=== PATIENT | female | born 1940 | race Caucasian/White ===

== ENCOUNTER 2016-03-20 20:29 | Emergency (ER) | payer MEDICARE, OTHER ==
[~2016-03-20] VITALS: Ht 160 cm; Wt 95.3 kg
[~2016-03-20 20:29] MED LIST: ACET-1574 PO; ALBU2.5V5 NEB; ALPR0.254 PO; AMIO200T2 PO; ASCO500T2 PO; ASPI-482 PO; ATOR40TA PO; ATOR40TA59 PO; BISA5TAB4 PO; DIGO0.12 PO; DIGO125T PO; DIPH25CA3 PO; DOCU100C5 PO; FURO40TA4 PO; GUAI-112 PO; INSU300I SQ; IPRA4AER IH; LEVO75TA PO; LINA5TAB PO; LORA1TAB PO; LOSA25TA PO; MAGN400O4 PO; METF500T25 PO; METF500T4 PO; METO25TA4 PO; MULT-114 PO; OXYC20OR PO; OXYC20TA PO; OXYC30TA PO; OXYC5TAB PO; OXYC80TA16 PO; PANT40TA5 PO; POLY119P4 PO; POTA20TA12 PO; POTA25TA4 PO; SITA100T PO; SITA50TA PO; SPIR25TA PO; WARF1TAB7 PO; WARF2TAB PO
[2016-03-20] MEDS ORDERED: ONDANSETRON PF 4 MG/2 ML VIAL. IV ONE (21:15)
[2016-03-20 21:20] LABS: BASO # 0.1 x10^3/uL (0.0-0.2); BASO % 1 % (0-3); EOS % 9 % (0-3); HEMATOCRIT 37.4 % (36.0-47.0); HEMOGLOBIN 12.5 g/dL (12.0-15.5); LYMPH # 1.1 x10^3/uL (1.0-4.8); LYMPH % 18 % (24-48); MEAN CORPUSCULAR HEMOGLOBIN 34 pg (25-35); MEAN CORPUSCULAR HGB CONC 33 g/dL (31-37); MEAN CORPUSCULAR VOLUME 102 fL (79-100); MONO % 14 % (0-9); NEUT % 59 % (31-73); PLATELET COUNT 93 x10^3/uL (140-400); RED BLOOD COUNT 3.69 x10^6/uL (3.50-5.40); RED CELL DISTRIBUTION WIDTH 15.9 % (11.5-14.5); WHITE BLOOD COUNT 6.1 x10^3/uL (4.0-11.0)
[2016-03-20 21:28] LABS: INR 1.4 (0.8-1.1); PROTHROMBIN TIME PATIENT 16.2 SEC (11.7-14.0)
[2016-03-20 21:34] LABS: CALCIUM 8.6 mg/dL (8.5-10.1); CREATININE 1.9 mg/dL (0.6-1.0); GFR 25.7; POTASSIUM 4.4 mmol/L (3.5-5.1)
[2016-03-20 21:35] LABS: MAGNESIUM 2.3 mg/dL (1.8-2.4)
[2016-03-20 21:48] LABS: BILIRUBIN,URINE NEGATIVE (NEG); GLUCOSE,URINE NEGATIVE (NEG); NITRITE,URINE NEGATIVE (NEG); PH,URINE 5.5; PROTEIN,URINE NEGATIVE (NEG-TRACE); UROBILINOGEN,URINE 0.2 mg/dL (0.2 mg/dL)
[2016-03-20 21:57] LABS: BACTERIA,URINE FEW /HPF (0-FEW); RBC,URINE 0 /HPF (0-2); SQUAMOUS EPITHELIAL CELL,UR MOD /LPF; WBC,URINE OCC /HPF (0-4)
[2016-03-20 22:30] VITALS: BP 120/67
--- NOTE | 2016-03-20 22:34 | PHYS DOC ---
Past Medical History Past Medical History: A-Fib, CAD, CHF, Constipation, Diabetes-Type II, Hypertension Past Surgical History: Cholecystectomy, Coronary Bypass Surgery, , Other Additional Past Surgical Histo: L KIDNEY REMOVED,ORIF L HIP Alcohol Use: None Drug Use: None Adult General Chief Complaint Chief Complaint: WEAKNESS/GENERALIZED HPI HPI Patient is a 75 year old female who presents with dry cough for the past 23 days. She took Tussionex tonight and then went to bed. She woke shortly thereafter words feeling short of breath, lightheaded, and had nausea. She called EMS and her symptoms have resolved by this time. She is currently feeling at her baseline other than minimal cough. She notes minimal increase chronic lower extremity edema recently. She does not weigh herself at home so she is not sure weight gain. She denies new or worsening orthopnea, exertional dyspnea, fever or chills, chest pain, diaphoresis, dizziness, hemoptysis, leg pain. She denies nasal congestion, rhinorrhea, sore throat. She denies sick contacts. She states she is compliant with her medications including Lasix. Review of Systems Review of Systems Constitutional: Denies fever or chills [] Eyes: Denies change in visual acuity, redness, or eye pain [] HENT: Denies nasal congestion or sore throat [] Respiratory: Denies shortness of breath [] Cardiovascular: No additional information not addressed in HPI [] GI: Denies abdominal pain, nausea, vomiting, bloody stools or diarrhea [] : Denies dysuria or hematuria [] Musculoskeletal: Denies back pain or joint pain [] Integument: Denies rash or skin lesions [] Neurologic: Denies headache, focal weakness or sensory changes [] Endocrine: Denies polyuria or polydipsia [] Current Medications Current Medications Current Medications Medications (Trade) Dose Ordered Sig/Ermias Start Time Stop Time Status Last Admin Dose Admin Furosemide (Lasix) 40 mg STK-MED ONCE 03/20/16 22:37 03/20/16 22:38 DC Ondansetron HCl (Zofran) 4 mg 1X ONCE 03/20/16 21:15 03/20/16 21:16 DC 03/20/16 21:45 4 MG Allergies Allergies Allergies Coded Allergies Type Severity Reaction Last Updated Verified No Known Drug Allergies 07/27/13 No Physical Exam Physical Exam Constitutional: Well developed, well nourished, no acute distress, non-toxic appearance. [] HENT: Normocephalic, atraumatic, bilateral external ears normal, oropharynx moist, no oral exudates, nose normal. [] Eyes: PERRLA, EOMI. [] Neck: Normal range of motion, supple. [] Cardiovascular: Irregular rhythm [] Lungs & Thorax: Bilateral breath sounds clear to auscultation [] Abdomen: Bowel sounds normal, soft, no tenderness. [] Skin: Warm, dry, no erythema, no rash. [] Back: No tenderness, no CVA tenderness. [] Extremities: No tenderness, ROM intact, bilateral 1-2+ lower extremity edema. [ ] Neurologic: Alert and oriented X 3, normal motor function, normal sensory function, no focal deficits noted. [] Psychologic: Affect normal, judgement normal, mood normal. [] Current Patient Data Vital Signs Vital Signs Date Time Temp Pulse Resp B/P Pulse Ox O2 Delivery O2 Flow Rate FiO2 03/20/16 22:30 82 12 120/67 95 Nasal Cannula 2.5 03/20/16 20:35 97.7 97.7 Lab Values Laboratory Tests Test 03/20/16 20:40 03/20/16 21:40 White Blood Count 6.1x10^3/uL (4.0-11.0) Red Blood Count 3.69x10^6/uL (3.50-5.40) Hemoglobin 12.5g/dL (12.0-15.5) Hematocrit 37.4% (36.0-47.0) Mean Corpuscular Volume 102fL (79-100) H Mean Corpuscular Hemoglobin 34pg (25-35) Mean Corpuscular Hemoglobin Concent 33g/dL (31-37) Red Cell Distribution Width 15.9% (11.5-14.5) H Platelet Count 93x10^3/uL (140-400) L Neutrophils (%) (Auto) 59% (31-73) Lymphocytes (%) (Auto) 18% (24-48) L Monocytes (%) (Auto) 14% (0-9) H Eosinophils (%) (Auto) 9% (0-3) H Basophils (%) (Auto) 1% (0-3) Neutrophils # (Auto) 3.6x10^3uL (1.8-7.7) Lymphocytes # (Auto) 1.1x10^3/uL (1.0-4.8) Monocytes # (Auto) 0.8x10^3/uL (0.0-1.1) Eosinophils # (Auto) 0.5x10^3/uL (0.0-0.7) Basophils # (Auto) 0.1x10^3/uL (0.0-0.2) Prothrombin Time 16.2SEC (11.7-14.0) H Prothrombin Time INR 1.4 (0.8-1.1) H Sodium Level 140mmol/L (136-145) Potassium Level 4.4mmol/L (3.5-5.1) Chloride Level 103mmol/L (98-107) Carbon Dioxide Level 30mmol/L (21-32) Anion Gap 7 (6-14) Blood Urea Nitrogen 39mg/dL (7-20) H Creatinine 1.9mg/dL (0.6-1.0) H Estimated GFR (Cockcroft-Gault) 25.7 Glucose Level 118mg/dL (70-99) H Calcium Level 8.6mg/dL (8.5-10.1) Magnesium Level 2.3mg/dL (1.8-2.4) Troponin I Quantitative < 0.017ng/mL (0.000-0.055) DF-Flx-F-Type Natriuretic Peptide 2078pg/mL (0-449) H Urine Collection Type Unknown Urine Color Yellow Urine Clarity Clear Urine pH 5.5 Urine Specific [place] 1.010 Urine Protein Negativemg/dL (NEG-TRACE) Urine Glucose (UA) Negativemg/dL (NEG) Urine Ketones (Stick) Negativemg/dL (NEG) Urine Blood Negative (NEG) Urine Nitrite Negative (NEG) Urine Bilirubin Negative (NEG) Urine Urobilinogen Dipstick 0.2mg/dL (0.2 mg/dL) Urine Leukocyte Esterase Negative (NEG) Urine RBC 0/HPF (0-2) Urine WBC Occ/HPF (0-4) Urine Squamous Epithelial Cells Mod/LPF Urine Bacteria Few/HPF (0-FEW) Urine Hyaline Casts Few/HPF Urine Mucus Slight/LPF Laboratory Tests 03/20/16 20:40 Laboratory Tests 03/20/16 20:40 EKG EKG EKG as interpreted by me as atrial fibrillation, rate 79, no ST-T changes Radiology/Procedures Radiology/Procedures Chest x-ray as interpreted by me as stable cardiomegaly, no acute cardiopulmonary disease process Course & Med Decision Making Course & Med Decision Making Pertinent Labs and Imaging studies reviewed. (See chart for details) She has symptoms of mild CHF exacerbation versus acute viral illness. Will give extra dose of Lasix IV. She would like to go home at this time and continue outpatient therapy. She will follow-up with her primary care doctor closely. Return precautions given. She understands and agrees with plan. Dragon Disclaimer Dragon Disclaimer This electronic medical record was generated, in whole or in part, using a voice recognition dictation system. Departure Departure Impression: Primary Impression: Cough Disposition: 01 HOME, SELF-CARE Condition: STABLE Referrals: CRISTY ARANGO MD (PCP) Patient Instructions: Cough, Adult, [place] Additional Instructions: Continue your home medications. Follow-up with your primary care doctor within one week. Return for any concerns. Hardik HU MD Mar 20, 2016 22:34
[2016-03-20] MEDS ORDERED: FUROSEMIDE 40 MG/4 ML VIAL ONE (22:37)
[2016-03-20] MEDS ORDERED: FUROSEMIDE 40 MG/4 ML VIAL IVP ONE (22:45)
--- NOTE | 2016-03-21 06:16 | EKG ---
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
--- NOTE | 2016-03-21 07:05 | RAD ---
Indication: Dyspnea. Time of exam 2128 hours. Comparison is made with prior chest from 01/03/2016. The heart is enlarged but stable. There are changes of median sternotomy. No infiltrate or failure is detected. There is mild central congestion. No effusion or pneumothorax is seen. Impression: Cardiomegaly and mild central congestion.
== END 2016-03-20 22:40 | disposition home or self-care (01) ==
LOC: ER 20:29
DX: R05 Cough (principal); R06.02 Shortness of breath; I48.91 Unspecified atrial fibrillation; E11.9 Type 2 diabetes mellitus without complications; I25.10 Atherosclerotic heart disease of native coronary artery without angina pectoris; I11.0 Hypertensive heart disease with heart failure; I50.9 Heart failure, unspecified; Z90.49 Acquired absence of other specified parts of digestive tract; Z95.1 Presence of aortocoronary bypass graft
CPT/HCPCS: 36415; 71010; 80048; 81001; 83735; 83880; 84484; 85027; 85610; 93005; 96374; 96375; 99285; J1940; J2405; 99284-25

== ENCOUNTER 2016-04-27 02:38 | Emergency (ER) | payer MEDICARE, OTHER ==
[~2016-04-27] VITALS: Ht 160 cm; Wt 90.7 kg
[2016-04-27 03:13] LABS: BASO % 1 % (0-3); EOS % 8 % (0-3); HEMATOCRIT 37.8 % (36.0-47.0); HEMOGLOBIN 12.6 g/dL (12.0-15.5); LYMPH # 1.4 x10^3/uL (1.0-4.8); LYMPH % 27 % (24-48); MEAN CORPUSCULAR HEMOGLOBIN 34 pg (25-35); MEAN CORPUSCULAR HGB CONC 33 g/dL (31-37); MEAN CORPUSCULAR VOLUME 103 fL (79-100); MONO % 10 % (0-9); NEUT % 55 % (31-73); PLATELET COUNT 83 x10^3/uL (140-400); RED BLOOD COUNT 3.66 x10^6/uL (3.50-5.40); RED CELL DISTRIBUTION WIDTH 13.4 % (11.5-14.5); WHITE BLOOD COUNT 5.2 x10^3/uL (4.0-11.0)
[2016-04-27 03:25] LABS: CALCIUM 8.5 mg/dL (8.5-10.1); CREATININE 2.2 mg/dL (0.6-1.0); GFR 21.7; POTASSIUM 4.2 mmol/L (3.5-5.1)
[2016-04-27 03:28] LABS: INR 1.4 (0.8-1.1); PROTHROMBIN TIME PATIENT 15.9 SEC (11.7-14.0)
[2016-04-27 03:30] LABS: ALBUMIN 2.7 g/dL (3.4-5.0); ALBUMIN/GLOBULIN RATIO 0.5 (1.0-1.7); TOTAL BILIRUBIN 0.6 mg/dL (0.2-1.0); TOTAL PROTEIN 7.8 g/dL (6.4-8.2)
[2016-04-27] MEDS ORDERED: LIDOCAINE 2% VISCOUS 15 ML SOLUTION. SWSW ONE (03:30)
[2016-04-27] MEDS ORDERED: LIDOCAINE 2%/EPI 1:100,000 20 ML VIAL. IJ ONE (03:30)
[2016-04-27] MEDS ORDERED: CEPH-264 PO (03:39)
--- NOTE | 2016-04-27 03:40 | PHYS DOC ---
Past Medical History Past Medical History: A-Fib, CAD, CHF, Constipation, COPD, Diabetes-Type II, Hypertension Past Surgical History: Coronary Bypass Surgery, , Other Additional Past Surgical Histo: L KIDNEY REMOVED,ORIF L HIP Additional Information: PPD Alcohol Use: None Drug Use: None Adult General Chief Complaint Chief Complaint: NOSEBLEED HPI HPI Patient is a 75 year old female with a history significant for hypertension, diabetes, CHF, atrial fibrillation, bypass surgery who is currently on aspirin and denies being on Plavix or Coumadin presents here today secondary to epistaxis this evening. Patient reports that she does have a history of COPD and she uses 2-1/2 L of O2 when necessary. Patient smokes. Patient does not need to use CPAP at night. Patient reports when she woke this morning she blew her nose real hard and the bleeding started. She reports a continued for about 15-20 minutes at home and then decided to come to the ER. Patient denies any fevers shakes chills nausea vomiting diarrhea. Patient reports she had a similar symptom in the past which she's had to have nasal packing. Patient denies any easy leading or bruising recently. Patient's physical exam is significant for active bleeding from her right naris. Pressure was applied for 15-20 minutes with resolution of the active bleeding. Her right naris was inspected and there was evidence of a bleeding blood vessel in her medial septal wall. Patient had labs on the ED which were all unremarkable. Patient's hemoglobin was stable. Patient's INR was slightly elevated. Patient had a Rhino Rocket inserted into her right naris without any complication. Rhino Rocket was inflated with approximately 3 mL of air. Patient was observed in the ED with no further episodes of epistaxis. Patient will be discharged home with instructions to follow-up with her doctor in 2-3 days for removal of the nasal packing. She'll be placed on Keflex during that time. Review of Systems Review of Systems Constitutional: Denies fever or chills [] Eyes: Denies change in visual acuity, redness, or eye pain [] All other review systems are negative except as documented in history of present illness portion. Current Medications Current Medications Current Medications Medications (Trade) Dose Ordered Sig/Ermias Start Time Stop Time Status Last Admin Dose Admin Lidocaine HCl (Viscous Lidocaine) 15 ml 1X ONCE 04/27/16 03:30 04/27/16 03:31 DC Lidocaine/ Epinephrine (Xylocaine 2%-Epi 1:100,000) 20 ml 1X ONCE 04/27/16 03:30 04/27/16 03:31 DC Allergies Allergies Allergies Coded Allergies Type Severity Reaction Last Updated Verified No Known Drug Allergies 07/27/13 No Physical Exam Physical Exam Constitutional: Well developed, well nourished, no acute distress, non-toxic appearance. [] HENT: Normocephalic, atraumatic, bilateral external ears normal, oropharynx moist, no oral exudates Eyes: PERRLA, Neck: Normal range of motion, Cardiovascular regular rate Lungs & Thorax: Bilateral breath sounds clear to auscultation [] Abdomen: Bowel sounds normal, soft, no tenderness, no masses, no pulsatile masses. [] Skin: Warm, dry, no erythema, no rash. [] Back: No tenderness, no CVA tenderness. [] Extremities: No tenderness, no cyanosis, no clubbing, ROM intact, no edema. [] Neurologic: Alert and oriented X 3, normal motor function, normal sensory function, no focal deficits noted. [] Psychologic: Affect normal, judgement normal, mood normal. [] Current Patient Data Vital Signs Vital Signs Date Time Temp Pulse Resp B/P Pulse Ox O2 Delivery O2 Flow Rate FiO2 04/27/16 02:38 97.6 68 20 136/114 96 Room Air 97.6 Lab Values Laboratory Tests Test 04/27/16 03:05 White Blood Count 5.2x10^3/uL (4.0-11.0) Red Blood Count 3.66x10^6/uL (3.50-5.40) Hemoglobin 12.6g/dL (12.0-15.5) Hematocrit 37.8% (36.0-47.0) Mean Corpuscular Volume 103fL (79-100) H Mean Corpuscular Hemoglobin 34pg (25-35) Mean Corpuscular Hemoglobin Concent 33g/dL (31-37) Red Cell Distribution Width 13.4% (11.5-14.5) Platelet Count 83x10^3/uL (140-400) L Neutrophils (%) (Auto) 55% (31-73) Lymphocytes (%) (Auto) 27% (24-48) Monocytes (%) (Auto) 10% (0-9) H Eosinophils (%) (Auto) 8% (0-3) H Basophils (%) (Auto) 1% (0-3) Neutrophils # (Auto) 2.9x10^3uL (1.8-7.7) Lymphocytes # (Auto) 1.4x10^3/uL (1.0-4.8) Monocytes # (Auto) 0.5x10^3/uL (0.0-1.1) Eosinophils # (Auto) 0.4x10^3/uL (0.0-0.7) Basophils # (Auto) 0.0x10^3/uL (0.0-0.2) Prothrombin Time 15.9SEC (11.7-14.0) H Prothrombin Time INR 1.4 (0.8-1.1) H Sodium Level 143mmol/L (136-145) Potassium Level 4.2mmol/L (3.5-5.1) Chloride Level 106mmol/L (98-107) Carbon Dioxide Level 30mmol/L (21-32) Anion Gap 7 (6-14) Blood Urea Nitrogen 42mg/dL (7-20) H Creatinine 2.2mg/dL (0.6-1.0) H Estimated GFR (Cockcroft-Gault) 21.7 BUN/Creatinine Ratio 19 (6-20) Glucose Level 178mg/dL (70-99) H Calcium Level 8.5mg/dL (8.5-10.1) Total Bilirubin 0.6mg/dL (0.2-1.0) Aspartate Amino Transferase (AST) 37U/L (15-37) Alanine Aminotransferase (ALT) 33U/L (14-59) Alkaline Phosphatase 231U/L (46-116) H Total Protein 7.8g/dL (6.4-8.2) Albumin 2.7g/dL (3.4-5.0) L Albumin/Globulin Ratio 0.5 (1.0-1.7) L Laboratory Tests 04/27/16 03:05 Laboratory Tests 04/27/16 03:05 EKG EKG [] Radiology/Procedures Radiology/Procedures [] Course & Med Decision Making Course & Med Decision Making Pertinent Labs and Imaging studies reviewed. (See chart for details) [] Dragon Disclaimer Dragon Disclaimer This electronic medical record was generated, in whole or in part, using a voice recognition dictation system. Departure Departure Impression: Primary Impression: Anterior epistaxis Disposition: HOME, SELF-CARE Condition: IMPROVED Referrals: CRISTY ARANGO MD (PCP) Patient Instructions: Nosebleed Additional Instructions: Follow-up with your doctor in 2-3 days for packing removal. Get your prescription filled for the Keflex to prevent infection/sinusitis while the packing is in place. Scripts Cephalexin (Keflex)500 Mg [id number] Mg PO QID 5 Days Prov:ELINA HERNANDEZ MD 04/27/16 ELINA HERNANDEZ MD Apr 27, 2016 03:39
[2016-04-27 04:00] VITALS: BP 158/73
[2016-04-27] MEDS ORDERED: CEPHALEXIN 250 MG CAPSULE PO ONE (04:00)
[2016-04-27] MEDS ORDERED: HYDROCODONE/APAP 5/325MG TABLET. PO ONE (04:00)
== END 2016-04-27 04:05 | disposition home or self-care (01) ==
LOC: ER 02:38
DX: R04.0 Epistaxis (principal); E11.9 Type 2 diabetes mellitus without complications; I48.91 Unspecified atrial fibrillation; I11.0 Hypertensive heart disease with heart failure; I50.9 Heart failure, unspecified; J44.9 Chronic obstructive pulmonary disease, unspecified; I25.10 Atherosclerotic heart disease of native coronary artery without angina pectoris; Z79.82 Long term (current) use of aspirin; Z95.1 Presence of aortocoronary bypass graft
CPT/HCPCS: 30901; 36415; 80053; 85027; 85610; 99284

== ENCOUNTER 2016-06-27 09:14 | Inpatient (IN) | payer MEDICARE, OTHER ==
[~2016-06-27] VITALS: Ht 157.5 cm; Wt 93.0 kg
[~2016-06-27 09:14] MED LIST changes: +CEPH-264 PO; -LINA5TAB PO; +LINA5TAB4 PO
--- NOTE | 2016-06-27 09:43 | PHYS DOC ---
Past Medical History Past Medical History: A-Fib, CAD, CHF, Constipation, COPD, Diabetes-Type II, Hypertension Past Surgical History: Coronary Bypass Surgery, , Other Additional Past Surgical Histo: L KIDNEY REMOVED,ORIF L HIP Alcohol Use: None Drug Use: None Adult General HPI HPI 75 year old female with history of coronary artery disease as well as end-stage renal disease and CHF who presents with diffuse abdominal pain that is worsened throughout the morning. She denies any associated symptoms such as nausea, vomiting, diarrhea. She states her last bowel movement was yesterday and it was normal. She denies any blood in her stool. Localizes her pain somewhat to the left upper quadrant but is diffusely tender. She states she is normally taking 4 -6 oxycodone daily for pain. She states her last dose was last evening. She is fully alert and oriented at this time and mild distress. Patient has history of A. fib as well and is on aspirin therapy only as she is noncompliant with Coumadin. She denies any chest pain or shortness breath at this time. She has history of left-sided nephrectomy. Review of Systems Review of Systems Constitutional: Denies fever or chills [] Eyes: Denies change in visual acuity, redness, or eye pain [] HENT: Denies nasal congestion or sore throat [] Respiratory: Denies cough or shortness of breath [] Cardiovascular: No additional information not addressed in HPI [] GI: Has abdominal pain, denies nausea, denies vomiting, denies bloody stools or diarrhea [] : Denies dysuria or hematuria [] Musculoskeletal: Denies back pain or joint pain [] Integument: Denies rash or skin lesions [] Neurologic: Denies headache, focal weakness or sensory changes [] Endocrine: Denies polyuria or polydipsia [] Current Medications Current Medications Current Medications Medications (Trade) Dose Ordered Sig/Ermias Start Time Stop Time Status Last Admin Dose Admin Ceftriaxone Sodium 50 ml @ 100 mls/hr 1X ONCE 06/27/16 11:00 06/27/16 11:29 DC Hydromorphone HCl (Dilaudid) 1 mg 1X ONCE 06/27/16 11:30 06/27/16 11:31 DC Sodium Chloride 500 ml @ 500 mls/hr 1X ONCE 06/27/16 09:45 06/27/16 10:44 DC 06/27/16 09:56 500 MLS/HR Allergies Allergies Allergies Coded Allergies Type Severity Reaction Last Updated Verified No Known Drug Allergies 07/27/13 No Physical Exam Physical Exam Constitutional: Well developed, well nourished, no acute distress, non-toxic appearance. [] HENT: Normocephalic, atraumatic, bilateral external ears normal, oropharynx moist, no oral exudates, nose normal. [] Eyes: PERRLA, EOMI, conjunctiva normal, no discharge. [] Neck: Normal range of motion, no tenderness, supple, no stridor. [] Cardiovascular:Heart rate regular rhythm, no murmur [] Lungs & Thorax: Bilateral breath sounds clear to auscultation [] Abdomen: Bowel sounds normal, soft, diffuse abdominal wall tenderness, no masses , no pulsatile masses. [] Skin: Warm, dry, no erythema, no rash. [] Back: No tenderness, no CVA tenderness. [] Extremities: No tenderness, no cyanosis, no clubbing, ROM intact, no edema. [] Neurologic: Alert and oriented X 3, normal motor function, normal sensory function, no focal deficits noted. [] Psychologic: Affect normal, judgement normal, mood normal. [] Current Patient Data Vital Signs Vital Signs Date Time Temp Pulse Resp B/P (MAP) Pulse Ox O2 Delivery O2 Flow Rate FiO2 06/27/16 10:01 16 96 Room Air 06/27/16 09:30 99.4 109 112/59 (76) 99.4 Lab Values Laboratory Tests Test 06/27/16 09:42 06/27/16 10:55 White Blood Count 13.6 x10^3/uL (4.0-11.0) H Red Blood Count 4.27 x10^6/uL (3.50-5.40) Hemoglobin 14.9 g/dL (12.0-15.5) Hematocrit 43.4 % (36.0-47.0) Mean Corpuscular Volume 102 fL (79-100) H Mean Corpuscular Hemoglobin 35 pg (25-35) Mean Corpuscular Hemoglobin Concent 34 g/dL (31-37) Red Cell Distribution Width 12.9 % (11.5-14.5) Platelet Count 96 x10^3/uL (140-400) L Neutrophils (%) (Auto) 78 % (31-73) H Lymphocytes (%) (Auto) 11 % (24-48) L Monocytes (%) (Auto) 10 % (0-9) H Eosinophils (%) (Auto) 1 % (0-3) Basophils (%) (Auto) 1 % (0-3) Neutrophils # (Auto) 10.6 x10^3uL (1.8-7.7) H Lymphocytes # (Auto) 1.5 x10^3/uL (1.0-4.8) Monocytes # (Auto) 1.3 x10^3/uL (0.0-1.1) H Eosinophils # (Auto) 0.1 x10^3/uL (0.0-0.7) Basophils # (Auto) 0.1 x10^3/uL (0.0-0.2) Sodium Level 135 mmol/L (136-145) L Potassium Level 4.0 mmol/L (3.5-5.1) Chloride Level 101 mmol/L (98-107) Carbon Dioxide Level 31 mmol/L (21-32) Anion Gap 3 (6-14) L Blood Urea Nitrogen 56 mg/dL (7-20) H Creatinine 2.1 mg/dL (0.6-1.0) H Estimated GFR (Cockcroft-Gault) 22.9 BUN/Creatinine Ratio 27 (6-20) H Glucose Level 171 mg/dL (70-99) H Lactic Acid Level 1.2 mmol/L (0.4-2.0) Calcium Level 8.1 mg/dL (8.5-10.1) L Total Bilirubin 1.1 mg/dL (0.2-1.0) H Aspartate Amino Transferase (AST) 28 U/L (15-37) Alanine Aminotransferase (ALT) 27 U/L (14-59) Alkaline Phosphatase 194 U/L (46-116) H Troponin I Quantitative 0.017 ng/mL (0.000-0.055) Total Protein 7.6 g/dL (6.4-8.2) Albumin 2.6 g/dL (3.4-5.0) L Albumin/Globulin Ratio 0.5 (1.0-1.7) L Lipase 101 U/L (73-393) Urine Collection Type U cath Urine Color Yellow Urine Clarity Clear Urine pH 7.0 Urine Specific [place] 1.015 Urine Protein Negative mg/dL (NEG-TRACE) Urine Glucose (UA) Negative mg/dL (NEG) Urine Ketones (Stick) Negative mg/dL (NEG) Urine Blood Small (NEG) Urine Nitrite Negative (NEG) Urine Bilirubin Negative (NEG) Urine Urobilinogen Dipstick 1.0 mg/dL (0.2 mg/dL) Urine Leukocyte Esterase Small (NEG) Urine RBC 6-10 /HPF (0-2) Urine WBC 5-10 /HPF (0-4) Urine Transitional Epithelial Cells Mod /LPF Urine Bacteria Many /HPF (0-FEW) Laboratory Tests 06/27/16 09:42 Laboratory Tests 06/27/16 09:42 EKG EKG EKG as interpreted by me shows an irregular rhythm with an approximate rate of 126 bpm. Interpretation of this EKG is limited secondary to patient movement and artifact. There are no obvious ischemic findings however. Radiology/Procedures Radiology/Procedures CT of the abdomen and pelvis without contrast, 06/27/2016: History: Abdominal pain Noncontrast scans were obtained as requested. The hepatic margins are irregular compatible with cirrhosis. The gallbladder is surgically absent. There is dilatation of the central intrahepatic ducts and common bile duct. The common hepatic duct measures 2.5 cm. Similar findings were present on CT chest images from 03/27/2016. The liver is otherwise unremarkable. The dilated common duct extends into the head of the pancreas. No pancreatic mass is identified. The spleen is of normal size. The unopacified right kidney shows no abnormality. The left kidney is surgically absent. There are abnormal streaky opacities in the left renal bed extending inferiorly along the anterior aspect of the left iliopsoas muscle. There are bubbles of gas within this process. No discrete well-defined abscess is seen. The left ureteral stump at the upper pelvic level contains a bubble of gas. Inferiorly this inflammatory process lies adjacent to the proximal sigmoid colon, however, there is no evidence of underlying diverticulosis or colonic mural thickening to suggest a colonic origin for this inflammatory process. There is moderate aortoiliac calcific plaquing without evidence of aneurysm. No abdominal or pelvic adenopathy is seen. The uterus is surgically absent. The urinary bladder shows no intrinsic abnormality. The bowel loops are not dilated. No free intraperitoneal fluid or gas is identified. There are moderate multilevel degenerative changes in the spine. There are vertebral compression deformities at L2 and L3 of indeterminate ages. There is sclerotic change within the L3 vertebral body. An internal fixation device is present at the left hip. IMPRESSION: 1. Status post left nephrectomy. 2. Streaky inflammatory process in the left renal bed extending inferiorly along the anterior aspect of the left iliopsoas musculature with associated air bubbles. Infection is likely. The presence of a small amount of gas within the left ureteral stump raises the possibility of ureteral stump dehiscence being the source of this retroperitoneal inflammatory process. 3. Hepatic cirrhosis. 4. Unchanged biliary ductal dilatation is likely secondary to the postcholecystectomy state. A distal common duct stricture or occult mass cannot be entirely excluded. Course & Med Decision Making Course & Med Decision Making Pertinent Labs and Imaging studies reviewed. (See chart for details) 75 year old female who's having diffuse abdominal wall tenderness will have full laboratory workup. Her EKG shows an irregular rhythm that she is known to have before. Blood cultures and lactate will also be obtained. A CT without contrast will be obtained as the patient has history of end-stage renal disease. A small fluid bolus will be given as well. Laboratory workup reveals a slight leukocytosis as well as an elevated BUN/ creatinine. Her creatinine seems at baseline compared to previous lab results and her CT of the pelvis and abdomen without contrast has concerning findings for ureteral stump infection on the left side where she's had her previous nephrectomy. There is also a possibility of ureteral stump dehiscence. I discussed these findings with the hospitalist, Dr. Arango, who agreed to accept the patient for further evaluation and treatment with infectious disease consult as well. Urology is currently not operational risk analyst and I could not obtain any input from them. The patient may ultimately require urology consult and I discussed this as well with Dr. Arango who agreed to accept for the next 24 hours with the possibility of transferring at the patient does not improve. She'll continue to receive pain control as needed. I discussed the initial antibiotic choice with the infectious disease doctor, Dr. Barbosa, who agreed with empiric treatment with IV Rocephin. Dragon Disclaimer Dragon Disclaimer This electronic medical record was generated, in whole or in part, using a voice recognition dictation system. Departure Departure Impression: Primary Impression: Inflammation of ureter Additional Impressions: Atrial fibrillation Abdominal pain Disposition: ADMITTED INPATIENT Admitting Physician: Cristy Arango Condition: STABLE Referrals: CRISTY ARANGO MD (PCP) Problem Qualifiers ISABELLA HUFF DO June 27, 2016 09:42
[2016-06-27] MEDS ORDERED: IV NORMAL SALINE 500ML BAG 500 ML IV ONE (09:45)
[2016-06-27] MEDS ORDERED: IV NORMAL SALINE 1000ML BAG 1,000 ML IV ONE (09:45)
[2016-06-27] MEDS ORDERED: HYDROmorphone 2 MG/ML VIAL IV ONE ×2 (09:45→11:30)
[2016-06-27 09:53] LABS: BASO # 0.1 x10^3/uL (0.0-0.2); BASO % 1 % (0-3); EOS % 1 % (0-3); HEMATOCRIT 43.4 % (36.0-47.0); HEMOGLOBIN 14.9 g/dL (12.0-15.5); LYMPH # 1.5 x10^3/uL (1.0-4.8); LYMPH % 11 % (24-48); MEAN CORPUSCULAR HEMOGLOBIN 35 pg (25-35); MEAN CORPUSCULAR HGB CONC 34 g/dL (31-37); MEAN CORPUSCULAR VOLUME 102 fL (79-100); MONO % 10 % (0-9); NEUT % 78 % (31-73); PLATELET COUNT 96 x10^3/uL (140-400); RED BLOOD COUNT 4.27 x10^6/uL (3.50-5.40); RED CELL DISTRIBUTION WIDTH 12.9 % (11.5-14.5); WHITE BLOOD COUNT 13.6 x10^3/uL (4.0-11.0)
[2016-06-27 10:05] LABS: CALCIUM 8.1 mg/dL (8.5-10.1); CREATININE 2.1 mg/dL (0.6-1.0); GFR 22.9
[2016-06-27 10:11] LABS: ALBUMIN 2.6 g/dL (3.4-5.0); ALBUMIN/GLOBULIN RATIO 0.5 (1.0-1.7); TOTAL BILIRUBIN 1.1 mg/dL (0.2-1.0); TOTAL PROTEIN 7.6 g/dL (6.4-8.2)
--- NOTE | 2016-06-27 10:43 | EKG ---
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
--- NOTE | 2016-06-27 10:44 | RAD ---
CT of the abdomen and pelvis without contrast, 06/27/2016: History: Abdominal pain Noncontrast scans were obtained as requested. The hepatic margins are irregular compatible with cirrhosis. The gallbladder is surgically absent. There is dilatation of the central intrahepatic ducts and common bile duct. The common hepatic duct measures 2.5 cm. Similar findings were present on CT chest images from 03/27/2016. The liver is otherwise unremarkable. The dilated common duct extends into the head of the pancreas. No pancreatic mass is identified. The spleen is of normal size. The unopacified right kidney shows no abnormality. The left kidney is surgically absent. There are abnormal streaky opacities in the left renal bed extending inferiorly along the anterior aspect of the left iliopsoas muscle. There are bubbles of gas within this process. No discrete well-defined abscess is seen. The left ureteral stump at the upper pelvic level contains a bubble of gas. Inferiorly this inflammatory process lies adjacent to the proximal sigmoid colon, however, there is no evidence of underlying diverticulosis or colonic mural thickening to suggest a colonic origin for this inflammatory process. There is moderate aortoiliac calcific plaquing without evidence of aneurysm. No abdominal or pelvic adenopathy is seen. The uterus is surgically absent. The urinary bladder shows no intrinsic abnormality. The bowel loops are not dilated. No free intraperitoneal fluid or gas is identified. There are moderate multilevel degenerative changes in the spine. There are vertebral compression deformities at L2 and L3 of indeterminate ages. There is sclerotic change within the L3 vertebral body. An internal fixation device is present at the left hip. IMPRESSION: 1. Status post left nephrectomy. 2. Streaky inflammatory process in the left renal bed extending inferiorly along the anterior aspect of the left iliopsoas musculature with associated air bubbles. Infection is likely. The presence of a small amount of gas within the left ureteral stump raises the possibility of ureteral stump dehiscence being the source of this retroperitoneal inflammatory process. 3. Hepatic cirrhosis. 4. Unchanged biliary ductal dilatation is likely secondary to the postcholecystectomy state. A distal common duct stricture or occult mass cannot be entirely excluded. PQRS Compliance Statement: One or more of the following individualized dose reduction techniques were utilized for this examination: 1. Automated exposure control 2. Adjustment of the mA and/or kV according to patient size 3. Use of iterative reconstruction technique
[2016-06-27 11:08] LABS: BILIRUBIN,URINE NEGATIVE (NEG); GLUCOSE,URINE NEGATIVE (NEG); NITRITE,URINE NEGATIVE (NEG); PROTEIN,URINE NEGATIVE (NEG-TRACE)
[2016-06-27 11:20] LABS: BACTERIA,URINE MANY /HPF (0-FEW)
--- NOTE | 2016-06-27 11:41 | EKG ---
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
[2016-06-27] MEDS ORDERED: ONDANSETRON PF 4 MG/2 ML VIAL. IV PRN (12:15)
[2016-06-27 12:54] VITALS: BP 101/59
--- NOTE | 2016-06-27 12:57 | PDOC ---
Infectious Disease Note Vital Sign Vital Signs Vital Signs Date Time Temp Pulse Resp B/P (MAP) Pulse Ox O2 Delivery O2 Flow Rate FiO2 06/27/16 12:24 16 96 Nasal Cannula 3.0 06/27/16 09:30 99.4 109 112/59 (76) 99.4 Labs Lab Laboratory Tests Test 06/27/16 09:42 06/27/16 10:55 White Blood Count 13.6 x10^3/uL (4.0-11.0) Red Blood Count 4.27 x10^6/uL (3.50-5.40) Hemoglobin 14.9 g/dL (12.0-15.5) Hematocrit 43.4 % (36.0-47.0) Mean Corpuscular Volume 102 fL (79-100) Mean Corpuscular Hemoglobin 35 pg (25-35) Mean Corpuscular Hemoglobin Concent 34 g/dL (31-37) Red Cell Distribution Width 12.9 % (11.5-14.5) Platelet Count 96 x10^3/uL (140-400) Neutrophils (%) (Auto) 78 % (31-73) Lymphocytes (%) (Auto) 11 % (24-48) Monocytes (%) (Auto) 10 % (0-9) Eosinophils (%) (Auto) 1 % (0-3) Basophils (%) (Auto) 1 % (0-3) Neutrophils # (Auto) 10.6 x10^3uL (1.8-7.7) Lymphocytes # (Auto) 1.5 x10^3/uL (1.0-4.8) Monocytes # (Auto) 1.3 x10^3/uL (0.0-1.1) Eosinophils # (Auto) 0.1 x10^3/uL (0.0-0.7) Basophils # (Auto) 0.1 x10^3/uL (0.0-0.2) Sodium Level 135 mmol/L (136-145) Potassium Level 4.0 mmol/L (3.5-5.1) Chloride Level 101 mmol/L (98-107) Carbon Dioxide Level 31 mmol/L (21-32) Anion Gap 3 (6-14) Blood Urea Nitrogen 56 mg/dL (7-20) Creatinine 2.1 mg/dL (0.6-1.0) Estimated GFR (Cockcroft-Gault) 22.9 BUN/Creatinine Ratio 27 (6-20) Glucose Level 171 mg/dL (70-99) Lactic Acid Level 1.2 mmol/L (0.4-2.0) Calcium Level 8.1 mg/dL (8.5-10.1) Total Bilirubin 1.1 mg/dL (0.2-1.0) Aspartate Amino Transf (AST/SGOT) 28 U/L (15-37) Alanine Aminotransferase (ALT/SGPT) 27 U/L (14-59) Alkaline Phosphatase 194 U/L (46-116) Troponin I Quantitative 0.017 ng/mL (0.000-0.055) Total Protein 7.6 g/dL (6.4-8.2) Albumin 2.6 g/dL (3.4-5.0) Albumin/Globulin Ratio 0.5 (1.0-1.7) Lipase 101 U/L (73-393) Urine Collection Type U cath Urine Color Yellow Urine Clarity Clear Urine pH 7.0 Urine Specific Arnold 1.015 Urine Protein Negative mg/dL (NEG-TRACE) Urine Glucose (UA) Negative mg/dL (NEG) Urine Ketones (Stick) Negative mg/dL (NEG) Urine Blood Small (NEG) Urine Nitrite Negative (NEG) Urine Bilirubin Negative (NEG) Urine Urobilinogen Dipstick 1.0 mg/dL (0.2 mg/dL) Urine Leukocyte Esterase Small (NEG) Urine RBC 6-10 /HPF (0-2) Urine WBC 5-10 /HPF (0-4) Urine Transitional Epithelial Cells Mod /LPF Urine Bacteria Many /HPF (0-FEW) Objective Assessment Psoas abscess likely ? Ureteral stump dehiscence Leukocytosis Fever Tachy S/p Nephrectomy Plan Plan of Care zosyn IR to obtain specimen ? will d/w Dr Gato slaughter d/w ER physician d/w sister BOBBY KENNEDY MD June 27, 2016 12:57
[2016-06-27] MEDS: PIPERACILLIN/TAZOBACTAM 3.375 GM in IV NORMAL SALINE 50ML 50 ML IV SCH ×2 (14:41→21:39)
[2016-06-27] MEDS: IV NORMAL SALINE 1000ML BAG 1,000 ML IV SCH ×2 (14:41→22:34)
[2016-06-27 15:00] VITALS: BP 107/42
[2016-06-27 19:20] VITALS: BP 105/50
[2016-06-27] MEDS ORDERED: POLY17PO29 PO (19:27)
[2016-06-27] MEDS ORDERED: POTASSIUM CHLO10 MEQ PO (19:27)
[2016-06-27] MEDS ORDERED: AMIO200T2 PO (19:27)
[2016-06-27] MEDS: oxyCODONE ER 40 MG TAB.ER.12H PO SCH (20:35)
[2016-06-27] MEDS ORDERED: INSULIN DETEMIR 300 UNITS/3 ML INSULN.PEN. SQ SCH (21:00)
[2016-06-27] MEDS ORDERED: INSULIN ASPART 300 UNITS/3 ML INSULN.PEN SQ ONE (22:15)
[2016-06-27 23:55] VITALS: BP 100/50
[2016-06-28] VITALS (9 sets, daily range): BP systolic 70–109; BP diastolic 28–86
--- NOTE | 2016-06-28 04:15 | CONS ---
DATE OF CONSULTATION: 06/27/2016 REQUESTING PHYSICIAN: Dr. Christiano Bautista. REASON FOR CONSULTATION: Infection in the abdomen. HISTORY OF PRESENT ILLNESS: This is a 75-year-old female who came in with 2-day history of left-sided abdominal pain. The patient has had fever at home. she has had low-grade. The patient denied any nausea, vomiting, diarrhea. Denied any chest pain. She does have a chronic back problem, which is nothing new. The patient came in the ER. The patient was noted to have low-grade fever, leukocytosis, slight tachycardia and CT scan of the abdomen and pelvis showed there is iliopsoas inflammatory process along with air bubbles. Also the urethral stump may have dehiscence. The patient has been admitted ____ ER physician, Dr. Bautista, and then called me and I talked to the ER physician. PAST MEDICAL HISTORY: Positive for patient had left nephrectomy done almost 18 years ago, also has hypertension, coronary artery disease, coronary artery bypass grafting done, COPD, gastroesophageal reflux disease, renal insufficiency, and thumb amputation. SOCIAL HISTORY: Positive for smoking, no alcohol use or drug use. ALLERGIES: No known drug allergies. CURRENT MEDICATIONS: Reviewed. REVIEW OF SYSTEMS: As per HPI, all other systems reviewed are negative. PHYSICAL EXAMINATION: GENERAL: Alert, oriented female, not in distress. VITAL SIGNS: Stable. T-max is 99.4. HEENT: NAD. NECK: Supple, no JVP, no lymphadenopathy. LUNGS: Clear. HEART: S1, S2 regular. ABDOMEN: Benign. Mild diffuse tenderness present. No rebound or guarding. EXTREMITIES: No edema, cyanosis. SKIN: Unremarkable. NEUROLOGIC: The patient is neurologically intact. LABORATORY DATA: White count is 13.6. BUN is 56, creatinine 2.1. Cultures are pending. CT, as I mentioned in HPI. IMPRESSION: 1. Iliopsoas infection with air bubbles. 2. Also has ureteral dehiscence. 3. Fever. 4. Leukocytosis. 5. Coronary artery disease. 6. Renal insufficiency. RECOMMENDATION: Would use Zosyn, supportive care. I am going to talk to Radiology to put a needle and blood culture and iliopsoas culture and a urologic consult. Thank you very much, Dr. Bautista, for giving me the opportunity to participate in this patient's care. BOBBY KENNEDY MD DR: ORQUIDEA/rob JOB#: [id number] / [id number]
[2016-06-28 05:22] LABS: BASO % 0 % (0-3); EOS % 0 % (0-3); HEMATOCRIT 43.7 % (36.0-47.0); HEMOGLOBIN 14.6 g/dL (12.0-15.5); LYMPH # 0.7 x10^3/uL (1.0-4.8); LYMPH % 4 % (24-48); MEAN CORPUSCULAR HEMOGLOBIN 35 pg (25-35); MEAN CORPUSCULAR HGB CONC 34 g/dL (31-37); MEAN CORPUSCULAR VOLUME 104 fL (79-100); MONO % 3 % (0-9); NEUT % 92 % (31-73); PLATELET COUNT 77 x10^3/uL (140-400); RED BLOOD COUNT 4.19 x10^6/uL (3.50-5.40); WHITE BLOOD COUNT 17.8 x10^3/uL (4.0-11.0)
[2016-06-28 05:42] LABS: CALCIUM 7.4 mg/dL (8.5-10.1); CREATININE 2.3 mg/dL (0.6-1.0); GFR 20.6; POTASSIUM 4.3 mmol/L (3.5-5.1)
[2016-06-28] MEDS: LEVOTHYROXINE 75 MCG TABLET PO SCH (06:01)
[2016-06-28] MEDS: PIPERACILLIN/TAZOBACTAM 3.375 GM in IV NORMAL SALINE 50ML 50 ML IV SCH ×3 (06:02→21:04)
[2016-06-28] MEDS: oxyCODONE ER 40 MG TAB.ER.12H PO SCH ×3 (08:37→23:43)
[2016-06-28] MEDS: LINAGLIPTIN 5 MG TABLET PO SCH (08:37)
[2016-06-28] MEDS ORDERED: SPIRONOLACTONE 25 MG TABLET PO SCH (09:00)
[2016-06-28 09:36] LABS: % EOS 1 % (0-5)
[2016-06-28 09:37] LABS: PLT ESTIMATE DECREASED (ADEQUATE)
[2016-06-28] MEDS: IV NORMAL SALINE 1000ML BAG 1,000 ML IV SCH (10:09)
--- NOTE | 2016-06-28 10:27 | PDOC ---
Infectious Disease Note Subjective Subjective c/o left-sided back and abdominal pain Hungry, didn't get a chance to eat all her breakfast before tray removed. ROS ROS GEN: Denies fevers, chills, sweats HEENT: Denies sore throat CV: Denies chest pain RESP: Denies shortness of air, cough GI: Denies n/v/d NEURO: Denies confusion, dizziness MSK: Denies weakness, joint pain/swelling Vital Sign Vital Signs Vital Signs Date Time Temp Pulse Resp B/P (MAP) Pulse Ox O2 Delivery O2 Flow Rate FiO2 06/28/16 08:37 Nasal Cannula 06/28/16 07:55 97.8 118 18 81/37 (52) 96 97.8 06/28/16 07:54 3.0 Physical Exam PHYSICAL EXAM GENERAL: Up in the chair, NAD HEENT: PERRL, OC/OP pink, dentures NECK: Supple, no JVD, no LN LUNGS: Clear HEART: S1S2, no gallop, no murmur ABD: Obese, BS present, soft, NT EXT: No edema, no cyanosis 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, 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 x 3, no focal neurologic deficit SKIN: No rash IV: ok Labs Lab Laboratory Tests Test 06/27/16 10:55 06/27/16 17:59 06/27/16 21:38 06/28/16 05:01 Urine Collection Type U cath Urine Color Yellow Urine Clarity Clear Urine pH 7.0 Urine Specific [place] 1.015 Urine Protein Negative mg/dL (NEG-TRACE) Urine Glucose (UA) Negative mg/dL (NEG) Urine Ketones (Stick) Negative mg/dL (NEG) Urine Blood Small (NEG) Urine Nitrite Negative (NEG) Urine Bilirubin Negative (NEG) Urine Urobilinogen Dipstick 1.0 mg/dL (0.2 mg/dL) Urine Leukocyte Esterase Small (NEG) Urine RBC 6-10 /HPF (0-2) Urine WBC 5-10 /HPF (0-4) Urine Transitional Epithelial Cells Mod /LPF Urine Bacteria Many /HPF (0-FEW) Glucose (Fingerstick) 377 mg/dL (70-99) 451 mg/dL (70-99) White Blood Count 17.8 x10^3/uL (4.0-11.0) Red Blood Count 4.19 x10^6/uL (3.50-5.40) Hemoglobin 14.6 g/dL (12.0-15.5) Hematocrit 43.7 % (36.0-47.0) Mean Corpuscular Volume 104 fL (79-100) Mean Corpuscular Hemoglobin 35 pg (25-35) Mean Corpuscular Hemoglobin Concent 34 g/dL (31-37) Red Cell Distribution Width 13.0 % (11.5-14.5) Platelet Count 77 x10^3/uL (140-400) Neutrophils (%) (Auto) 92 % (31-73) Lymphocytes (%) (Auto) 4 % (24-48) Monocytes (%) (Auto) 3 % (0-9) Eosinophils (%) (Auto) 0 % (0-3) Basophils (%) (Auto) 0 % (0-3) Neutrophils # (Auto) 16.4 x10^3uL (1.8-7.7) Lymphocytes # (Auto) 0.7 x10^3/uL (1.0-4.8) Monocytes # (Auto) 0.6 x10^3/uL (0.0-1.1) Eosinophils # (Auto) 0.1 x10^3/uL (0.0-0.7) Basophils # (Auto) 0.0 x10^3/uL (0.0-0.2) Segmented Neutrophils % 62 % (35-66) Band Neutrophils % 33 % (0-9) Lymphocytes % 2 % (24-48) Monocytes % 2 % (0-10) Eosinophils % 1 % (0-5) Platelet Estimate Decreased (ADEQUATE) Macrocytosis Present Sodium Level 136 mmol/L (136-145) Potassium Level 4.3 mmol/L (3.5-5.1) Chloride Level 102 mmol/L (98-107) Carbon Dioxide Level 26 mmol/L (21-32) Anion Gap 8 (6-14) Blood Urea Nitrogen 55 mg/dL (7-20) Creatinine 2.3 mg/dL (0.6-1.0) Estimated GFR (Cockcroft-Gault) 20.6 Glucose Level 270 mg/dL (70-99) Calcium Level 7.4 mg/dL (8.5-10.1) Test 06/28/16 07:19 Glucose (Fingerstick) 225 mg/dL (70-99) CT abd/pelvis IMPRESSION: 1. Status post left nephrectomy. 2. Streaky inflammatory process in the left renal bed extending inferiorly along the anterior aspect of the left iliopsoas musculature with associated air bubbles. Infection is likely. The presence of a small amount of gas within the left ureteral stump raises the possibility of ureteral stump dehiscence being the source of this retroperitoneal inflammatory process. 3. Hepatic cirrhosis. 4. Unchanged biliary ductal dilatation is likely secondary to the postcholecystectomy state. A distal common duct stricture or occult mass cannot be entirely excluded. Micro BLOOD CULTURE Preliminary NO GROWTH AFTER 1 DAY Objective Assessment Iliopsoas infection with air bubbles. ureteral dehiscence. h/o remote left nephrectomy Fever, better Leukocytosis. Coronary artery disease. Renal insufficiency. Plan Plan of Care Zosyn Monitor WBC, temp and renal function in am f/u cultures Per Dr. Eric Barbosa, IR not able to obtain specimen due to lack of fluid present. Will monitor - may need repeat imaging if worsens Attending Co-Sign Attending Co-Sign The patient was seen and interviewed as well as examined at the bedside. The chart was reviewed. The case was discussed. Agree with the plan of care. BARB MONTGOMERY APRN June 28, 2016 10:27 HUNTER SELF MD June 28, 2016 13:50
--- NOTE | 2016-06-28 12:17 | PDOC ---
SUBJECTIVE Subjective c/o pain Left flank area, breathing is ok OBJECTIVE Vital Signs Vital Signs Date Time Temp Pulse Resp B/P (MAP) Pulse Ox O2 Delivery O2 Flow Rate FiO2 06/28/16 11:16 98.1 115 18 97/46 (63) 98 Room Air 98.1 06/28/16 08:37 Nasal Cannula 06/28/16 07:57 Nasal Cannula 3.0 06/28/16 07:55 97.8 118 18 81/37 (52) 96 Room Air 97.8 06/28/16 07:54 Nasal Cannula 3.0 06/28/16 07:00 97.8 118 18 70/28 (42) 96 Room Air 97.8 06/28/16 05:10 92 109/86 (94) 06/28/16 03:00 97.8 75 18 84/37 (53) 98 Room Air 97.8 06/27/16 23:55 98.3 115 20 100/50 (67) 98 Nasal Cannula 2.0 98.3 06/27/16 20:00 Nasal Cannula 3.0 06/27/16 19:20 99.1 105 20 105/50 (68) 100 Nasal Cannula 2.0 99.1 06/27/16 18:09 19 95 06/27/16 17:09 18 95 Nasal Cannula 2.0 06/27/16 15:00 97.2 107 20 107/42 (63) 95 97.2 06/27/16 14:17 Nasal Cannula 2.0 06/27/16 12:54 98.2 57 16 101/59 (73) 93 98.2 06/27/16 12:54 98.2 57 16 101/59 (73) 93 98.2 06/27/16 12:24 16 96 Nasal Cannula 3.0 I & O Intake and Output 06/28/16 07:00 Intake Total 1000 ml Balance 1000 ml Intake Oral 500 ml IV Total 500 ml # Voids 1 PHYSICAL EXAM Physical Exam lungs few scattered ronchi heart RRR abd soft tender in left side with flank pain ext no edema ASSESSMENT/PLAN Assessment/Plan 1. Iliopsoas infection with air bubbles., hx of nephrectomy 2. ureteral dehiscence. 3. Fever. 4. Leukocytosis. 5. Coronary artery disease. 6. Renal insufficiency. 7. COPD 8. DJD and chronic pain continue Abx, possible drain, await cultures , pain control, hold spironolactone due to hypotension, DVT prophylaxis Problems: COMMENT Lab Laboratory Tests Test 06/27/16 17:59 06/27/16 21:38 06/28/16 05:01 06/28/16 07:19 Glucose (Fingerstick) 377 mg/dL (70-99) 451 mg/dL (70-99) 225 mg/dL (70-99) White Blood Count 17.8 x10^3/uL (4.0-11.0) Red Blood Count 4.19 x10^6/uL (3.50-5.40) Hemoglobin 14.6 g/dL (12.0-15.5) Hematocrit 43.7 % (36.0-47.0) Mean Corpuscular Volume 104 fL (79-100) Mean Corpuscular Hemoglobin 35 pg (25-35) Mean Corpuscular Hemoglobin Concent 34 g/dL (31-37) Red Cell Distribution Width 13.0 % (11.5-14.5) Platelet Count 77 x10^3/uL (140-400) Neutrophils (%) (Auto) 92 % (31-73) Lymphocytes (%) (Auto) 4 % (24-48) Monocytes (%) (Auto) 3 % (0-9) Eosinophils (%) (Auto) 0 % (0-3) Basophils (%) (Auto) 0 % (0-3) Neutrophils # (Auto) 16.4 x10^3uL (1.8-7.7) Lymphocytes # (Auto) 0.7 x10^3/uL (1.0-4.8) Monocytes # (Auto) 0.6 x10^3/uL (0.0-1.1) Eosinophils # (Auto) 0.1 x10^3/uL (0.0-0.7) Basophils # (Auto) 0.0 x10^3/uL (0.0-0.2) Segmented Neutrophils % 62 % (35-66) Band Neutrophils % 33 % (0-9) Lymphocytes % 2 % (24-48) Monocytes % 2 % (0-10) Eosinophils % 1 % (0-5) Platelet Estimate Decreased (ADEQUATE) Macrocytosis Present Sodium Level 136 mmol/L (136-145) Potassium Level 4.3 mmol/L (3.5-5.1) Chloride Level 102 mmol/L (98-107) Carbon Dioxide Level 26 mmol/L (21-32) Anion Gap 8 (6-14) Blood Urea Nitrogen 55 mg/dL (7-20) Creatinine 2.3 mg/dL (0.6-1.0) Estimated GFR (Cockcroft-Gault) 20.6 Glucose Level 270 mg/dL (70-99) Calcium Level 7.4 mg/dL (8.5-10.1) Test 06/28/16 12:01 Glucose (Fingerstick) 340 mg/dL (70-99) NILES GARCES MD June 28, 2016 12:16
[2016-06-28] MEDS: ENOXAPARIN 30 MG/0.3 ML SYRINGE. SQ SCH (12:29)
[2016-06-28] MEDS: INSULIN ASPART 300 UNITS/3 ML INSULN.PEN SQ SCH (16:45)
[2016-06-28] MEDS: INSULIN DETEMIR 300 UNITS/3 ML INSULN.PEN. SQ SCH (20:42)
[2016-06-29 02:52] VITALS: BP 155/78
[2016-06-29] MEDS: PIPERACILLIN/TAZOBACTAM 3.375 GM in IV NORMAL SALINE 50ML 50 ML IV SCH (05:42)
[2016-06-29] MEDS: LEVOTHYROXINE 75 MCG TABLET PO SCH (05:42)
[2016-06-29 07:28] VITALS: BP 116/97
[2016-06-29] MEDS: LINAGLIPTIN 5 MG TABLET PO SCH (08:09)
[2016-06-29] MEDS: oxyCODONE ER 40 MG TAB.ER.12H PO SCH ×2 (08:09→20:12)
[2016-06-29] MEDS: INSULIN ASPART 300 UNITS/3 ML INSULN.PEN SQ SCH ×3 (08:14→17:27)
[2016-06-29 08:36] LABS: HEMOGLOBIN 13.5 g/dL (12.0-15.5); RED BLOOD COUNT 3.89 x10^6/uL (3.50-5.40); RED CELL DISTRIBUTION WIDTH 13.4 % (11.5-14.5); WHITE BLOOD COUNT 12.6 x10^3/uL (4.0-11.0)
[2016-06-29 09:06] LABS: ALBUMIN 1.9 g/dL (3.4-5.0); ALBUMIN/GLOBULIN RATIO 0.4 (1.0-1.7); CALCIUM 7.9 mg/dL (8.5-10.1); CREATININE 3.3 mg/dL (0.6-1.0); GFR 13.6; POTASSIUM 4.4 mmol/L (3.5-5.1); TOTAL BILIRUBIN 2.4 mg/dL (0.2-1.0); TOTAL PROTEIN 6.3 g/dL (6.4-8.2)
--- NOTE | 2016-06-29 09:37 | PDOC ---
Infectious Disease Note Subjective Subjective c/o bilat flank pain L>R ROS ROS GEN: Denies fevers, chills, sweats CV: Denies chest pain RESP: Denies shortness of air, cough GI: Denies n/v/d NEURO: Denies confusion, dizziness Vital Sign Vital Signs Vital Signs Date Time Temp Pulse Resp B/P (MAP) Pulse Ox O2 Delivery O2 Flow Rate FiO2 06/29/16 08:09 Nasal Cannula 3.0 06/29/16 07:28 97.6 80 18 116/97 (103) 96 97.6 Physical Exam PHYSICAL EXAM GENERAL: Up in the chair, moaning HEENT: OC/OP pink, dentures NECK: Supple, no JVD, no LN LUNGS: Clear HEART: S1S2, no gallop, no murmur ABD: Obese, BS present, soft, NT BACK + CVAT L>R EXT: No edema, no cyanosis 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, oriented x 3, no focal neurologic deficit SKIN: No rash IV: ok Labs Lab Laboratory Tests Test 06/28/16 12:01 06/28/16 15:35 06/28/16 20:31 06/29/16 07:40 Glucose (Fingerstick) 340 mg/dL (70-99) 317 mg/dL (70-99) 323 mg/dL (70-99) White Blood Count 12.6 x10^3/uL (4.0-11.0) Red Blood Count 3.89 x10^6/uL (3.50-5.40) Hemoglobin 13.5 g/dL (12.0-15.5) Hematocrit 40.0 % (36.0-47.0) Mean Corpuscular Volume 103 fL (79-100) Mean Corpuscular Hemoglobin 35 pg (25-35) Mean Corpuscular Hemoglobin Concent 34 g/dL (31-37) Red Cell Distribution Width 13.4 % (11.5-14.5) Platelet Count 86 x10^3/uL (140-400) Sodium Level 134 mmol/L (136-145) Potassium Level 4.4 mmol/L (3.5-5.1) Chloride Level 101 mmol/L (98-107) Carbon Dioxide Level 23 mmol/L (21-32) Anion Gap 10 (6-14) Blood Urea Nitrogen 66 mg/dL (7-20) Creatinine 3.3 mg/dL (0.6-1.0) Estimated GFR (Cockcroft-Gault) 13.6 BUN/Creatinine Ratio 20 (6-20) Glucose Level 162 mg/dL (70-99) Calcium Level 7.9 mg/dL (8.5-10.1) Total Bilirubin 2.4 mg/dL (0.2-1.0) Aspartate Amino Transf (AST/SGOT) 22 U/L (15-37) Alanine Aminotransferase (ALT/SGPT) 22 U/L (14-59) Alkaline Phosphatase 123 U/L (46-116) Total Protein 6.3 g/dL (6.4-8.2) Albumin 1.9 g/dL (3.4-5.0) Albumin/Globulin Ratio 0.4 (1.0-1.7) Test 06/29/16 07:41 Glucose (Fingerstick) 170 mg/dL (70-99) Micro BLOOD CULTURE Preliminary NO GROWTH AFTER 1 DAY URINE CULTURE RES 1 Preliminary Gram negative rods Greater than 100,000 colony forming units per mL Objective Assessment Iliopsoas infection with air bubbles. ureteral dehiscence. h/o remote left nephrectomy GNR UTI. POA 5 Fever, better Leukocytosis.- better Coronary artery disease. Renal insufficiency, ANDRE Plan Plan of Care Zosyn-adjusted for renal function Monitor WBC, temp and Cr. Labs in am Await GNR ID Per Dr. Eric Barbosa, IR not able to obtain specimen due to lack of fluid present. may need repeat imaging Consult nephrology Attending Co-Sign Attending Co-Sign The patient was seen and interviewed as well as examined at the bedside. The chart was reviewed. The case was discussed. Agree with the plan of care. BARB MONTGOMERY APRN June 29, 2016 09:37 HUNTER SELF MD June 29, 2016 14:26
[2016-06-29] MEDS: HYDROmorphone 2 MG/ML VIAL IV PRN (10:55)
[2016-06-29 11:33] VITALS: BP 85/44
--- NOTE | 2016-06-29 11:37 | PDOC ---
SUBJECTIVE Subjective c/o pain, no appetite OBJECTIVE Vital Signs Vital Signs Date Time Temp Pulse Resp B/P (MAP) Pulse Ox O2 Delivery O2 Flow Rate FiO2 06/29/16 10:55 Nasal Cannula 3.0 06/29/16 08:09 Nasal Cannula 3.0 06/29/16 08:09 Nasal Cannula 3.0 06/29/16 07:28 97.6 80 18 116/97 (103) 96 Room Air 97.6 06/29/16 02:52 98.2 116 18 155/78 (103) 95 Room Air 98.2 06/28/16 22:54 97.6 117 18 74/40 (51) 97 Room Air 97.6 06/28/16 21:02 115 85/36 (52) 06/28/16 20:00 Nasal Cannula 3.0 06/28/16 19:00 97.9 105 18 78/47 (57) 97 Room Air 97.9 06/28/16 15:40 98.6 132 18 98/76 (83) 96 Room Air 98.6 06/28/16 12:27 Nasal Cannula 3.0 06/28/16 12:27 Nasal Cannula 3.0 I & O Intake and Output 06/29/16 07:00 Intake Total 2100 ml Output Total 250 ml Balance 1850 ml Intake Oral 1000 ml IV Total 1100 ml Output Urine Total 250 ml # Voids 3 PHYSICAL EXAM Physical Exam not much change in exam ASSESSMENT/PLAN Assessment/Plan 1. Iliopsoas infection with air bubbles., hx of nephrectomy 2. ureteral dehiscence. 3. Fever./UTI continue ABx 4. Leukocytosis. 5. Coronary artery disease. 6. Renal insufficiency. 7. COPD 8. DJD and chronic pain 9. 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 Bautista will resume care in AM further imaging as per ID apparently not able to get specimen from area of infection with help of IR Problems: COMMENT Lab Laboratory Tests Test 06/28/16 12:01 06/28/16 15:35 06/28/16 20:31 06/29/16 07:40 Glucose (Fingerstick) 340 mg/dL (70-99) 317 mg/dL (70-99) 323 mg/dL (70-99) White Blood Count 12.6 x10^3/uL (4.0-11.0) Red Blood Count 3.89 x10^6/uL (3.50-5.40) Hemoglobin 13.5 g/dL (12.0-15.5) Hematocrit 40.0 % (36.0-47.0) Mean Corpuscular Volume 103 fL (79-100) Mean Corpuscular Hemoglobin 35 pg (25-35) Mean Corpuscular Hemoglobin Concent 34 g/dL (31-37) Red Cell Distribution Width 13.4 % (11.5-14.5) Platelet Count 86 x10^3/uL (140-400) Sodium Level 134 mmol/L (136-145) Potassium Level 4.4 mmol/L (3.5-5.1) Chloride Level 101 mmol/L (98-107) Carbon Dioxide Level 23 mmol/L (21-32) Anion Gap 10 (6-14) Blood Urea Nitrogen 66 mg/dL (7-20) Creatinine 3.3 mg/dL (0.6-1.0) Estimated GFR (Cockcroft-Gault) 13.6 BUN/Creatinine Ratio 20 (6-20) Glucose Level 162 mg/dL (70-99) Calcium Level 7.9 mg/dL (8.5-10.1) Total Bilirubin 2.4 mg/dL (0.2-1.0) Aspartate Amino Transf (AST/SGOT) 22 U/L (15-37) Alanine Aminotransferase (ALT/SGPT) 22 U/L (14-59) Alkaline Phosphatase 123 U/L (46-116) Total Protein 6.3 g/dL (6.4-8.2) Albumin 1.9 g/dL (3.4-5.0) Albumin/Globulin Ratio 0.4 (1.0-1.7) Test 06/29/16 07:41 Glucose (Fingerstick) 170 mg/dL (70-99) NILES GARCES MD June 29, 2016 11:37
[2016-06-29] MEDS: ENOXAPARIN 30 MG/0.3 ML SYRINGE. SQ SCH (12:26)
[2016-06-29] MEDS ORDERED: PIPERACILLIN/TAZOBACTAM 2.25 GM in IV NORMAL SALINE 50ML 50 ML IV SCH (14:00)
[2016-06-29 15:32] VITALS: BP 76/51
[2016-06-29] MEDS ORDERED: IV NORMAL SALINE 1000ML BAG 1,000 ML IV ONE (16:00)
--- NOTE | 2016-06-29 16:12 | PDOC2 ---
Consult: RENAL CONSULT / KENDRICK. REASON FOR CONSULTATION: ARF HISTORY OF PRESENT ILLNESS: This is a 75-year-old female who came in with 2-day history of left-sided abdominal pain. The patient has had fever at home. she has had low-grade. The patient denied any nausea, vomiting, diarrhea. Denied any chest pain. She does have a chronic back problem, which is nothing new. The patient came in the ER. The patient was noted to have low-grade fever, leukocytosis, slight tachycardia and CT scan of the abdomen and pelvis showed there is iliopsoas inflammatory process along with air bubbles. Also the urethral stump may have dehiscence. RemoteLeft nephrectomy. Otherwise no known CKD. Baseline Cr?? The patient has been admitted from the ER physician. Consult requested for rising Cr. Low BP Weak and frail. No distress. PAST MEDICAL& SURGICAL HISTORY: Positive for patient had left nephrectomy done almost 18 years ago, also has hypertension, coronary artery disease, coronary artery bypass grafting done, COPD, gastroesophageal reflux disease, ? renal insufficiency, and thumb amputation. SOCIAL HISTORY: Positive for smoking, no alcohol use or drug use. ALLERGIES: No known drug allergies. CURRENT MEDICATIONS: Reviewed. REVIEW OF SYSTEMS: As per HPI, otherwise negative on a 12 point scale. PHYSICAL EXAMINATION: GENERAL: Alert, oriented female, not in distress. VITAL SIGNS: Stable. T-max is 99.4. HEENT: NAD. NECK: Supple, no JVP, no lymphadenopathy. LUNGS: Clear. HEART: S1, S2 regular. ABDOMEN: Benign. Mild diffuse tenderness present. No rebound or guarding. EXTREMITIES: No edema, cyanosis. SKIN: Unremarkable. NEUROLOGIC: The patient is neurologically intact. LABORATORY DATA: White count is 13.6. BUN is 56, creatinine 3.3. Other labs reviewed. CT, as I mentioned in HPI. A/P : ARF : Likely ATN from sepsis and decreased renal perfusion. HYPOTENSION. HTN w ? CKD Colloidal support. Needs systolic BP around 125- 130 mm of Hg for adequate renal perfusion. Urine lytes and Zain stain. I/Os IVF Labs. Supportive care. Thank you very much, Dr. Bautista, for giving me the opportunity to participate in this patient's care. Reggie Marks M.D. REGGIE MARKS MD June 29, 2016 16:12
[2016-06-29] MEDS ORDERED: ALBUMIN HUMAN 25% 50 ML IV ONE (16:15)
[2016-06-29] MEDS: IV NORMAL SALINE 1000ML BAG 1,000 ML IV SCH (17:11)
[2016-06-29] MEDS: PIPERACILLIN/TAZOBACTAM 2.25 GM in IV NORMAL SALINE 50ML 50 ML IV SCH (19:23)
[2016-06-29 19:42] VITALS: BP 74/47
[2016-06-29] MEDS: INSULIN DETEMIR 300 UNITS/3 ML INSULN.PEN. SQ SCH (21:12)
[2016-06-29 23:00] VITALS: BP 81/64
[2016-06-30] MEDS: PIPERACILLIN/TAZOBACTAM 2.25 GM in IV NORMAL SALINE 50ML 50 ML IV SCH ×2 (00:02→06:02)
[2016-06-30 03:02] VITALS: BP_SYST 147; BP_SYST 83; BP_DIAS 108; BP_DIAS 42
[2016-06-30] MEDS: IV NORMAL SALINE 1000ML BAG 1,000 ML IV SCH ×2 (05:35→17:15)
[2016-06-30] MEDS: LEVOTHYROXINE 75 MCG TABLET PO SCH (06:02)
[2016-06-30 06:17] LABS: ALBUMIN/GLOBULIN RATIO 0.5 (1.0-1.7); GFR 10.9; PHOSPHORUS 5.6 mg/dL (2.6-4.7); POTASSIUM 4.5 mmol/L (3.5-5.1); TOTAL BILIRUBIN 2.9 mg/dL (0.2-1.0); TOTAL PROTEIN 6.1 g/dL (6.4-8.2)
[2016-06-30 06:45] LABS: HEMATOCRIT 37.2 % (36.0-47.0); HEMOGLOBIN 12.1 g/dL (12.0-15.5); RED BLOOD COUNT 3.49 x10^6/uL (3.50-5.40); RED CELL DISTRIBUTION WIDTH 13.7 % (11.5-14.5); WHITE BLOOD COUNT 8.2 x10^3/uL (4.0-11.0)
[2016-06-30 07:00] VITALS: BP 117/30
--- NOTE | 2016-06-30 08:28 | PDOC ---
Infectious Disease Note Subjective Subjective Still some pain but better overall Good urine output ROS ROS GEN: Denies fevers, chills, sweats HEENT: Denies blurred vision, sore throat CV: Denies chest pain RESP: Denies shortness of air, cough GI: Denies n/v/d NEURO: Denies confusion, dizziness MSK: Denies weakness, joint pain/swelling Vital Sign Vital Signs Vital Signs Date Time Temp Pulse Resp B/P (MAP) Pulse Ox O2 Delivery O2 Flow Rate FiO2 06/30/16 07:00 97.7 103 20 117/30 (59) 99 Nasal Cannula 2.0 97.7 Physical Exam PHYSICAL EXAM GENERAL: Up in the chair, Looks better, NAD, coop HEENT: OC/OP pink, dentures NECK: Supple, no JVD, no LN LUNGS: Clear HEART: S1S2, no gallop, no murmur ABD: Obese, BS present, soft, NT BACK + CVAT L>R EXT: No edema, no cyanosis POST OFFICE MANAGER: Alert, oriented x 3, no focal neurologic deficit SKIN: No rash IV: ok Labs Lab Laboratory Tests Test 06/29/16 11:34 06/29/16 17:03 06/29/16 20:55 06/29/16 21:30 Glucose (Fingerstick) 130 mg/dL (70-99) 192 mg/dL (70-99) 169 mg/dL (70-99) Urine Eosinophils Eos observed Test 06/30/16 04:55 06/30/16 08:00 White Blood Count 8.2 x10^3/uL (4.0-11.0) Red Blood Count 3.49 x10^6/uL (3.50-5.40) Hemoglobin 12.1 g/dL (12.0-15.5) Hematocrit 37.2 % (36.0-47.0) Mean Corpuscular Volume 107 fL (79-100) Mean Corpuscular Hemoglobin 35 pg (25-35) Mean Corpuscular Hemoglobin Concent 33 g/dL (31-37) Red Cell Distribution Width 13.7 % (11.5-14.5) Platelet Count 71 x10^3/uL (140-400) Sodium Level 135 mmol/L (136-145) Potassium Level 4.5 mmol/L (3.5-5.1) Chloride Level 101 mmol/L (98-107) Carbon Dioxide Level 22 mmol/L (21-32) Anion Gap 12 (6-14) Blood Urea Nitrogen 82 mg/dL (7-20) Creatinine 4.0 mg/dL (0.6-1.0) Estimated GFR (Cockcroft-Gault) 10.9 BUN/Creatinine Ratio 21 (6-20) Glucose Level 200 mg/dL (70-99) Calcium Level 8.0 mg/dL (8.5-10.1) Phosphorus Level 5.6 mg/dL (2.6-4.7) Total Bilirubin 2.9 mg/dL (0.2-1.0) Aspartate Amino Transf (AST/SGOT) 33 U/L (15-37) Alanine Aminotransferase (ALT/SGPT) 28 U/L (14-59) Alkaline Phosphatase 127 U/L (46-116) Total Protein 6.1 g/dL (6.4-8.2) Albumin 2.0 g/dL (3.4-5.0) Albumin/Globulin Ratio 0.5 (1.0-1.7) Glucose (Fingerstick) 182 mg/dL (70-99) Micro Klebsiella pneumoniae Greater than 100,000 colony forming units per mL ANTIMICROBIAL SUSCEPTIBILITY Final Comment S = Susceptible; I = Intermediate; R = Resistant P = Positive; N = Negative MICS are expressed in micrograms per mL Antibiotic RSLT#1 RSLT#2 RSLT#3 RSLT#4 Amoxicillin/Clavulanic Acid S Ampicillin R Cefepime S Ceftriaxone S Cefuroxime R Cephalothin R Ciprofloxacin R Ertapenem S Gentamicin S Imipenem S Levofloxacin R Nitrofurantoin I Piperacillin R Tetracycline R Tobramycin S Trimethoprim/Sulfa S Performed at: [facility] K Objective Assessment ANDRE - worse with + Urine Eosinophils Iliopsoas infection with air bubbles. ureteral dehiscence. h/o remote left nephrectomy Klebsiella UTI. POA 06/27 Fever, better Leukocytosis.- better Coronary artery disease. Plan Plan of Care Zosyn since 06/27. Shouldn't cause AIN at this point but given urine Eosinophils will change to Rocephin/Flagyl Monitor WBC, temp and Cr. Labs in am Per Dr. Eric Barbosa, IR not able to obtain specimen due to lack of fluid present. may need repeat imaging to r/o worsening infection despite improvement of WBC HUNTER SELF MD June 30, 2016 08:28
[2016-06-30] MEDS: oxyCODONE ER 40 MG TAB.ER.12H PO SCH ×2 (08:30→21:00)
[2016-06-30] MEDS: LINAGLIPTIN 5 MG TABLET PO SCH (08:30)
[2016-06-30] MEDS: INSULIN ASPART 300 UNITS/3 ML INSULN.PEN SQ SCH ×3 (08:36→16:30)
[2016-06-30] MEDS: metroNIDAZOLE 500 MG TABLET PO SCH ×3 (09:19→21:10)
--- NOTE | 2016-06-30 10:09 | PDOC ---
PROGRESS NOTES Subjective Subjective Pt. with abd and left flank pain Objective Objective Vital Signs Date Time Temp Pulse Resp B/P (MAP) Pulse Ox O2 Delivery O2 Flow Rate FiO2 06/30/16 08:30 99 Nasal Cannula 2.0 06/30/16 07:00 97.7 103 20 117/30 (59) 97.7 Intake and Output 06/30/16 07:00 Intake Total 1790 ml Output Total 150 ml Balance 1640 ml Intake Oral 690 ml IV Total 1100 ml Output Urine Total 150 ml # Voids 2 Physical Exam Physical Exam Klebsiella UTI and gas in left ileo-psoas area s/p left nephrectomy approx 10 yrs ago in [place] Renal failure gas bubbles in left ureteral stump also Plan Plan of Care Place fletcher to gravity Consult IR for possible drainage of left ileo-psoas infection Recommend transfer to [facility] for further evaluation and possible treatment if pt. needs further surgical therapy. Problems Medical Problems: (1) Abdominal pain Status: Acute (2) Atrial fibrillation Status: Acute (3) Inflammation of ureter Status: Acute Comment Review of Relevant I have reviewed the following items daniel (where applicable) has been applied. Labs Laboratory Tests Test 06/28/16 12:01 06/28/16 15:35 06/28/16 20:31 06/29/16 07:40 Glucose (Fingerstick) 340 mg/dL (70-99) 317 mg/dL (70-99) 323 mg/dL (70-99) White Blood Count 12.6 x10^3/uL (4.0-11.0) Red Blood Count 3.89 x10^6/uL (3.50-5.40) Hemoglobin 13.5 g/dL (12.0-15.5) Hematocrit 40.0 % (36.0-47.0) Mean Corpuscular Volume 103 fL (79-100) Mean Corpuscular Hemoglobin 35 pg (25-35) Mean Corpuscular Hemoglobin Concent 34 g/dL (31-37) Red Cell Distribution Width 13.4 % (11.5-14.5) Platelet Count 86 x10^3/uL (140-400) Sodium Level 134 mmol/L (136-145) Potassium Level 4.4 mmol/L (3.5-5.1) Chloride Level 101 mmol/L (98-107) Carbon Dioxide Level 23 mmol/L (21-32) Anion Gap 10 (6-14) Blood Urea Nitrogen 66 mg/dL (7-20) Creatinine 3.3 mg/dL (0.6-1.0) Estimated GFR (Cockcroft-Gault) 13.6 BUN/Creatinine Ratio 20 (6-20) Glucose Level 162 mg/dL (70-99) Calcium Level 7.9 mg/dL (8.5-10.1) Total Bilirubin 2.4 mg/dL (0.2-1.0) Aspartate Amino Transf (AST/SGOT) 22 U/L (15-37) Alanine Aminotransferase (ALT/SGPT) 22 U/L (14-59) Alkaline Phosphatase 123 U/L (46-116) Total Protein 6.3 g/dL (6.4-8.2) Albumin 1.9 g/dL (3.4-5.0) Albumin/Globulin Ratio 0.4 (1.0-1.7) Test 06/29/16 07:41 06/29/16 11:34 06/29/16 17:03 06/29/16 20:55 Glucose (Fingerstick) 170 mg/dL (70-99) 130 mg/dL (70-99) 192 mg/dL (70-99) 169 mg/dL (70-99) Test 06/29/16 21:30 06/30/16 04:55 06/30/16 08:00 Urine Eosinophils Eos observed White Blood Count 8.2 x10^3/uL (4.0-11.0) Red Blood Count 3.49 x10^6/uL (3.50-5.40) Hemoglobin 12.1 g/dL (12.0-15.5) Hematocrit 37.2 % (36.0-47.0) Mean Corpuscular Volume 107 fL (79-100) Mean Corpuscular Hemoglobin 35 pg (25-35) Mean Corpuscular Hemoglobin Concent 33 g/dL (31-37) Red Cell Distribution Width 13.7 % (11.5-14.5) Platelet Count 71 x10^3/uL (140-400) Sodium Level 135 mmol/L (136-145) Potassium Level 4.5 mmol/L (3.5-5.1) Chloride Level 101 mmol/L (98-107) Carbon Dioxide Level 22 mmol/L (21-32) Anion Gap 12 (6-14) Blood Urea Nitrogen 82 mg/dL (7-20) Creatinine 4.0 mg/dL (0.6-1.0) Estimated GFR (Cockcroft-Gault) 10.9 BUN/Creatinine Ratio 21 (6-20) Glucose Level 200 mg/dL (70-99) Calcium Level 8.0 mg/dL (8.5-10.1) Phosphorus Level 5.6 mg/dL (2.6-4.7) Total Bilirubin 2.9 mg/dL (0.2-1.0) Aspartate Amino Transf (AST/SGOT) 33 U/L (15-37) Alanine Aminotransferase (ALT/SGPT) 28 U/L (14-59) Alkaline Phosphatase 127 U/L (46-116) Total Protein 6.1 g/dL (6.4-8.2) Albumin 2.0 g/dL (3.4-5.0) Albumin/Globulin Ratio 0.5 (1.0-1.7) Glucose (Fingerstick) 182 mg/dL (70-99) Laboratory Tests Test 06/29/16 11:34 06/29/16 17:03 06/29/16 20:55 06/29/16 21:30 Glucose (Fingerstick) 130 mg/dL (70-99) 192 mg/dL (70-99) 169 mg/dL (70-99) Urine Eosinophils Eos observed Test 06/30/16 04:55 06/30/16 08:00 White Blood Count 8.2 x10^3/uL (4.0-11.0) Red Blood Count 3.49 x10^6/uL (3.50-5.40) Hemoglobin 12.1 g/dL (12.0-15.5) Hematocrit 37.2 % (36.0-47.0) Mean Corpuscular Volume 107 fL (79-100) Mean Corpuscular Hemoglobin 35 pg (25-35) Mean Corpuscular Hemoglobin Concent 33 g/dL (31-37) Red Cell Distribution Width 13.7 % (11.5-14.5) Platelet Count 71 x10^3/uL (140-400) Sodium Level 135 mmol/L (136-145) Potassium Level 4.5 mmol/L (3.5-5.1) Chloride Level 101 mmol/L (98-107) Carbon Dioxide Level 22 mmol/L (21-32) Anion Gap 12 (6-14) Blood Urea Nitrogen 82 mg/dL (7-20) Creatinine 4.0 mg/dL (0.6-1.0) Estimated GFR (Cockcroft-Gault) 10.9 BUN/Creatinine Ratio 21 (6-20) Glucose Level 200 mg/dL (70-99) Calcium Level 8.0 mg/dL (8.5-10.1) Phosphorus Level 5.6 mg/dL (2.6-4.7) Total Bilirubin 2.9 mg/dL (0.2-1.0) Aspartate Amino Transf (AST/SGOT) 33 U/L (15-37) Alanine Aminotransferase (ALT/SGPT) 28 U/L (14-59) Alkaline Phosphatase 127 U/L (46-116) Total Protein 6.1 g/dL (6.4-8.2) Albumin 2.0 g/dL (3.4-5.0) Albumin/Globulin Ratio 0.5 (1.0-1.7) Glucose (Fingerstick) 182 mg/dL (70-99) Microbiology 06/27/16 Blood Culture - Preliminary, Resulted NO GROWTH AFTER 2 DAYS 06/27/16 Urine Culture - Final, Complete 06/27/16 Urine Culture Result 1 (LY) - Final, Complete 06/27/16 Antimicrobic Susceptibility - Final, Complete Medications Current Medications Hydromorphone HCl (Dilaudid) 1 mg 1X ONCE IV Last administered on 06/27/16 10: 01; Start 06/27/16 at 09:45; Stop 06/27/16 at 09:46; Status DC Sodium Chloride 1,000 ml @ 1,000 mls/hr 1X ONCE IV ; Start 06/27/16 at 09:45; Stop 06/27/16 at 09:45; Status DC Sodium Chloride 500 ml @ 500 mls/hr 1X ONCE IV Last administered on 06/27/16 09:56; Start 06/27/16 at 09:45; Stop 06/27/16 at 10:44; Status DC Ceftriaxone Sodium 1 gm/ Sodium Chloride 50 ml @ 100 mls/hr Q24H IV Last administered on 06/27/16 12:23; Start 06/28/16 at 11:00; Stop 06/28/16 at 11:00; Status DC Ceftriaxone Sodium 50 ml @ 100 mls/hr 1X ONCE IV Last administered on 11:00; Start 06/27/16 at 11:00; Stop 06/27/16 at 11:29; Status DC Hydromorphone HCl (Dilaudid) 1 mg 1X ONCE IV Last administered on 06/27/16 12: 24; Start 06/27/16 at 11:30; Stop 06/27/16 at 11:31; Status DC Ondansetron HCl (Zofran) 4 mg PRN Q8HRS PRN IV NAUSEA/VOMITING; Start 06/27/16 at 12:15; Stop 06/28/16 at 12:14; Status DC Sodium Chloride 1,000 ml @ 100 mls/hr Q10H IV Last administered on 06/28/16 10 :09; Start 06/27/16 at 12:05; Stop 06/28/16 at 12:04; Status DC Hydromorphone HCl (Dilaudid) 1 mg PRN Q2HR PRN IV MODERATE TO SEVERE PAIN Last administered on 06/29/16 10:55; Start 06/27/16 at 12:30 Piperacillin Sod/ Tazobactam Sod 3.375 gm/Sodium Chloride 50 ml @ 100 mls/hr Q8HRS IV Last administered on 06/29/16 05:42; Start 06/27/16 at 13:00; Stop 06/29 at 09:33; Status DC Oxycodone HCl (Roxicodone) 30 mg QID PRN PO BREAKTHROUGH PAIN Last administered on 06/29/16 14:14; Start 06/27/16 at 14:30 Oxycodone HCl (Oxycontin) 80 mg Q12HR PO Last administered on 06/30/16 08:30; Start 06/27/16 at 21:00 Spironolactone (Aldactone) 25 mg DAILY PO Last administered on 06/28/16 08:36; Start 06/28/16 at 09:00; Stop 06/28/16 at 09:18; Status DC Insulin Detemir (Levemir) 24 units QHS SQ Last administered on 06/27/16 21:51; Start 06/27/16 at 21:00; Stop 06/28/16 at 14:09; Status DC Linagliptin (Tradjenta) 5 mg DAILY PO Last administered on 06/30/16 08:30; Start 06/28/16 at 09:00 Levothyroxine Sodium (Synthroid) 75 mcg DAILY07 PO Last administered on 06:02; Start 06/28/16 at 07:00 Insulin Aspart (Novolog) 7 units 1X ONCE SQ Last administered on 06/27/16 22: 37; Start 06/27/16 at 22:15; Stop 06/27/16 at 22:16; Status DC Enoxaparin Sodium (Lovenox 30mg Syringe) 30 mg Q24H SQ Last administered on 06/29 12:26; Start 06/28/16 at 13:00 Insulin Aspart (Novolog) 5 units TIDAC SQ Last administered on 06/30/16 08:36; Start 06/28/16 at 16:30 Insulin Detemir (Levemir) 19 units QHS SQ Last administered on 06/29/16 21:12; Start 06/28/16 at 21:00 Piperacillin Sod/ Tazobactam Sod 2.25 gm/Sodium Chloride 50 ml @ 100 mls/hr Q8HRS IV Last administered on 06/29/16 14:14; Start 06/29/16 at 14:00; Stop 06/29 at 14:25; Status DC Piperacillin Sod/ Tazobactam Sod 2.25 gm/Sodium Chloride 50 ml @ 100 mls/hr Q6HRS IV Last administered on 06/30/16 06:02; Start 06/29/16 at 18:00; Stop 06/30 at 08:23; Status DC Albumin Human 50 ml @ 50 mls/hr 1X ONCE IV Last administered on 06/29/16 17:10 ; Start 06/29/16 at 16:15; Stop 06/29/16 at 17:14; Status DC Sodium Chloride 1,000 ml @ 75 mls/hr [id number] IV Last administered on 06/30/16 05:35; Start 06/29/16 at 16:15 Sodium Chloride 1,000 ml @ 1,000 mls/hr 1X ONCE IV Last administered on 16:17; Start 06/29/16 at 16:00; Stop 06/29/16 at 16:59; Status DC Ceftriaxone Sodium 2 gm/ Sodium Chloride 100 ml @ 200 mls/hr Q24H IV Last administered on 06/30/16 09:20; Start 06/30/16 at 09:00 Metronidazole (Flagyl) 500 mg Q8HRS PO Last administered on 06/30/16 09:19; Start 06/30/16 at 09:00 Active Scripts Active Keflex (Cephalexin) 500 Mg Capsule 500 Mg PO QID 5 Days Aldactone (Spironolactone) 25 Mg Tablet 25 Mg PO DAILY 30 Days Cozaar (Losartan Potassium) 25 Mg Tablet 25 Mg PO DAILY 30 Days Synthroid (Levothyroxine Sodium) 75 Mcg Tablet 75 Mcg PO DAILY07 30 Days Reported Potassium Chloride 10 Meq Capsule.er 10 Meq PO TID Miralax (Polyethylene Glycol 3350) 17 Gm Powd.pack 1 Packet PO DAILY PRN Amiodarone Hcl 200 Mg Tablet 1 Tab PO DAILY Tosandra Solostar (Insulin Glargine,Hum.rec.anlog) 300 Unit/1 Ml Insuln.pen 24 Unit SQ HS next dose tonight 9:00 pm Oxycodone Hcl 30 Mg Tablet 1 Tab PO QID PRN Januvia (Sitagliptin Phosphate) 100 Mg Tablet 1 Tab PO DAILY next dose tomorrow morning, 12-15-15 9:00 AM Oxycontin (Oxycodone HCl) 80 Mg Tab.er.12h 80 Mg PO BID next dose tomorrow morning, 12-15-15 9:00 AM Metoprolol Tartrate 25 Mg Tablet 25 Mg PO BID next dose tonight 12-14-15 at 9:00 pm Furosemide 40 Mg Tablet 80 Mg PO BID next dose tomorrow morning, 12-15-15 9:00 AM Docusate Sodium 100 Mg Capsule 100 Mg PO BID next dose tomorrow morning, 12-15-15 9:00 AM Vitals/I & O Vital Sign - Last 24 Hours 06/29/16 06/29/16 06/29/16 06/29/16 10:55 11:33 12:25 12:25 Temp 97.1 97.1 Pulse 131 Resp 18 B/P (MAP) 85/44 (58) Pulse Ox 95 O2 Delivery Nasal Cannula Room Air Nasal Cannula Nasal Cannula O2 Flow Rate 3.0 3.0 3.0 06/29/16 06/29/16 06/29/16 06/29/16 14:14 15:31 15:32 19:42 Temp 97.8 98.1 97.8 98.1 Pulse 154 111 Resp 20 18 B/P (MAP) 76/51 (59) 74/47 (56) Pulse Ox 95 93 O2 Delivery Nasal Cannula Nasal Cannula Room Air Room Air O2 Flow Rate 3.0 3.0 06/29/16 06/29/16 06/30/16 06/30/16 20:00 23:00 03:02 07:00 Temp 97.9 96.8 97.7 97.9 96.8 97.7 Pulse 98 128 103 Resp 16 16 20 B/P (MAP) 81/64 (70) 83/42 (56) 117/30 (59) Pulse Ox 93 95 99 O2 Delivery Nasal Cannula Nasal Cannula Nasal Cannula Nasal Cannula O2 Flow Rate 3.0 2.0 2.0 2.0 06/30/16 08:30 Pulse Ox 99 O2 Delivery Nasal Cannula O2 Flow Rate 2.0 Intake and Output 06/29/16 06/29/16 06/30/16 15:00 23:00 07:00 Intake Total 450 ml 1340 ml Output Total 150 ml Balance 300 ml 1340 ml BALDO NEVAREZ MD June 30, 2016 10:09
[2016-06-30] MEDS: ENOXAPARIN 30 MG/0.3 ML SYRINGE. SQ SCH (10:23)
[2016-06-30 11:00] VITALS: BP 86/38
[2016-06-30] MEDS ORDERED: CONTRAST GIVEN MC PRN (11:15)
[2016-06-30] MEDS ORDERED: HEPARIN for IV BOLUS 10,000 UNIT/10 ML VIAL. ONE (11:29)
[2016-06-30] MEDS ORDERED: LIDOCAINE 1% / SOD BICARB 8.4% 20 ML VIAL. IJ ONE (11:30)
[2016-06-30] MEDS ORDERED: IOHEXOL 240 MG/ML 50ML VIAL. PO ONE (11:45)
--- NOTE | 2016-06-30 11:45 | PDOC ---
Provider Note Provider Note IR Note: Repeat CT abd/pelvis shows No RP drainable RP fluid collection---No CT drain indicated. ARF---on schedule for temp HDC insertion per Dr Parkinson. TARYN TEE MD June 30, 2016 11:45
--- NOTE | 2016-06-30 11:50 | RAD ---
Indication: Left retroperitoneal abscess. States performed for follow-up. Axial imaging through the abdomen and pelvis was performed without contrast. Comparison is made with recent CT from 06/27/2016. The patient has developed left basilar consolidation and air bronchograms as well as a small left pleural effusion when compared with the exam 3 days earlier. Nodular contour to the liver is again noted, suggestive of cirrhosis. No discrete mass is identified.Bile duct remains dilated to the level of the pancreatic head. The pancreas and spleen are stable. No adrenal mass is detected. The right kidney is unremarkable. Postsurgical changes of left nephrectomy are again noted. There continues to be some mild inflammatory changes at the nephrectomy bed just lateral to the surgical clips. Small gas bubbles at this location are noted which appear to be slightly reduced in volume when compared with prior. The previously noted gas bubbles within the left ureteral stump are no longer present. No gas within the urinary bladder is identified. No developing fluid collection is identified in the left retroperitoneum. The bowel loops are normal caliber. Postop changes left hip are noted. There is a small amount of gas within the uterus, indeterminate. Impression: Inflammatory changes in the left retroperitoneum near the left nephrectomy bed are similar to perhaps slightly improved when compared with exam 3 days earlier. There is no longer gas identified within the left ureteral stump. No developing fluid collection is identified. The patient has developed left lower lobe consolidation and small left effusion however since exam 3 days earlier. PQRS Compliance Statement: One or more of the following individualized dose reduction techniques were utilized for this examination: 1. Automated exposure control 2. Adjustment of the mA and/or kV according to patient size 3. Use of iterative reconstruction technique
--- NOTE | 2016-06-30 11:58 | PDOC ---
Exam Model Maker Fiberglass Model Maker Fiberglass Tee Therapy Site Coordinator Therapy Site Coordinator Geovanna Zelaya Pre-Procedure Diagnosis Pre-Procedure Diagnosis 75 YO female with sepsis, hypotension, and ARF Post-Procedure Diagnosis Post-Procedure Diagnosis Same Procedure Performed Procedure Performed Sono guided temp HDC insertion Type of Anesthesia Type of Anesthesia Local Estimated Blood Loss EBL: Minimal Drain/Tubes Drains/Tubes Rt IJ 14F 20cm Schon temp HDC Condition of Patient Condition of Patient No change. No apparent complication. Disposition Disposition STAT pCXR requested for HDC position. Full report to follow. TARYN TEE MD June 30, 2016 11:58
[2016-06-30] MEDS ORDERED: IV NORMAL SALINE 1000ML BAG 1,000 ML IV PRN (12:53)
[2016-06-30] MEDS ORDERED: ALBUMIN HUMAN 25% 200 ML IV PRN (13:00)
[2016-06-30] MEDS ORDERED: DIALYSIS PATIENT. MC PRN (13:00)
[2016-06-30] MEDS ORDERED: 0.9 % SODIUM CHLORIDE 10 ML DISP.SYRIN. IV PRN ×2 (13:00)
[2016-06-30] MEDS: HEPARIN PF for SUB-Q USE 5,000 UNIT/0.5 ML VIAL. SQ SCH ×2 (14:00→21:10)
--- NOTE | 2016-06-30 14:28 | RAD ---
Exam performed: One view chest. History: Post hemodialysis catheter placement. Date of service: 06/30/16. Comparison: Single view chest from -70. Single AP semiupright portable view chest findings: Placement of a right-sided temporary dialysis catheter with its tip in the right atrium. No pneumothorax seen. Left cardiac silhouette is obscured by parenchymal and linear streaky opacities in the left lower lung. There is also small right basilar atelectasis. Left pleural effusion. Prominent interstitial markings in both lungs with central vascular congestion with slight interstitial edema. Impression: Placement of a right-sided dialysis type catheter with its tip in the right atrium. No pneumothorax.
--- NOTE | 2016-06-30 16:49 | PDOC ---
Renal-Progress Notes Subjective Notes Notes NONE History of Present Illness Hx of present illness NO CHANGE Vitals Vitals Vital Signs Date Time Temp Pulse Resp B/P (MAP) Pulse Ox O2 Delivery O2 Flow Rate FiO2 06/30/16 11:00 97.9 126 22 86/38 (54) 100 Nasal Cannula 2.0 97.9 Weight Weight [ ] I.O. Intake and Output Intake and Output 06/30/16 07:00 Intake Total 1790 ml Output Total 150 ml Balance 1640 ml Intake Oral 690 ml IV Total 1100 ml Output Urine Total 150 ml # Voids 2 Labs Labs Laboratory Tests Test 06/29/16 17:03 06/29/16 20:55 06/29/16 21:30 06/30/16 04:55 Glucose (Fingerstick) 192 mg/dL (70-99) 169 mg/dL (70-99) Urine Eosinophils Eos observed White Blood Count 8.2 x10^3/uL (4.0-11.0) Red Blood Count 3.49 x10^6/uL (3.50-5.40) Hemoglobin 12.1 g/dL (12.0-15.5) Hematocrit 37.2 % (36.0-47.0) Mean Corpuscular Volume 107 fL (79-100) Mean Corpuscular Hemoglobin 35 pg (25-35) Mean Corpuscular Hemoglobin Concent 33 g/dL (31-37) Red Cell Distribution Width 13.7 % (11.5-14.5) Platelet Count 71 x10^3/uL (140-400) Sodium Level 135 mmol/L (136-145) Potassium Level 4.5 mmol/L (3.5-5.1) Chloride Level 101 mmol/L (98-107) Carbon Dioxide Level 22 mmol/L (21-32) Anion Gap 12 (6-14) Blood Urea Nitrogen 82 mg/dL (7-20) Creatinine 4.0 mg/dL (0.6-1.0) Estimated GFR (Cockcroft-Gault) 10.9 BUN/Creatinine Ratio 21 (6-20) Glucose Level 200 mg/dL (70-99) Calcium Level 8.0 mg/dL (8.5-10.1) Phosphorus Level 5.6 mg/dL (2.6-4.7) Total Bilirubin 2.9 mg/dL (0.2-1.0) Aspartate Amino Transf (AST/SGOT) 33 U/L (15-37) Alanine Aminotransferase (ALT/SGPT) 28 U/L (14-59) Alkaline Phosphatase 127 U/L (46-116) Total Protein 6.1 g/dL (6.4-8.2) Albumin 2.0 g/dL (3.4-5.0) Albumin/Globulin Ratio 0.5 (1.0-1.7) Test 06/30/16 08:00 Glucose (Fingerstick) 182 mg/dL (70-99) Micro Micro Microbiology 06/27/16 Blood Culture - Preliminary, Resulted NO GROWTH AFTER 3 DAYS 06/27/16 Urine Culture - Final, Complete 06/27/16 Urine Culture Result 1 (LY) - Final, Complete 06/27/16 Antimicrobic Susceptibility - Final, Complete Review of Systems Constitutional: yes: alert, oriented Ears/Nose/Throat: Yes: no symptom reported Eyes: Yes: no symptom reported Cardiovascular: Yes no symptom reported Gastrointestional: Yes: no symptom reported Musculoskeletal: Yes: muscle stiffness Skin: Yes no symptom reported Psychiatric/Neurological: Yes: no symptom reported Physical Exam General Appearance: no apparent distress Respiratory: bilateral CTA Heart: S1S2 Abdomen: soft, bowel sounds present Genitourinary: bladder flat Extremities: pulses present Neurology: alert Musculoskeletal: Osteoarthritis Assessment Assessment IMP PROB DEVELOPING SEPSIS MSOF ANDRE WITH ANURIA HX OF LEFT NEPHRECTOMY A DECADE AGO - APPARENTLY NOT A MALIGNANCY PLAN UROLOGY EVAL AND TX WILL NEED TO INITIATE HD DUE TO DECREASING CLEARANCE AND ANURIA WILL HAVE IR PLACE A TEMP HD CATHETER HD TODAY UF ABOUT 1 LITER WILL FOLLOW MASON ARNOLD MD June 30, 2016 16:49
[2016-06-30 17:55] VITALS: BP 91/52
[2016-06-30] MEDS: oxyCODONE IR 5 MG TABLET PO PRN (18:27)
[2016-06-30 19:18] VITALS: BP 94/53
[2016-06-30] MEDS: INSULIN DETEMIR 300 UNITS/3 ML INSULN.PEN. SQ SCH (21:09)
[2016-06-30 23:00] VITALS: BP 77/48
--- NOTE | 2016-07-01 01:19 | CONS ---
DATE OF CONSULTATION: 06/30/2016 PATIENT'S ROOM: 667. HISTORY OF PRESENT ILLNESS: The patient is a very pleasant 75-year-old white female who was admitted 3 days ago with left flank pain. The patient was evaluated and found to have UTI along with elevated serum white count and also had Klebsiella grow out on her urine culture, no growth on blood culture. The patient had a CT abdomen and pelvis. She has had prior left nephrectomy approximately 10 years ago in [place] according to the patient for non-neoplastic disease and then the patient's CT scan showed streaky inflammatory process in the left retroperitoneal area with inflammation and also gas in the left iliopsoas musculature. Also there was some small amount of gas in the remaining left ureteral stump. The patient was seen by Nephrology and ID. The patient has renal failure. ID placed her on IV antibiotics. Her white count has come down to now 8.2, creatinine is at 4.0. PAST MEDICAL HISTORY: Significant for COPD, hypertension, coronary artery disease, congestive heart failure. She has had previous coronary artery bypass grafting. She has GERD. She has had prior partial thumb amputation. ALLERGIES: She has no known drug allergies. She also has findings on CT consistent with cirrhosis. PHYSICAL EXAMINATION: The patient has tender abdomen throughout and some left-sided flank pain. PLAN: I talked with the patient concerning her findings. We will have nursing place a Hurtado catheter to gravity drainage and give her maximum urine drainage. The patient started being seen by Nephrology and ID. We will also consult Interventional Radiology for evaluation and possible percutaneous drainage of her left iliopsoas infection and due to her multiple comorbidities and her renal failure, would recommend transfer to for further evaluation and possible treatment. I certainly appreciate being allowed to participate in this patient's care. BALDO NEVAREZ MD DR: OTIS/rob JOB#: [id number] / [id number]
[2016-07-01 01:31] LABS: HEP B SURFACE ABDY Reactive (.)
[2016-07-01 03:00] VITALS: BP 76/43
[2016-07-01] MEDS: LEVOTHYROXINE 75 MCG TABLET PO SCH (05:42)
[2016-07-01] MEDS: metroNIDAZOLE 500 MG TABLET PO SCH ×3 (05:42→21:27)
[2016-07-01] MEDS: HEPARIN PF for SUB-Q USE 5,000 UNIT/0.5 ML VIAL. SQ SCH ×3 (05:46→21:42)
[2016-07-01] MEDS: oxyCODONE IR 5 MG TABLET PO PRN (05:50)
[2016-07-01] MEDS: IV NORMAL SALINE 1000ML BAG 1,000 ML IV SCH ×2 (05:58→21:42)
[2016-07-01 06:16] LABS: BASO % 0 % (0-3); EOS % 4 % (0-3); HEMATOCRIT 32.2 % (36.0-47.0); HEMOGLOBIN 10.9 g/dL (12.0-15.5); LYMPH # 0.8 x10^3/uL (1.0-4.8); LYMPH % 12 % (24-48); MEAN CORPUSCULAR HEMOGLOBIN 35 pg (25-35); MEAN CORPUSCULAR HGB CONC 34 g/dL (31-37); MEAN CORPUSCULAR VOLUME 104 fL (79-100); MONO % 9 % (0-9); NEUT % 75 % (31-73); PLATELET COUNT 70 x10^3/uL (140-400); RED BLOOD COUNT 3.09 x10^6/uL (3.50-5.40); RED CELL DISTRIBUTION WIDTH 13.3 % (11.5-14.5); WHITE BLOOD COUNT 6.7 x10^3/uL (4.0-11.0)
[2016-07-01 06:22] LABS: CALCIUM 7.5 mg/dL (8.5-10.1); CREATININE 2.8 mg/dL (0.6-1.0); GFR 16.4
--- NOTE | 2016-07-01 06:32 | RAD ---
Bedside ultrasound-guided right IJ temporary hemodialysis catheter insertion Indication: 75-year-old female with sepsis, hypotension, and acute renal failure. Temporary dialysis catheter insertion has been requested by Renal. Anesthesia: Local only Sterility: All elements of maximal sterile barrier technique, including the use of a cap, mask, sterile gown, sterile gloves, large sterile sheet, appropriate hand hygiene, and 2% chlorhexidine for cutaneous antisepsis (or acceptable alternative antiseptic per current guidelines) were utilized. Procedure: Informed consent was obtained from the patient. This procedure was performed in the angiography suite with the patient in her hospital bed. Preliminary ultrasound examination of right neck revealed wide patency of right internal jugular vein, which was documented with a single hard copy ultrasound image. Right neck was then prepped and draped in the usual sterile fashion, utilizing all elements of maximal sterile barrier technique, as described above. Using aseptic technique, local anesthesia, direct ultrasound guidance, and the micropuncture system, successful percutaneous entry was achieved into right internal jugular vein. The right IJ venostomy tract was then dilated and a 14 [place] 20 cm temporary hemodialysis catheter was easily advanced centrally over an angiographic guidewire. The catheter was documented to flush and aspirate normally, was packed, and was secured at the right neck exit site utilizing suture and sterile dressing. Patient tolerated the procedure well without apparent complication. A stat portable chest x-ray was requested for line position. Impression: Successful, uneventful ultrasound guided placement of right IJ 14 [place] 20 cm temporary hemodialysis catheter, bedside in the angiography suite, as described.
[2016-07-01 07:00] VITALS: BP 90/46
[2016-07-01] MEDS: INSULIN ASPART 300 UNITS/3 ML INSULN.PEN SQ SCH ×3 (07:30→16:30)
[2016-07-01] MEDS: oxyCODONE ER 40 MG TAB.ER.12H PO SCH ×2 (08:15→21:26)
[2016-07-01] MEDS: LINAGLIPTIN 5 MG TABLET PO SCH (08:15)
[2016-07-01] MEDS: HYDROmorphone 2 MG/ML VIAL IV PRN ×3 (08:20→14:15)
--- NOTE | 2016-07-01 08:34 | PDOC ---
Infectious Disease Note Subjective Subjective Still some pain but better overall ROS ROS GEN: Denies fevers, chills, sweats HEENT: Denies blurred vision, sore throat CV: Denies chest pain RESP: Denies shortness of air, cough GI: Denies n/v/d NEURO: Denies confusion, dizziness MSK: Denies weakness, joint pain/swelling Vital Sign Vital Signs Vital Signs Date Time Temp Pulse Resp B/P (MAP) Pulse Ox O2 Delivery O2 Flow Rate FiO2 07/01/16 08:20 99 Nasal Cannula 2.0 07/01/16 07:00 98.1 116 20 90/46 (61) 98.1 Physical Exam PHYSICAL EXAM GENERAL: In bed Looks comfortable, NAD, coop HEENT: OC/OP pink, dentures NECK: Supple, no JVD, no LN LUNGS: Clear HEART: S1S2, no gallop, no murmur ABD: Obese, BS present, soft, ND Hurtado BACK + CVAT L>R EXT: No edema, no cyanosis DESIGNATED BROKER: Alert, oriented x 3, no focal neurologic deficit SKIN: No rash IV: ok. RIJ HD Labs Lab Laboratory Tests Test 06/30/16 08:55 06/30/16 16:42 06/30/16 21:00 07/01/16 05:00 Hepatitis B Surface Antigen Negative (Negative) Hepatitis B Surface Antibody Reactive (.) Glucose (Fingerstick) 138 mg/dL (70-99) 134 mg/dL (70-99) White Blood Count 6.7 x10^3/uL (4.0-11.0) Red Blood Count 3.09 x10^6/uL (3.50-5.40) Hemoglobin 10.9 g/dL (12.0-15.5) Hematocrit 32.2 % (36.0-47.0) Mean Corpuscular Volume 104 fL (79-100) Mean Corpuscular Hemoglobin 35 pg (25-35) Mean Corpuscular Hemoglobin Concent 34 g/dL (31-37) Red Cell Distribution Width 13.3 % (11.5-14.5) Platelet Count 70 x10^3/uL (140-400) Neutrophils (%) (Auto) 75 % (31-73) Lymphocytes (%) (Auto) 12 % (24-48) Monocytes (%) (Auto) 9 % (0-9) Eosinophils (%) (Auto) 4 % (0-3) Basophils (%) (Auto) 0 % (0-3) Neutrophils # (Auto) 5.0 x10^3uL (1.8-7.7) Lymphocytes # (Auto) 0.8 x10^3/uL (1.0-4.8) Monocytes # (Auto) 0.6 x10^3/uL (0.0-1.1) Eosinophils # (Auto) 0.2 x10^3/uL (0.0-0.7) Basophils # (Auto) 0.0 x10^3/uL (0.0-0.2) Sodium Level 140 mmol/L (136-145) Potassium Level 4.0 mmol/L (3.5-5.1) Chloride Level 105 mmol/L (98-107) Carbon Dioxide Level 29 mmol/L (21-32) Anion Gap 6 (6-14) Blood Urea Nitrogen 56 mg/dL (7-20) Creatinine 2.8 mg/dL (0.6-1.0) Estimated GFR (Cockcroft-Gault) 16.4 Glucose Level 101 mg/dL (70-99) Calcium Level 7.5 mg/dL (8.5-10.1) Test 07/01/16 07:38 Glucose (Fingerstick) 85 mg/dL (70-99) Micro Klebsiella pneumoniae Greater than 100,000 colony forming units per mL ANTIMICROBIAL SUSCEPTIBILITY Final Comment S = Susceptible; I = Intermediate; R = Resistant P = Positive; N = Negative MICS are expressed in micrograms per mL Antibiotic RSLT#1 RSLT#2 RSLT#3 RSLT#4 Amoxicillin/Clavulanic Acid S Ampicillin R Cefepime S Ceftriaxone S Cefuroxime R Cephalothin R Ciprofloxacin R Ertapenem S Gentamicin S Imipenem S Levofloxacin R Nitrofurantoin I Piperacillin R Tetracycline R Tobramycin S Trimethoprim/Sulfa S Performed at: [facility] K Objective Assessment ANDRE - worse with + Urine Eosinophils. S/p HD Iliopsoas infection with air bubbles. repeat CT 06/30 - improved from 06/27 ureteral dehiscence. h/o remote left nephrectomy Klebsiella UTI. POA 06/27 Fever, better Leukocytosis.- better Coronary artery disease. Plan Plan of Care Cont Rocephin/Flagyl Monitor WBC, temp and Cr. Labs in am Per Dr. Eric Barbosa, IR not able to obtain specimen due to lack of fluid present 06/27. HUNTER SELF MD July 01, 2016 08:34
--- NOTE | 2016-07-01 09:10 | PDOC ---
PROGRESS NOTES Subjective Subjective Pt. with left abd pain Objective Objective Vital Signs Date Time Temp Pulse Resp B/P (MAP) Pulse Ox O2 Delivery O2 Flow Rate FiO2 07/01/16 09:04 99 Nasal Cannula 2.0 07/01/16 07:00 98.1 116 20 90/46 (61) 98.1 Intake and Output 07/01/16 07:00 Intake Total 1040 ml Output Total 550 ml Balance 490 ml Intake Oral 440 ml Other 600 ml Output Urine Total 550 ml Physical Exam Physical Exam fletcher in place Pt. dyalized yesterday No fluid in left renal fossa to drain Plan Plan of Care Keep fletcher in place to adequately drain collecting system. Transfer to for further evaluation and treatment. Problems Medical Problems: (1) Abdominal pain Status: Acute (2) Atrial fibrillation Status: Acute (3) Inflammation of ureter Status: Acute Comment Review of Relevant I have reviewed the following items daniel (where applicable) has been applied. Labs Laboratory Tests Test 06/29/16 11:34 06/29/16 17:03 06/29/16 20:55 06/29/16 21:30 Glucose (Fingerstick) 130 mg/dL (70-99) 192 mg/dL (70-99) 169 mg/dL (70-99) Urine Eosinophils Eos observed Urine Random Creatinine 96.9 mg/dL (Not Estab.) Urine Random Sodium 28 mmol/L (Not Estab.) Test 06/30/16 04:55 06/30/16 08:00 06/30/16 08:55 06/30/16 16:42 White Blood Count 8.2 x10^3/uL (4.0-11.0) Red Blood Count 3.49 x10^6/uL (3.50-5.40) Hemoglobin 12.1 g/dL (12.0-15.5) Hematocrit 37.2 % (36.0-47.0) Mean Corpuscular Volume 107 fL (79-100) Mean Corpuscular Hemoglobin 35 pg (25-35) Mean Corpuscular Hemoglobin Concent 33 g/dL (31-37) Red Cell Distribution Width 13.7 % (11.5-14.5) Platelet Count 71 x10^3/uL (140-400) Sodium Level 135 mmol/L (136-145) Potassium Level 4.5 mmol/L (3.5-5.1) Chloride Level 101 mmol/L (98-107) Carbon Dioxide Level 22 mmol/L (21-32) Anion Gap 12 (6-14) Blood Urea Nitrogen 82 mg/dL (7-20) Creatinine 4.0 mg/dL (0.6-1.0) Estimated GFR (Cockcroft-Gault) 10.9 BUN/Creatinine Ratio 21 (6-20) Glucose Level 200 mg/dL (70-99) Calcium Level 8.0 mg/dL (8.5-10.1) Phosphorus Level 5.6 mg/dL (2.6-4.7) Total Bilirubin 2.9 mg/dL (0.2-1.0) Aspartate Amino Transf (AST/SGOT) 33 U/L (15-37) Alanine Aminotransferase (ALT/SGPT) 28 U/L (14-59) Alkaline Phosphatase 127 U/L (46-116) Total Protein 6.1 g/dL (6.4-8.2) Albumin 2.0 g/dL (3.4-5.0) Albumin/Globulin Ratio 0.5 (1.0-1.7) Glucose (Fingerstick) 182 mg/dL (70-99) 138 mg/dL (70-99) Hepatitis B Surface Antigen Negative (Negative) Hepatitis B Surface Antibody Reactive (.) Test 06/30/16 21:00 07/01/16 05:00 07/01/16 07:38 Glucose (Fingerstick) 134 mg/dL (70-99) 85 mg/dL (70-99) White Blood Count 6.7 x10^3/uL (4.0-11.0) Red Blood Count 3.09 x10^6/uL (3.50-5.40) Hemoglobin 10.9 g/dL (12.0-15.5) Hematocrit 32.2 % (36.0-47.0) Mean Corpuscular Volume 104 fL (79-100) Mean Corpuscular Hemoglobin 35 pg (25-35) Mean Corpuscular Hemoglobin Concent 34 g/dL (31-37) Red Cell Distribution Width 13.3 % (11.5-14.5) Platelet Count 70 x10^3/uL (140-400) Neutrophils (%) (Auto) 75 % (31-73) Lymphocytes (%) (Auto) 12 % (24-48) Monocytes (%) (Auto) 9 % (0-9) Eosinophils (%) (Auto) 4 % (0-3) Basophils (%) (Auto) 0 % (0-3) Neutrophils # (Auto) 5.0 x10^3uL (1.8-7.7) Lymphocytes # (Auto) 0.8 x10^3/uL (1.0-4.8) Monocytes # (Auto) 0.6 x10^3/uL (0.0-1.1) Eosinophils # (Auto) 0.2 x10^3/uL (0.0-0.7) Basophils # (Auto) 0.0 x10^3/uL (0.0-0.2) Sodium Level 140 mmol/L (136-145) Potassium Level 4.0 mmol/L (3.5-5.1) Chloride Level 105 mmol/L (98-107) Carbon Dioxide Level 29 mmol/L (21-32) Anion Gap 6 (6-14) Blood Urea Nitrogen 56 mg/dL (7-20) Creatinine 2.8 mg/dL (0.6-1.0) Estimated GFR (Cockcroft-Gault) 16.4 Glucose Level 101 mg/dL (70-99) Calcium Level 7.5 mg/dL (8.5-10.1) Laboratory Tests Test 06/30/16 16:42 06/30/16 21:00 07/01/16 05:00 07/01/16 07:38 Glucose (Fingerstick) 138 mg/dL (70-99) 134 mg/dL (70-99) 85 mg/dL (70-99) White Blood Count 6.7 x10^3/uL (4.0-11.0) Red Blood Count 3.09 x10^6/uL (3.50-5.40) Hemoglobin 10.9 g/dL (12.0-15.5) Hematocrit 32.2 % (36.0-47.0) Mean Corpuscular Volume 104 fL (79-100) Mean Corpuscular Hemoglobin 35 pg (25-35) Mean Corpuscular Hemoglobin Concent 34 g/dL (31-37) Red Cell Distribution Width 13.3 % (11.5-14.5) Platelet Count 70 x10^3/uL (140-400) Neutrophils (%) (Auto) 75 % (31-73) Lymphocytes (%) (Auto) 12 % (24-48) Monocytes (%) (Auto) 9 % (0-9) Eosinophils (%) (Auto) 4 % (0-3) Basophils (%) (Auto) 0 % (0-3) Neutrophils # (Auto) 5.0 x10^3uL (1.8-7.7) Lymphocytes # (Auto) 0.8 x10^3/uL (1.0-4.8) Monocytes # (Auto) 0.6 x10^3/uL (0.0-1.1) Eosinophils # (Auto) 0.2 x10^3/uL (0.0-0.7) Basophils # (Auto) 0.0 x10^3/uL (0.0-0.2) Sodium Level 140 mmol/L (136-145) Potassium Level 4.0 mmol/L (3.5-5.1) Chloride Level 105 mmol/L (98-107) Carbon Dioxide Level 29 mmol/L (21-32) Anion Gap 6 (6-14) Blood Urea Nitrogen 56 mg/dL (7-20) Creatinine 2.8 mg/dL (0.6-1.0) Estimated GFR (Cockcroft-Gault) 16.4 Glucose Level 101 mg/dL (70-99) Calcium Level 7.5 mg/dL (8.5-10.1) Microbiology 06/27/16 Blood Culture - Preliminary, Resulted NO GROWTH AFTER 3 DAYS 06/27/16 Urine Culture - Final, Complete 06/27/16 Urine Culture Result 1 (LY) - Final, Complete 06/27/16 Antimicrobic Susceptibility - Final, Complete Medications Current Medications Hydromorphone HCl (Dilaudid) 1 mg 1X ONCE IV Last administered on 06/27/16 10: 01; Start 06/27/16 at 09:45; Stop 06/27/16 at 09:46; Status DC Sodium Chloride 1,000 ml @ 1,000 mls/hr 1X ONCE IV ; Start 06/27/16 at 09:45; Stop 06/27/16 at 09:45; Status DC Sodium Chloride 500 ml @ 500 mls/hr 1X ONCE IV Last administered on 06/27/16 09:56; Start 06/27/16 at 09:45; Stop 06/27/16 at 10:44; Status DC Ceftriaxone Sodium 1 gm/ Sodium Chloride 50 ml @ 100 mls/hr Q24H IV Last administered on 06/27/16 12:23; Start 06/28/16 at 11:00; Stop 06/28/16 at 11:00; Status DC Ceftriaxone Sodium 50 ml @ 100 mls/hr 1X ONCE IV Last administered on 11:00; Start 06/27/16 at 11:00; Stop 06/27/16 at 11:29; Status DC Hydromorphone HCl (Dilaudid) 1 mg 1X ONCE IV Last administered on 06/27/16 12: 24; Start 06/27/16 at 11:30; Stop 06/27/16 at 11:31; Status DC Ondansetron HCl (Zofran) 4 mg PRN Q8HRS PRN IV NAUSEA/VOMITING; Start 06/27/16 at 12:15; Stop 06/28/16 at 12:14; Status DC Sodium Chloride 1,000 ml @ 100 mls/hr Q10H IV Last administered on 06/28/16 10 :09; Start 06/27/16 at 12:05; Stop 06/28/16 at 12:04; Status DC Hydromorphone HCl (Dilaudid) 1 mg PRN Q2HR PRN IV MODERATE TO SEVERE PAIN Last administered on 07/01/16 08:20; Start 06/27/16 at 12:30 Piperacillin Sod/ Tazobactam Sod 3.375 gm/Sodium Chloride 50 ml @ 100 mls/hr Q8HRS IV Last administered on 06/29/16 05:42; Start 06/27/16 at 13:00; Stop 06/29 at 09:33; Status DC Oxycodone HCl (Roxicodone) 30 mg QID PRN PO BREAKTHROUGH PAIN Last administered on 07/01/16 09:04; Start 06/27/16 at 14:30 Oxycodone HCl (Oxycontin) 80 mg Q12HR PO Last administered on 07/01/16 08:15; Start 06/27/16 at 21:00 Spironolactone (Aldactone) 25 mg DAILY PO Last administered on 06/28/16 08:36; Start 06/28/16 at 09:00; Stop 06/28/16 at 09:18; Status DC Insulin Detemir (Levemir) 24 units QHS SQ Last administered on 06/27/16 21:51; Start 06/27/16 at 21:00; Stop 06/28/16 at 14:09; Status DC Linagliptin (Tradjenta) 5 mg DAILY PO Last administered on 07/01/16 08:15; Start 06/28/16 at 09:00 Levothyroxine Sodium (Synthroid) 75 mcg DAILY07 PO Last administered on 05:42; Start 06/28/16 at 07:00 Insulin Aspart (Novolog) 7 units 1X ONCE SQ Last administered on 06/27/16 22: 37; Start 06/27/16 at 22:15; Stop 06/27/16 at 22:16; Status DC Enoxaparin Sodium (Lovenox 30mg Syringe) 30 mg Q24H SQ Last administered on 06/29 12:26; Start 06/28/16 at 13:00; Stop 06/30/16 at 11:26; Status DC Insulin Aspart (Novolog) 5 units TIDAC SQ Last administered on 06/30/16 12:55; Start 06/28/16 at 16:30 Insulin Detemir (Levemir) 19 units QHS SQ Last administered on 06/30/16 21:09; Start 06/28/16 at 21:00 Piperacillin Sod/ Tazobactam Sod 2.25 gm/Sodium Chloride 50 ml @ 100 mls/hr Q8HRS IV Last administered on 06/29/16 14:14; Start 06/29/16 at 14:00; Stop 06/29 at 14:25; Status DC Piperacillin Sod/ Tazobactam Sod 2.25 gm/Sodium Chloride 50 ml @ 100 mls/hr Q6HRS IV Last administered on 06/30/16 06:02; Start 06/29/16 at 18:00; Stop 06/30 at 08:23; Status DC Albumin Human 50 ml @ 50 mls/hr 1X ONCE IV Last administered on 06/29/16 17:10 ; Start 06/29/16 at 16:15; Stop 06/29/16 at 17:14; Status DC Sodium Chloride 1,000 ml @ 75 mls/hr [id number] IV Last administered on 07/01/16 05:58; Start 06/29/16 at 16:15 Sodium Chloride 1,000 ml @ 1,000 mls/hr 1X ONCE IV Last administered on 16:17; Start 06/29/16 at 16:00; Stop 06/29/16 at 16:59; Status DC Ceftriaxone Sodium 2 gm/ Sodium Chloride 100 ml @ 200 mls/hr Q24H IV Last administered on 07/01/16 08:15; Start 06/30/16 at 09:00 Metronidazole (Flagyl) 500 mg Q8HRS PO Last administered on 07/01/16 05:42; Start 06/30/16 at 09:00 Iohexol (Omnipaque 240 Mg/ml) 50 ml 1X ONCE PO ; Start 06/30/16 at 11:45; Stop 06/30/16 at 11:46; Status DC Info (Do NOT chart on this entry -- for MONITORING) 1 each PRN DAILY PRN MC SEE COMMENTS; Start 06/30/16 at 11:15; Stop 07/02/16 at 11:14 Lidocaine/Sodium Bicarbonate (Buffered Lidocaine 1%) 3 ml 1X ONCE IJ Last administered on 06/30/16 11:58; Start 06/30/16 at 11:30; Stop 06/30/16 at 11:31; Status DC Heparin Sodium/ Sodium Chloride 60 unit 1X ONCE IV Last administered on 11:58; Start 06/30/16 at 11:30; Stop 06/30/16 at 11:31; Status DC Heparin Sodium (Porcine) (Heparin Sodium) 2,500 unit 1X ONCE INT CAT Last administered on 06/30/16 11:58; Start 06/30/16 at 11:30; Stop 06/30/16 at 11:31; Status DC Heparin Sodium (Porcine) 5,000 unit Q8HRS SQ Last administered on 07/01/16 05: 46; Start 06/30/16 at 14:00 Heparin Sodium (Porcine) (Heparin Sodium) 10,000 unit STK-MED ONCE .ROUTE ; Start 06/30/16 at 11:29; Stop 5/8/17 at 11:30; Status DC Sodium Chloride 1,000 ml @ 1,000 mls/hr Q1H PRN IV hypotension; Start 06/30/16 at 12:53; Stop 06/30/16 at 18:52; Status DC Albumin Human 200 ml @ 200 mls/hr 1X PRN PRN IV Hypotension Last administered on 06/30/16 14:14; Start 06/30/16 at 13:00; Stop 06/30/16 at 18:59; Status DC Sodium Chloride (Normal Saline Flush) 10 ml 1X PRN PRN IV AP catheter pack; Start 06/30/16 at 13:00; Stop 07/01/16 at 12:59 Sodium Chloride (Normal Saline Flush) 10 ml 1X PRN PRN IV ENDORSEMENT CLERK catheter pack; Start 06/30/16 at 13:00; Stop 07/01/16 at 12:59 Info (PHARMACY MONITORING -- do not chart) 1 each PRN DAILY PRN MC SEE COMMENTS ; Start 06/30/16 at 13:00 Oxycodone HCl (Roxicodone) 10 mg PRN Q6HRS PRN PO GIVE IF BP=LOW INSTEAD OF 30MG Last administered on 07/01/16 05:50; Start 06/30/16 at 18:15 Active Scripts Active Keflex (Cephalexin) 500 Mg Capsule 500 Mg PO QID 5 Days Aldactone (Spironolactone) 25 Mg Tablet 25 Mg PO DAILY 30 Days Cozaar (Losartan Potassium) 25 Mg Tablet 25 Mg PO DAILY 30 Days Synthroid (Levothyroxine Sodium) 75 Mcg Tablet 75 Mcg PO DAILY07 30 Days Reported Potassium Chloride 10 Meq Capsule.er 10 Meq PO TID Miralax (Polyethylene Glycol 3350) 17 Gm Powd.pack 1 Packet PO DAILY PRN Amiodarone Hcl 200 Mg Tablet 1 Tab PO DAILY Toujeo Solostar (Insulin Glargine,Hum.rec.anlog) 300 Unit/1 Ml Insuln.pen 24 Unit SQ HS next dose tonight 9:00 pm Oxycodone Hcl 30 Mg Tablet 1 Tab PO QID PRN Januvia (Sitagliptin Phosphate) 100 Mg Tablet 1 Tab PO DAILY next dose tomorrow morning, 12-15-15 9:00 AM Oxycontin (Oxycodone HCl) 80 Mg Tab.er.12h 80 Mg PO BID next dose tomorrow morning, 10-22-16 9:00 AM Metoprolol Tartrate 25 Mg Tablet 25 Mg PO BID next dose tonight 12-14-15 at 9:00 pm Furosemide 40 Mg Tablet 80 Mg PO BID next dose tomorrow morning, 12-15-15 9:00 AM Docusate Sodium 100 Mg Capsule 100 Mg PO BID next dose tomorrow morning, 12-15-15 9:00 AM Vitals/I & O Vital Sign - Last 24 Hours 06/30/16 06/30/16 06/30/16 06/30/16 11:00 17:11 17:55 18:27 Temp 97.9 97.9 Pulse 126 65 Resp 22 B/P (MAP) 86/38 (54) 91/52 (65) Pulse Ox 100 100 100 O2 Delivery Nasal Cannula Nasal Cannula Nasal Cannula O2 Flow Rate 2.0 2.0 2.0 06/30/16 06/30/16 06/30/16 06/30/16 19:18 20:00 21:01 22:01 Temp 98.7 98.7 Pulse 118 Resp 20 20 16 B/P (MAP) 94/53 (67) Pulse Ox 98 O2 Delivery Nasal Cannula Nasal Cannula Nasal Cannula O2 Flow Rate 2.0 3.0 3.0 06/30/16 07/01/16 07/01/16 07/01/16 23:00 03:00 05:50 06:54 Temp 98.2 98.5 98.2 98.5 Pulse 127 100 Resp 20 20 20 20 B/P (MAP) 77/48 (58) 76/43 (54) Pulse Ox 9 99 O2 Delivery Nasal Cannula Nasal Cannula Nasal Cannula O2 Flow Rate 2.0 2.0 3.0 07/01/16 07/01/16 07/01/16 07/01/16 07:00 08:00 08:15 08:20 Temp 98.1 98.1 Pulse 116 Resp 20 B/P (MAP) 90/46 (61) Pulse Ox 99 99 99 O2 Delivery Nasal Cannula Nasal Cannula Nasal Cannula Nasal Cannula O2 Flow Rate 2.0 3.0 2.0 2.0 07/01/16 07/01/16 09:02 09:04 Pulse Ox 99 99 O2 Delivery Nasal Cannula Nasal Cannula O2 Flow Rate 2.0 2.0 Intake and Output 06/30/16 06/30/1617 15:00 23:00 07:00 Intake Total 200 ml 840 ml Output Total 350 ml 200 ml Balance -150 ml 640 ml BALDO NEVAREZ MD July 01, 2016 09:10
[2016-07-01] MEDS ORDERED: POLYETHYLENE GLYCOL 3350 17 GM PACKET. PO PRN (10:45)
--- NOTE | 2016-07-01 10:51 | EKG ---
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
[2016-07-01 11:00] VITALS: BP 106/55
[2016-07-01] MEDS: FUROSEMIDE 80 MG TABLET. PO SCH ×2 (11:00→16:00)
[2016-07-01] MEDS: DOCUSATE SODIUM 100 MG CAPSULE. PO SCH ×2 (11:00→21:26)
[2016-07-01] MEDS: AMIODARONE HCL 200 MG TABLET. PO SCH (11:01)
[2016-07-01] MEDS: METOPROLOL TART IMMED RELEASE 25 MG TABLET. PO SCH ×2 (11:01→14:11)
--- NOTE | 2016-07-01 12:04 | RAD ---
Indication: Increasing left lower quadrant pain Axial imaging through the abdomen and pelvis was performed without contrast. Comparison is made with prior CT one day earlier. The left basilar consolidation and air bronchograms persist. Small left effusion persists. There appears to be trace pleural fluid with some mild infiltrate in the right lung base as well, new since yesterday. Liver again demonstrates a nodular contour. No mass is seen. There appears to be stones or sludge within the gallbladder. The pancreas and spleen are unremarkable. No adrenal mass is seen. The right kidney is unremarkable. The left kidney is surgically absent. There continues to be a decrease in the gas identified in the left retroperitoneum just lateral to the nephrectomy bed when compared with yesterday. However, there does appear to be some increasing ill-defined fluid at this location when compared with prior CTs. The fluid does not appear to be well formed at this time. No definite drainable collection is seen at this time. There is moderate edema identified in the subcutaneous tissues of the lower quadrants bilaterally, greatest on the left. No free fluid in the pelvis is seen. There is gas within the urinary bladder. There also appears to be some gas within the uterus. Postop changes left hip are noted. Impression: 1. Continued left pleural effusion and left basilar consolidation with developing trace right pleural fluid and right basilar infiltrate. 2. While the degree of soft tissue gas at the nephrectomy bed on the left has decreased there appears to be some increase in ill-defined fluid at this location versus phlegmonous change. No well-formed or drainable fluid collection is identified at this time. Continued close follow-up is recommended. PQRS Compliance Statement: One or more of the following individualized dose reduction techniques were utilized for this examination: 1. Automated exposure control 2. Adjustment of the mA and/or kV according to patient size 3. Use of iterative reconstruction technique
--- NOTE | 2016-07-01 12:12 | PDOC ---
Renal-Progress Notes Subjective Notes Notes NONE History of Present Illness Hx of present illness NO CHANGE Vitals Vitals Vital Signs Date Time Temp Pulse Resp B/P (MAP) Pulse Ox O2 Delivery O2 Flow Rate FiO2 07/01/16 11:37 99 Nasal Cannula 2.0 07/01/16 11:01 116 90/46 07/01/16 11:00 98.1 20 98.1 Weight Weight [ ] I.O. Intake and Output Intake and Output 07/01/16 06:59 Intake Total 1040 ml Output Total 550 ml Balance 490 ml Intake Oral 440 ml Other 600 ml Output Urine Total 550 ml Labs Labs Laboratory Tests Test 06/30/16 16:42 06/30/16 21:00 07/01/16 05:00 07/01/16 07:38 Glucose (Fingerstick) 138 mg/dL (70-99) 134 mg/dL (70-99) 85 mg/dL (70-99) White Blood Count 6.7 x10^3/uL (4.0-11.0) Red Blood Count 3.09 x10^6/uL (3.50-5.40) Hemoglobin 10.9 g/dL (12.0-15.5) Hematocrit 32.2 % (36.0-47.0) Mean Corpuscular Volume 104 fL (79-100) Mean Corpuscular Hemoglobin 35 pg (25-35) Mean Corpuscular Hemoglobin Concent 34 g/dL (31-37) Red Cell Distribution Width 13.3 % (11.5-14.5) Platelet Count 70 x10^3/uL (140-400) Neutrophils (%) (Auto) 75 % (31-73) Lymphocytes (%) (Auto) 12 % (24-48) Monocytes (%) (Auto) 9 % (0-9) Eosinophils (%) (Auto) 4 % (0-3) Basophils (%) (Auto) 0 % (0-3) Neutrophils # (Auto) 5.0 x10^3uL (1.8-7.7) Lymphocytes # (Auto) 0.8 x10^3/uL (1.0-4.8) Monocytes # (Auto) 0.6 x10^3/uL (0.0-1.1) Eosinophils # (Auto) 0.2 x10^3/uL (0.0-0.7) Basophils # (Auto) 0.0 x10^3/uL (0.0-0.2) Sodium Level 140 mmol/L (136-145) Potassium Level 4.0 mmol/L (3.5-5.1) Chloride Level 105 mmol/L (98-107) Carbon Dioxide Level 29 mmol/L (21-32) Anion Gap 6 (6-14) Blood Urea Nitrogen 56 mg/dL (7-20) Creatinine 2.8 mg/dL (0.6-1.0) Estimated GFR (Cockcroft-Gault) 16.4 Glucose Level 101 mg/dL (70-99) Calcium Level 7.5 mg/dL (8.5-10.1) Test 07/01/16 11:54 Glucose (Fingerstick) 95 mg/dL (70-99) Micro Micro Microbiology 06/27/16 Blood Culture - Preliminary, Resulted NO GROWTH AFTER 3 DAYS 06/27/16 Urine Culture - Final, Complete 06/27/16 Urine Culture Result 1 (LY) - Final, Complete 06/27/16 Antimicrobic Susceptibility - Final, Complete Review of Systems Constitutional: yes: alert, oriented Ears/Nose/Throat: Yes: no symptom reported Eyes: Yes: no symptom reported Cardiovascular: Yes no symptom reported Gastrointestional: Yes: no symptom reported Musculoskeletal: Yes: muscle stiffness Skin: Yes no symptom reported Psychiatric/Neurological: Yes: no symptom reported Physical Exam General Appearance: no apparent distress Respiratory: bilateral CTA Heart: S1S2 Abdomen: soft, bowel sounds present Genitourinary: bladder flat Extremities: pulses present Neurology: alert Musculoskeletal: Osteoarthritis Assessment Assessment IMP PROB DEVELOPING SEPSIS MSOF ANDRE WITH ANURIA HX OF LEFT NEPHRECTOMY A DECADE AGO - APPARENTLY NOT A MALIGNANCY PLAN UROLOGY EVAL AND TX HD TOMORROW UPDATED FAMILY WILL FOLLOW MASON ARNOLD MD July 01, 2016 12:12
--- NOTE | 2016-07-01 13:45 | PDOC ---
SURGICAL PROGRESS NOTE Subjective 75 yo F with retroperitoneal infection appears to be improving with abx pt poor surgical candidate d/w pt and pt's family Thanks for consult! [id number] Vital Signs Vital Signs Date Time Temp Pulse Resp B/P (MAP) Pulse Ox O2 Delivery O2 Flow Rate FiO2 07/01/16 12:28 99 Nasal Cannula 2.0 07/01/16 11:01 116 90/46 07/01/16 11:00 98.1 20 98.1 I&O Intake and Output 07/01/16 07:00 Intake Total 1040 ml Output Total 550 ml Balance 490 ml Intake Oral 440 ml Other 600 ml Output Urine Total 550 ml Labs Laboratory Tests Test 06/29/16 17:03 06/29/16 20:55 06/29/16 21:30 06/30/16 04:55 Glucose (Fingerstick) 192 mg/dL (70-99) 169 mg/dL (70-99) Urine Eosinophils Eos observed Urine Random Creatinine 96.9 mg/dL (Not Estab.) Urine Random Sodium 28 mmol/L (Not Estab.) White Blood Count 8.2 x10^3/uL (4.0-11.0) Red Blood Count 3.49 x10^6/uL (3.50-5.40) Hemoglobin 12.1 g/dL (12.0-15.5) Hematocrit 37.2 % (36.0-47.0) Mean Corpuscular Volume 107 fL (79-100) Mean Corpuscular Hemoglobin 35 pg (25-35) Mean Corpuscular Hemoglobin Concent 33 g/dL (31-37) Red Cell Distribution Width 13.7 % (11.5-14.5) Platelet Count 71 x10^3/uL (140-400) Sodium Level 135 mmol/L (136-145) Potassium Level 4.5 mmol/L (3.5-5.1) Chloride Level 101 mmol/L (98-107) Carbon Dioxide Level 22 mmol/L (21-32) Anion Gap 12 (6-14) Blood Urea Nitrogen 82 mg/dL (7-20) Creatinine 4.0 mg/dL (0.6-1.0) Estimated GFR (Cockcroft-Gault) 10.9 BUN/Creatinine Ratio 21 (6-20) Glucose Level 200 mg/dL (70-99) Calcium Level 8.0 mg/dL (8.5-10.1) Phosphorus Level 5.6 mg/dL (2.6-4.7) Total Bilirubin 2.9 mg/dL (0.2-1.0) Aspartate Amino Transf (AST/SGOT) 33 U/L (15-37) Alanine Aminotransferase (ALT/SGPT) 28 U/L (14-59) Alkaline Phosphatase 127 U/L (46-116) Total Protein 6.1 g/dL (6.4-8.2) Albumin 2.0 g/dL (3.4-5.0) Albumin/Globulin Ratio 0.5 (1.0-1.7) Test 06/30/16 08:00 06/30/16 08:55 06/30/16 16:42 06/30/16 21:00 Glucose (Fingerstick) 182 mg/dL (70-99) 138 mg/dL (70-99) 134 mg/dL (70-99) Hepatitis B Surface Antigen Negative (Negative) Hepatitis B Surface Antibody Reactive (.) Test 07/01/16 05:00 07/01/16 07:38 07/01/16 11:54 White Blood Count 6.7 x10^3/uL (4.0-11.0) Red Blood Count 3.09 x10^6/uL (3.50-5.40) Hemoglobin 10.9 g/dL (12.0-15.5) Hematocrit 32.2 % (36.0-47.0) Mean Corpuscular Volume 104 fL (79-100) Mean Corpuscular Hemoglobin 35 pg (25-35) Mean Corpuscular Hemoglobin Concent 34 g/dL (31-37) Red Cell Distribution Width 13.3 % (11.5-14.5) Platelet Count 70 x10^3/uL (140-400) Neutrophils (%) (Auto) 75 % (31-73) Lymphocytes (%) (Auto) 12 % (24-48) Monocytes (%) (Auto) 9 % (0-9) Eosinophils (%) (Auto) 4 % (0-3) Basophils (%) (Auto) 0 % (0-3) Neutrophils # (Auto) 5.0 x10^3uL (1.8-7.7) Lymphocytes # (Auto) 0.8 x10^3/uL (1.0-4.8) Monocytes # (Auto) 0.6 x10^3/uL (0.0-1.1) Eosinophils # (Auto) 0.2 x10^3/uL (0.0-0.7) Basophils # (Auto) 0.0 x10^3/uL (0.0-0.2) Sodium Level 140 mmol/L (136-145) Potassium Level 4.0 mmol/L (3.5-5.1) Chloride Level 105 mmol/L (98-107) Carbon Dioxide Level 29 mmol/L (21-32) Anion Gap 6 (6-14) Blood Urea Nitrogen 56 mg/dL (7-20) Creatinine 2.8 mg/dL (0.6-1.0) Estimated GFR (Cockcroft-Gault) 16.4 Glucose Level 101 mg/dL (70-99) Calcium Level 7.5 mg/dL (8.5-10.1) Glucose (Fingerstick) 85 mg/dL (70-99) 95 mg/dL (70-99) Laboratory Tests Test 06/30/16 16:42 06/30/16 21:00 07/01/16 05:00 07/01/16 07:38 Glucose (Fingerstick) 138 mg/dL (70-99) 134 mg/dL (70-99) 85 mg/dL (70-99) White Blood Count 6.7 x10^3/uL (4.0-11.0) Red Blood Count 3.09 x10^6/uL (3.50-5.40) Hemoglobin 10.9 g/dL (12.0-15.5) Hematocrit 32.2 % (36.0-47.0) Mean Corpuscular Volume 104 fL (79-100) Mean Corpuscular Hemoglobin 35 pg (25-35) Mean Corpuscular Hemoglobin Concent 34 g/dL (31-37) Red Cell Distribution Width 13.3 % (11.5-14.5) Platelet Count 70 x10^3/uL (140-400) Neutrophils (%) (Auto) 75 % (31-73) Lymphocytes (%) (Auto) 12 % (24-48) Monocytes (%) (Auto) 9 % (0-9) Eosinophils (%) (Auto) 4 % (0-3) Basophils (%) (Auto) 0 % (0-3) Neutrophils # (Auto) 5.0 x10^3uL (1.8-7.7) Lymphocytes # (Auto) 0.8 x10^3/uL (1.0-4.8) Monocytes # (Auto) 0.6 x10^3/uL (0.0-1.1) Eosinophils # (Auto) 0.2 x10^3/uL (0.0-0.7) Basophils # (Auto) 0.0 x10^3/uL (0.0-0.2) Sodium Level 140 mmol/L (136-145) Potassium Level 4.0 mmol/L (3.5-5.1) Chloride Level 105 mmol/L (98-107) Carbon Dioxide Level 29 mmol/L (21-32) Anion Gap 6 (6-14) Blood Urea Nitrogen 56 mg/dL (7-20) Creatinine 2.8 mg/dL (0.6-1.0) Estimated GFR (Cockcroft-Gault) 16.4 Glucose Level 101 mg/dL (70-99) Calcium Level 7.5 mg/dL (8.5-10.1) Test 07/01/16 11:54 Glucose (Fingerstick) 95 mg/dL (70-99) Problem List Problems Medical Problems: (1) Abdominal pain Status: Acute (2) Atrial fibrillation Status: Acute (3) Inflammation of ureter Status: Acute Problems: CRISTINA SERRANO MD July 01, 2016 13:45
[2016-07-01] MEDS: POTASSIUM CHLORIDE 10 MEQ TABLET.ER. PO SCH ×2 (14:10→21:27)
[2016-07-01 15:00] VITALS: BP 71/50
--- NOTE | 2016-07-01 16:53 | PDOC ---
Provider Note Provider Note late entry from yesterday. remains in pain and hypotensive. left ileopsoasis process ongoing with no fluid collection for IR to aspirate. ongoing worsening renal failure with temporarary hemodialysis catheter placed. explained limitations of pain medication in face of hypotension. ongoing antibitotics. asked case management to facilitate transfer to [facility] per urology recommendations. CRISTY ARANGO MD July 01, 2016 16:53
--- NOTE | 2016-07-01 16:55 | PDOC ---
Provider Note Provider Note afebrile. ongoing hypotension. complains of increasing pain. exam stable. surgery feels risk of mortality extremely high. had dialysis yesterday. still trying to transfer to [facility] but they are full per report. ongoing antibiotics. supportive care. CRISTY ARANGO MD July 01, 2016 16:55
[2016-07-01 19:32] VITALS: BP 86/44
[2016-07-01] MEDS: INSULIN DETEMIR 300 UNITS/3 ML INSULN.PEN. SQ SCH (21:39)
[2016-07-01 22:57] VITALS: BP 70/38
[2016-07-02 02:42] VITALS: BP 131/41
[2016-07-02] MEDS: LEVOTHYROXINE 75 MCG TABLET PO SCH (05:47)
[2016-07-02] MEDS: metroNIDAZOLE 500 MG TABLET PO SCH ×3 (05:47→21:28)
[2016-07-02] MEDS: HEPARIN PF for SUB-Q USE 5,000 UNIT/0.5 ML VIAL. SQ SCH ×3 (05:52→21:32)
[2016-07-02 07:00] VITALS: BP 81/46
[2016-07-02] MEDS ORDERED: IV NORMAL SALINE 1000ML BAG 1,000 ML IV PRN ×2 (07:07)
[2016-07-02] MEDS ORDERED: DIALYSIS PATIENT. MC PRN (07:15)
[2016-07-02] MEDS ORDERED: ALBUMIN HUMAN 25% 200 ML IV PRN (07:15)
[2016-07-02] MEDS ORDERED: 0.9 % SODIUM CHLORIDE 10 ML DISP.SYRIN. IV PRN ×2 (07:15)
[2016-07-02] MEDS: FUROSEMIDE 80 MG TABLET. PO SCH ×2 (07:50→15:42)
[2016-07-02] MEDS: LINAGLIPTIN 5 MG TABLET PO SCH (07:50)
[2016-07-02] MEDS: POTASSIUM CHLORIDE 10 MEQ TABLET.ER. PO SCH ×3 (07:50→21:28)
[2016-07-02] MEDS: DOCUSATE SODIUM 100 MG CAPSULE. PO SCH ×2 (07:51→21:26)
[2016-07-02] MEDS: METOPROLOL TART IMMED RELEASE 25 MG TABLET. PO SCH ×2 (07:52→21:27)
[2016-07-02] MEDS: AMIODARONE HCL 200 MG TABLET. PO SCH (07:52)
[2016-07-02] MEDS: oxyCODONE ER 40 MG TAB.ER.12H PO SCH ×2 (07:54→21:34)
[2016-07-02] MEDS: INSULIN ASPART 300 UNITS/3 ML INSULN.PEN SQ SCH ×3 (07:58→18:10)
--- NOTE | 2016-07-02 08:35 | CONS ---
DATE OF CONSULTATION: 07/01/2016 REFERRING PHYSICIANS: Dr. Kathi Barbosa, Dr. Demarco Barbosa, Dr. Baldo Burton, Dr. Cristy Bautista, Dr. Gagandeep Huff. Thank you for the consult. CHIEF COMPLAINT: Left lower quadrant abdominal pain. DIAGNOSIS: Left retroperitoneal infection, favor disruption of ureteral dehiscence. HISTORY OF PRESENT ILLNESS: This is a 75-year-old female who presented to the hospital with a few day history of left lower quadrant abdominal pain. She had some fevers, although otherwise she reports doing fairly well. She has chronic back problems. She was simply identified to have evidence of concern for sepsis. She has been admitted to the hospital and started on antibiotics. She continues to have significant abdominal pain, although her infection count and other parameters appear to be improved. She is seen in her hospital room accompanied by her supportive daughter. ALLERGIES: She has no known drug allergies. HOME MEDICATIONS: Include amlodipine, Keflex, docusate, Lasix, insulin, Synthroid, Cozaar, metoprolol, OxyContin, MiraLax, Januvia, Aldactone. PAST MEDICAL HISTORY: Hypertension, coronary artery disease, history of CABG, COPD, reflux, renal insufficiency, morbid obesity. PAST SURGICAL HISTORY: Includes multiple C-sections, left nephrectomy. SOCIAL HISTORY: Positive for tobacco. REVIEW OF SYSTEMS: All systems reviewed and negative except for HPI. PHYSICAL EXAMINATION: GENERAL: Well-developed, morbidly obese female, in no obvious distress, although she does report significant pain in the left lower quadrant. VITAL SIGNS: She is afebrile. She has been noted to be somewhat tachycardic with a pulse in the 140s, now 116. HEENT: Normocephalic, atraumatic. Pupils equal. Anicteric sclerae. Oropharynx clear. NECK: Supple. Trachea is midline. CHEST: Bilateral chest excursion. No chest wall tenderness to palpation. ABDOMEN: Soft, morbidly obese, well-healed surgical scar. There is a left costal margin incision consistent with left nephrectomy. She has significant tenderness to palpation in the left flank area, does appear to have some induration in this area. EXTREMITIES: No clubbing, cyanosis or edema. LABORATORY DATA: White blood cell count is down to 6.7 and had been as high as 17.8. Creatinine is 2.8. Glucose is controlled at this time. UA demonstrated a small amount of leukocyte esterase. Hepatitis B antibodies were reactive, but hepatitis B antigen is negative. Initial CT scan of her abdomen and pelvis demonstrated left nephrectomy with some inflammatory process in the left renal fossa concerning for dehiscence of ureteral stump, hepatic cirrhosis. Subsequent CTs have demonstrated some improvement, but she has developed a left pleural effusion. There is noted to be some ill-defined fluid at the area, but no drainable fluid. IMPRESSION AND RECOMMENDATIONS: This is a 75-year-old female with left retroperitoneal infection, favor secondary to dehisced ureteral stump. I agree with maximal drainage of this area with possible Hurtado catheter. NSQIP surgical risk calculator on her demonstrates a risk of in operative intervention as being as high as 50% and as such given her clinical improvement, would favor again surgical intervention and continued antibiotics and supportive care. She does appear to be improving. I will certainly follow along for possible intervention. I have discussed this case with the patient, the patient's daughter and with Dr. Bautista. Thank you for allowing participation in the care of this pleasant patient. CRISTINA SERRANO MD DR: PARDEEP/rob JOB#: [id number] / [id number] flavia BAUTISTA, CRISTY BARBOSA, KATHI BARBOSA, DEMARCO HUFF, BALDO FINNEGAN MD
--- NOTE | 2016-07-02 08:43 | PDOC ---
Infectious Disease Note Subjective Subjective Still some pain but better overall Eating well ROS ROS GEN: Denies fevers, chills, sweats HEENT: Denies blurred vision, sore throat CV: Denies chest pain RESP: Denies shortness of air, cough GI: Denies n/v/d NEURO: Denies confusion, dizziness MSK: Denies weakness, joint pain/swelling Vital Sign Vital Signs Vital Signs Date Time Temp Pulse Resp B/P (MAP) Pulse Ox O2 Delivery O2 Flow Rate FiO2 07/02/16 07:54 16 Nasal Cannula 3.0 07/02/16 07:52 93 81/46 07/02/16 07:00 97.3 93 97.3 Physical Exam PHYSICAL EXAM GENERAL: In bed Looks comfortable, NAD, coop. In HD HEENT: OC/OP pink, dentures NECK: Supple, no JVD, no LN LUNGS: Clear HEART: S1S2, no gallop, no murmur ABD: Obese, BS present, soft, ND. Mild LLQ pain Hurtado BACK + CVAT L>R EXT: No edema, no cyanosis DRUM ATTENDANT: Alert, oriented x 3, no focal neurologic deficit SKIN: No rash IV: ok. RIJ HD Labs Lab Laboratory Tests Test 07/01/16 11:54 07/01/16 16:34 07/01/16 21:26 Glucose (Fingerstick) 95 mg/dL (70-99) 148 mg/dL (70-99) 195 mg/dL (70-99) Micro Klebsiella pneumoniae Greater than 100,000 colony forming units per mL ANTIMICROBIAL SUSCEPTIBILITY Final Comment S = Susceptible; I = Intermediate; R = Resistant P = Positive; N = Negative MICS are expressed in micrograms per mL Antibiotic RSLT#1 RSLT#2 RSLT#3 RSLT#4 Amoxicillin/Clavulanic Acid S Ampicillin R Cefepime S Ceftriaxone S Cefuroxime R Cephalothin R Ciprofloxacin R Ertapenem S Gentamicin S Imipenem S Levofloxacin R Nitrofurantoin I Piperacillin R Tetracycline R Tobramycin S Trimethoprim/Sulfa S [facility]formed at: [facility] K Objective Assessment ANDRE -. S/p HD Iliopsoas infection with air bubbles. repeat CT 06/30 - improved from 06/27 ureteral dehiscence. h/o remote left nephrectomy Klebsiella UTI. POA 06/27 Fever, better Leukocytosis.- better Coronary artery disease. Plan Plan of Care Cont Rocephin/Flagyl Monitor WBC, temp and Cr. Labs in am Per Dr. Eric Barbosa, IR not able to obtain specimen due to lack of fluid present 06/27. HUNTER SELF MD July 02, 2016 08:43
--- NOTE | 2016-07-02 10:26 | PDOC ---
PROGRESS NOTES Subjective Subjective Pt.feeling better Objective Objective Vital Signs Date Time Temp Pulse Resp B/P (MAP) Pulse Ox O2 Delivery O2 Flow Rate FiO2 07/02/16 08:00 Nasal Cannula 3.0 07/02/16 07:54 16 07/02/16 07:52 93 81/46 07/02/16 07:00 97.3 93 97.3 Intake and Output 07/02/16 07:00 Intake Total 1980 ml Output Total 550 ml Balance 1430 ml Intake Oral 1980 ml Output Urine Total 550 ml # Bowel Movements 1 Physical Exam Physical Exam Less tender in left abdomen and flank fletcher in place-urine yellow Plan Plan of Care CT yesterday still with no obvious fluid to drain. Pt. dyalizing currently I discussed with pt. her findings. Pt. still receiving IV antibiotic per ID I agree with Dr. Bautista to transfer pt. to [facility] for further evaluation and treatment of left retroperitoneal infection. Pt. may require percutaneous drainage of the area in the future. Pt. may require excision of the left uretral stump in the future. Pt, and Dr. Bautista are aware that I will be out of town from now until 07/07/16 and that pt. needs to be transferred to today for further evaluation and treatment. Problems Medical Problems: (1) Abdominal pain Status: Acute (2) Atrial fibrillation Status: Acute (3) Inflammation of ureter Status: Acute Comment Review of Relevant I have reviewed the following items daniel (where applicable) has been applied. Labs Laboratory Tests Test 06/30/16 16:42 06/30/16 21:00 07/01/16 05:00 07/01/16 07:38 Glucose (Fingerstick) 138 mg/dL (70-99) 134 mg/dL (70-99) 85 mg/dL (70-99) White Blood Count 6.7 x10^3/uL (4.0-11.0) Red Blood Count 3.09 x10^6/uL (3.50-5.40) Hemoglobin 10.9 g/dL (12.0-15.5) Hematocrit 32.2 % (36.0-47.0) Mean Corpuscular Volume 104 fL (79-100) Mean Corpuscular Hemoglobin 35 pg (25-35) Mean Corpuscular Hemoglobin Concent 34 g/dL (31-37) Red Cell Distribution Width 13.3 % (11.5-14.5) Platelet Count 70 x10^3/uL (140-400) Neutrophils (%) (Auto) 75 % (31-73) Lymphocytes (%) (Auto) 12 % (24-48) Monocytes (%) (Auto) 9 % (0-9) Eosinophils (%) (Auto) 4 % (0-3) Basophils (%) (Auto) 0 % (0-3) Neutrophils # (Auto) 5.0 x10^3uL (1.8-7.7) Lymphocytes # (Auto) 0.8 x10^3/uL (1.0-4.8) Monocytes # (Auto) 0.6 x10^3/uL (0.0-1.1) Eosinophils # (Auto) 0.2 x10^3/uL (0.0-0.7) Basophils # (Auto) 0.0 x10^3/uL (0.0-0.2) Sodium Level 140 mmol/L (136-145) Potassium Level 4.0 mmol/L (3.5-5.1) Chloride Level 105 mmol/L (98-107) Carbon Dioxide Level 29 mmol/L (21-32) Anion Gap 6 (6-14) Blood Urea Nitrogen 56 mg/dL (7-20) Creatinine 2.8 mg/dL (0.6-1.0) Estimated GFR (Cockcroft-Gault) 16.4 Glucose Level 101 mg/dL (70-99) Calcium Level 7.5 mg/dL (8.5-10.1) Test 07/01/16 11:54 07/01/16 16:34 07/01/16 21:26 Glucose (Fingerstick) 95 mg/dL (70-99) 148 mg/dL (70-99) 195 mg/dL (70-99) Laboratory Tests Test 07/01/16 11:54 07/01/16 16:34 07/01/16 21:26 Glucose (Fingerstick) 95 mg/dL (70-99) 148 mg/dL (70-99) 195 mg/dL (70-99) Microbiology 06/27/16 Blood Culture - Preliminary, Resulted NO GROWTH AFTER 4 DAYS 06/27/16 Urine Culture - Final, Complete 06/27/16 Urine Culture Result 1 (LY) - Final, Complete 06/27/16 Antimicrobic Susceptibility - Final, Complete Medications Current Medications Hydromorphone HCl (Dilaudid) 1 mg 1X ONCE IV Last administered on 06/27/16 10: 01; Start 06/27/16 at 09:45; Stop 06/27/16 at 09:46; Status DC Sodium Chloride 1,000 ml @ 1,000 mls/hr 1X ONCE IV ; Start 06/27/16 at 09:45; Stop 06/27/16 at 09:45; Status DC Sodium Chloride 500 ml @ 500 mls/hr 1X ONCE IV Last administered on 06/27/16 09:56; Start 06/27/16 at 09:45; Stop 06/27/16 at 10:44; Status DC Ceftriaxone Sodium 1 gm/ Sodium Chloride 50 ml @ 100 mls/hr Q24H IV Last administered on 06/27/16 12:23; Start 06/28/16 at 11:00; Stop 06/28/16 at 11:00; Status DC Ceftriaxone Sodium 50 ml @ 100 mls/hr 1X ONCE IV Last administered on 11:00; Start 06/27/16 at 11:00; Stop 06/27/16 at 11:29; Status DC Hydromorphone HCl (Dilaudid) 1 mg 1X ONCE IV Last administered on 06/27/16 12: 24; Start 06/27/16 at 11:30; Stop 06/27/16 at 11:31; Status DC Ondansetron HCl (Zofran) 4 mg PRN Q8HRS PRN IV NAUSEA/VOMITING; Start 06/27/16 at 12:15; Stop 06/28/16 at 12:14; Status DC Sodium Chloride 1,000 ml @ 100 mls/hr Q10H IV Last administered on 06/28/16 10 :09; Start 06/27/16 at 12:05; Stop 06/28/16 at 12:04; Status DC Hydromorphone HCl (Dilaudid) 1 mg PRN Q2HR PRN IV MODERATE TO SEVERE PAIN Last administered on 07/01/16 10:24; Start 06/27/16 at 12:30; Stop 07/01/16 at 12:33; Status DC Piperacillin Sod/ Tazobactam Sod 3.375 gm/Sodium Chloride 50 ml @ 100 mls/hr Q8HRS IV Last administered on 06/29/16 05:42; Start 06/27/16 at 13:00; Stop 06/29 at 09:33; Status DC Oxycodone HCl (Roxicodone) 30 mg QID PRN PO BREAKTHROUGH PAIN Last administered on 07/01/16 09:04; Start 06/27/16 at 14:30 Oxycodone HCl (Oxycontin) 80 mg Q12HR PO Last administered on 07/02/16 07:54; Start 06/27/16 at 21:00 Spironolactone (Aldactone) 25 mg DAILY PO Last administered on 06/28/16 08:36; Start 06/28/16 at 09:00; Stop 06/28/16 at 09:18; Status DC Insulin Detemir (Levemir) 24 units QHS SQ Last administered on 06/27/16 21:51; Start 06/27/16 at 21:00; Stop 06/28/16 at 14:09; Status DC Linagliptin (Tradjenta) 5 mg DAILY PO Last administered on 07/02/16 07:50; Start 06/28/16 at 09:00 Levothyroxine Sodium (Synthroid) 75 mcg DAILY07 PO Last administered on 05:47; Start 06/28/16 at 07:00 Insulin Aspart (Novolog) 7 units 1X ONCE SQ Last administered on 06/27/16 22: 37; Start 06/27/16 at 22:15; Stop 06/27/16 at 22:16; Status DC Enoxaparin Sodium (Lovenox 30mg Syringe) 30 mg Q24H SQ Last administered on 06/29 12:26; Start 06/28/16 at 13:00; Stop 06/30/16 at 11:26; Status DC Insulin Aspart (Novolog) 5 units TIDAC SQ Last administered on 07/02/16 07:58 ; Start 06/28/16 at 16:30 Insulin Detemir (Levemir) 19 units QHS SQ Last administered on 07/01/16 21:39; Start 06/28/16 at 21:00 Piperacillin Sod/ Tazobactam Sod 2.25 gm/Sodium Chloride 50 ml @ 100 mls/hr Q8HRS IV Last administered on 06/29/16 14:14; Start 06/29/16 at 14:00; Stop 06/29 at 14:25; Status DC Piperacillin Sod/ Tazobactam Sod 2.25 gm/Sodium Chloride 50 ml @ 100 mls/hr Q6HRS IV Last administered on 06/30/16 06:02; Start 06/29/16 at 18:00; Stop 06/30 at 08:23; Status DC Albumin Human 50 ml @ 50 mls/hr 1X ONCE IV Last administered on 06/29/16 17:10 ; Start 06/29/16 at 16:15; Stop 06/29/16 at 17:14; Status DC Sodium Chloride 1,000 ml @ 75 mls/hr [id number] IV Last administered on 07/01/16 21:42; Start 06/29/16 at 16:15 Sodium Chloride 1,000 ml @ 1,000 mls/hr 1X ONCE IV Last administered on 16:17; Start 06/29/16 at 16:00; Stop 06/29/16 at 16:59; Status DC Ceftriaxone Sodium 2 gm/ Sodium Chloride 100 ml @ 200 mls/hr Q24H IV Last administered on 07/01/16 08:15; Start 06/30/16 at 09:00 Metronidazole (Flagyl) 500 mg Q8HRS PO Last administered on 07/02/16 05:47; Start 06/30/16 at 09:00 Iohexol (Omnipaque 240 Mg/ml) 50 ml 1X ONCE PO ; Start 06/30/16 at 11:45; Stop 06/30/16 at 11:46; Status DC Info (Do NOT chart on this entry -- for MONITORING) 1 each PRN DAILY PRN MC SEE COMMENTS; Start 06/30/16 at 11:15; Stop 07/02/16 at 11:14 Lidocaine/Sodium Bicarbonate (Buffered Lidocaine 1%) 3 ml 1X ONCE IJ Last administered on 06/30/16 11:58; Start 06/30/16 at 11:30; Stop 06/30/16 at 11:31; Status DC Heparin Sodium/ Sodium Chloride 60 unit 1X ONCE IV Last administered on 11:58; Start 06/30/16 at 11:30; Stop 06/30/16 at 11:31; Status DC Heparin Sodium (Porcine) (Heparin Sodium) 2,500 unit 1X ONCE INT CAT Last administered on 06/30/16 11:58; Start 06/30/16 at 11:30; Stop 06/30/16 at 11:31; Status DC Heparin Sodium (Porcine) 5,000 unit Q8HRS SQ Last administered on 07/02/16 05: 52; Start 06/30/16 at 14:00 Heparin Sodium (Porcine) (Heparin Sodium) 10,000 unit STK-MED ONCE .ROUTE ; Start 06/30/16 at 11:29; Stop 06/30/16 at 11:30; Status DC Sodium Chloride 1,000 ml @ 1,000 mls/hr Q1H PRN IV hypotension; Start 06/30/16 at 12:53; Stop 06/30/16 at 18:52; Status DC Albumin Human 200 ml @ 200 mls/hr 1X PRN PRN IV Hypotension Last administered on 06/30/16 14:14; Start 06/30/16 at 13:00; Stop 06/30/16 at 18:59; Status DC Sodium Chloride (Normal Saline Flush) 10 ml 1X PRN PRN IV AP catheter pack; Start 06/30/16 at 13:00; Stop 07/01/16 at 12:59; Status DC Sodium Chloride (Normal Saline Flush) 10 ml 1X PRN PRN IV DOORKEEPER catheter pack; Start 06/30/16 at 13:00; Stop 07/01/16 at 12:59; Status DC Info (PHARMACY MONITORING -- do not chart) 1 each PRN DAILY PRN MC SEE COMMENTS ; Start 06/30/16 at 13:00; Stop 07/02/16 at 07:22; Status DC Oxycodone HCl (Roxicodone) 10 mg PRN Q6HRS PRN PO GIVE IF BP=LOW INSTEAD OF 30MG Last administered on 07/01/16 05:50; Start 06/30/16 at 18:15 Amiodarone HCl (Cordarone) 200 mg DAILY PO Last administered on 07/02/16 07:52 ; Start 07/01/16 at 11:00 Docusate Sodium (Colace) 100 mg BID PO Last administered on 07/02/16 07:51; Start 07/01/16 at 11:00 Furosemide (Lasix) 80 mg [id number] PO Last administered on 07/02/16 07:50; Start 07/01/16 at 11:00 Metoprolol Tartrate (Lopressor) 25 mg BID PO Last administered on 07/01/16 14: 11; Start 07/01/16 at 11:00 Polyethylene Glycol (miraLAX PACKET) 17 gm PRN DAILY PRN PO CONSTIPATION; Start 07/01/16 at 10:45 Potassium Chloride (Klor-Con) 10 meq TID PO Last administered on 07/02/16 07: 50; Start 07/01/16 at 14:00 Hydromorphone HCl (Dilaudid) 2 mg PRN Q2HR PRN IV PAIN Last administered on 07/01 14:15; Start 07/01/16 at 12:45 Sodium Chloride 1,000 ml @ 1,000 mls/hr Q1H PRN IV hypotension; Start 07/02/16 at 07:07; Stop 07/02/16 at 13:06 Albumin Human 200 ml @ 200 mls/hr 1X PRN PRN IV Hypotension Last administered on 07/02/16 09:06; Start 07/02/16 at 07:15; Stop 07/02/16 at 13:14 Sodium Chloride (Normal Saline Flush) 10 ml 1X PRN PRN IV AP catheter pack; Start 07/02/16 at 07:15; Stop 07/03/16 at 07:14 Sodium Chloride (Normal Saline Flush) 10 ml 1X PRN PRN IV DOORKEEPER catheter pack; Start 07/02/16 at 07:15; Stop 07/03/16 at 07:14 Sodium Chloride 1,000 ml @ 400 mls/hr Q2H30M PRN IV PATENCY; Start 07/02/16 at 07:07; Stop 07/02/16 at 19:06 Info (PHARMACY MONITORING -- do not chart) 1 each PRN DAILY PRN MC SEE COMMENTS ; Start 07/02/16 at 07:15 Active Scripts Active Keflex (Cephalexin) 500 Mg Capsule 500 Mg PO QID 5 Days Aldactone (Spironolactone) 25 Mg Tablet 25 Mg PO DAILY 30 Days Cozaar (Losartan Potassium) 25 Mg Tablet 25 Mg PO DAILY 30 Days Synthroid (Levothyroxine Sodium) 75 Mcg Tablet 75 Mcg PO DAILY07 30 Days Reported Potassium Chloride 10 Meq Capsule.er 10 Meq PO TID Miralax (Polyethylene Glycol 3350) 17 Gm Powd.pack 1 Packet PO DAILY PRN Amiodarone Hcl 200 Mg Tablet 1 Tab PO DAILY Tracie Solostar (Insulin Glargine,Hum.rec.anlog) 300 Unit/1 Ml Insuln.pen 24 Unit SQ HS next dose tonight 9:00 pm Oxycodone Hcl 30 Mg Tablet 1 Tab PO QID PRN Januvia (Sitagliptin Phosphate) 100 Mg Tablet 1 Tab PO DAILY next dose tomorrow morning, 12-15-15 9:00 AM Oxycontin (Oxycodone HCl) 80 Mg Tab.er.12h 80 Mg PO BID next dose tomorrow morning, 12-15-15 9:00 AM Metoprolol Tartrate 25 Mg Tablet 25 Mg PO BID next dose tonight 12-14-15 at 9:00 pm Furosemide 40 Mg Tablet 80 Mg PO BID next dose tomorrow morning, 12-15-15 9:00 AM Docusate Sodium 100 Mg Capsule 100 Mg PO BID next dose tomorrow morning, 12-15-15 9:00 AM Vitals/I & O Vital Sign - Last 24 Hours 07/01/16 07/01/16 07/01/16 07/01/16 10:24 10:27 11:00 11:01 Temp 98.1 98.1 Pulse 140 116 Resp 20 B/P (MAP) 106/55 (72) 90/46 Pulse Ox 99 99 99 O2 Delivery Nasal Cannula Nasal Cannula Nasal Cannula O2 Flow Rate 2.0 2.0 2.0 07/01/16 07/01/16 07/01/16 07/01/16 11:01 11:37 12:28 14:11 Pulse 116 116 B/P (MAP) 90/46 90/46 Pulse Ox 99 99 O2 Delivery Nasal Cannula Nasal Cannula O2 Flow Rate 2.0 2.0 07/01/16 07/01/16 07/01/16 07/01/16 14:15 15:00 15:03 19:32 Temp 97.9 97.9 Pulse 131 103 Resp 18 20 B/P (MAP) 71/50 (57) 86/44 (58) Pulse Ox 99 92 99 97 O2 Delivery Nasal Cannula Nasal Cannula Nasal Cannula Nasal Cannula O2 Flow Rate 2.0 2.0 2.0 07/01/16 07/01/16 07/02/16 07/02/16 20:10 22:57 02:42 07:00 Temp 98.1 97.7 97.3 98.1 97.7 97.3 Pulse 101 106 93 Resp 20 20 20 B/P (MAP) 70/38 (49) 131/41 (71) 81/46 (58) Pulse Ox 98 96 93 O2 Delivery Nasal Cannula Room Air Nasal Cannula Nasal Cannula O2 Flow Rate 3.0 2.5 2.5 07/02/16 07/02/16 07/02/16 07/02/16 07:52 07:52 07:54 08:00 Pulse 93 93 Resp 16 B/P (MAP) 81/46 81/46 O2 Delivery Nasal Cannula Nasal Cannula O2 Flow Rate 3.0 3.0 Intake and Output 07/01/16 07/01/16 07/02/16 15:00 23:00 07:00 Intake Total 300 ml 840 ml 840 ml Output Total 550 ml Balance 300 ml 290 ml 840 ml BALDO NEVAREZ MD July 02, 2016 10:26
[2016-07-02] MEDS: IV NORMAL SALINE 1000ML BAG 1,000 ML IV SCH ×2 (10:55→21:39)
--- NOTE | 2016-07-02 12:06 | PDOC ---
Renal-Progress Notes Subjective Notes Notes NO CHANGE History of Present Illness Hx of present illness BETTER Vitals Vitals Vital Signs Date Time Temp Pulse Resp B/P (MAP) Pulse Ox O2 Delivery O2 Flow Rate FiO2 07/02/16 08:00 Nasal Cannula 3.0 07/02/16 07:54 16 07/02/16 07:52 93 81/46 07/02/16 07:00 97.3 93 97.3 Weight Weight [ ] I.O. Intake and Output Intake and Output 07/02/16 06:59 Intake Total 1980 ml Output Total 550 ml Balance 1430 ml Intake Oral 1980 ml Output Urine Total 550 ml # Bowel Movements 1 Labs Labs Laboratory Tests Test 07/01/16 16:34 07/01/16 21:26 Glucose (Fingerstick) 148 mg/dL (70-99) 195 mg/dL (70-99) Micro Micro Microbiology 06/27/16 Blood Culture - Preliminary, Resulted NO GROWTH AFTER 4 DAYS 06/27/16 Urine Culture - Final, Complete 06/27/16 Urine Culture Result 1 (LY) - Final, Complete 06/27/16 Antimicrobic Susceptibility - Final, Complete Review of Systems Constitutional: yes: alert, oriented Ears/Nose/Throat: Yes: no symptom reported Eyes: Yes: no symptom reported Cardiovascular: Yes no symptom reported Gastrointestional: Yes: no symptom reported Musculoskeletal: Yes: muscle stiffness Skin: Yes no symptom reported Psychiatric/Neurological: Yes: no symptom reported Physical Exam General Appearance: no apparent distress Respiratory: bilateral CTA Heart: S1S2 Abdomen: soft, bowel sounds present Genitourinary: bladder flat Extremities: pulses present Neurology: alert Musculoskeletal: Osteoarthritis Assessment Assessment IMP PROB DEVELOPING SEPSIS MSOF ANDER WITH ANURIA HX OF LEFT NEPHRECTOMY A DECADE AGO - APPARENTLY NOT A MALIGNANCY PLAN UROLOGY EVAL AND TX HD TODAY UF TO DW WILL FOLLOW LOOK FOR RENAL RECOVERY MASON ARNOLD MD July 02, 2016 12:06
[2016-07-02] MEDS ORDERED: INSULIN ASPART 300 UNITS/3 ML INSULN.PEN SQ ONE (12:30)
[2016-07-02] MEDS: oxyCODONE IR 5 MG TABLET PO PRN (13:04)
--- NOTE | 2016-07-02 13:34 | PDOC ---
SURGICAL PROGRESS NOTE Subjective Pt feels better, using toilet Vital Signs Vital Signs Date Time Temp Pulse Resp B/P (MAP) Pulse Ox O2 Delivery O2 Flow Rate FiO2 07/02/16 13:04 16 Nasal Cannula 3.0 07/02/16 07:52 93 81/46 07/02/16 07:00 97.3 93 97.3 I&O Intake and Output 07/02/16 07:00 Intake Total 1980 ml Output Total 550 ml Balance 1430 ml Intake Oral 1980 ml Output Urine Total 550 ml # Bowel Movements 1 General: Alert, Oriented X3, Cooperative, No acute distress Labs Laboratory Tests Test 06/30/16 16:42 06/30/16 21:00 07/01/16 05:00 07/01/16 07:38 Glucose (Fingerstick) 138 mg/dL (70-99) 134 mg/dL (70-99) 85 mg/dL (70-99) White Blood Count 6.7 x10^3/uL (4.0-11.0) Red Blood Count 3.09 x10^6/uL (3.50-5.40) Hemoglobin 10.9 g/dL (12.0-15.5) Hematocrit 32.2 % (36.0-47.0) Mean Corpuscular Volume 104 fL (79-100) Mean Corpuscular Hemoglobin 35 pg (25-35) Mean Corpuscular Hemoglobin Concent 34 g/dL (31-37) Red Cell Distribution Width 13.3 % (11.5-14.5) Platelet Count 70 x10^3/uL (140-400) Neutrophils (%) (Auto) 75 % (31-73) Lymphocytes (%) (Auto) 12 % (24-48) Monocytes (%) (Auto) 9 % (0-9) Eosinophils (%) (Auto) 4 % (0-3) Basophils (%) (Auto) 0 % (0-3) Neutrophils # (Auto) 5.0 x10^3uL (1.8-7.7) Lymphocytes # (Auto) 0.8 x10^3/uL (1.0-4.8) Monocytes # (Auto) 0.6 x10^3/uL (0.0-1.1) Eosinophils # (Auto) 0.2 x10^3/uL (0.0-0.7) Basophils # (Auto) 0.0 x10^3/uL (0.0-0.2) Sodium Level 140 mmol/L (136-145) Potassium Level 4.0 mmol/L (3.5-5.1) Chloride Level 105 mmol/L (98-107) Carbon Dioxide Level 29 mmol/L (21-32) Anion Gap 6 (6-14) Blood Urea Nitrogen 56 mg/dL (7-20) Creatinine 2.8 mg/dL (0.6-1.0) Estimated GFR (Cockcroft-Gault) 16.4 Glucose Level 101 mg/dL (70-99) Calcium Level 7.5 mg/dL (8.5-10.1) Test 07/01/16 11:54 07/01/16 16:34 07/01/16 21:26 Glucose (Fingerstick) 95 mg/dL (70-99) 148 mg/dL (70-99) 195 mg/dL (70-99) Laboratory Tests Test 07/01/16 16:34 07/01/16 21:26 Glucose (Fingerstick) 148 mg/dL (70-99) 195 mg/dL (70-99) Problem List Problems Medical Problems: (1) Abdominal pain Status: Acute (2) Atrial fibrillation Status: Acute (3) Inflammation of ureter Status: Acute Assessment/Plan retroperitoneal infection cont abx defer to urology for treatment Problems: CRISTINA SERRANO MD July 02, 2016 13:33
[2016-07-02 15:00] VITALS: BP 88/40
--- NOTE | 2016-07-02 17:04 | PDOC ---
GENERAL General: vss and afebrile. blood pressure still generally low. pain has improved this am. exam stable. ideally would transfer to [facility] but they have refused to date due to being full. continue present therapy and ongoing dialysis. Problems: VITAL SIGNS Vital Signs: Vital Signs Date Time Temp Pulse Resp B/P (MAP) Pulse Ox O2 Delivery O2 Flow Rate FiO2 07/02/16 15:00 97.5 125 20 88/40 (56) 97 Nasal Cannula 3.0 97.5 I & O I & O Intake and Output 07/02/16 07:00 Intake Total 1980 ml Output Total 550 ml Balance 1430 ml Intake Oral 1980 ml Output Urine Total 550 ml # Bowel Movements 1 ALLERGIES Allergies: Allergies Coded Allergies Type Severity Reaction Last Updated Verified No Known Drug Allergies 07/27/13 No MEDS Medications: Current Medications Medications (Trade) Dose Ordered Sig/Ermias Start Time Stop Time Status Last Admin Dose Admin Albumin Human 200 ml @ 200 mls/hr 1X PRN PRN 07/02/16 07:15 07/02/16 13:14 DC 07/02/16 09:06 200 MLS/HR Amiodarone HCl (Cordarone) 200 mg DAILY 07/01/16 11:00 07/02/16 07:52 200 MG Ceftriaxone Sodium 1 gm/ Sodium Chloride 50 ml @ 100 mls/hr Q24H 06/28/16 11:00 06/28/16 11:00 DC 06/27/16 12:23 100 MLS/HR Ceftriaxone Sodium 2 gm/ Sodium Chloride 100 ml @ 200 mls/hr Q24H 06/30/16 09:00 07/02/16 12:24 200 MLS/HR Ceftriaxone Sodium 50 ml @ 100 mls/hr 1X ONCE 06/27/16 11:00 06/27/16 11:29 DC 06/27/16 11:00 100 MLS/HR Docusate Sodium (Colace) 100 mg BID 07/01/16 11:00 07/02/16 07:51 100 MG Enoxaparin Sodium (Lovenox 30mg Syringe) 30 mg Q24H 06/28/16 13:00 06/30/16 11:26 DC 06/29/16 12:26 30 MG Furosemide (Lasix) 80 mg [id number] 07/01/16 11:00 07/02/16 15:42 80 MG Heparin Sodium (Porcine) (Heparin Sodium) 10,000 unit STK-MED ONCE 06/30/16 11:29 06/30/16 11:30 DC Heparin Sodium/ Sodium Chloride 60 unit 1X ONCE 06/30/16 11:30 06/30/16 11:31 DC 06/30/16 11:58 60 UNIT Hydromorphone HCl (Dilaudid) 2 mg PRN Q2HR PRN 07/01/16 12:45 07/01/16 14:15 2 MG Info (Do NOT chart on this entry -- for MONITORING) 1 each PRN DAILY PRN 06/30/16 11:15 07/02/16 11:14 DC Info (PHARMACY MONITORING -- do not chart) 1 each PRN DAILY PRN 07/02/16 07:15 Insulin Aspart (Novolog) 10 units ONCE ONCE 07/02/16 12:30 07/02/16 12:31 DC 07/02/16 12:35 10 UNITS Insulin Detemir (Levemir) 19 units QHS 06/28/16 21:00 07/01/16 21:39 19 UNITS Iohexol (Omnipaque 240 Mg/ml) 50 ml 1X ONCE 06/30/16 11:45 06/30/16 11:46 DC Levothyroxine Sodium (Synthroid) 75 mcg DAILY07 06/28/16 07:00 07/02/16 05:47 75 MCG Lidocaine/Sodium Bicarbonate (Buffered Lidocaine 1%) 3 ml 1X ONCE 06/30/16 11:30 06/30/16 11:31 DC 06/30/16 11:58 3 ML Linagliptin (Tradjenta) 5 mg DAILY 06/28/16 09:00 07/02/16 07:50 5 MG Metoprolol Tartrate (Lopressor) 25 mg BID 07/01/16 11:00 07/01/16 14:11 25 MG Metronidazole (Flagyl) 500 mg Q8HRS 06/30/16 09:00 07/02/16 15:42 500 MG Ondansetron HCl (Zofran) 4 mg PRN Q8HRS PRN 06/27/16 12:15 06/28/16 12:14 DC Oxycodone HCl (Oxycontin) 80 mg Q12HR 06/27/16 21:00 07/02/16 07:54 80 MG Oxycodone HCl (Roxicodone) 10 mg PRN Q6HRS PRN 06/30/16 18:15 07/02/16 13:04 10 MG Piperacillin Sod/ Tazobactam Sod 2.25 gm/Sodium Chloride 50 ml @ 100 mls/hr Q6HRS 06/29/16 18:00 06/30/16 08:23 DC 06/30/16 06:02 100 MLS/HR Piperacillin Sod/ Tazobactam Sod 3.375 gm/Sodium Chloride 50 ml @ 100 mls/hr Q8HRS 06/27/16 13:00 06/29/16 09:33 DC 06/29/16 05:42 100 MLS/HR Polyethylene Glycol (miraLAX PACKET) 17 gm PRN DAILY PRN 07/01/16 10:45 Potassium Chloride (Klor-Con) 10 meq TID 07/01/16 14:00 07/02/16 15:42 10 MEQ Sodium Chloride 1,000 ml @ 400 mls/hr Q2H30M PRN 07/02/16 07:07 07/02/16 19:06 Sodium Chloride (Normal Saline Flush) 10 ml 1X PRN PRN 07/02/16 07:15 07/03/16 07:14 Spironolactone (Aldactone) 25 mg DAILY 06/28/16 09:00 06/28/16 09:18 DC 06/28/16 08:36 25 MG LAB Lab: Laboratory Tests Test 07/01/16 21:26 Glucose (Fingerstick) 195 mg/dL (70-99) CRISTY ARANGO MD July 02, 2016 17:04
[2016-07-02 17:17] LABS: CALCIUM 7.8 mg/dL (8.5-10.1); CREATININE 1.7 mg/dL (0.6-1.0); GFR 29.2; POTASSIUM 3.6 mmol/L (3.5-5.1)
--- NOTE | 2016-07-02 19:43 | HP ---
ADMIT DATE: 06/27/2016 CHIEF COMPLAINT AND HISTORY OF PRESENT ILLNESS: This 75-year-old white female, well known to me from followup in the office, presented with abdominal pain to the Emergency Room on the day of admission. It is worsening since the morning. She had had her last bowel movement the day before and that was normal. She denied blood in her stool. She localized her pain in the area of the left upper quadrant. She was found to have, what was felt to be, fluid gas collection there, consistent with infection from a ureteral dehiscence where she has had a left nephrectomy years ago, likely related to urinary tract infection, was admitted with the diagnosis of sepsis and retroperitoneal infection. PAST MEDICAL HISTORY: Remarkable for AFib, congestive heart failure, coronary artery disease with prior CABG, constipation, diabetes, COPD, and hypertension. PAST SURGICAL HISTORY: She has had a prior , nephrectomy and open reduction internal fixation of the left hip fracture. MEDICATIONS: Brought with the patient, listed on the computer and have been addressed. ALLERGIES: She has no known drug allergies. SOCIAL HISTORY: She is a smoker, nondrinker, does not use drugs. Lives at home alone. FAMILY HISTORY: Noncontributory. REVIEW OF SYSTEMS: As mentioned above. PHYSICAL EXAMINATION: GENERAL: She is a well-developed, well-nourished white female, who appears ill. VITAL SIGNS: Stable. HEAD, EYES, EARS, NOSE, AND THROAT: Unremarkable. There is no icterus. NECK: Supple. No lymphadenopathy or thyromegaly. CHEST: Clear to auscultation and percussion with diminished breath sounds bilaterally. HEART: Regular rate and rhythm without S3, S4, or murmur. ABDOMEN: Reveals diffuse abdominal tenderness, worse left upper quadrant without organomegaly or masses. EXTREMITIES: Without cyanosis, clubbing, or edema. NEUROLOGIC: She is intact. IMPRESSION: Left retroperitoneal infection as discussed above. PLAN: 1. The patient has been admitted with sepsis. 2. Other problems listed above. PLAN: The patient has been admitted, antibiotics have been started, the cultures have been obtained, multiple consults have been obtained, and the patient will be monitored, managed, and treated appropriately. CRISTY ARANGO MD DR: DARIEL/rob JOB#: [id number] / [id number]
[2016-07-02 20:30] VITALS: BP 109/53
[2016-07-02] MEDS: INSULIN DETEMIR 300 UNITS/3 ML INSULN.PEN. SQ SCH (21:32)
[2016-07-02 23:03] VITALS: BP 80/63
[2016-07-03] VITALS (7 sets, daily range): BP systolic 77–112; BP diastolic 39–60
[2016-07-03] MEDS: LEVOTHYROXINE 75 MCG TABLET PO SCH (06:03)
[2016-07-03] MEDS: HEPARIN PF for SUB-Q USE 5,000 UNIT/0.5 ML VIAL. SQ SCH ×3 (06:05→20:38)
[2016-07-03] MEDS: metroNIDAZOLE 500 MG TABLET PO SCH ×3 (06:07→20:35)
[2016-07-03 07:34] LABS: BASO # 0.1 x10^3/uL (0.0-0.2); BASO % 1 % (0-3); EOS % 3 % (0-3); HEMATOCRIT 34.6 % (36.0-47.0); HEMOGLOBIN 11.9 g/dL (12.0-15.5); LYMPH # 0.9 x10^3/uL (1.0-4.8); LYMPH % 14 % (24-48); MEAN CORPUSCULAR HEMOGLOBIN 36 pg (25-35); MEAN CORPUSCULAR HGB CONC 35 g/dL (31-37); MEAN CORPUSCULAR VOLUME 103 fL (79-100); MONO % 10 % (0-9); NEUT % 73 % (31-73); PLATELET COUNT 93 x10^3/uL (140-400); RED BLOOD COUNT 3.36 x10^6/uL (3.50-5.40); RED CELL DISTRIBUTION WIDTH 13.9 % (11.5-14.5); WHITE BLOOD COUNT 6.8 x10^3/uL (4.0-11.0)
[2016-07-03 07:47] LABS: CREATININE 1.9 mg/dL (0.6-1.0); GFR 25.7; POTASSIUM 4.1 mmol/L (3.5-5.1)
--- NOTE | 2016-07-03 07:55 | PDOC ---
GENERAL General: vss and afebrile. awake and alert and more pain this am due to not getting pain meds due to low blood pressure. continued left abdominal tenderness. wbc remains normal. creatinine 1.9 but dialysis ongoing. ongoing antibiotics. ideally would transfer to [facility] but doesn't look like that is a possibility. Problems: VITAL SIGNS Vital Signs: Vital Signs Date Time Temp Pulse Resp B/P (MAP) Pulse Ox O2 Delivery O2 Flow Rate FiO2 07/03/16 03:03 98.0 94 18 79/46 (57) 100 Nasal Cannula 3.0 98.0 I & O I & O Intake and Output 07/03/16 07:00 Intake Total 640 ml Output Total 1250 ml Balance -610 ml Intake Oral 640 ml Output Urine Total 1250 ml ALLERGIES Allergies: Allergies Coded Allergies Type Severity Reaction Last Updated Verified No Known Drug Allergies 07/27/13 No MEDS Medications: Current Medications Medications (Trade) Dose Ordered Sig/Ermias Start Time Stop Time Status Last Admin Dose Admin Albumin Human 200 ml @ 200 mls/hr 1X PRN PRN 07/02/16 07:15 07/02/16 13:14 DC 07/02/16 09:06 200 MLS/HR Amiodarone HCl (Cordarone) 200 mg DAILY 07/01/16 11:00 07/02/16 07:52 200 MG Ceftriaxone Sodium 1 gm/ Sodium Chloride 50 ml @ 100 mls/hr Q24H 06/28/16 11:00 06/28/16 11:00 DC 06/27/16 12:23 100 MLS/HR Ceftriaxone Sodium 2 gm/ Sodium Chloride 100 ml @ 200 mls/hr Q24H 06/30/16 09:00 07/02/16 12:24 200 MLS/HR Ceftriaxone Sodium 50 ml @ 100 mls/hr 1X ONCE 06/27/16 11:00 06/27/16 11:29 DC 06/27/16 11:00 100 MLS/HR Docusate Sodium (Colace) 100 mg BID 07/01/16 11:00 07/02/16 21:26 100 MG Enoxaparin Sodium (Lovenox 30mg Syringe) 30 mg Q24H 06/28/16 13:00 06/30/16 11:26 DC 06/29/16 12:26 30 MG Furosemide (Lasix) 80 mg [id number] 07/01/16 11:00 07/02/16 15:42 80 MG Heparin Sodium (Porcine) (Heparin Sodium) 10,000 unit STK-MED ONCE 06/30/16 11:29 06/30/16 11:30 DC Heparin Sodium/ Sodium Chloride 60 unit 1X ONCE 06/30/16 11:30 06/30/16 11:31 DC 06/30/16 11:58 60 UNIT Hydromorphone HCl (Dilaudid) 2 mg PRN Q2HR PRN 07/01/16 12:45 07/01/16 14:15 2 MG Info (Do NOT chart on this entry -- for MONITORING) 1 each PRN DAILY PRN 06/30/16 11:15 07/02/16 11:14 DC Info (PHARMACY MONITORING -- do not chart) 1 each PRN DAILY PRN 07/02/16 07:15 Insulin Aspart (Novolog) 10 units ONCE ONCE 07/02/16 12:30 07/02/16 12:31 DC 07/02/16 12:35 10 UNITS Insulin Detemir (Levemir) 19 units QHS 06/28/16 21:00 07/02/16 21:32 19 UNITS Iohexol (Omnipaque 240 Mg/ml) 50 ml 1X ONCE 06/30/16 11:45 06/30/16 11:46 DC Levothyroxine Sodium (Synthroid) 75 mcg DAILY07 06/28/16 07:00 07/03/16 06:03 75 MCG Lidocaine/Sodium Bicarbonate (Buffered Lidocaine 1%) 3 ml 1X ONCE 06/30/16 11:30 06/30/16 11:31 DC 06/30/16 11:58 3 ML Linagliptin (Tradjenta) 5 mg DAILY 06/28/16 09:00 07/02/16 07:50 5 MG Metoprolol Tartrate (Lopressor) 25 mg BID 07/01/16 11:00 07/02/16 21:27 25 MG Metronidazole (Flagyl) 500 mg Q8HRS 06/30/16 09:00 07/03/16 06:07 500 MG Ondansetron HCl (Zofran) 4 mg PRN Q8HRS PRN 06/27/16 12:15 06/28/16 12:14 DC Oxycodone HCl (Oxycontin) 80 mg Q12HR 06/27/16 21:00 07/02/16 21:34 80 MG Oxycodone HCl (Roxicodone) 10 mg PRN Q6HRS PRN 06/30/16 18:15 07/02/16 13:04 10 MG Piperacillin Sod/ Tazobactam Sod 2.25 gm/Sodium Chloride 50 ml @ 100 mls/hr Q6HRS 06/29/16 18:00 06/30/16 08:23 DC 06/30/16 06:02 100 MLS/HR Piperacillin Sod/ Tazobactam Sod 3.375 gm/Sodium Chloride 50 ml @ 100 mls/hr Q8HRS 06/27/16 13:00 06/29/16 09:33 DC 06/29/16 05:42 100 MLS/HR Polyethylene Glycol (miraLAX PACKET) 17 gm PRN DAILY PRN 07/01/16 10:45 Potassium Chloride (Klor-Con) 10 meq TID 07/01/16 14:00 07/02/16 21:28 10 MEQ Sodium Chloride 1,000 ml @ 400 mls/hr Q2H30M PRN 07/02/16 07:07 07/02/16 19:06 DC Sodium Chloride (Normal Saline Flush) 10 ml 1X PRN PRN 07/02/16 07:15 07/03/16 07:14 DC Spironolactone (Aldactone) 25 mg DAILY 06/28/16 09:00 06/28/16 09:18 DC 06/28/16 08:36 25 MG LAB Lab: Laboratory Tests Test 07/02/16 11:48 07/02/16 16:45 07/02/16 16:58 07/02/16 20:53 Glucose (Fingerstick) 402 mg/dL (70-99) 115 mg/dL (70-99) 118 mg/dL (70-99) Sodium Level 138 mmol/L (136-145) Potassium Level 3.6 mmol/L (3.5-5.1) Chloride Level 102 mmol/L (98-107) Carbon Dioxide Level 28 mmol/L (21-32) Anion Gap 8 (6-14) Blood Urea Nitrogen 32 mg/dL (7-20) Creatinine 1.7 mg/dL (0.6-1.0) Estimated GFR (Cockcroft-Gault) 29.2 Glucose Level 107 mg/dL (70-99) Calcium Level 7.8 mg/dL (8.5-10.1) Test 07/03/16 07:05 White Blood Count 6.8 x10^3/uL (4.0-11.0) Red Blood Count 3.36 x10^6/uL (3.50-5.40) Hemoglobin 11.9 g/dL (12.0-15.5) Hematocrit 34.6 % (36.0-47.0) Mean Corpuscular Volume 103 fL (79-100) Mean Corpuscular Hemoglobin 36 pg (25-35) Mean Corpuscular Hemoglobin Concent 35 g/dL (31-37) Red Cell Distribution Width 13.9 % (11.5-14.5) Platelet Count 93 x10^3/uL (140-400) Neutrophils (%) (Auto) 73 % (31-73) Lymphocytes (%) (Auto) 14 % (24-48) Monocytes (%) (Auto) 10 % (0-9) Eosinophils (%) (Auto) 3 % (0-3) Basophils (%) (Auto) 1 % (0-3) Neutrophils # (Auto) 5.0 x10^3uL (1.8-7.7) Lymphocytes # (Auto) 0.9 x10^3/uL (1.0-4.8) Monocytes # (Auto) 0.7 x10^3/uL (0.0-1.1) Eosinophils # (Auto) 0.2 x10^3/uL (0.0-0.7) Basophils # (Auto) 0.1 x10^3/uL (0.0-0.2) Sodium Level 138 mmol/L (136-145) Potassium Level 4.1 mmol/L (3.5-5.1) Chloride Level 103 mmol/L (98-107) Carbon Dioxide Level 29 mmol/L (21-32) Anion Gap 6 (6-14) Blood Urea Nitrogen 38 mg/dL (7-20) Creatinine 1.9 mg/dL (0.6-1.0) Estimated GFR (Cockcroft-Gault) 25.7 Glucose Level 157 mg/dL (70-99) Calcium Level 8.0 mg/dL (8.5-10.1) CRISTY ARANGO MD July 03, 2016 07:54
[2016-07-03] MEDS: POTASSIUM CHLORIDE 10 MEQ TABLET.ER. PO SCH ×3 (08:36→20:35)
[2016-07-03] MEDS: oxyCODONE IR 5 MG TABLET PO PRN ×3 (08:37→23:48)
[2016-07-03] MEDS: oxyCODONE ER 40 MG TAB.ER.12H PO SCH ×2 (08:37→20:36)
[2016-07-03] MEDS: LINAGLIPTIN 5 MG TABLET PO SCH (08:38)
[2016-07-03] MEDS: FUROSEMIDE 80 MG TABLET. PO SCH ×2 (08:40→16:00)
[2016-07-03] MEDS: DOCUSATE SODIUM 100 MG CAPSULE. PO SCH ×2 (08:40→20:35)
[2016-07-03] MEDS: AMIODARONE HCL 200 MG TABLET. PO SCH (08:40)
[2016-07-03] MEDS: METOPROLOL TART IMMED RELEASE 25 MG TABLET. PO SCH ×2 (08:40→20:35)
[2016-07-03] MEDS: INSULIN ASPART 300 UNITS/3 ML INSULN.PEN SQ SCH ×3 (08:47→17:44)
--- NOTE | 2016-07-03 09:28 | PDOC ---
Infectious Disease Note Subjective Subjective Still some pain but better overall Eating well ROS ROS GEN: Denies fevers, chills, sweats HEENT: Denies blurred vision, sore throat CV: Denies chest pain RESP: Denies shortness of air, cough GI: Denies n/v/d NEURO: Denies confusion, dizziness MSK: Denies weakness, joint pain/swelling Vital Sign Vital Signs Vital Signs Date Time Temp Pulse Resp B/P (MAP) Pulse Ox O2 Delivery O2 Flow Rate FiO2 07/03/16 08:40 108 93/60 07/03/16 08:37 100 Nasal Cannula 3.0 07/03/16 07:03 97.9 16 97.9 Physical Exam PHYSICAL EXAM GENERAL: In chair Looks comfortable, NAD, coop. In HD HEENT: OC/OP pink, dentures NECK: Supple, no JVD, no LN LUNGS: Clear HEART: S1S2, no gallop, no murmur ABD: Obese, BS present, soft, ND. Mild LLQ pain but less. Min warmth now Hurtado BACK + CVAT L>R EXT: No edema, no cyanosis HIDE PASTER: Alert, oriented x 3, no focal neurologic deficit SKIN: No rash IV: ok. [facility] HD Labs Lab Laboratory Tests Test 07/02/16 11:48 07/02/16 16:45 07/02/16 16:58 07/02/16 20:53 Glucose (Fingerstick) 402 mg/dL (70-99) 115 mg/dL (70-99) 118 mg/dL (70-99) Sodium Level 138 mmol/L (136-145) Potassium Level 3.6 mmol/L (3.5-5.1) Chloride Level 102 mmol/L (98-107) Carbon Dioxide Level 28 mmol/L (21-32) Anion Gap 8 (6-14) Blood Urea Nitrogen 32 mg/dL (7-20) Creatinine 1.7 mg/dL (0.6-1.0) Estimated GFR (Cockcroft-Gault) 29.2 Glucose Level 107 mg/dL (70-99) Calcium Level 7.8 mg/dL (8.5-10.1) Test 07/03/16 07:05 07/03/16 07:25 White Blood Count 6.8 x10^3/uL (4.0-11.0) Red Blood Count 3.36 x10^6/uL (3.50-5.40) Hemoglobin 11.9 g/dL (12.0-15.5) Hematocrit 34.6 % (36.0-47.0) Mean Corpuscular Volume 103 fL (79-100) Mean Corpuscular Hemoglobin 36 pg (25-35) Mean Corpuscular Hemoglobin Concent 35 g/dL (31-37) Red Cell Distribution Width 13.9 % (11.5-14.5) Platelet Count 93 x10^3/uL (140-400) Neutrophils (%) (Auto) 73 % (31-73) Lymphocytes (%) (Auto) 14 % (24-48) Monocytes (%) (Auto) 10 % (0-9) Eosinophils (%) (Auto) 3 % (0-3) Basophils (%) (Auto) 1 % (0-3) Neutrophils # (Auto) 5.0 x10^3uL (1.8-7.7) Lymphocytes # (Auto) 0.9 x10^3/uL (1.0-4.8) Monocytes # (Auto) 0.7 x10^3/uL (0.0-1.1) Eosinophils # (Auto) 0.2 x10^3/uL (0.0-0.7) Basophils # (Auto) 0.1 x10^3/uL (0.0-0.2) Sodium Level 138 mmol/L (136-145) Potassium Level 4.1 mmol/L (3.5-5.1) Chloride Level 103 mmol/L (98-107) Carbon Dioxide Level 29 mmol/L (21-32) Anion Gap 6 (6-14) Blood Urea Nitrogen 38 mg/dL (7-20) Creatinine 1.9 mg/dL (0.6-1.0) Estimated GFR (Cockcroft-Gault) 25.7 Glucose Level 157 mg/dL (70-99) Calcium Level 8.0 mg/dL (8.5-10.1) Glucose (Fingerstick) 185 mg/dL (70-99) Micro Klebsiella pneumoniae Greater than 100,000 colony forming units per mL ANTIMICROBIAL SUSCEPTIBILITY Final Comment S = Susceptible; I = Intermediate; R = Resistant P = Positive; N = Negative MICS are expressed in micrograms per mL Antibiotic RSLT#1 RSLT#2 RSLT#3 RSLT#4 Amoxicillin/Clavulanic Acid S Ampicillin R Cefepime S Ceftriaxone S Cefuroxime R Cephalothin R Ciprofloxacin R Ertapenem S Gentamicin S Imipenem S Levofloxacin R Nitrofurantoin I Piperacillin R Tetracycline R Tobramycin S Trimethoprim/Sulfa S Performed at: [facility] K Objective Assessment ANDRE -. S/p HD Iliopsoas infection with air bubbles. repeat CT 06/30 - improved from 06/27 ureteral dehiscence. h/o remote left nephrectomy Klebsiella UTI. POA 06/27 Fever, better Leukocytosis.- better Coronary artery disease. Plan Plan of Care Cont Rocephin/Flagyl Monitor WBC, temp Await ? transfer to [facility] LY[facility] MD July 03, 2016 09:28
--- NOTE | 2016-07-03 10:52 | PDOC ---
Renal-Progress Notes Subjective Notes Notes FEELING BETTER History of Present Illness Hx of present illness BETTER Vitals Vitals Vital Signs Date Time Temp Pulse Resp B/P (MAP) Pulse Ox O2 Delivery O2 Flow Rate FiO2 07/03/16 10:23 100 Nasal Cannula 3.0 07/03/16 08:40 108 93/60 07/03/16 07:03 97.9 16 97.9 Weight Weight [ ] I.O. Intake and Output Intake and Output 07/03/16 07:00 Intake Total 640 ml Output Total 1250 ml Balance -610 ml Intake Oral 640 ml Output Urine Total 1250 ml Labs Labs Laboratory Tests Test 07/02/16 11:48 07/02/16 16:45 07/02/16 16:58 07/02/16 20:53 Glucose (Fingerstick) 402 mg/dL (70-99) 115 mg/dL (70-99) 118 mg/dL (70-99) Sodium Level 138 mmol/L (136-145) Potassium Level 3.6 mmol/L (3.5-5.1) Chloride Level 102 mmol/L (98-107) Carbon Dioxide Level 28 mmol/L (21-32) Anion Gap 8 (6-14) Blood Urea Nitrogen 32 mg/dL (7-20) Creatinine 1.7 mg/dL (0.6-1.0) Estimated GFR (Cockcroft-Gault) 29.2 Glucose Level 107 mg/dL (70-99) Calcium Level 7.8 mg/dL (8.5-10.1) Test 07/03/16 07:05 07/03/16 07:25 White Blood Count 6.8 x10^3/uL (4.0-11.0) Red Blood Count 3.36 x10^6/uL (3.50-5.40) Hemoglobin 11.9 g/dL (12.0-15.5) Hematocrit 34.6 % (36.0-47.0) Mean Corpuscular Volume 103 fL (79-100) Mean Corpuscular Hemoglobin 36 pg (25-35) Mean Corpuscular Hemoglobin Concent 35 g/dL (31-37) Red Cell Distribution Width 13.9 % (11.5-14.5) Platelet Count 93 x10^3/uL (140-400) Neutrophils (%) (Auto) 73 % (31-73) Lymphocytes (%) (Auto) 14 % (24-48) Monocytes (%) (Auto) 10 % (0-9) Eosinophils (%) (Auto) 3 % (0-3) Basophils (%) (Auto) 1 % (0-3) Neutrophils # (Auto) 5.0 x10^3uL (1.8-7.7) Lymphocytes # (Auto) 0.9 x10^3/uL (1.0-4.8) Monocytes # (Auto) 0.7 x10^3/uL (0.0-1.1) Eosinophils # (Auto) 0.2 x10^3/uL (0.0-0.7) Basophils # (Auto) 0.1 x10^3/uL (0.0-0.2) Sodium Level 138 mmol/L (136-145) Potassium Level 4.1 mmol/L (3.5-5.1) Chloride Level 103 mmol/L (98-107) Carbon Dioxide Level 29 mmol/L (21-32) Anion Gap 6 (6-14) Blood Urea Nitrogen 38 mg/dL (7-20) Creatinine 1.9 mg/dL (0.6-1.0) Estimated GFR (Cockcroft-Gault) 25.7 Glucose Level 157 mg/dL (70-99) Calcium Level 8.0 mg/dL (8.5-10.1) Glucose (Fingerstick) 185 mg/dL (70-99) Micro Micro Microbiology 06/27/16 Blood Culture - Final, Complete NO GROWTH AFTER 5 DAYS 06/27/16 Urine Culture - Final, Complete 06/27/16 Urine Culture Result 1 (LY) - Final, Complete 06/27/16 Antimicrobic Susceptibility - Final, Complete Review of Systems Constitutional: yes: alert, oriented Ears/Nose/Throat: Yes: no symptom reported Eyes: Yes: no symptom reported Cardiovascular: Yes no symptom reported Gastrointestional: Yes: no symptom reported Musculoskeletal: Yes: muscle stiffness Skin: Yes no symptom reported Psychiatric/Neurological: Yes: no symptom reported Physical Exam General Appearance: no apparent distress Respiratory: bilateral CTA Heart: S1S2 Abdomen: soft, bowel sounds present Genitourinary: bladder flat Extremities: pulses present Neurology: alert Musculoskeletal: Osteoarthritis Assessment Assessment IMP PROB DEVELOPING SEPSIS-IMPROVED - DOES NOT LOOK TOXIC MSOF ANDRE WITH ANURIA HX OF LEFT NEPHRECTOMY A DECADE AGO - APPARENTLY NOT A MALIGNANCY PLAN CONT WITH ANTIBIOTICS LABS IN AM AND HOPEFULLY COME OFF DIALYSIS SOON LOOK FOR RENAL RECOVERY MASON ARNOLD MD July 03, 2016 10:52
--- NOTE | 2016-07-03 12:11 | PDOC ---
SURGICAL PROGRESS NOTE Subjective Pt reports feeling much better, pain improved, jazmin PO well Vital Signs Vital Signs Date Time Temp Pulse Resp B/P (MAP) Pulse Ox O2 Delivery O2 Flow Rate FiO2 07/03/16 11:00 97.9 82 20 77/40 (52) 99 Nasal Cannula 3.0 97.9 I&O Intake and Output 07/03/16 07:00 Intake Total 640 ml Output Total 1250 ml Balance -610 ml Intake Oral 640 ml Output Urine Total 1250 ml General: Alert, Oriented X3, Cooperative, No acute distress Abdomen: Soft, Other (mild TTP LLQ) Labs Laboratory Tests Test 07/01/16 16:34 07/01/16 21:26 07/02/16 11:48 07/02/16 16:45 Glucose (Fingerstick) 148 mg/dL (70-99) 195 mg/dL (70-99) 402 mg/dL (70-99) Sodium Level 138 mmol/L (136-145) Potassium Level 3.6 mmol/L (3.5-5.1) Chloride Level 102 mmol/L (98-107) Carbon Dioxide Level 28 mmol/L (21-32) Anion Gap 8 (6-14) Blood Urea Nitrogen 32 mg/dL (7-20) Creatinine 1.7 mg/dL (0.6-1.0) Estimated GFR (Cockcroft-Gault) 29.2 Glucose Level 107 mg/dL (70-99) Calcium Level 7.8 mg/dL (8.5-10.1) Test 07/02/16 16:58 07/02/16 20:53 07/03/16 07:05 07/03/16 07:25 Glucose (Fingerstick) 115 mg/dL (70-99) 118 mg/dL (70-99) 185 mg/dL (70-99) White Blood Count 6.8 x10^3/uL (4.0-11.0) Red Blood Count 3.36 x10^6/uL (3.50-5.40) Hemoglobin 11.9 g/dL (12.0-15.5) Hematocrit 34.6 % (36.0-47.0) Mean Corpuscular Volume 103 fL (79-100) Mean Corpuscular Hemoglobin 36 pg (25-35) Mean Corpuscular Hemoglobin Concent 35 g/dL (31-37) Red Cell Distribution Width 13.9 % (11.5-14.5) Platelet Count 93 x10^3/uL (140-400) Neutrophils (%) (Auto) 73 % (31-73) Lymphocytes (%) (Auto) 14 % (24-48) Monocytes (%) (Auto) 10 % (0-9) Eosinophils (%) (Auto) 3 % (0-3) Basophils (%) (Auto) 1 % (0-3) Neutrophils # (Auto) 5.0 x10^3uL (1.8-7.7) Lymphocytes # (Auto) 0.9 x10^3/uL (1.0-4.8) Monocytes # (Auto) 0.7 x10^3/uL (0.0-1.1) Eosinophils # (Auto) 0.2 x10^3/uL (0.0-0.7) Basophils # (Auto) 0.1 x10^3/uL (0.0-0.2) Sodium Level 138 mmol/L (136-145) Potassium Level 4.1 mmol/L (3.5-5.1) Chloride Level 103 mmol/L (98-107) Carbon Dioxide Level 29 mmol/L (21-32) Anion Gap 6 (6-14) Blood Urea Nitrogen 38 mg/dL (7-20) Creatinine 1.9 mg/dL (0.6-1.0) Estimated GFR (Cockcroft-Gault) 25.7 Glucose Level 157 mg/dL (70-99) Calcium Level 8.0 mg/dL (8.5-10.1) Laboratory Tests Test 07/02/16 16:45 07/02/16 16:58 07/02/16 20:53 07/03/16 07:05 Sodium Level 138 mmol/L (136-145) 138 mmol/L (136-145) Potassium Level 3.6 mmol/L (3.5-5.1) 4.1 mmol/L (3.5-5.1) Chloride Level 102 mmol/L (98-107) 103 mmol/L (98-107) Carbon Dioxide Level 28 mmol/L (21-32) 29 mmol/L (21-32) Anion Gap 8 (6-14) 6 (6-14) Blood Urea Nitrogen 32 mg/dL (7-20) 38 mg/dL (7-20) Creatinine 1.7 mg/dL (0.6-1.0) 1.9 mg/dL (0.6-1.0) Estimated GFR (Cockcroft-Gault) 29.2 25.7 Glucose Level 107 mg/dL (70-99) 157 mg/dL (70-99) Calcium Level 7.8 mg/dL (8.5-10.1) 8.0 mg/dL (8.5-10.1) Glucose (Fingerstick) 115 mg/dL (70-99) 118 mg/dL (70-99) White Blood Count 6.8 x10^3/uL (4.0-11.0) Red Blood Count 3.36 x10^6/uL (3.50-5.40) Hemoglobin 11.9 g/dL (12.0-15.5) Hematocrit 34.6 % (36.0-47.0) Mean Corpuscular Volume 103 fL (79-100) Mean Corpuscular Hemoglobin 36 pg (25-35) Mean Corpuscular Hemoglobin Concent 35 g/dL (31-37) Red Cell Distribution Width 13.9 % (11.5-14.5) Platelet Count 93 x10^3/uL (140-400) Neutrophils (%) (Auto) 73 % (31-73) Lymphocytes (%) (Auto) 14 % (24-48) Monocytes (%) (Auto) 10 % (0-9) Eosinophils (%) (Auto) 3 % (0-3) Basophils (%) (Auto) 1 % (0-3) Neutrophils # (Auto) 5.0 x10^3uL (1.8-7.7) Lymphocytes # (Auto) 0.9 x10^3/uL (1.0-4.8) Monocytes # (Auto) 0.7 x10^3/uL (0.0-1.1) Eosinophils # (Auto) 0.2 x10^3/uL (0.0-0.7) Basophils # (Auto) 0.1 x10^3/uL (0.0-0.2) Test 07/03/16 07:25 Glucose (Fingerstick) 185 mg/dL (70-99) Problem List Problems Medical Problems: (1) Abdominal pain Status: Acute (2) Atrial fibrillation Status: Acute (3) Inflammation of ureter Status: Acute Assessment/Plan retroperitoneal infection cont abx Problems: CRISTINA SERRANO MD July 03, 2016 12:11
[2016-07-03] MEDS: HYDROmorphone 2 MG/ML VIAL IV PRN (18:37)
[2016-07-03] MEDS: INSULIN DETEMIR 300 UNITS/3 ML INSULN.PEN. SQ SCH (23:38)
[2016-07-04] MEDS: HYDROmorphone 2 MG/ML VIAL IV PRN (02:11)
[2016-07-04 03:30] VITALS: BP 97/50
[2016-07-04 04:54] LABS: CALCIUM 8.1 mg/dL (8.5-10.1); CREATININE 1.9 mg/dL (0.6-1.0); GFR 25.7; POTASSIUM 4.5 mmol/L (3.5-5.1)
[2016-07-04] MEDS: LEVOTHYROXINE 75 MCG TABLET PO SCH (07:00)
[2016-07-04] MEDS: metroNIDAZOLE 500 MG TABLET PO SCH ×2 (07:00→14:48)
[2016-07-04] MEDS: HEPARIN PF for SUB-Q USE 5,000 UNIT/0.5 ML VIAL. SQ SCH ×2 (07:03→14:00)
[2016-07-04] MEDS: INSULIN ASPART 300 UNITS/3 ML INSULN.PEN SQ SCH ×2 (07:30→11:30)
[2016-07-04 07:35] VITALS: BP 89/48
--- NOTE | 2016-07-04 08:19 | PDOC ---
Infectious Disease Note Subjective Subjective Still some pain but better overall Eating well ROS ROS GEN: Denies fevers, chills, sweats HEENT: Denies blurred vision, sore throat CV: Denies chest pain RESP: Denies shortness of air, cough GI: Denies n/v/d NEURO: Denies confusion, dizziness MSK: Denies weakness, joint pain/swelling Vital Sign Vital Signs Vital Signs Date Time Temp Pulse Resp B/P (MAP) Pulse Ox O2 Delivery O2 Flow Rate FiO2 07/04/16 07:35 98.0 76 20 89/48 (62) 100 Nasal Cannula 3.0 98.0 Physical Exam PHYSICAL EXAM GENERAL: In chair Looks comfortable, NAD, coop. In bed HEENT: OC/OP pink, dentures NECK: Supple, no JVD, no LN LUNGS: Clear HEART: S1S2, no gallop, no murmur ABD: Obese, BS present, soft, ND. Mild LLQ pain but less. No warmth/erythema now Hurtado BACK + CVAT L>R EXT: No edema, no cyanosis CHANGE AGENT: Alert, oriented x 3, no focal neurologic deficit SKIN: No rash IV: ok. [facility] HD Labs Lab Laboratory Tests Test 07/03/16 12:21 07/03/16 16:41 07/03/16 23:35 07/04/16 04:00 Glucose (Fingerstick) 170 mg/dL (70-99) 251 mg/dL (70-99) 157 mg/dL (70-99) Sodium Level 135 mmol/L (136-145) Potassium Level 4.5 mmol/L (3.5-5.1) Chloride Level 104 mmol/L (98-107) Carbon Dioxide Level 29 mmol/L (21-32) Anion Gap 2 (6-14) Blood Urea Nitrogen 41 mg/dL (7-20) Creatinine 1.9 mg/dL (0.6-1.0) Estimated GFR (Cockcroft-Gault) 25.7 Glucose Level 184 mg/dL (70-99) Calcium Level 8.1 mg/dL (8.5-10.1) Test 07/04/16 07:52 Glucose (Fingerstick) 91 mg/dL (70-99) Micro Klebsiella pneumoniae Greater than 100,000 colony forming units per mL ANTIMICROBIAL SUSCEPTIBILITY Final Comment S = Susceptible; I = Intermediate; R = Resistant P = Positive; N = Negative MICS are expressed in micrograms per mL Antibiotic RSLT#1 RSLT#2 RSLT#3 RSLT#4 Amoxicillin/Clavulanic Acid S Ampicillin R Cefepime S Ceftriaxone S Cefuroxime R Cephalothin R Ciprofloxacin R Ertapenem S Gentamicin S Imipenem S Levofloxacin R Nitrofurantoin I Piperacillin R Tetracycline R Tobramycin S Trimethoprim/Sulfa S Performed at: [facility] K Objective Assessment ANDRE -. S/p HD Iliopsoas infection with air bubbles. repeat CT 06/30 - improved from 06/27 ureteral dehiscence. h/o remote left nephrectomy Klebsiella UTI. POA 06/27 Fever, better Leukocytosis.- better Coronary artery disease. Plan Plan of Care Cont Rocephin/Flagyl Monitor WBC, temp Await ? transfer to D/w HUNTER Altamirano MD July 04, 2016 08:19
[2016-07-04] MEDS: AMIODARONE HCL 200 MG TABLET. PO SCH (08:27)
[2016-07-04] MEDS: POTASSIUM CHLORIDE 10 MEQ TABLET.ER. PO SCH ×2 (08:28→14:46)
[2016-07-04] MEDS: LINAGLIPTIN 5 MG TABLET PO SCH (08:28)
[2016-07-04] MEDS: oxyCODONE IR 5 MG TABLET PO PRN ×2 (08:29→14:46)
[2016-07-04] MEDS: oxyCODONE ER 40 MG TAB.ER.12H PO SCH (08:29)
[2016-07-04] MEDS: DOCUSATE SODIUM 100 MG CAPSULE. PO SCH (08:30)
[2016-07-04] MEDS: METOPROLOL TART IMMED RELEASE 25 MG TABLET. PO SCH (08:30)
[2016-07-04] MEDS: FUROSEMIDE 80 MG TABLET. PO SCH (08:30)
[2016-07-04 10:55] VITALS: BP 98/53
--- NOTE | 2016-07-04 11:47 | PDOC ---
Renal-Progress Notes Subjective Notes Notes FEELING BETTER EVERY DAY History of Present Illness Hx of present illness IMPROVED Vitals Vitals Vital Signs Date Time Temp Pulse Resp B/P (MAP) Pulse Ox O2 Delivery O2 Flow Rate FiO2 07/04/16 10:55 97.7 127 20 98/53 (68) 100 Nasal Cannula 3.0 97.7 Weight Weight [ ] I.O. Intake and Output Intake and Output 07/04/16 07:00 Intake Total 1990 ml Output Total 1300 ml Balance 690 ml Intake Oral 1990 ml Output Urine Total 1300 ml Labs Labs Laboratory Tests Test 07/03/16 12:21 07/03/16 16:41 07/03/16 23:35 07/04/16 04:00 Glucose (Fingerstick) 170 mg/dL (70-99) 251 mg/dL (70-99) 157 mg/dL (70-99) Sodium Level 135 mmol/L (136-145) Potassium Level 4.5 mmol/L (3.5-5.1) Chloride Level 104 mmol/L (98-107) Carbon Dioxide Level 29 mmol/L (21-32) Anion Gap 2 (6-14) Blood Urea Nitrogen 41 mg/dL (7-20) Creatinine 1.9 mg/dL (0.6-1.0) Estimated GFR (Cockcroft-Gault) 25.7 Glucose Level 184 mg/dL (70-99) Calcium Level 8.1 mg/dL (8.5-10.1) Test 07/04/16 07:52 Glucose (Fingerstick) 91 mg/dL (70-99) Micro Micro Microbiology 06/27/16 Blood Culture - Final, Complete NO GROWTH AFTER 5 DAYS 06/27/16 Urine Culture - Final, Complete 06/27/16 Urine Culture Result 1 (LY) - Final, Complete 06/27/16 Antimicrobic Susceptibility - Final, Complete Review of Systems Constitutional: yes: alert, oriented Ears/Nose/Throat: Yes: no symptom reported Eyes: Yes: no symptom reported Cardiovascular: Yes no symptom reported Gastrointestional: Yes: no symptom reported Musculoskeletal: Yes: muscle stiffness Skin: Yes no symptom reported Psychiatric/Neurological: Yes: no symptom reported Physical Exam General Appearance: no apparent distress Respiratory: bilateral CTA Heart: S1S2 Abdomen: soft, bowel sounds present Genitourinary: bladder flat Extremities: pulses present Neurology: alert Musculoskeletal: Osteoarthritis Assessment Assessment IMP LEFT URETERAL STUMP INFECTION WITH EXTRAVASATION OF INFECTION INTO PSOAS ANDRE IMPROVING WITH INCREASING UO AND IMPROVING CLEARANCE HX OF LEFT NEPHRECTOMY A DECADE AGO - APPARENTLY NOT A MALIGNANCY PLAN CONT WITH ANTIBIOTICS NO HD TODAY-LOOKS LIKE SHE IS STARTING TO RECOVER LOOK FOR RENAL RECOVERY LABS IN AM MASON ARNOLD MD July 04, 2016 11:47
--- NOTE | 2016-07-04 13:27 | PDOC ---
SURGICAL PROGRESS NOTE Subjective pain left side cant eat much , due to pain Vital Signs Vital Signs Date Time Temp Pulse Resp B/P (MAP) Pulse Ox O2 Delivery O2 Flow Rate FiO2 07/04/16 13:09 100 Room Air 3.0 07/04/16 10:55 97.7 127 20 98/53 (68) 97.7 I&O Intake and Output 07/04/16 07:00 Intake Total 1990 ml Output Total 1300 ml Balance 690 ml Intake Oral 1990 ml Output Urine Total 1300 ml General: Alert, Oriented X3, Cooperative, No acute distress Abdomen: Soft Labs Laboratory Tests Test 07/02/16 16:45 07/02/16 16:58 07/02/16 20:53 07/03/16 07:05 Sodium Level 138 mmol/L (136-145) 138 mmol/L (136-145) Potassium Level 3.6 mmol/L (3.5-5.1) 4.1 mmol/L (3.5-5.1) Chloride Level 102 mmol/L (98-107) 103 mmol/L (98-107) Carbon Dioxide Level 28 mmol/L (21-32) 29 mmol/L (21-32) Anion Gap 8 (6-14) 6 (6-14) Blood Urea Nitrogen 32 mg/dL (7-20) 38 mg/dL (7-20) Creatinine 1.7 mg/dL (0.6-1.0) 1.9 mg/dL (0.6-1.0) Estimated GFR (Cockcroft-Gault) 29.2 25.7 Glucose Level 107 mg/dL (70-99) 157 mg/dL (70-99) Calcium Level 7.8 mg/dL (8.5-10.1) 8.0 mg/dL (8.5-10.1) Glucose (Fingerstick) 115 mg/dL (70-99) 118 mg/dL (70-99) White Blood Count 6.8 x10^3/uL (4.0-11.0) Red Blood Count 3.36 x10^6/uL (3.50-5.40) Hemoglobin 11.9 g/dL (12.0-15.5) Hematocrit 34.6 % (36.0-47.0) Mean Corpuscular Volume 103 fL (79-100) Mean Corpuscular Hemoglobin 36 pg (25-35) Mean Corpuscular Hemoglobin Concent 35 g/dL (31-37) Red Cell Distribution Width 13.9 % (11.5-14.5) Platelet Count 93 x10^3/uL (140-400) Neutrophils (%) (Auto) 73 % (31-73) Lymphocytes (%) (Auto) 14 % (24-48) Monocytes (%) (Auto) 10 % (0-9) Eosinophils (%) (Auto) 3 % (0-3) Basophils (%) (Auto) 1 % (0-3) Neutrophils # (Auto) 5.0 x10^3uL (1.8-7.7) Lymphocytes # (Auto) 0.9 x10^3/uL (1.0-4.8) Monocytes # (Auto) 0.7 x10^3/uL (0.0-1.1) Eosinophils # (Auto) 0.2 x10^3/uL (0.0-0.7) Basophils # (Auto) 0.1 x10^3/uL (0.0-0.2) Test 07/03/16 07:25 07/03/16 12:21 07/03/16 16:41 07/03/16 23:35 Glucose (Fingerstick) 185 mg/dL (70-99) 170 mg/dL (70-99) 251 mg/dL (70-99) 157 mg/dL (70-99) Test 07/04/16 04:00 07/04/16 07:52 07/04/16 11:48 Sodium Level 135 mmol/L (136-145) Potassium Level 4.5 mmol/L (3.5-5.1) Chloride Level 104 mmol/L (98-107) Carbon Dioxide Level 29 mmol/L (21-32) Anion Gap 2 (6-14) Blood Urea Nitrogen 41 mg/dL (7-20) Creatinine 1.9 mg/dL (0.6-1.0) Estimated GFR (Cockcroft-Gault) 25.7 Glucose Level 184 mg/dL (70-99) Calcium Level 8.1 mg/dL (8.5-10.1) Glucose (Fingerstick) 91 mg/dL (70-99) 130 mg/dL (70-99) Laboratory Tests Test 07/03/16 16:41 07/03/16 23:35 07/04/16 04:00 07/04/16 07:52 Glucose (Fingerstick) 251 mg/dL (70-99) 157 mg/dL (70-99) 91 mg/dL (70-99) Sodium Level 135 mmol/L (136-145) Potassium Level 4.5 mmol/L (3.5-5.1) Chloride Level 104 mmol/L (98-107) Carbon Dioxide Level 29 mmol/L (21-32) Anion Gap 2 (6-14) Blood Urea Nitrogen 41 mg/dL (7-20) Creatinine 1.9 mg/dL (0.6-1.0) Estimated GFR (Cockcroft-Gault) 25.7 Glucose Level 184 mg/dL (70-99) Calcium Level 8.1 mg/dL (8.5-10.1) Test 07/04/16 11:48 Glucose (Fingerstick) 130 mg/dL (70-99) Problem List Problems Medical Problems: (1) Abdominal pain Status: Acute (2) Atrial fibrillation Status: Acute (3) Inflammation of ureter Status: Acute Assessment/Plan retroperitoneal infection cont abx working toward tx transfer when available Problems: ANNELISE MATHIS CASINO [employer]AM[employer] INSPECTOR July 04, 2016 13:26
[2016-07-04 14:00] VITALS: BP 98/54
--- NOTE | 2016-07-04 17:01 | PDOC ---
GENERAL General: vss and afebrile. awake and alert with ongoing left sided abdominal tenderness. blood pressures remain on low side. creatinine 1.9 with better urine output and renal holding dialysis today suggesting maybe return of renal function. will still plan transfer to [facility] when they can take. Problems: VITAL SIGNS Vital Signs: Vital Signs Date Time Temp Pulse Resp B/P (MAP) Pulse Ox O2 Delivery O2 Flow Rate FiO2 07/04/16 16:16 99 Room Air 3.0 07/04/16 14:00 98.0 148 20 98/54 (69) 98.0 I & O I & O Intake and Output 07/04/16 07:00 Intake Total 1990 ml Output Total 1300 ml Balance 690 ml Intake Oral 1990 ml Output Urine Total 1300 ml ALLERGIES Allergies: Allergies Coded Allergies Type Severity Reaction Last Updated Verified No Known Drug Allergies 07/27/13 No MEDS Medications: Current Medications Medications (Trade) Dose Ordered Sig/Ermias Start Time Stop Time Status Last Admin Dose Admin Albumin Human 200 ml @ 200 mls/hr 1X PRN PRN 07/02/16 07:15 07/02/16 13:14 DC 07/02/16 09:06 200 MLS/HR Amiodarone HCl (Cordarone) 200 mg DAILY 07/01/16 11:00 07/04/16 08:27 200 MG Ceftriaxone Sodium 1 gm/ Sodium Chloride 50 ml @ 100 mls/hr Q24H 06/28/16 11:00 06/28/16 11:00 DC 06/27/16 12:23 100 MLS/HR Ceftriaxone Sodium 2 gm/ Sodium Chloride 100 ml @ 200 mls/hr Q24H 06/30/16 09:00 07/04/16 08:26 200 MLS/HR Ceftriaxone Sodium 50 ml @ 100 mls/hr 1X ONCE 06/27/16 11:00 06/27/16 11:29 DC 06/27/16 11:00 100 MLS/HR Docusate Sodium (Colace) 100 mg BID 07/01/16 11:00 07/04/16 08:30 100 MG Enoxaparin Sodium (Lovenox 30mg Syringe) 30 mg Q24H 06/28/16 13:00 06/30/16 11:26 DC 06/29/16 12:26 30 MG Furosemide (Lasix) 80 mg [id number] 07/01/16 11:00 07/02/16 15:42 80 MG Heparin Sodium (Porcine) (Heparin Sodium) 10,000 unit STK-MED ONCE 06/30/16 11:29 06/30/16 11:30 DC Heparin Sodium/ Sodium Chloride 60 unit 1X ONCE 06/30/16 11:30 06/30/16 11:31 DC 06/30/16 11:58 60 UNIT Hydromorphone HCl (Dilaudid) 2 mg PRN Q2HR PRN 07/01/16 12:45 07/04/16 02:11 2 MG Info (Do NOT chart on this entry -- for MONITORING) 1 each PRN DAILY PRN 06/30/16 11:15 07/02/16 11:14 DC Info (PHARMACY MONITORING -- do not chart) 1 each PRN DAILY PRN 07/02/16 07:15 Insulin Aspart (Novolog) 10 units ONCE ONCE 07/02/16 12:30 07/02/16 12:31 DC 07/02/16 12:35 10 UNITS Insulin Detemir (Levemir) 19 units QHS 06/28/16 21:00 07/03/16 23:38 19 UNITS Iohexol (Omnipaque 240 Mg/ml) 50 ml 1X ONCE 06/30/16 11:45 06/30/16 11:46 DC Levothyroxine Sodium (Synthroid) 75 mcg DAILY07 06/28/16 07:00 07/04/16 07:00 75 MCG Lidocaine/Sodium Bicarbonate (Buffered Lidocaine 1%) 3 ml 1X ONCE 06/30/16 11:30 06/30/16 11:31 DC 06/30/16 11:58 3 ML Linagliptin (Tradjenta) 5 mg DAILY 06/28/16 09:00 07/04/16 08:28 5 MG Metoprolol Tartrate (Lopressor) 25 mg BID 07/01/16 11:00 07/03/16 20:35 25 MG Metronidazole (Flagyl) 500 mg Q8HRS 06/30/16 09:00 07/04/16 14:48 500 MG Ondansetron HCl (Zofran) 4 mg PRN Q8HRS PRN 06/27/16 12:15 06/28/16 12:14 DC Oxycodone HCl (Oxycontin) 80 mg Q12HR 06/27/16 21:00 07/04/16 08:29 80 MG Oxycodone HCl (Roxicodone) 10 mg PRN Q6HRS PRN 06/30/16 18:15 07/04/16 14:46 10 MG Piperacillin Sod/ Tazobactam Sod 2.25 gm/Sodium Chloride 50 ml @ 100 mls/hr Q6HRS 06/29/16 18:00 06/30/16 08:23 DC 06/30/16 06:02 100 MLS/HR Piperacillin Sod/ Tazobactam Sod 3.375 gm/Sodium Chloride 50 ml @ 100 mls/hr Q8HRS 06/27/16 13:00 06/29/16 09:33 DC 06/29/16 05:42 100 MLS/HR Polyethylene Glycol (miraLAX PACKET) 17 gm PRN DAILY PRN 07/01/16 10:45 Potassium Chloride (Klor-Con) 10 meq TID 07/01/16 14:00 07/04/16 14:46 10 MEQ Sodium Chloride 1,000 ml @ 400 mls/hr Q2H30M PRN 07/02/16 07:07 07/02/16 19:06 DC Sodium Chloride (Normal Saline Flush) 10 ml 1X PRN PRN 07/02/16 07:15 07/03/16 07:14 DC Spironolactone (Aldactone) 25 mg DAILY 06/28/16 09:00 06/28/16 09:18 DC 06/28/16 08:36 25 MG LAB Lab: Laboratory Tests Test 07/03/16 23:35 07/04/16 04:00 07/04/16 07:52 07/04/16 11:48 Glucose (Fingerstick) 157 mg/dL (70-99) 91 mg/dL (70-99) 130 mg/dL (70-99) Sodium Level 135 mmol/L (136-145) Potassium Level 4.5 mmol/L (3.5-5.1) Chloride Level 104 mmol/L (98-107) Carbon Dioxide Level 29 mmol/L (21-32) Anion Gap 2 (6-14) Blood Urea Nitrogen 41 mg/dL (7-20) Creatinine 1.9 mg/dL (0.6-1.0) Estimated GFR (Cockcroft-Gault) 25.7 Glucose Level 184 mg/dL (70-99) Calcium Level 8.1 mg/dL (8.5-10.1) CRISTY ARANGO MD July 04, 2016 17:00
--- NOTE | 2016-07-05 04:38 | DS ---
DATE OF DISCHARGE: 07/04/2016 PRIMARY DIAGNOSIS: Left ureteral stump dehiscence with iliopsoas area infection, likely due to Klebsiella confirmed by UA culture. ADDITIONAL DIAGNOSES: Status post left nephrectomy many years ago, atrial fibrillation, congestive heart failure, coronary artery disease, diabetes, chronic obstructive pulmonary disease, hypertension with hypotension during the stay, acute kidney injury requiring dialysis with a temporary dialysis catheter placed during the stay, sepsis. CHIEF COMPLAINT AND HISTORY OF PRESENT ILLNESS: This 75-year-old white female presented to the Emergency Room with severe abdominal pain on the day of admission, had a CAT scan, which showed a fluid/gas collection in the left renal bed consistent with ureteral dehiscence where she had a left nephrectomy many years ago for benign disease, felt likely related to urinary tract infection. SUMMARY OF STAY: The patient was admitted ____ acute renal failure, required dialysis during the stay with it being planned to be held for a day with some return of kidney function noted and eosinophils in the urine suggesting it could be due to medication with antibiotics adjusted accordingly during the stay for the same. She ran persistently lower blood pressures throughout the stay, had a lot of pain requiring pain medicines throughout the stay, had good response of her white count, no fevers and was eating well. It was felt she should be transferred to as Urology felt uncomfortable with the situation as far as surgical and General Surgery saw her feeling her surgery risk was up to as high as 75% mortality with any sort of surgery. She was thus transferred to , on the day of admission for evaluation there by the medical team as well as Urology and I have been in discussions with them all afternoon on the day of discharge. DISPOSITION: The patient was transferred to . All of her records were being transferred with her and we will follow up with her following hospitalization. CRISTY ARANGO MD DR: DARIEL/rob JOB#: [id number] / [id number]
== END 2016-07-04 17:30 | disposition short-term general hospital (02) | DRG 871 ==
LOC: ER 09:14 → 6 SOUTH 11:51
PROVIDERS: ADMIT Family Medicine; ATTEND Family Medicine
PROC: 02H633Z Insertion of Infusion Device into Right Atrium, Percutaneous Approach (ICD-10-PCS; principal; 2016-07-01)
PROC: B244ZZZ Ultrasonography of Right Heart (ICD-10-PCS; 2016-07-01)
PROC: 5A1D60Z (ICD-10-PCS; 2016-07-01)
DX: A41.9 Sepsis, unspecified organism (principal); N18.6 End stage renal disease; K68.9 Other disorders of retroperitoneum; N17.1 Acute kidney failure with acute cortical necrosis; T81.30XA Disruption of wound, unspecified, initial encounter; N39.0 Urinary tract infection, site not specified; I13.2 Hypertensive heart and chronic kidney disease with heart failure and with stage 5 chronic kidney disease, or end stage renal disease; E44.0 Moderate protein-calorie malnutrition; E11.22 Type 2 diabetes mellitus with diabetic chronic kidney disease; I48.91 Unspecified atrial fibrillation; I25.10 Atherosclerotic heart disease of native coronary artery without angina pectoris; K21.9 Gastro-esophageal reflux disease without esophagitis; J44.9 Chronic obstructive pulmonary disease, unspecified; B96.1 Klebsiella pneumoniae [K. pneumoniae] as the cause of diseases classified elsewhere; K59.00 Constipation, unspecified; E66.01 Morbid (severe) obesity due to excess calories; I95.9 Hypotension, unspecified; I50.9 Heart failure, unspecified; K74.60 Unspecified cirrhosis of liver; G89.29 Other chronic pain; F17.200 Nicotine dependence, unspecified, uncomplicated; M19.90 Unspecified osteoarthritis, unspecified site; Z79.82 Long term (current) use of aspirin; Z90.5 Acquired absence of kidney; Z91.14 Patient's other noncompliance with medication regimen; Z95.1 Presence of aortocoronary bypass graft; Z68.37 Body mass index [BMI] 37.0-37.9, adult
CPT/HCPCS: 36415; 36556; 71010; 74176; 76937; 80048; 80053; 81001; 82570; 82947; 83605; 83690; 84100; 84300; 84484; 85007; 85027; 86706; 87040; 87086; 87186; 87340; 87341; 89050; 93005; 96361; 96374; 96375; 96376; C1769; C1892; J0690; J0696; J1170; J1650; J1815; J2543; J7030; J7040; P9046; 97110; 97530; 97535; 99285-25

== ENCOUNTER 2016-09-06 04:49 | Inpatient (IN) | payer MEDICARE, OTHER ==
[~2016-09-06] VITALS: Ht 157.5 cm; Wt 83.5 kg
[~2016-09-06 04:49] MED LIST changes: +DOCU100C28 PO; -DOCU100C5 PO; -MAGN400O4 PO; +MAGN400O7 PO; +POLY17PO29 PO; +POTASSIUM CHLO10 MEQ PO
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
[2016-09-06] MEDS ORDERED: ONDANSETRON PF 4 MG/2 ML VIAL. IV PRN (05:45)
[2016-09-06] MEDS ORDERED: fentaNYL PF VIAL 100 MCG/2 ML VIAL IV PRN (05:45)
--- NOTE | 2016-09-06 05:54 | RAD ---
INDICATION: rt.leg numbness COMPARISON: None. TECHNIQUE: Axial CT images obtained through the head without intravenous contrast. One or more of the following individualized dose reduction techniques were utilized for this examination: 1. Automated exposure control; 2. Adjustment of the mA and/or kV according to patient size; 3. Use of iterative reconstruction technique. FINDINGS: No intracranial hemorrhage. No midline shift. Basal cisterns patents. Ventricles and sulci are globally prominent. No acute osseous abnormality. Orbits and paranasal sinuses unremarkable. Scattered foci of low attenuation within the white matter. IMPRESSION: 1. No acute intracranial hemorrhage. 2. Scattered regions of low attenuation within the white matter. Non-specific in nature but frequently secondary to small vessel ischemic disease. If there is clinical concern for acute etiology MRI could better evaluate to ensure that none of these foci are acute. 3. Prominence of ventricles and sulci which is frequently secondary to age related volume loss. Electronically signed by: Maikel Moran MD (09/06/2016 5:51 AM) [facility]
[2016-09-06 06:13] LABS: BASO % 1 % (0-3); EOS % 6 % (0-3); HEMATOCRIT 35.5 % (36.0-47.0); HEMOGLOBIN 11.9 g/dL (12.0-15.5); LYMPH # 1.5 x10^3/uL (1.0-4.8); LYMPH % 26 % (24-48); MEAN CORPUSCULAR HEMOGLOBIN 34 pg (25-35); MEAN CORPUSCULAR HGB CONC 33 g/dL (31-37); MEAN CORPUSCULAR VOLUME 103 fL (79-100); MONO % 9 % (0-9); NEUT % 59 % (31-73); PLATELET COUNT 90 x10^3/uL (140-400); RED BLOOD COUNT 3.46 x10^6/uL (3.50-5.40); RED CELL DISTRIBUTION WIDTH 14.3 % (11.5-14.5); WHITE BLOOD COUNT 5.7 x10^3/uL (4.0-11.0)
[2016-09-06 06:22] LABS: INR 1.3 (0.8-1.1); PROTHROMBIN TIME PATIENT 15.6 SEC (11.7-14.0)
[2016-09-06 06:31] LABS: ALBUMIN 2.7 g/dL (3.4-5.0); ALBUMIN/GLOBULIN RATIO 0.5 (1.0-1.7); CALCIUM 8.5 mg/dL (8.5-10.1); CREATININE 1.9 mg/dL (0.6-1.0); GFR 25.7; MAGNESIUM 2.2 mg/dL (1.8-2.4); TOTAL PROTEIN 7.9 g/dL (6.4-8.2)
[2016-09-06] MEDS ORDERED: ASPIRIN 325 MG TABLET PO ONE (07:30)
[2016-09-06] MEDS ORDERED: POTASSIUM CHLORIDE 20 MEQ/15 ML ORAL LIQUID. PO ONE (07:45)
[2016-09-06 08:56] VITALS: BP 141/69
--- NOTE | 2016-09-06 10:39 | EKG ---
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
--- NOTE | 2016-09-07 02:48 | ACF ---
Admit Criteria Forms Admit Criteria Forms Admit Criteria Forms TRANSIENT ISCHEMIC ATTACK (TIA) Clinical Indications for Admission to Inpatient Care (Place 'X' for any and all applicable criteria): Admission is indicated for ANY ONE of the following(1)(2)(3)(4)(5): [ ]I. Immediate inpatient procedure is needed (eg, endarterectomy). [ ]II. Inpatient admission required rather than observation care (Also use Transient Ischemic Attack (TIA): Observation Care Criteria as appropriate) because of ANY ONE of the following: [ ]a) Focal neurologic signs or symptoms persist or recurring [ ]b) Cardiac arrhythmias of immediate concern [ ]c) Clinically significant cardiac disorder identified that requires inpatient care (eg, severe valvular disease, atrial myxoma, cardiomyopathy) [ ]d) Hypertension requiring inpatient treatment [ ]e) Parenteral anticoagulation required (eg, alternative forms of anticoagulation not appropriate or not feasible) as indicated by ALL of the following(13): [ ]i) Temporary subtherapeutic anticoagulation unacceptable because of high risk of short-term venous or arterial thromboembolism due to ANY ONE of the following(14)(15)(16): [ ]1) Atrial fibrillation suspected as etiology of TIA(17)(18)(19)(20)(21) [ ]2) Venous thromboembolism within past 12 months [ ]3) Underlying malignancy [ ]4) Patient with mechanical cardiac valve(22)( 23) [ ]5) Underlying hypercoagulable state (eg, protein C or protein S deficiency antithrombin deficiency, antiphospholipid antibodies) [ ]6) Patient at temporary high risk of thromboembolism (eg, status post orthopedic surgery) [ ]ii) Contraindications to outpatient use of "bridging" agent or alternative oral anticoagulant[B] as indicated by ALL of the following: [ ]1) Contraindication to outpatient use of low- molecular-weight heparin as "bridging" agent as indicated by ANY ONE of the following(15): [ ]A. Documented current or history of heparin-induced thrombocytopenia(24) [ ]B. Severe thrombocytopenia (eg, platelet count less than 50,000/mm3 (22i873/L) [ ]C. Documented allergy to heparin, low- molecular-weight heparin, or pork products [ ]D. Renal failure (creatinine clearance less than 30 mL/min/1.73m2 (0.50mL/sec/1.73m2) or on dialysis) [ ]E. Inability to manage self-injection ( eg, by patient, caregiver, or visiting nurse) [ ]2) Contraindication to outpatient use of fondaparinux as "bridging" agent as indicated by ANY ONE of the following(25)(26 )(27)(28): [ ]A. Severe thrombocytopenia (eg, platelet count less than 50,000/mm3 (50 x109/L)) [ ]B.Hypersensitivity to fondaparinux, related drugs, or product components [ ]C.Renal failure (creatinine clearance less than 30 mL/min/1.73m2 (0.50mL/sec/1.73m2) or on dialysis) [ ]D.Inability to manage self-injection ( eg, by patient, caregiver, or visiting nurse [ ]3. Oral direct thrombin inhibitor (eg, dabigatran) or oral coagulation factor Xa inhibitor (eg, rivaroxaban, apixaban) not appropriate as oral anticoagulation (eg, indication not appropriate) or contraindicated (eg, hypersensitivity, creatinine clearance less than 15 mL/min/1.73m2 ( 0.25 mL/sec/1.73m2) or on dialysis). [ ]f) Continuous IV infusion of anticoagulant, platelet inhibitor, vasoactive or antiarrhythmia(18)(19) [ ]g) Other condition, treatment, or monitoring requiring inpatient admission [ ]III. Contraindications and/or Inappropriate clinical situations for Observational Care in patients with Transient Ischemic Attack (TIA), when ANY ONE of the following is required: [ ]a) Patient with persistent or severe neurological deficit 24 [ ]b) Patient with acute CVA or other identified pathology should be admitted to inpatient for further care 25 [ X]IV. General contraindications and/or Inappropriate clinical situations for Observational Care in patients with Transient Ischemic Attack (TIA), when ANY ONE of the following is required: [X ]a) Prediction of prolongation of LOS based on ANY ONE of the following may be considered as a contraindication for observational care 2, 3, 4, 5, 6, 7, 8, 9, 10, 11 [ X]i) Age > 65 yrs. [ ]ii) Patient arriving by ambulance [ ]iii) Patient with high acuity [ X]iv) Patient requiring vital sign monitoring [ ]v) Patient on IV medication [ ]b) Systolic blood pressures 180mmHg 3,12 [ ]c) Patient with altered mental status including delirium and other alteration of consciousness, (3) [ ]d) Patient whose discharge disposition will be to a senior care home or rehabilitation home should not be managed in Emergency Department Observation Unit. CMS rule requires 3 days hospital stay before such placement.3,13 [ ]e) Patient with failure to thrive due to broad array of etiologies 3,16,17 [ ]f) Inability to ambulate 3,14 Extended stay beyond goal length of stay may be needed for(4)(30)(32): [ ]a) Parenteral anticoagulation required [ ]b) Dangerous arrhythmia [ ]c) Cardiac valvular disorder, atrial myxoma, cardiomyopathy [ ]d) Uncontrolled severe hypertension [ ]e) Severe carotid stenosis [ ]f) Active comorbidities (eg, heart failure) [ ]g) Extracranial vertebrobasilar disease(29) [ ]h) Clinical evolution of TIA into cerebrovascular accident (stroke) The original [employer] content created by [employer] has been revised. The portions of thecontent which have been revised are identified through the use of italic text or in bold, and [facility] has neither reviewed nor approved the modified material. All other unmodified content is copyright [employer]. Please see references footnoted in the original [employer] [facility] [employer] [facility] hospital[facility] edition 2016 KORY YATES Sep 07, 2016 02:47
--- NOTE | 2016-09-28 23:20 | SSS ---
ADMIT DATE: 09/06/2016 SHORT STAY SUMMARY Transferred to [facility] because of continuous dobutamine infusion ____, which the nursing pulp plant supervisor stated could not be managed at the hospital. CHIEF COMPLAINT AND HISTORY OF PRESENT ILLNESS: This 75-year-old white female presented with right leg numbness on the morning of admission to the Emergency Room ____ felt to be having a possible TIA and initially admitted through the Emergency Room, but found through nursing pulp plant supervisor with the continuous dobutamine infusion, she could not be kept. Arrangements were made for transfer from the Emergency Room to before she even left the Emergency Room, admitted to the floor and I never saw the patient prior to that point in time. CRISTY ARANGO MD DR: DARIEL/rob JOB#: [id number] / [id number]
== END 2016-09-06 12:00 | disposition short-term general hospital (02) | DRG 69 ==
LOC: ER 04:49 → 6 SOUTH 05:50 → 6 NORTH 08:25
PROVIDERS: ADMIT Family Medicine; ATTEND Family Medicine
DX: G45.9 Transient cerebral ischemic attack, unspecified (principal); E11.9 Type 2 diabetes mellitus without complications; G89.29 Other chronic pain; I11.0 Hypertensive heart disease with heart failure; I25.10 Atherosclerotic heart disease of native coronary artery without angina pectoris; I48.91 Unspecified atrial fibrillation; Z96.642 Presence of left artificial hip joint; I50.9 Heart failure, unspecified; J44.9 Chronic obstructive pulmonary disease, unspecified; Z95.1 Presence of aortocoronary bypass graft; Z98.891 History of uterine scar from previous surgery; Z90.5 Acquired absence of kidney
CPT/HCPCS: 36415; 70450; 80053; 82550; 83735; 83880; 84443; 84484; 85027; 85610; 85730; 93005; G0480; 99285-25

== ENCOUNTER 2017-03-03 02:11 | Emergency (ER) | payer MEDICARE, OTHER ==
[2017-03-03] MEDS: IPRATRPIUM/ALBUTEROL 0.5/2.5MG 3 ML NEBU. NEB (02:57)
[2017-03-03 03:05] LABS: INFLUENZA A PATIENT NEGATIVE (NEGATIVE); INFLUENZA B PATIENT NEGATIVE (NEGATIVE); OBC FLU VALID
[2017-03-03] MEDS: fentaNYL PF VIAL 100 MCG/2 ML VIAL IV ×2 (03:05→03:54)
[2017-03-03 03:48] LABS: ADD MAN DIFF? NO
[2017-03-03 03:50] LABS: BASO % 1 % (0-3); EOS # 0.3 x10^3/uL (0.0-0.7); EOS % 5 % (0-3); HEMATOCRIT 32.7 % (36.0-47.0); HEMOGLOBIN 10.7 g/dL (12.0-15.5); LYMPH # 1.4 x10^3/uL (1.0-4.8); LYMPH % 28 % (24-48); MEAN CORPUSCULAR HEMOGLOBIN 31 pg (25-35); MEAN CORPUSCULAR HGB CONC 33 g/dL (31-37); MEAN CORPUSCULAR VOLUME 96 fL (79-100); MONO # 0.4 x10^3/uL (0.0-1.1); MONO % 9 % (0-9); NEUT # 2.8 x10^3uL (1.8-7.7); NEUT % 57 % (31-73); PLATELET COUNT 90 x10^3/uL (140-400); RED BLOOD COUNT 3.41 x10^6/uL (3.50-5.40); RED CELL DISTRIBUTION WIDTH 18.7 % (11.5-14.5); WHITE BLOOD COUNT 4.9 x10^3/uL (4.0-11.0)
[2017-03-03 03:57] LABS: BLOOD UREA NITROGEN 32 mg/dL (7-20); BUN/CREATININE RATIO 15 (6-20); CALCIUM 7.6 mg/dL (8.5-10.1); CREATININE 2.1 mg/dL (0.6-1.0); GFR 22.8; GLUCOSE 144 mg/dL (70-99); SODIUM 140 mmol/L (136-145)
[2017-03-03 03:58] LABS: ANION GAP 10 (6-14); CARBON DIOXIDE 27 mmol/L (21-32); CHLORIDE 103 mmol/L (98-107); POTASSIUM 3.6 mmol/L (3.5-5.1)
[2017-03-03 03:59] LABS: INR 1.5 (0.8-1.1); PARTIAL THROMBOPLASTIN TIME 38 SEC (24-38); PROTHROMBIN TIME PATIENT 17.3 SEC (11.7-14.0)
[2017-03-03 04:05] LABS: TROPONINI 0.025 ng/mL (0.000-0.055)
[2017-03-03 04:06] LABS: ALBUMIN 2.3 g/dL (3.4-5.0); ALBUMIN/GLOBULIN RATIO 0.5 (1.0-1.7); ALK PHOS 312 U/L (46-116); ALT (SGPT) 32 U/L (14-59); AST (SGOT) 48 U/L (15-37); TOTAL BILIRUBIN 0.5 mg/dL (0.2-1.0); TOTAL PROTEIN 7.2 g/dL (6.4-8.2)
[2017-03-03 04:11] LABS: CKMB INDEX 0.8 % (0-4); CKMB MASS 1.9 ng/mL (0.0-3.6); CREATINE KINASE 231 U/L (26-192)
[2017-03-03 04:11] LABS: NT-PRO BNP 734 pg/mL (0-449)
[2017-03-03 04:18] LABS: LACTIC ACID 1.1 mmol/L (0.4-2.0)
== END 2017-03-03 05:00 | disposition home or self-care (01) ==
LOC: ER 05:00
DX: J44.0 Chronic obstructive pulmonary disease with (acute) lower respiratory infection (principal); J20.9 Acute bronchitis, unspecified; M25.551 Pain in right hip; F17.210 Nicotine dependence, cigarettes, uncomplicated; I48.91 Unspecified atrial fibrillation; I25.10 Atherosclerotic heart disease of native coronary artery without angina pectoris; I11.0 Hypertensive heart disease with heart failure; I50.9 Heart failure, unspecified; E11.9 Type 2 diabetes mellitus without complications; G89.29 Other chronic pain; Z99.81 Dependence on supplemental oxygen; Z95.1 Presence of aortocoronary bypass graft
CPT/HCPCS: 36415; 71045; 80053; 82553; 83605; 83880; 84484; 85025; 85610; 85730; 87040; 87804; 87804-59; 93005; 94640; 96374; 96376; 99285-25; J3010; J7620

== ENCOUNTER 2017-05-13 16:32 | Inpatient (IN) | payer MEDICARE, OTHER ==
[2017-05-13] MEDS: MORPHINE SULFATE 4 MG/ML DISP.SYRIN. IV ×2 (17:29→19:23)
[2017-05-13] MEDS: IV NORMAL SALINE 1000ML BAG 1,000 ML IV (17:54)
[2017-05-13] MEDS ORDERED: ONDANSETRON PF 4 MG/2 ML VIAL. IV (18:00)
[2017-05-13] MEDS ORDERED: ACETAMINOPHEN 325 MG TABLET. PO (18:00)
[2017-05-13 21:16] LABS: ADD MAN DIFF? NO
[2017-05-13 21:18] LABS: BASO % 0 % (0-3); EOS % 1 % (0-3); HEMATOCRIT 36.9 % (36.0-47.0); HEMOGLOBIN 12.4 g/dL (12.0-15.5); LYMPH % 16 % (24-48); MEAN CORPUSCULAR HEMOGLOBIN 33 pg (25-35); MEAN CORPUSCULAR HGB CONC 34 g/dL (31-37); MEAN CORPUSCULAR VOLUME 96 fL (79-100); MONO # 0.7 x10^3/uL (0.0-1.1); MONO % 11 % (0-9); NEUT # 4.8 x10^3uL (1.8-7.7); NEUT % 73 % (31-73); PLATELET COUNT 73 x10^3/uL (140-400); RED BLOOD COUNT 3.83 x10^6/uL (3.50-5.40); RED CELL DISTRIBUTION WIDTH 16.1 % (11.5-14.5); WHITE BLOOD COUNT 6.7 x10^3/uL (4.0-11.0)
[2017-05-13 21:32] LABS: ALBUMIN 2.4 g/dL (3.4-5.0); ALBUMIN/GLOBULIN RATIO 0.5 (1.0-1.7); ALK PHOS 244 U/L (46-116); ALT (SGPT) 31 U/L (14-59); ANION GAP 9 (6-14); AST (SGOT) 37 U/L (15-37); BLOOD UREA NITROGEN 39 mg/dL (7-20); BUN/CREATININE RATIO 22 (6-20); CALCIUM 7.7 mg/dL (8.5-10.1); CARBON DIOXIDE 29 mmol/L (21-32); CHLORIDE 99 mmol/L (98-107); CREATININE 1.8 mg/dL (0.6-1.0); GFR 27.3; GLUCOSE 143 mg/dL (70-99); POTASSIUM 3.2 mmol/L (3.5-5.1); SODIUM 137 mmol/L (136-145); TOTAL BILIRUBIN 0.9 mg/dL (0.2-1.0)
[2017-05-13 21:47] LABS: TOTAL PROTEIN 6.8 g/dL (6.4-8.2)
[2017-05-13] MEDS: ALPRAZolam 0.25 MG TABLET PO (21:51)
[2017-05-13] MEDS: ATORVASTATIN CALCIUM 40 MG TABLET. PO (21:51)
[2017-05-13] MEDS: oxyCODONE ER 40 MG TAB.ER.12H PO (21:52)
[2017-05-13 21:58] LABS: POC GLUCOSE 167 mg/dL (70-99)
[2017-05-13] MEDS: INSULIN DETEMIR 300 UNITS/3 ML INSULN.PEN. SQ (21:58)
[2017-05-13 23:12] LABS: NT-PRO BNP 1051 pg/mL (0-449)
[2017-05-14] MEDS ORDERED: LEVOTHYROXINE 75 MCG TABLET PO (06:00)
[2017-05-14] MEDS: LEVOTHYROXINE 75 MCG TABLET PO (06:29)
[2017-05-14] MEDS: MORPHINE SULFATE 4 MG/ML DISP.SYRIN. IV ×3 (06:34→15:30)
[2017-05-14] MEDS: INSULIN ASPART 300 UNITS/3 ML INSULN.PEN SQ ×3 (07:30→17:03)
[2017-05-14] MEDS: oxyCODONE ER 40 MG TAB.ER.12H PO ×2 (08:18→20:15)
[2017-05-14] MEDS: DIGOXIN 125 MCG TABLET. PO (08:25)
[2017-05-14] MEDS: FUROSEMIDE 40 MG TABLET. PO ×2 (08:25→16:55)
[2017-05-14] MEDS: POTASSIUM CHLORIDE 20 MEQ TABLET.ER. PO ×2 (08:26→13:49)
[2017-05-14 08:28] LABS: POC GLUCOSE 136 mg/dL (70-99)
[2017-05-14 13:01] LABS: POC GLUCOSE 140 mg/dL (70-99)
[2017-05-14] MEDS: ALPRAZolam 0.25 MG TABLET PO (15:28)
[2017-05-14 17:05] LABS: POC GLUCOSE 184 mg/dL (70-99)
[2017-05-14] MEDS: ATORVASTATIN CALCIUM 40 MG TABLET. PO (20:13)
[2017-05-14] MEDS: INSULIN DETEMIR 300 UNITS/3 ML INSULN.PEN. SQ (20:22)
[2017-05-14] MEDS: MINERAL OIL/PETROLATUM TOPICAL CREAM 113GM JAR. TP (20:22)
[2017-05-14 20:23] LABS: POC GLUCOSE 180 mg/dL (70-99)
[2017-05-14] MEDS: CARISOPRODOL 350 MG TABLET PO (22:33)
[2017-05-15] MEDS: LEVOTHYROXINE 75 MCG TABLET PO (05:37)
[2017-05-15 06:27] LABS: ANION GAP 7 (6-14); BLOOD UREA NITROGEN 38 mg/dL (7-20); CARBON DIOXIDE 30 mmol/L (21-32); CHLORIDE 103 mmol/L (98-107); CREATININE 1.9 mg/dL (0.6-1.0); GFR 25.6; GLUCOSE 109 mg/dL (70-99); POTASSIUM 3.4 mmol/L (3.5-5.1); SODIUM 140 mmol/L (136-145)
[2017-05-15 07:09] LABS: SEDIMENTATION RATE 51 (0-25)
[2017-05-15] MEDS: INSULIN ASPART 300 UNITS/3 ML INSULN.PEN SQ ×3 (07:30→17:58)
[2017-05-15] MEDS: ONDANSETRON PF 4 MG/2 ML VIAL. IV (07:45)
[2017-05-15] MEDS: POTASSIUM CHLORIDE 20 MEQ TABLET.ER. PO ×2 (08:00→13:00)
[2017-05-15] MEDS: CARISOPRODOL 350 MG TABLET PO ×2 (08:27→21:29)
[2017-05-15] MEDS: oxyCODONE ER 40 MG TAB.ER.12H PO ×2 (09:00→21:29)
[2017-05-15] MEDS: FUROSEMIDE 40 MG TABLET. PO ×2 (09:00→17:55)
[2017-05-15] MEDS: DIGOXIN 125 MCG TABLET. PO (09:00)
[2017-05-15 12:19] LABS: POC GLUCOSE 98 mg/dL (70-99)
[2017-05-15 12:20] LABS: POC GLUCOSE 114 mg/dL (70-99)
[2017-05-15 17:26] LABS: POC GLUCOSE 199 mg/dL (70-99)
[2017-05-15] MEDS: INSULIN DETEMIR 300 UNITS/3 ML INSULN.PEN. SQ (21:28)
[2017-05-15] MEDS: ATORVASTATIN CALCIUM 40 MG TABLET. PO (21:29)
[2017-05-15 21:47] LABS: POC GLUCOSE 225 mg/dL (70-99)
[2017-05-16] MEDS: LEVOTHYROXINE 75 MCG TABLET PO (05:31)
[2017-05-16] MEDS: INSULIN ASPART 300 UNITS/3 ML INSULN.PEN SQ ×3 (07:30→18:24)
[2017-05-16 08:17] LABS: POC GLUCOSE 124 mg/dL (70-99)
[2017-05-16] MEDS: FUROSEMIDE 40 MG TABLET. PO (09:00)
[2017-05-16] MEDS: CARISOPRODOL 350 MG TABLET PO ×2 (10:34→22:52)
[2017-05-16] MEDS: oxyCODONE ER 40 MG TAB.ER.12H PO ×2 (10:35→20:48)
[2017-05-16] MEDS: POTASSIUM CHLORIDE 20 MEQ TABLET.ER. PO ×2 (10:35→13:00)
[2017-05-16] MEDS: DIGOXIN 125 MCG TABLET. PO (10:55)
[2017-05-16 11:13] LABS: POC GLUCOSE 191 mg/dL (70-99)
[2017-05-16 11:30] LABS: CREATINE KINASE 52 U/L (26-192)
[2017-05-16] MEDS: MILRINONE 20MG/100ML PREMIX 100 ML IV (14:01)
[2017-05-16 17:10] LABS: POC GLUCOSE 213 mg/dL (70-99)
[2017-05-16 20:24] LABS: POC GLUCOSE 219 mg/dL (70-99)
[2017-05-16] MEDS: ATORVASTATIN CALCIUM 40 MG TABLET. PO (20:48)
[2017-05-16] MEDS: INSULIN DETEMIR 300 UNITS/3 ML INSULN.PEN. SQ (20:55)
[2017-05-16] MEDS: ALPRAZolam 0.25 MG TABLET PO (22:48)
[2017-05-17] MEDS: LEVOTHYROXINE 75 MCG TABLET PO (06:15)
[2017-05-17] MEDS: CARISOPRODOL 350 MG TABLET PO (06:38)
[2017-05-17] MEDS: INSULIN ASPART 300 UNITS/3 ML INSULN.PEN SQ ×3 (07:30→17:37)
[2017-05-17 07:55] LABS: POC GLUCOSE 107 mg/dL (70-99)
[2017-05-17] MEDS: POTASSIUM CHLORIDE 20 MEQ TABLET.ER. PO ×2 (08:19→14:12)
[2017-05-17] MEDS: oxyCODONE ER 40 MG TAB.ER.12H PO ×2 (08:19→20:52)
[2017-05-17] MEDS: DIGOXIN 125 MCG TABLET. PO (08:19)
[2017-05-17 11:29] LABS: POC GLUCOSE 120 mg/dL (70-99)
[2017-05-17] MEDS: MORPHINE SULFATE 4 MG/ML DISP.SYRIN. IV (14:48)
[2017-05-17 16:42] LABS: POC GLUCOSE 155 mg/dL (70-99)
[2017-05-17 20:48] LABS: POC GLUCOSE 134 mg/dL (70-99)
[2017-05-17] MEDS: ATORVASTATIN CALCIUM 40 MG TABLET. PO (20:52)
[2017-05-17] MEDS: INSULIN DETEMIR 300 UNITS/3 ML INSULN.PEN. SQ (20:52)
[2017-05-18] MEDS: MORPHINE SULFATE 4 MG/ML DISP.SYRIN. IV (00:23)
[2017-05-18 05:36] LABS: ANION GAP 7 (6-14); BLOOD UREA NITROGEN 45 mg/dL (7-20); CALCIUM 8.2 mg/dL (8.5-10.1); CARBON DIOXIDE 28 mmol/L (21-32); CHLORIDE 104 mmol/L (98-107); GFR 24.2; GLUCOSE 84 mg/dL (70-99); POTASSIUM 4.6 mmol/L (3.5-5.1); SODIUM 139 mmol/L (136-145)
[2017-05-18] MEDS: MILRINONE 20MG/100ML PREMIX 100 ML IV (05:39)
[2017-05-18] MEDS: LEVOTHYROXINE 75 MCG TABLET PO (06:34)
[2017-05-18] MEDS: INSULIN ASPART 300 UNITS/3 ML INSULN.PEN SQ ×3 (07:30→16:30)
[2017-05-18] MEDS: POTASSIUM CHLORIDE 20 MEQ TABLET.ER. PO ×2 (07:31→13:13)
[2017-05-18] MEDS: DIGOXIN 125 MCG TABLET. PO (07:31)
[2017-05-18 08:04] LABS: POC GLUCOSE 75 mg/dL (70-99)
[2017-05-18] MEDS: oxyCODONE ER 40 MG TAB.ER.12H PO ×2 (08:59→21:00)
[2017-05-18] MEDS: METOPROLOL SUCC 24HR ER 25 MG TAB.ER.24H. PO (11:05)
[2017-05-18] MEDS: ALPRAZolam 0.25 MG TABLET PO (11:05)
[2017-05-18 11:57] LABS: POC GLUCOSE 105 mg/dL (70-99)
[2017-05-18] MEDS: MORPHINE SULFATE 10 MG/ML VIAL. IV ×2 (13:14→15:56)
[2017-05-18] MEDS: methylPREDNISolone ACETATE 40 MG/ML VIAL. IM (13:30)
[2017-05-18] MEDS: BUPIVACAINE MPF 0.25% 10 ML VIAL. IJ (13:30)
[2017-05-18 17:19] LABS: POC GLUCOSE 116 mg/dL (70-99)
[2017-05-18 21:00] LABS: POC GLUCOSE 209 mg/dL (70-99)
[2017-05-18] MEDS: ATORVASTATIN CALCIUM 40 MG TABLET. PO (21:00)
[2017-05-18] MEDS: INSULIN DETEMIR 300 UNITS/3 ML INSULN.PEN. SQ (21:04)
[2017-05-19] MEDS: LEVOTHYROXINE 75 MCG TABLET PO (05:57)
[2017-05-19] MEDS: INSULIN ASPART 300 UNITS/3 ML INSULN.PEN SQ ×3 (07:30→18:06)
[2017-05-19] MEDS: POTASSIUM CHLORIDE 20 MEQ TABLET.ER. PO ×2 (08:00→13:00)
[2017-05-19 08:05] LABS: POC GLUCOSE 118 mg/dL (70-99)
[2017-05-19] MEDS: oxyCODONE ER 40 MG TAB.ER.12H PO ×3 (09:10→23:10)
[2017-05-19] MEDS: DIGOXIN 125 MCG TABLET. PO (09:10)
[2017-05-19] MEDS: METOPROLOL SUCC 24HR ER 25 MG TAB.ER.24H. PO (09:11)
[2017-05-19 09:54] LABS: ANION GAP 9 (6-14); BLOOD UREA NITROGEN 51 mg/dL (7-20); CALCIUM 8.2 mg/dL (8.5-10.1); CARBON DIOXIDE 24 mmol/L (21-32); CHLORIDE 106 mmol/L (98-107); CREATININE 1.9 mg/dL (0.6-1.0); GFR 25.6; GLUCOSE 135 mg/dL (70-99); MAGNESIUM 2.6 mg/dL (1.8-2.4); POTASSIUM 4.6 mmol/L (3.5-5.1); SODIUM 139 mmol/L (136-145)
[2017-05-19 10:38] LABS: INR 1.1 (0.8-1.1); PROTHROMBIN TIME PATIENT 14.1 SEC (11.7-14.0)
[2017-05-19 12:02] LABS: POC GLUCOSE 114 mg/dL (70-99)
[2017-05-19 17:36] LABS: POC GLUCOSE 219 mg/dL (70-99)
[2017-05-19] MEDS: ALPRAZolam 0.25 MG TABLET PO (18:03)
[2017-05-19] MEDS: ASPIRIN ENTERIC COATED 81 MG TABLET.DR. PO (18:03)
[2017-05-19 20:58] LABS: POC GLUCOSE 157 mg/dL (70-99)
[2017-05-19] MEDS: ATORVASTATIN CALCIUM 40 MG TABLET. PO (21:48)
[2017-05-19] MEDS: INSULIN DETEMIR 300 UNITS/3 ML INSULN.PEN. SQ (21:48)
[2017-05-20] MEDS: LEVOTHYROXINE 75 MCG TABLET PO (07:00)
[2017-05-20] MEDS: INSULIN ASPART 300 UNITS/3 ML INSULN.PEN SQ ×3 (07:30→16:30)
[2017-05-20 07:41] LABS: POC GLUCOSE 118 mg/dL (70-99)
[2017-05-20] MEDS: POTASSIUM CHLORIDE 20 MEQ TABLET.ER. PO ×2 (08:00→14:46)
[2017-05-20] MEDS: oxyCODONE ER 40 MG TAB.ER.12H PO ×2 (09:00→20:51)
[2017-05-20] MEDS: METOPROLOL SUCC 24HR ER 25 MG TAB.ER.24H. PO (09:00)
[2017-05-20] MEDS ORDERED: LIDOCAINE WITH 8.4% SOD BICARB 3 ML DISP.SYRIN. (12:23)
[2017-05-20] MEDS: LIDOCAINE WITH 8.4% SOD BICARB 3 ML DISP.SYRIN. IJ (13:15)
[2017-05-20] MEDS: fentaNYL PF VIAL 100 MCG/2 ML VIAL IV (13:15)
[2017-05-20] MEDS: MIDAZOLAM HCL/PF 2 MG/2 ML VIAL. IV (13:15)
[2017-05-20] MEDS ORDERED: MIDAZOLAM HCL/PF 2 MG/2 ML VIAL. (13:19)
[2017-05-20] MEDS ORDERED: fentaNYL PF VIAL 100 MCG/2 ML VIAL (13:19)
[2017-05-20 14:27] LABS: POC GLUCOSE 118 mg/dL (70-99)
[2017-05-20] MEDS: ASPIRIN ENTERIC COATED 81 MG TABLET.DR. PO (14:44)
[2017-05-20] MEDS: DIGOXIN 125 MCG TABLET. PO (14:45)
[2017-05-20 16:51] LABS: POC GLUCOSE 90 mg/dL (70-99)
[2017-05-20 20:48] LABS: POC GLUCOSE 151 mg/dL (70-99)
[2017-05-20] MEDS: ATORVASTATIN CALCIUM 40 MG TABLET. PO (20:50)
[2017-05-20] MEDS: INSULIN DETEMIR 300 UNITS/3 ML INSULN.PEN. SQ (20:54)
[2017-05-21] MEDS: LEVOTHYROXINE 75 MCG TABLET PO (06:42)
[2017-05-21] MEDS: INSULIN ASPART 300 UNITS/3 ML INSULN.PEN SQ ×3 (07:30→17:57)
[2017-05-21 08:21] LABS: POC GLUCOSE 57 mg/dL (70-99)
[2017-05-21] MEDS: oxyCODONE ER 40 MG TAB.ER.12H PO ×2 (08:26→20:33)
[2017-05-21] MEDS: POTASSIUM CHLORIDE 20 MEQ TABLET.ER. PO ×2 (08:27→17:54)
[2017-05-21] MEDS: METOPROLOL SUCC 24HR ER 25 MG TAB.ER.24H. PO (08:27)
[2017-05-21] MEDS: DIGOXIN 125 MCG TABLET. PO (08:28)
[2017-05-21] MEDS: ASPIRIN ENTERIC COATED 81 MG TABLET.DR. PO (08:28)
[2017-05-21 09:17] LABS: POC GLUCOSE 144 mg/dL (70-99)
[2017-05-21] MEDS: MORPHINE SULFATE 4 MG/ML DISP.SYRIN. IV (12:22)
[2017-05-21 12:50] LABS: POC GLUCOSE 138 mg/dL (70-99)
[2017-05-21 17:40] LABS: POC GLUCOSE 183 mg/dL (70-99)
[2017-05-21] MEDS: ALPRAZolam 0.25 MG TABLET PO (19:31)
[2017-05-21] MEDS: ATORVASTATIN CALCIUM 40 MG TABLET. PO (20:33)
[2017-05-21] MEDS: INSULIN DETEMIR 300 UNITS/3 ML INSULN.PEN. SQ (20:36)
[2017-05-21 21:12] LABS: POC GLUCOSE 134 mg/dL (70-99)
[2017-05-22] MEDS: LEVOTHYROXINE 75 MCG TABLET PO (05:08)
[2017-05-22] MEDS: ALPRAZolam 0.25 MG TABLET PO (05:08)
[2017-05-22] MEDS: INSULIN ASPART 300 UNITS/3 ML INSULN.PEN SQ ×3 (07:30→17:45)
[2017-05-22 08:43] LABS: POC GLUCOSE 56 mg/dL (70-99)
[2017-05-22 08:43] LABS: POC GLUCOSE 82 mg/dL (70-99)
[2017-05-22] MEDS: POTASSIUM CHLORIDE 20 MEQ TABLET.ER. PO ×2 (09:21→17:37)
[2017-05-22] MEDS: oxyCODONE ER 40 MG TAB.ER.12H PO ×2 (09:21→20:42)
[2017-05-22] MEDS: METOPROLOL SUCC 24HR ER 25 MG TAB.ER.24H. PO (09:21)
[2017-05-22] MEDS: DIGOXIN 125 MCG TABLET. PO (09:22)
[2017-05-22] MEDS: ASPIRIN ENTERIC COATED 81 MG TABLET.DR. PO (09:22)
[2017-05-22] MEDS: MORPHINE SULFATE 4 MG/ML DISP.SYRIN. IV (11:46)
[2017-05-22 12:01] LABS: POC GLUCOSE 133 mg/dL (70-99)
[2017-05-22 17:05] LABS: POC GLUCOSE 158 mg/dL (70-99)
[2017-05-22] MEDS: ATORVASTATIN CALCIUM 40 MG TABLET. PO (20:41)
[2017-05-22] MEDS: INSULIN DETEMIR 300 UNITS/3 ML INSULN.PEN. SQ ×2 (21:00)
[2017-05-23] MEDS: LEVOTHYROXINE 75 MCG TABLET PO (05:24)
[2017-05-23 05:31] LABS: ADD MAN DIFF? NO
[2017-05-23 05:35] LABS: BASO % 1 % (0-3); EOS # 0.1 x10^3/uL (0.0-0.7); EOS % 2 % (0-3); HEMATOCRIT 42.5 % (36.0-47.0); HEMOGLOBIN 14.2 g/dL (12.0-15.5); LYMPH % 18 % (24-48); MEAN CORPUSCULAR HEMOGLOBIN 33 pg (25-35); MEAN CORPUSCULAR HGB CONC 33 g/dL (31-37); MEAN CORPUSCULAR VOLUME 98 fL (79-100); MONO # 0.5 x10^3/uL (0.0-1.1); MONO % 8 % (0-9); NEUT % 71 % (31-73); PLATELET COUNT 142 x10^3/uL (140-400); RED BLOOD COUNT 4.34 x10^6/uL (3.50-5.40); RED CELL DISTRIBUTION WIDTH 16.5 % (11.5-14.5); WHITE BLOOD COUNT 5.6 x10^3/uL (4.0-11.0)
[2017-05-23 06:21] LABS: ANION GAP 7 (6-14); BLOOD UREA NITROGEN 37 mg/dL (7-20); CALCIUM 8.3 mg/dL (8.5-10.1); CARBON DIOXIDE 24 mmol/L (21-32); CHLORIDE 111 mmol/L (98-107); CREATININE 1.5 mg/dL (0.6-1.0); GFR 33.7; GLUCOSE 114 mg/dL (70-99); POTASSIUM 5.1 mmol/L (3.5-5.1); SODIUM 142 mmol/L (136-145)
[2017-05-23] MEDS: INSULIN ASPART 300 UNITS/3 ML INSULN.PEN SQ ×3 (07:30→16:30)
[2017-05-23] MEDS: POTASSIUM CHLORIDE 20 MEQ TABLET.ER. PO ×2 (08:00→13:00)
[2017-05-23] MEDS: ASPIRIN ENTERIC COATED 81 MG TABLET.DR. PO (09:52)
[2017-05-23] MEDS: oxyCODONE ER 40 MG TAB.ER.12H PO ×2 (09:53→20:57)
[2017-05-23] MEDS: DIGOXIN 125 MCG TABLET. PO (09:53)
[2017-05-23 09:54] LABS: POC GLUCOSE 62 mg/dL (70-99)
[2017-05-23] MEDS: METOPROLOL SUCC 24HR ER 25 MG TAB.ER.24H. PO (09:54)
[2017-05-23 11:25] LABS: POC GLUCOSE 72 mg/dL (70-99)
[2017-05-23 11:26] LABS: POC GLUCOSE 110 mg/dL (70-99)
[2017-05-23] MEDS: NORMAL SALINE IV (15:25)
[2017-05-23] MEDS: DAPTOMYCIN IV (15:25)
[2017-05-23 16:58] LABS: POC GLUCOSE 151 mg/dL (70-99)
[2017-05-23] MEDS: ONDANSETRON PF 4 MG/2 ML VIAL. IV (19:37)
[2017-05-23] MEDS: ATORVASTATIN CALCIUM 40 MG TABLET. PO (20:56)
[2017-05-23] MEDS: LACTOBACILLUS RHAMNOSUS GG 1 CAPSULE. PO (20:56)
[2017-05-23] MEDS: INSULIN DETEMIR 300 UNITS/3 ML INSULN.PEN. SQ (20:59)
[2017-05-23 21:04] LABS: POC GLUCOSE 153 mg/dL (70-99)
[2017-05-24] MEDS: LEVOTHYROXINE 75 MCG TABLET PO (05:46)
[2017-05-24] MEDS: POTASSIUM CHLORIDE 20 MEQ TABLET.ER. PO ×2 (08:00→13:00)
[2017-05-24 08:07] LABS: POC GLUCOSE 160 mg/dL (70-99)
[2017-05-24] MEDS: LACTOBACILLUS RHAMNOSUS GG 1 CAPSULE. PO ×2 (08:40→20:23)
[2017-05-24] MEDS: ASPIRIN ENTERIC COATED 81 MG TABLET.DR. PO (08:43)
[2017-05-24] MEDS: oxyCODONE ER 40 MG TAB.ER.12H PO ×2 (08:43→20:23)
[2017-05-24] MEDS: METOPROLOL SUCC 24HR ER 25 MG TAB.ER.24H. PO (08:44)
[2017-05-24] MEDS: DIGOXIN 125 MCG TABLET. PO (08:45)
[2017-05-24] MEDS: INSULIN ASPART 300 UNITS/3 ML INSULN.PEN SQ ×3 (08:48→17:28)
[2017-05-24 10:51] LABS: POC GLUCOSE 137 mg/dL (70-99)
[2017-05-24] MEDS: DAPTOMYCIN IV (15:38)
[2017-05-24] MEDS: NORMAL SALINE IV (15:38)
[2017-05-24 16:19] LABS: POC GLUCOSE 207 mg/dL (70-99)
[2017-05-24] MEDS: ATORVASTATIN CALCIUM 40 MG TABLET. PO (20:23)
[2017-05-24 20:43] LABS: POC GLUCOSE 214 mg/dL (70-99)
[2017-05-24 20:50] LABS: POC GLUCOSE 169 mg/dL (70-99)
[2017-05-24] MEDS: INSULIN DETEMIR 300 UNITS/3 ML INSULN.PEN. SQ (21:03)
[2017-05-25 03:07] LABS: POC GLUCOSE 113 mg/dL (70-99)
[2017-05-25] MEDS: CARISOPRODOL 350 MG TABLET PO (04:31)
[2017-05-25] MEDS: INSULIN ASPART 300 UNITS/3 ML INSULN.PEN SQ ×3 (07:30→17:32)
[2017-05-25] MEDS: ASPIRIN ENTERIC COATED 81 MG TABLET.DR. PO (08:21)
[2017-05-25] MEDS: METOPROLOL SUCC 24HR ER 25 MG TAB.ER.24H. PO (08:22)
[2017-05-25] MEDS: LEVOTHYROXINE 75 MCG TABLET PO (08:22)
[2017-05-25] MEDS: POTASSIUM CHLORIDE 20 MEQ TABLET.ER. PO ×2 (08:23→12:57)
[2017-05-25] MEDS: LACTOBACILLUS RHAMNOSUS GG 1 CAPSULE. PO ×2 (08:23→21:34)
[2017-05-25] MEDS: oxyCODONE ER 40 MG TAB.ER.12H PO ×2 (08:24→21:35)
[2017-05-25 08:41] LABS: POC GLUCOSE 86 mg/dL (70-99)
[2017-05-25] MEDS: DIGOXIN 125 MCG TABLET. PO (09:32)
[2017-05-25 11:48] LABS: POC GLUCOSE 108 mg/dL (70-99)
[2017-05-25] MEDS: DAPTOMYCIN IV (14:37)
[2017-05-25] MEDS: NORMAL SALINE IV (14:37)
[2017-05-25] MEDS ORDERED: ALBUTEROL SULFATE 2.5 MG/3 ML NEBU. NEB (15:45)
[2017-05-25] MEDS: IPRATRPIUM/ALBUTEROL 0.5/2.5MG 3 ML NEBU. NEB ×2 (15:52→20:01)
[2017-05-25 16:45] LABS: POC GLUCOSE 168 mg/dL (70-99)
[2017-05-25] MEDS: ATORVASTATIN CALCIUM 40 MG TABLET. PO (21:34)
[2017-05-25] MEDS: INSULIN DETEMIR 300 UNITS/3 ML INSULN.PEN. SQ (21:43)
[2017-05-25 22:00] LABS: POC GLUCOSE 101 mg/dL (70-99)
[2017-05-26] MEDS: LEVOTHYROXINE 75 MCG TABLET PO (05:26)
[2017-05-26 06:40] LABS: ANION GAP 7 (6-14); BLOOD UREA NITROGEN 34 mg/dL (7-20); CALCIUM 8.3 mg/dL (8.5-10.1); CARBON DIOXIDE 25 mmol/L (21-32); CHLORIDE 108 mmol/L (98-107); CREATININE 1.4 mg/dL (0.6-1.0); GFR 36.5; GLUCOSE 180 mg/dL (70-99); POTASSIUM 4.9 mmol/L (3.5-5.1); SODIUM 140 mmol/L (136-145)
[2017-05-26] MEDS: IPRATRPIUM/ALBUTEROL 0.5/2.5MG 3 ML NEBU. NEB ×4 (08:00→19:41)
[2017-05-26] MEDS: POTASSIUM CHLORIDE 20 MEQ TABLET.ER. PO ×2 (08:00→13:00)
[2017-05-26 08:44] LABS: POC GLUCOSE 180 mg/dL (70-99)
[2017-05-26] MEDS: ASPIRIN ENTERIC COATED 81 MG TABLET.DR. PO (09:32)
[2017-05-26] MEDS: DIGOXIN 125 MCG TABLET. PO (09:32)
[2017-05-26] MEDS: LACTOBACILLUS RHAMNOSUS GG 1 CAPSULE. PO ×2 (09:33→20:23)
[2017-05-26] MEDS: oxyCODONE ER 40 MG TAB.ER.12H PO ×4 (09:33→23:46)
[2017-05-26] MEDS: METOPROLOL SUCC 24HR ER 25 MG TAB.ER.24H. PO (09:34)
[2017-05-26] MEDS: INSULIN ASPART 300 UNITS/3 ML INSULN.PEN SQ ×3 (09:42→16:30)
[2017-05-26] MEDS: CARISOPRODOL 350 MG TABLET PO (11:36)
[2017-05-26 11:45] LABS: POC GLUCOSE 150 mg/dL (70-99)
[2017-05-26] MEDS ORDERED: LIDOCAINE WITH 8.4% SOD BICARB 3 ML DISP.SYRIN. (13:33)
[2017-05-26] MEDS: LIDOCAINE WITH 8.4% SOD BICARB 3 ML DISP.SYRIN. INJ (14:45)
[2017-05-26] MEDS: NORMAL SALINE IV (15:09)
[2017-05-26] MEDS: DAPTOMYCIN IV (15:09)
[2017-05-26 17:27] LABS: POC GLUCOSE 172 mg/dL (70-99)
[2017-05-26] MEDS: ATORVASTATIN CALCIUM 40 MG TABLET. PO (20:23)
[2017-05-26] MEDS: INSULIN DETEMIR 300 UNITS/3 ML INSULN.PEN. SQ (20:43)
[2017-05-26 20:57] LABS: POC GLUCOSE 163 mg/dL (70-99)
[2017-05-27] MEDS: CARISOPRODOL 350 MG TABLET PO (02:29)
[2017-05-27] MEDS: LEVOTHYROXINE 75 MCG TABLET PO (05:29)
[2017-05-27] MEDS: IPRATRPIUM/ALBUTEROL 0.5/2.5MG 3 ML NEBU. NEB (07:07)
[2017-05-27] MEDS: INSULIN ASPART 300 UNITS/3 ML INSULN.PEN SQ ×3 (07:30→16:30)
[2017-05-27] MEDS: POTASSIUM CHLORIDE 20 MEQ TABLET.ER. PO ×2 (08:00→13:00)
[2017-05-27 08:14] LABS: POC GLUCOSE 106 mg/dL (70-99)
[2017-05-27] MEDS: LACTOBACILLUS RHAMNOSUS GG 1 CAPSULE. PO ×2 (08:59→20:47)
[2017-05-27] MEDS: METOPROLOL SUCC 24HR ER 25 MG TAB.ER.24H. PO (08:59)
[2017-05-27] MEDS: oxyCODONE ER 40 MG TAB.ER.12H PO ×2 (09:00→20:47)
[2017-05-27] MEDS: ASPIRIN ENTERIC COATED 81 MG TABLET.DR. PO (09:01)
[2017-05-27] MEDS: DIGOXIN 125 MCG TABLET. PO (09:01)
[2017-05-27 11:38] LABS: POC GLUCOSE 173 mg/dL (70-99)
[2017-05-27] MEDS: DAPTOMYCIN IV (15:36)
[2017-05-27] MEDS: NORMAL SALINE IV (15:36)
[2017-05-27 17:01] LABS: POC GLUCOSE 111 mg/dL (70-99)
[2017-05-27 20:31] LABS: POC GLUCOSE 202 mg/dL (70-99)
[2017-05-27] MEDS: ATORVASTATIN CALCIUM 40 MG TABLET. PO (20:47)
[2017-05-27] MEDS: INSULIN DETEMIR 300 UNITS/3 ML INSULN.PEN. SQ (20:50)
[2017-05-28] MEDS: LEVOTHYROXINE 75 MCG TABLET PO (06:34)
[2017-05-28] MEDS: INSULIN ASPART 300 UNITS/3 ML INSULN.PEN SQ ×3 (07:30→17:00)
[2017-05-28 07:47] LABS: POC GLUCOSE 135 mg/dL (70-99)
[2017-05-28] MEDS: POTASSIUM CHLORIDE 20 MEQ TABLET.ER. PO ×2 (08:00→13:00)
[2017-05-28] MEDS: LACTOBACILLUS RHAMNOSUS GG 1 CAPSULE. PO ×2 (08:37→20:33)
[2017-05-28] MEDS: oxyCODONE ER 40 MG TAB.ER.12H PO ×2 (08:38→20:33)
[2017-05-28] MEDS: DIGOXIN 125 MCG TABLET. PO (08:38)
[2017-05-28] MEDS: METOPROLOL SUCC 24HR ER 25 MG TAB.ER.24H. PO (08:39)
[2017-05-28] MEDS: ASPIRIN ENTERIC COATED 81 MG TABLET.DR. PO (08:41)
[2017-05-28] MEDS: CARISOPRODOL 350 MG TABLET PO ×2 (08:47→20:33)
[2017-05-28] MEDS: DAPTOMYCIN IV (15:49)
[2017-05-28] MEDS: NORMAL SALINE IV (15:49)
[2017-05-28 16:24] LABS: POC GLUCOSE 164 mg/dL (70-99)
[2017-05-28 20:23] LABS: POC GLUCOSE 221 mg/dL (70-99)
[2017-05-28] MEDS: ATORVASTATIN CALCIUM 40 MG TABLET. PO (20:33)
[2017-05-28] MEDS: INSULIN DETEMIR 300 UNITS/3 ML INSULN.PEN. SQ (20:38)
[2017-05-29] MEDS: LEVOTHYROXINE 75 MCG TABLET PO (06:14)
[2017-05-29 06:58] LABS: POC GLUCOSE 143 mg/dL (70-99)
[2017-05-29] MEDS: POTASSIUM CHLORIDE 20 MEQ TABLET.ER. PO (08:00)
[2017-05-29 08:07] LABS: POC GLUCOSE 133 mg/dL (70-99)
[2017-05-29] MEDS: DIGOXIN 125 MCG TABLET. PO (08:07)
[2017-05-29] MEDS: oxyCODONE ER 40 MG TAB.ER.12H PO (08:09)
[2017-05-29] MEDS: ASPIRIN ENTERIC COATED 81 MG TABLET.DR. PO (08:10)
[2017-05-29] MEDS: LACTOBACILLUS RHAMNOSUS GG 1 CAPSULE. PO (08:10)
[2017-05-29] MEDS: METOPROLOL SUCC 24HR ER 25 MG TAB.ER.24H. PO (08:10)
[2017-05-29] MEDS: INSULIN ASPART 300 UNITS/3 ML INSULN.PEN SQ (08:16)
[2017-05-29] MEDS: CARISOPRODOL 350 MG TABLET PO (10:19)
== END 2017-05-29 11:07 | disposition swing bed (61) | DRG 477 ==
LOC: 5 NORTH 05-22 19:10 → ER 16:32 → 4 NORTH 17:58 → 2 SOUTH 19:17
PROC: 3E0U33Z Introduction of Anti-inflammatory into Joints, Percutaneous Approach (ICD-10-PCS; 2017-05-18)
PROC: 3E0U3BZ Introduction of Anesthetic Agent into Joints, Percutaneous Approach (ICD-10-PCS; 2017-05-18)
PROC: 0QB03ZX Excision of Lumbar Vertebra, Percutaneous Approach, Diagnostic (ICD-10-PCS; principal; 2017-05-20)
PROC: 05HY33Z Insertion of Infusion Device into Upper Vein, Percutaneous Approach (ICD-10-PCS; 2017-05-26)
DX: M48.56XA Collapsed vertebra, not elsewhere classified, lumbar region, initial encounter for fracture (principal); E43 Unspecified severe protein-calorie malnutrition; D69.6 Thrombocytopenia, unspecified; E11.22 Type 2 diabetes mellitus with diabetic chronic kidney disease; E11.69 Type 2 diabetes mellitus with other specified complication; I13.0 Hypertensive heart and chronic kidney disease with heart failure and stage 1 through stage 4 chronic kidney disease, or unspecified chronic kidney disease; I42.9 Cardiomyopathy, unspecified; I50.22 Chronic systolic (congestive) heart failure; M84.48XA Pathological fracture, other site, initial encounter for fracture; S33.5XXA Sprain of ligaments of lumbar spine, initial encounter; E78.5 Hyperlipidemia, unspecified; F17.210 Nicotine dependence, cigarettes, uncomplicated; F32.9 Major depressive disorder, single episode, unspecified; F41.9 Anxiety disorder, unspecified; G89.29 Other chronic pain; I25.10 Atherosclerotic heart disease of native coronary artery without angina pectoris; B95.62 Methicillin resistant Staphylococcus aureus infection as the cause of diseases classified elsewhere; I48.2 Chronic atrial fibrillation; J44.9 Chronic obstructive pulmonary disease, unspecified; K59.00 Constipation, unspecified; M47.816 Spondylosis without myelopathy or radiculopathy, lumbar region; Z96.642 Presence of left artificial hip joint; M48.061 Spinal stenosis, lumbar region without neurogenic claudication; N18.3 Chronic kidney disease, stage 3 (moderate); S39.012A Strain of muscle, fascia and tendon of lower back, initial encounter; Z82.49 Family history of ischemic heart disease and other diseases of the circulatory system; Z90.5 Acquired absence of kidney; Z95.1 Presence of aortocoronary bypass graft; Z68.31 Body mass index [BMI] 31.0-31.9, adult; Z87.81 Personal history of (healed) traumatic fracture
CPT/HCPCS: 36415; 36569; 62267; 71045; 72131; 72148; 72195; 74150; 76937; 77001; 80048; 80053; 82550; 82962; 83735; 83880; 85025; 85610; 85651; 87071; 87075; 87186; 87205; 93306; 93308; 94640; 94760; 96374; 96375; 97116-GP; 97161-GP; 97530-GP; 99152; 99153; 99285; 99285-25; 99406; C1751; C1892; J0878; J1030; J1815; J2060; J2250; J2260; J2270; J2405; J3010; J3490; J7620

== ENCOUNTER 2017-10-21 16:21 | Inpatient (IN) | payer MEDICAID, MEDICARE ==
[~2017-10-21] VITALS: Ht 157.5 cm; Wt 93.7 kg
[~2017-10-21 16:21] MED LIST changes: +ALBU2.5V14 NEB; +ALBU8.5H8 IH; +ALPR0.25 PO; -AMIO200T2 PO; +AMIO200T4 PO; +ASCO-78 PO; +BUME1TAB PO; +CYCL10TA2 PO; +DIGO250T17 PO; +DIGO62.52; +GUAI600T47 PO; +INSU100I11 SQ; +INSU100I13 SQ; +METF500T16 PO; -METF500T4 PO; +MILR1VIA IV; +MILR20PI IV; +MULT1TAB52 PO; -OXYC5TAB PO; +OXYC5TAB95 PO; +POTA10TA12 PO; +POTA20TA82 PO; -POTASSIUM CHLO10 MEQ PO; +WARF1TAB69 PO; -WARF1TAB7 PO; +ZINC220C4 PO
[2017-10-21 16:53] LABS: BASO % 1 % (0-3); EOS # 0.6 x10^3/uL (0.0-0.7); EOS % 15 % (0-3); HEMATOCRIT 26.3 % (36.0-47.0); HEMOGLOBIN 8.6 g/dL (12.0-15.5); LYMPH # 0.7 x10^3/uL (1.0-4.8); LYMPH % 17 % (24-48); MEAN CORPUSCULAR HEMOGLOBIN 33 pg (25-35); MEAN CORPUSCULAR HGB CONC 33 g/dL (31-37); MEAN CORPUSCULAR VOLUME 101 fL (79-100); MONO # 0.4 x10^3/uL (0.0-1.1); MONO % 9 % (0-9); NEUT # 2.3 x10^3uL (1.8-7.7); NEUT % 59 % (31-73); PLATELET COUNT 96 x10^3/uL (140-400); RED CELL DISTRIBUTION WIDTH 18.9 % (11.5-14.5)
[2017-10-21 17:03] LABS: PROTHROMBIN TIME PATIENT 17.3 SEC (11.7-14.0)
[2017-10-21 17:17] LABS: CREATININE 2.8 mg/dL (0.6-1.0); GFR 16.4; POTASSIUM 4.3 mmol/L (3.5-5.1)
--- NOTE | 2017-10-21 17:20 | EKG ---
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
[2017-10-21 17:21] LABS: ALBUMIN 2.1 g/dL (3.4-5.0); ALBUMIN/GLOBULIN RATIO 0.4 (1.0-1.7); TOTAL BILIRUBIN 0.9 mg/dL (0.2-1.0); TOTAL PROTEIN 8.1 g/dL (6.4-8.2)
--- NOTE | 2017-10-21 17:27 | RAD ---
Indication:left side chest pain x 2 days TECHNIQUE:Portable AP chest X-ray COMPARISON:08/29/2017 FINDINGS: Patient is rotated to the left side. Right-sided central venous catheter is seen with its tip in the SVC. Median sternotomy. Heart is moderately enlarged in size. Blunting of bilateral costophrenic angle is seen with bibasilar patchy opacities. Diffuse interstitial opacities are seen. Visualized bony thorax within normal limits. No pneumothorax. IMPRESSION: Small bilateral pleural effusions, right more than left with underlying bibasilar patchy opacities which may be from subsegmental atelectasis or pneumonia. Findings of mild interstitial pulmonary edema. Electronically signed by: Babar Metzger DO (10/21/2017 5:24 PM) [facility]
--- NOTE | 2017-10-21 17:31 | PHYS DOC ---
Past Medical History Past Medical History: A-Fib, CHF, COPD, Diabetes-Type II, Hypertension, Hypothyroid Additional Past Medical Histor: left kidney removeal, CABG Past Surgical History: Coronary Bypass Surgery, Additional Past Surgical Histo: L KIDNEY REMOVED,ORIF L HIP Alcohol Use: None Drug Use: None Adult General Chief Complaint Chief Complaint: ABDOMINAL PAIN HPI HPI Patient is a 76 year old female who presents emergency Department today complaining of sharp pain in her left upper quadrant for the last 2 days. Currently she rates pain as a 10 out of 10 on the pain scale, and states that it is sharp. Patient also reports taking oxyodone prior to arrival at 1530. Patient was brought in by [facility]. She denies any nausea, vomiting, diarrhea, increased urinary frequency, dysuria, hematuria, fever, cough, shortness of breath, or chest pain. She states her last bowel movement was yesterday and it was normal. Patient has a history of COPD, diabetes type 2, coronary artery disease, atrial fibrillation, congestive heart failure, high blood pressure, and hypothyroidism. She has a milrinone pump infusing to her right chest. Review of Systems Review of Systems Constitutional: Denies fever or chills [] HENT: Denies nasal congestion or sore throat [] Respiratory: Denies cough or shortness of breath [] Cardiovascular: Denies chest pain, palpitations, or shortness of breath GI: Denies nausea, vomiting, bloody stools or diarrhea; celena left upper quadrant pain for 2 days : Denies rash or urinary frequency, dysuria or hematuria [] Musculoskeletal: Denies back pain or joint pain [] Integument: Denies rash or skin lesions [] Neurologic: Denies headache, focal weakness or sensory changes [] Allergies Allergies Allergies Coded Allergies Type Severity Reaction Last Updated Verified Sulfa (Sulfonamide Antibiotics) Allergy Intermediate 08/03/17 Yes Physical Exam Physical Exam Constitutional: Well developed, well nourished, no acute distress, non-toxic appearance, patient is drowsy dozed off several times during exam. [] HENT: Normocephalic, atraumatic, bilateral external ears normal, nose normal. [] Eyes: normal Cardiovascular:Heart rate irrregular rhythm, no murmur [] Lungs & Thorax: Bilateral breath sounds coarse and diminished in bases Abdomen: Bowel sounds normal, soft, no masses, no pulsatile masses; LUQ tenderness to palpation Skin: Warm, dry, no erythema, no rash. [] Extremities: No tenderness, no cyanosis, no clubbing, ROM intact, 2+ edema of BLE Neurologic: Alert and oriented X 3, normal motor function, normal sensory function, no focal deficits noted. [] Psychologic: Affect normal, judgement normal, mood normal. [] Current Patient Data Vital Signs Vital Signs Date Time Temp Pulse Resp B/P (MAP) Pulse Ox O2 Delivery O2 Flow Rate FiO2 10/21/17 19:00 112 22 99/60 (73) 98 Nasal Cannula 3.0 10/21/17 16:21 97.6 97.6 Lab Values Laboratory Tests Test 10/21/17 16:40 10/21/17 19:00 White Blood Count 4.0 x10^3/uL (4.0-11.0) Red Blood Count 2.60 x10^6/uL (3.50-5.40) L Hemoglobin 8.6 g/dL (12.0-15.5) L Hematocrit 26.3 % (36.0-47.0) L Mean Corpuscular Volume 101 fL (79-100) H Mean Corpuscular Hemoglobin 33 pg (25-35) Mean Corpuscular Hemoglobin Concent 33 g/dL (31-37) Red Cell Distribution Width 18.9 % (11.5-14.5) H Platelet Count 96 x10^3/uL (140-400) L Neutrophils (%) (Auto) 59 % (31-73) Lymphocytes (%) (Auto) 17 % (24-48) L Monocytes (%) (Auto) 9 % (0-9) Eosinophils (%) (Auto) 15 % (0-3) H Basophils (%) (Auto) 1 % (0-3) Neutrophils # (Auto) 2.3 x10^3uL (1.8-7.7) Lymphocytes # (Auto) 0.7 x10^3/uL (1.0-4.8) L Monocytes # (Auto) 0.4 x10^3/uL (0.0-1.1) Eosinophils # (Auto) 0.6 x10^3/uL (0.0-0.7) Basophils # (Auto) 0.0 x10^3/uL (0.0-0.2) Prothrombin Time 17.3 SEC (11.7-14.0) H Prothrombin Time INR 1.5 (0.8-1.1) H Sodium Level 134 mmol/L (136-145) L Potassium Level 4.3 mmol/L (3.5-5.1) Chloride Level 103 mmol/L (98-107) Carbon Dioxide Level 26 mmol/L (21-32) Anion Gap 5 (6-14) L Blood Urea Nitrogen 37 mg/dL (7-20) H Creatinine 2.8 mg/dL (0.6-1.0) H Estimated GFR (Cockcroft-Gault) 16.4 BUN/Creatinine Ratio 13 (6-20) Glucose Level 107 mg/dL (70-99) H Calcium Level 8.0 mg/dL (8.5-10.1) L Total Bilirubin 0.9 mg/dL (0.2-1.0) Aspartate Amino Transferase (AST) 26 U/L (15-37) Alanine Aminotransferase (ALT) 16 U/L (14-59) Alkaline Phosphatase 204 U/L (46-116) H Troponin I Quantitative 0.035 ng/mL (0.000-0.055) OE-Bdc-N-Type Natriuretic Peptide 6234 pg/mL (0-449) H Total Protein 8.1 g/dL (6.4-8.2) Albumin 2.1 g/dL (3.4-5.0) L Albumin/Globulin Ratio 0.4 (1.0-1.7) L Lipase 50 U/L (73-393) L Urine Collection Type U cath Urine Color Yellow Urine Clarity Clear Urine pH 5.0 Urine Specific [place] 1.015 Urine Protein Negative mg/dL (NEG-TRACE) Urine Glucose (UA) Negative mg/dL (NEG) Urine Ketones (Stick) Negative mg/dL (NEG) Urine Blood Negative (NEG) Urine Nitrite Negative (NEG) Urine Bilirubin Negative (NEG) Urine Urobilinogen Dipstick 0.2 mg/dL (0.2 mg/dL) Urine Leukocyte Esterase Negative (NEG) Urine RBC 0 /HPF (0-2) Urine WBC 0 /HPF (0-4) Urine Squamous Epithelial Cells Mod /LPF Urine Bacteria 0 /HPF (0-FEW) Urine Hyaline Casts Few /HPF Urine Mucus Mod /LPF Laboratory Tests 10/21/17 16:40 Laboratory Tests 10/21/17 16:40 EKG EKG Afib with RVR no STEMI read by Dr. Anders[] Radiology/Procedures Radiology/Procedures IMAGING REPORT Signed PATIENT: VEDA ROSALES ACCOUNT: [id number] : 1940 LOCATION: ER AGE: 76 SEX: F EXAM STATUS: REG ER ORD. PHYSICIAN: RAFAELA LI APRN REASON: LUQ abd pain PROCEDURE: CT ABDOMEN PELVIS WO CONTRAST PQRS Compliance statement: One or more of the following individualized dose reduction techniques were utilized for this examination: 1. Automated exposure control. 2. Adjustment of the mA and/or kV according to patient size. 3. Use of iterative reconstruction technique. Indication:LUQ PAIN, PRIORS SENT, DIFFICULTY COOPERATING TECHNIQUE: CT abdomen and pelvis without IV contrast with multiplanar reformats. COMPARISON: 05/14/2017 FINDINGS: Limited evaluation of solid abdominal and pelvic organs due to lack of IV contrast. Heart is moderately enlarged in size. No pericardial effusion. Coronary artery calcifications with CABG changes. Moderate right and trace left pleural effusion. Diffuse atherosclerotic disease is seen of the abdominal aorta. Bibasilar consolidations are seen in the lungs. Nodular contour of the liver is seen spleen is nonenlarged. Gallstones noted. No pericholecystic fluid. Noncontrast appearance of the pancreas and right adrenal within normal limits. Left adrenal nodular visualized likely surgically absent. Status post left gastrectomy. Punctate nonobstructing right renal stone. No hydronephrosis. No free pelvic fluid or ascites. Diffuse moderate colonic stool burden. No bowel obstruction. Status post hysterectomy. Urinary bladder demonstrates no radiopaque stone. No enlarged pelvic or retroperitoneal adenopathy. Diffuse body wall edema is seen. Diffuse osteopenia. Intramedullary april is seen in the proximal left femur. Likely subacute fracture of the left inferior pubic ramus. Stable compression deformity seen of the L2-L3 vertebral body with diffuse sclerosis of the L3 vertebral body. IMPRESSION: Limited exam due to lack of IV contrast. 1. Small to moderate right and trace left pleural effusion with bibasilar consolidation which may be from subsegmental atelectasis or pneumonia. 2. Cholelithiasis. 3. Cirrhotic morphology of the liver. No ascites. 4. Diffuse colonic stool burden, patient may be constipated. 5. Stable compression deformities in the L2 and L3 vertebral body when compared to previous study. Likely subacute fracture in the left inferior pubic ramus. Clinical correlate for focal tenderness. 5. Punctate nonobstructing right renal stone. Electronically signed by: Babar Metzger DO (10/21/2017 5:39 PM) [facility] DICTATED and SIGNED BY: BABAR METZGER DO DATE: 10/21/17 173 IMAGING REPORT Signed PATIENT: VEDA ROSALES ACCOUNT: [id number] : 1940 LOCATION: ER AGE: 76 SEX: F EXAM STATUS: REG ER ORD. PHYSICIAN: RAFAELA LI APRN REASON: LUQ abd pain, diminished lung sounds PROCEDURE: CHEST AP ONLY Indication:left side chest pain x 2 days TECHNIQUE:Portable AP chest X-ray COMPARISON:08/29/2017 FINDINGS: Patient is rotated to the left side. Right-sided central venous catheter is seen with its tip in the SVC. Median sternotomy. Heart is moderately enlarged in size. Blunting of bilateral costophrenic angle is seen with bibasilar patchy opacities. Diffuse interstitial opacities are seen. Visualized bony thorax within normal limits. No pneumothorax. IMPRESSION: Small bilateral pleural effusions, right more than left with underlying bibasilar patchy opacities which may be from subsegmental atelectasis or pneumonia. Findings of mild interstitial pulmonary edema. Electronically signed by: Babar Metzger DO (10/21/2017 5:24 PM) [facility] DICTATED and SIGNED BY: BABAR METZGER DO DATE: 10/21/171722 [] Course & Med Decision Making Course & Med Decision Making Pertinent Labs and Imaging studies reviewed. (See chart for details) 76-year-old female presented to the emergency room with complaints of left quadrant abdominal pain, CT revealed left pneumonia. 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 Dr. Bautista was contacted and decision to admit patient for health care acquired pneumonia was made, continue home meds, consult cardiology and pulmonology with pulmonary to determine medications. Per Dr. Carias will start patient on zosyn and vancomycin pharmacy to dose. [] Staff Physician Addendum: I was working in the ER during the course of this patient's visit. I was available for consultation as needed, i discussed history with the midlevel but did not see the patient directly Abdifatah Disclaimer Dragon Disclaimer This electronic medical record was generated, in whole or in part, using a voice recognition dictation system. Departure Departure Impression: Primary Impression: HCAP (healthcare-associated pneumonia) Disposition: ADMITTED INPATIENT Admitting Physician: Cristy Bautista Condition: STABLE Referrals: CRISTY BAUTISTA MD (PCP) RAFAELA LI APRN Oct 21, 2017 17:31 GUILLERMINA ANDERS MD Oct 22, 2017 11:13
--- NOTE | 2017-10-21 17:42 | RAD ---
PQRS Compliance statement: One or more of the following individualized dose reduction techniques were utilized for this examination: 1. Automated exposure control. 2. Adjustment of the mA and/or kV according to patient size. 3. Use of iterative reconstruction technique. Indication:LUQ PAIN, PRIORS SENT, DIFFICULTY COOPERATING TECHNIQUE: CT abdomen and pelvis without IV contrast with multiplanar reformats. COMPARISON: 05/14/2017 FINDINGS: Limited evaluation of solid abdominal and pelvic organs due to lack of IV contrast. Heart is moderately enlarged in size. No pericardial effusion. Coronary artery calcifications with CABG changes. Moderate right and trace left pleural effusion. Diffuse atherosclerotic disease is seen of the abdominal aorta. Bibasilar consolidations are seen in the lungs. Nodular contour of the liver is seen spleen is nonenlarged. Gallstones noted. No pericholecystic fluid. Noncontrast appearance of the pancreas and right adrenal within normal limits. Left adrenal nodular visualized likely surgically absent. Status post left gastrectomy. Punctate nonobstructing right renal stone. No hydronephrosis. No free pelvic fluid or ascites. Diffuse moderate colonic stool burden. No bowel obstruction. Status post hysterectomy. Urinary bladder demonstrates no radiopaque stone. No enlarged pelvic or retroperitoneal adenopathy. Diffuse body wall edema is seen. Diffuse osteopenia. Intramedullary april is seen in the proximal left femur. Likely subacute fracture of the left inferior pubic ramus. Stable compression deformity seen of the L2-L3 vertebral body with diffuse sclerosis of the L3 vertebral body. IMPRESSION: Limited exam due to lack of IV contrast. 1. Small to moderate right and trace left pleural effusion with bibasilar consolidation which may be from subsegmental atelectasis or pneumonia. 2. Cholelithiasis. 3. Cirrhotic morphology of the liver. No ascites. 4. Diffuse colonic stool burden, patient may be constipated. 5. Stable compression deformities in the L2 and L3 vertebral body when compared to previous study. Likely subacute fracture in the left inferior pubic ramus. Clinical correlate for focal tenderness. 5. Punctate nonobstructing right renal stone. Electronically signed by: Babar Metzger DO (10/21/2017 5:39 PM) [facility]
[2017-10-21 19:12] LABS: BILIRUBIN,URINE NEGATIVE (NEG); CLARITY,URINE CLEAR; COLOR,URINE YELLOW; NITRITE,URINE NEGATIVE (NEG); PROTEIN,URINE NEGATIVE (NEG-TRACE); UROBILINOGEN,URINE 0.2 mg/dL (0.2 mg/dL)
[2017-10-21 19:18] LABS: BACTERIA,URINE 0 /HPF (0-FEW); HYALINE CASTS, URINE FEW /HPF; RBC,URINE 0 /HPF (0-2); SQUAMOUS EPITHELIAL CELL,UR MOD /LPF; WBC,URINE 0 /HPF (0-4)
[2017-10-21] MEDS ORDERED: PIP/TAZO PER PHARMACY MC PRN (19:30)
[2017-10-21] MEDS: PIPERACILLIN/TAZOBACTAM 2.25 GM in IV NORMAL SALINE 50ML 50 ML IV SCH (19:41)
[2017-10-21] MEDS ORDERED: MORPHINE SULFATE 4 MG/ML VIAL. IV ONE (20:00)
[2017-10-21] MEDS ORDERED: ALBUTEROL SULFATE 2.5 MG/3 ML NEBU. NEB ONE (20:00)
[2017-10-21] MEDS ORDERED: FUROSEMIDE 40 MG/4 ML VIAL. IVP ONE (20:00)
[2017-10-21] MEDS: VANCOMYCIN PER PHARMACY MC PRN (20:47)
[2017-10-21] MEDS ORDERED: VANCOMYCIN 1.25 GM in IV NORMAL SALINE 250ML 250 ML IV ONE (21:00)
[2017-10-21] MEDS ORDERED: DOBUTAMINE IV (21:24)
[2017-10-21] MEDS: INSULIN GLARGINE 300 UNITS/3 ML INSULN.PEN. SQ SCH (21:30)
[2017-10-21] MEDS: ATORVASTATIN CALCIUM 40 MG TABLET. PO SCH (21:30)
[2017-10-21] MEDS: METOPROLOL TART IMMED RELEASE 25 MG TABLET. PO SCH (21:30)
[2017-10-21] MEDS ORDERED: DOBUTAMINE IV PRN (21:30)
[2017-10-21] MEDS ORDERED: ALPR0.254 PO (21:49)
[2017-10-21] MEDS: ALPRAZolam 0.25 MG TABLET PO SCH (22:00)
[2017-10-21 22:27] VITALS: BP 80/40
[2017-10-22] VITALS (10 sets, daily range): BP systolic 99–138; BP diastolic 51–68
[2017-10-22] MEDS: PIPERACILLIN/TAZOBACTAM 2.25 GM in IV NORMAL SALINE 50ML 50 ML IV SCH ×3 (05:28→21:38)
[2017-10-22] MEDS: LEVOTHYROXINE 75 MCG TABLET PO SCH (05:49)
[2017-10-22] MEDS: INSULIN LISPRO 300 UNITS/3 ML INSULN.PEN. SQ SCH ×3 (07:30→16:30)
[2017-10-22] MEDS: ALBUTEROL SULFATE 2.5 MG/3 ML NEBU. NEB SCH ×4 (07:46→20:00)
[2017-10-22] MEDS: AMIODARONE HCL 200 MG TABLET. PO SCH (08:32)
[2017-10-22] MEDS: ZINC SULFATE 220 MG CAPSULE. PO SCH (08:32)
[2017-10-22] MEDS: MULTIVITAMIN with MINERAL TABLET. PO SCH (08:32)
[2017-10-22] MEDS: BUMETANIDE 1 MG TABLET. PO SCH ×2 (08:32→17:37)
[2017-10-22] MEDS: ASCORBIC ACID 500 MG TABLET PO SCH (08:32)
[2017-10-22] MEDS: POTASSIUM CHLORIDE 20 MEQ TABLET.ER. PO SCH (08:32)
[2017-10-22] MEDS: METOPROLOL TART IMMED RELEASE 25 MG TABLET. PO SCH ×2 (08:33→21:37)
[2017-10-22] MEDS: ALPRAZolam 0.25 MG TABLET PO SCH ×3 (08:40→13:06)
[2017-10-22] MEDS ORDERED: NON FORMULARY ITEM (Albuterol Sulfate (Albuterol Sulfate Conc Neb Soln) 2.5 MG) NEB SCH (09:00)
--- NOTE | 2017-10-22 09:02 | PDOC2 ---
BERNICE FONTANA COTTON BALL BAGGER 10/22/17 0902: CARDIAC CONSULT DATE OF CONSULT Date of Consult DATE: 10/22/17 TIME: 08:53 REASON FOR CONSULT Reason for Consult: healthcare acquired pneumonia on milrinone gtt REFERRING PHYSICIAN Referring Physician: Annmarie SOURCE Source: Chart review, Patient HISTORY OF PRESENT ILLNESS HISTORY OF PRESENT ILLNESS 76 y.o. female admitted from hospice care for pneumonia. Found to be on dobutamine gtt and likely this was placed by heart failure clinic. C/O abdominal pain. CT of abdomen/pelvis with diffuse stool and stable compression fractures. CXR with mild pulm edema in the setting of Cr of 2.8; NT-proBNP of 6800. Reason for Visit: chronic dobutamine gtt for HF PAST MEDICAL HISTORY Cardiovascular: AFIB, CAD (with prior CABG), CHF (acute/chronic systolic - LVEF 40% on TTE 07/2017), HTN, Hyperlipidemia, Other (CMP) Pulmonary: COPD Endocrine: Diabetes, Hypothyroidism PAST SURGICAL HISTORY Past Surgical History: CABG, Other (left nephrectomy) FAMILY HISTORY Family History: Family History Unknown CURRENT MEDICATIONS CURRENT MEDICATIONS Current Medications Medications (Trade) Dose Ordered Sig/Ermias Route PRN Reason Start Time Stop Time Status Last Admin Dose Admin Albuterol Sulfate (Ventolin Neb Soln) 2.5 mg 1X ONCE NEB 10/21/17 20:00 10/21/17 20:04 DC 10/21/17 20:00 Piperacillin Sod/ Tazobactam Sod 2.25 gm/Sodium Chloride 50 ml @ 100 mls/hr Q8HRS IV 10/21/17 20:00 10/22/17 05:28 Vancomycin HCl (Vanco Per Pharmacy) 1 each PRN DAILY PRN MC SEE COMMENTS 10/21/17 20:00 10/21/17 20:47 Vancomycin HCl 1.25 gm/Sodium Chloride 250 ml @ 166.667 mls/hr 1X ONCE IV 10/21/17 21:00 10/21/17 22:29 DC 10/21/17 21:00 Amiodarone HCl (Cordarone) 200 mg DAILY PO 10/22/17 09:00 10/22/17 08:32 Bumetanide (Bumex) 1 mg BID94 PO 10/22/17 09:00 10/22/17 08:32 Levothyroxine Sodium (Synthroid) 75 mcg DAILY07 PO 10/22/17 07:00 10/22/17 05:49 Metoprolol Tartrate (Lopressor) 25 mg BID PO 10/21/17 21:30 10/22/17 08:33 Oxycodone HCl (Roxicodone) 30 mg PRN QID PRN PO PAIN 10/21/17 21:15 10/22/17 05:28 Zinc Sulfate (Orazinc) 220 mg DAILY PO 10/22/17 09:00 10/22/17 08:32 Ascorbic Acid (Vitamin C) 500 mg DAILY PO 10/22/17 09:00 10/22/17 08:32 Multivitamins (Thera M Plus) 1 tab DAILY PO 10/22/17 09:00 10/22/17 08:32 Potassium Chloride (Klor-Con) 20 meq DAILY PO 10/22/17 09:00 10/22/17 08:32 Albuterol Sulfate (Ventolin Neb Soln) 2.5 mg RTQID NEB 10/22/17 08:00 10/22/17 07:46 Alprazolam (Xanax) 0.25 mg TID PO 10/21/17 22:00 10/22/17 08:40 ALLERGIES ALLERGIES: Coded Allergies: Sulfa (Sulfonamide Antibiotics) (Verified Allergy, Intermediate, 08/03/17) ROS General: YES: Fatigue PSYCHOLOGICAL ROS: No: Anxiety, Behavioral Disorder, Concentration difficultie , Decreased libido, Depression, Disorientation, Hallucinations, Hostility, Irritablity, Memory difficulties, Mood Swings, Obsessive thoughts, Physical abuse, Sexual abuse, Sleep disturbances, Suicidal ideation, Other Eyes: No Blurry vision, No Decreased vision, No Double vision, No Dry eyes, No Excessive tearing, No Eye Pain, No Itchy Eyes, No Loss of vision, No Photophobia , No Scotomata, No Uses contacts, No Uses glasses, No Other HEENT: No: Heacaches, Visual Changes, Hearing change, Nasal congestion, Nasal discharge, Oral lesions, Sinus pain, Sore Throat, Epistaxis, Sneezing, Snoring, Tinnitus, Vertigo, Vocal changes, Other ALLERGY AND IMMUNOLOGY: No: Hives, Insect Bite Sensitivity, Itchy/Watery Eyes, Nasal Congestion, Post Nasal Drip, Seasonal Allergies, Other Hematological and Lymphatic: No: Bleeding Problems, Blood Clots, Blood Transfusions, Brusing, Night Sweats, Pallor, Swollen Lymph Nodes, Other ENDOCRINE: No: Breast Changes, Galactorrhea, Hair Pattern Changes, Hot Flashes , Malaise/lethargy, Mood Swings, Palpitations, Polydipsia/polyuria, Skin Changes , Temperature Intolerance, Unexpected Weight Changes, Other Respiratory: YES: Shortness of breath Cardiovascular: yes Edema Gastrointestinal: Yes Abdominal Pain; No Nausea, No Vomiting, No Diarrhea, No Constipation, No Melena, No Hematochezia, No Other Genitourinary: No Dysuria, No Frequency, No Incontinence, No Hematuria, No Retention, No Discharge, No Urgency, No Pain, No Flank Pain, No Other, No , No , No , No , No , No , No Musculoskeletal: No Gait Disturbance, No Joint Pain, No Joint Stiffness, No Joint Swelling, No Muscle Pain, No Muscular Weakness, No Pain In:, No Swelling In:, No Other Neurological: No Behavorial Changes, No Bowel/Bladder ControlChng, No Confusion , No Dizziness, No Gait Disturbance, No Headaches, No Impaired Coord/balance, No Memory Loss, No Numbness/Tingling, No Seizures, No Speech Problems, No Tremors, No Visual Changes, No Weakness, No Other Skin: No Dry Skin, No Eczema, No Hair Changes, No Lumps, No Mole Changes, No Mottling, No Nail Changes, No Pruritus, No Rash, No Skin Lesion Changes, No Other, No Acne PHYSICAL EXAM General: Cooperative, No acute distress HEENT: Atraumatic Lungs: Other (soft basilar crackles) Heart: Normal S1, Normal S2 Abdomen: Soft Extremities: Other (2+ bilateral LE edema with dressing on left medial reardon) Neuro: Normal speech Psych/Mental Status: Mood NL MUSCULOSKELETAL: Osteoarthritic changes both hands VITALS VITALS Vital Signs Date Time Temp Pulse Resp B/P (MAP) Pulse Ox O2 Delivery O2 Flow Rate FiO2 10/22/17 08:33 120 133/63 10/22/17 07:50 99 Nasal Cannula 3.0 10/22/17 07:00 97.5 20 97.5 LABS Lab: Laboratory Tests Test 10/21/17 16:40 10/21/17 19:00 10/22/17 08:02 White Blood Count 4.0 x10^3/uL (4.0-11.0) Red Blood Count 2.60 x10^6/uL (3.50-5.40) Hemoglobin 8.6 g/dL (12.0-15.5) Hematocrit 26.3 % (36.0-47.0) Mean Corpuscular Volume 101 fL (79-100) Mean Corpuscular Hemoglobin 33 pg (25-35) Mean Corpuscular Hemoglobin Concent 33 g/dL (31-37) Red Cell Distribution Width 18.9 % (11.5-14.5) Platelet Count 96 x10^3/uL (140-400) Neutrophils (%) (Auto) 59 % (31-73) Lymphocytes (%) (Auto) 17 % (24-48) Monocytes (%) (Auto) 9 % (0-9) Eosinophils (%) (Auto) 15 % (0-3) Basophils (%) (Auto) 1 % (0-3) Neutrophils # (Auto) 2.3 x10^3uL (1.8-7.7) Lymphocytes # (Auto) 0.7 x10^3/uL (1.0-4.8) Monocytes # (Auto) 0.4 x10^3/uL (0.0-1.1) Eosinophils # (Auto) 0.6 x10^3/uL (0.0-0.7) Basophils # (Auto) 0.0 x10^3/uL (0.0-0.2) Prothrombin Time 17.3 SEC (11.7-14.0) Prothromb Time International Ratio 1.5 (0.8-1.1) Sodium Level 134 mmol/L (136-145) Potassium Level 4.3 mmol/L (3.5-5.1) Chloride Level 103 mmol/L (98-107) Carbon Dioxide Level 26 mmol/L (21-32) Anion Gap 5 (6-14) Blood Urea Nitrogen 37 mg/dL (7-20) Creatinine 2.8 mg/dL (0.6-1.0) Estimated GFR (Cockcroft-Gault) 16.4 BUN/Creatinine Ratio 13 (6-20) Glucose Level 107 mg/dL (70-99) Calcium Level 8.0 mg/dL (8.5-10.1) Total Bilirubin 0.9 mg/dL (0.2-1.0) Aspartate Amino Transf (AST/SGOT) 26 U/L (15-37) Alanine Aminotransferase (ALT/SGPT) 16 U/L (14-59) Alkaline Phosphatase 204 U/L (46-116) Troponin I Quantitative 0.035 ng/mL (0.000-0.055) UI-Hyv-A-Type Natriuretic Peptide 6234 pg/mL (0-449) Total Protein 8.1 g/dL (6.4-8.2) Albumin 2.1 g/dL (3.4-5.0) Albumin/Globulin Ratio 0.4 (1.0-1.7) Lipase 50 U/L (73-393) Urine Collection Type U cath Urine Color Yellow Urine Clarity Clear Urine pH 5.0 Urine Specific [place] 1.015 Urine Protein Negative mg/dL (NEG-TRACE) Urine Glucose (UA) Negative mg/dL (NEG) Urine Ketones (Stick) Negative mg/dL (NEG) Urine Blood Negative (NEG) Urine Nitrite Negative (NEG) Urine Bilirubin Negative (NEG) Urine Urobilinogen Dipstick 0.2 mg/dL (0.2 mg/dL) Urine Leukocyte Esterase Negative (NEG) Urine RBC 0 /HPF (0-2) Urine WBC 0 /HPF (0-4) Urine Squamous Epithelial Cells Mod /LPF Urine Bacteria 0 /HPF (0-FEW) Urine Hyaline Casts Few /HPF Urine Mucus Mod /LPF Glucose (Fingerstick) 88 mg/dL (70-99) IMAGES IMAGES as in HPI EKG EKG no acute changes ECHOCARDIOGRAM ECHOCARDIOGRAM 07/2017: TTE: The systolic function is mildly impaired. EF 40-45% There is global hypokinesis of the left ventricle with mid to distal inferoseptal akinesis. The aortic valve is calcified and displays decreased opening. The mitral valve is moderately thickened. The reduced mitral leaflet separation suggests decreased flow through the mitral valve and poor cardiac output. ASSESSMENT/PLAN ASSESSMENT/PLAN 1. chronic dsystolic HF; LVEF 40-45% --elevated NT-proBNP associated with CKD --needs LE elevation --continue oral diuretics --continue dobutamine and recommend f/u with HF clinic at discharge 2. pneumonia --defer to primary service 3. HTN --control with oral meds 4. DM, II --per primary service 5. 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 Agree with above nurse practitioner note. Significant recurrent heart failure. Poor long-term prognosis. Continue diuresis as tolerated with monitoring of her renal function. Continue dobutamine. Again poor overall prognosis would reconsider hospice. BERNICE FONTANA APRN Oct 22, 2017 09:02 VERO BRICE MD Oct 22, 2017 17:21
--- NOTE | 2017-10-22 09:05 | PDOC ---
GENERAL General: see dictated H&P. VITAL SIGNS Vital Signs: Vital Signs Date Time Temp Pulse Resp B/P (MAP) Pulse Ox O2 Delivery O2 Flow Rate FiO2 10/22/17 08:33 120 133/63 10/22/17 07:50 99 Nasal Cannula 3.0 10/22/17 07:00 97.5 20 97.5 I & O I & O Intake and Output 10/22/17 07:00 Intake Total 150 ml Output Total 0 ml Balance 150 ml Intake Oral 100 ml IV Total 50 ml Output Urine Total 0 ml ALLERGIES Allergies: Allergies Coded Allergies Type Severity Reaction Last Updated Verified Sulfa (Sulfonamide Antibiotics) Allergy Intermediate 08/03/17 Yes MEDS Medications: Current Medications Medications (Trade) Dose Ordered Sig/Ermias Start Time Stop Time Status Last Admin Dose Admin Albuterol Sulfate (Ventolin Neb Soln) 2.5 mg RTQID 10/22/17 08:00 10/22/17 07:46 2.5 MG Alprazolam (Xanax) 0.25 mg TID 10/21/17 22:00 10/22/17 08:40 0.25 MG Amiodarone HCl (Cordarone) 200 mg DAILY 10/22/17 09:00 10/22/17 08:32 200 MG Ascorbic Acid (Vitamin C) 500 mg DAILY 10/22/17 09:00 10/22/17 08:32 500 MG Atorvastatin Calcium (Lipitor) 40 mg HS 10/21/17 21:30 Bumetanide (Bumex) 1 mg BID94 10/22/17 09:00 10/22/17 08:32 1 MG Furosemide (Lasix) 40 mg 1X ONCE 10/21/17 20:00 10/21/17 20:01 DC Guaifenesin (Mucinex) 600 mg PRN Q12HR PRN 10/21/17 21:15 Insulin Glargine (Lantus) 24 units HS 10/21/17 21:30 Insulin Human Lispro (HumaLOG) 4 units TIDAC 10/22/17 07:30 Levothyroxine Sodium (Synthroid) 75 mcg DAILY07 10/22/17 07:00 10/22/17 05:49 75 MCG Metoprolol Tartrate (Lopressor) 25 mg BID 10/21/17 21:30 10/22/17 08:33 25 MG Morphine Sulfate (Morphine Sulfate) 4 mg 1X ONCE 10/21/17 20:00 10/21/17 20:01 DC Multivitamins (Thera M Plus) 1 tab DAILY 10/22/17 09:00 10/22/17 08:32 1 TAB Non-Formulary Medication (Albuterol Sulfate (Albuterol Sulfate Conc Neb Soln)) 2.5 mg QID 10/22/17 09:00 UNV Non-Formulary Medication ([dobutamine] ) 12.1 ml PRN DAILY PRN 10/21/17 21:30 Oxycodone HCl (Roxicodone) 30 mg PRN QID PRN 10/21/17 21:15 10/22/17 05:28 30 MG Piperacillin Sod/ Tazobactam Sod (Zosyn Per Pharmacy) 1 each PRN DAILY PRN 10/21/17 19:30 Piperacillin Sod/ Tazobactam Sod 2.25 gm/Sodium Chloride 50 ml @ 100 mls/hr Q8HRS 10/21/17 20:00 10/22/17 05:28 100 MLS/HR Potassium Chloride (Klor-Con) 20 meq DAILY 10/22/17 09:00 10/22/17 08:32 20 MEQ Vancomycin HCl (Vanco Per Pharmacy) 1 each PRN DAILY PRN 10/21/17 20:00 10/21/17 20:47 1 EACH Vancomycin HCl (Vancomycin Trough Level) 1 each 1X ONCE 10/25/17 21:30 10/25/17 21:31 Vancomycin HCl 1.25 gm/Sodium Chloride 250 ml @ 167 mls/hr Q48H 10/23/17 22:00 Zinc Sulfate (Orazinc) 220 mg DAILY 10/22/17 09:00 10/22/17 08:32 220 MG LAB Lab: Laboratory Tests Test 10/21/17 16:40 10/21/17 19:00 10/22/17 08:02 White Blood Count 4.0 x10^3/uL (4.0-11.0) Red Blood Count 2.60 x10^6/uL (3.50-5.40) Hemoglobin 8.6 g/dL (12.0-15.5) Hematocrit 26.3 % (36.0-47.0) Mean Corpuscular Volume 101 fL (79-100) Mean Corpuscular Hemoglobin 33 pg (25-35) Mean Corpuscular Hemoglobin Concent 33 g/dL (31-37) Red Cell Distribution Width 18.9 % (11.5-14.5) Platelet Count 96 x10^3/uL (140-400) Neutrophils (%) (Auto) 59 % (31-73) Lymphocytes (%) (Auto) 17 % (24-48) Monocytes (%) (Auto) 9 % (0-9) Eosinophils (%) (Auto) 15 % (0-3) Basophils (%) (Auto) 1 % (0-3) Neutrophils # (Auto) 2.3 x10^3uL (1.8-7.7) Lymphocytes # (Auto) 0.7 x10^3/uL (1.0-4.8) Monocytes # (Auto) 0.4 x10^3/uL (0.0-1.1) Eosinophils # (Auto) 0.6 x10^3/uL (0.0-0.7) Basophils # (Auto) 0.0 x10^3/uL (0.0-0.2) Prothrombin Time 17.3 SEC (11.7-14.0) Prothromb Time International Ratio 1.5 (0.8-1.1) Sodium Level 134 mmol/L (136-145) Potassium Level 4.3 mmol/L (3.5-5.1) Chloride Level 103 mmol/L (98-107) Carbon Dioxide Level 26 mmol/L (21-32) Anion Gap 5 (6-14) Blood Urea Nitrogen 37 mg/dL (7-20) Creatinine 2.8 mg/dL (0.6-1.0) Estimated GFR (Cockcroft-Gault) 16.4 BUN/Creatinine Ratio 13 (6-20) Glucose Level 107 mg/dL (70-99) Calcium Level 8.0 mg/dL (8.5-10.1) Total Bilirubin 0.9 mg/dL (0.2-1.0) Aspartate Amino Transf (AST/SGOT) 26 U/L (15-37) Alanine Aminotransferase (ALT/SGPT) 16 U/L (14-59) Alkaline Phosphatase 204 U/L (46-116) Troponin I Quantitative 0.035 ng/mL (0.000-0.055) YI-Kre-S-Type Natriuretic Peptide 6234 pg/mL (0-449) Total Protein 8.1 g/dL (6.4-8.2) Albumin 2.1 g/dL (3.4-5.0) Albumin/Globulin Ratio 0.4 (1.0-1.7) Lipase 50 U/L (73-393) Urine Collection Type U cath Urine Color Yellow Urine Clarity Clear Urine pH 5.0 Urine Specific [place] 1.015 Urine Protein Negative mg/dL (NEG-TRACE) Urine Glucose (UA) Negative mg/dL (NEG) Urine Ketones (Stick) Negative mg/dL (NEG) Urine Blood Negative (NEG) Urine Nitrite Negative (NEG) Urine Bilirubin Negative (NEG) Urine Urobilinogen Dipstick 0.2 mg/dL (0.2 mg/dL) Urine Leukocyte Esterase Negative (NEG) Urine RBC 0 /HPF (0-2) Urine WBC 0 /HPF (0-4) Urine Squamous Epithelial Cells Mod /LPF Urine Bacteria 0 /HPF (0-FEW) Urine Hyaline Casts Few /HPF Urine Mucus Mod /LPF Glucose (Fingerstick) 88 mg/dL (70-99) CRISTY ARANGO MD Oct 22, 2017 09:05
[2017-10-22] MEDS ORDERED: MAGNESIUM CITRATE 296 ML SOLUTION. PO ONE (10:00)
[2017-10-22 12:15] LABS: CREATININE 2.8 mg/dL (0.6-1.0); GFR 16.4
--- NOTE | 2017-10-22 12:59 | PDOC ---
PULMONARY PROGRESS NOTES Vitals Vital Signs Date Time Temp Pulse Resp B/P (MAP) Pulse Ox O2 Delivery O2 Flow Rate FiO2 10/22/17 11:27 Nasal Cannula 3.0 10/22/17 11:00 142 26 113/56 (75) 98 10/22/17 07:00 97.5 97.5 General: Alert, No acute distress HEENT: Other Lungs: Other Cardiovascular: S1, S2 Abdomen: Soft, Non-tender Extremities: Other Labs Laboratory Tests Test 10/21/17 16:40 10/21/17 19:00 10/22/17 08:02 10/22/17 11:40 White Blood Count 4.0 x10^3/uL (4.0-11.0) Red Blood Count 2.60 x10^6/uL (3.50-5.40) Hemoglobin 8.6 g/dL (12.0-15.5) Hematocrit 26.3 % (36.0-47.0) Mean Corpuscular Volume 101 fL (79-100) Mean Corpuscular Hemoglobin 33 pg (25-35) Mean Corpuscular Hemoglobin Concent 33 g/dL (31-37) Red Cell Distribution Width 18.9 % (11.5-14.5) Platelet Count 96 x10^3/uL (140-400) Neutrophils (%) (Auto) 59 % (31-73) Lymphocytes (%) (Auto) 17 % (24-48) Monocytes (%) (Auto) 9 % (0-9) Eosinophils (%) (Auto) 15 % (0-3) Basophils (%) (Auto) 1 % (0-3) Neutrophils # (Auto) 2.3 x10^3uL (1.8-7.7) Lymphocytes # (Auto) 0.7 x10^3/uL (1.0-4.8) Monocytes # (Auto) 0.4 x10^3/uL (0.0-1.1) Eosinophils # (Auto) 0.6 x10^3/uL (0.0-0.7) Basophils # (Auto) 0.0 x10^3/uL (0.0-0.2) Prothrombin Time 17.3 SEC (11.7-14.0) Prothromb Time International Ratio 1.5 (0.8-1.1) Sodium Level 134 mmol/L (136-145) Potassium Level 4.3 mmol/L (3.5-5.1) Chloride Level 103 mmol/L (98-107) Carbon Dioxide Level 26 mmol/L (21-32) Anion Gap 5 (6-14) Blood Urea Nitrogen 37 mg/dL (7-20) Creatinine 2.8 mg/dL (0.6-1.0) 2.8 mg/dL (0.6-1.0) Estimated GFR (Cockcroft-Gault) 16.4 16.4 BUN/Creatinine Ratio 13 (6-20) Glucose Level 107 mg/dL (70-99) Calcium Level 8.0 mg/dL (8.5-10.1) Total Bilirubin 0.9 mg/dL (0.2-1.0) Aspartate Amino Transf (AST/SGOT) 26 U/L (15-37) Alanine Aminotransferase (ALT/SGPT) 16 U/L (14-59) Alkaline Phosphatase 204 U/L (46-116) Troponin I Quantitative 0.035 ng/mL (0.000-0.055) AO-Yjm-J-Type Natriuretic Peptide 6234 pg/mL (0-449) Total Protein 8.1 g/dL (6.4-8.2) Albumin 2.1 g/dL (3.4-5.0) Albumin/Globulin Ratio 0.4 (1.0-1.7) Lipase 50 U/L (73-393) Urine Collection Type U cath Urine Color Yellow Urine Clarity Clear Urine pH 5.0 Urine Specific [place] 1.015 Urine Protein Negative mg/dL (NEG-TRACE) Urine Glucose (UA) Negative mg/dL (NEG) Urine Ketones (Stick) Negative mg/dL (NEG) Urine Blood Negative (NEG) Urine Nitrite Negative (NEG) Urine Bilirubin Negative (NEG) Urine Urobilinogen Dipstick 0.2 mg/dL (0.2 mg/dL) Urine Leukocyte Esterase Negative (NEG) Urine RBC 0 /HPF (0-2) Urine WBC 0 /HPF (0-4) Urine Squamous Epithelial Cells Mod /LPF Urine Bacteria 0 /HPF (0-FEW) Urine Hyaline Casts Few /HPF Urine Mucus Mod /LPF Glucose (Fingerstick) 88 mg/dL (70-99) Test 10/22/17 12:16 Glucose (Fingerstick) 156 mg/dL (70-99) Laboratory Tests Test 10/21/17 16:40 10/21/17 19:00 10/22/17 08:02 10/22/17 11:40 White Blood Count 4.0 x10^3/uL (4.0-11.0) Red Blood Count 2.60 x10^6/uL (3.50-5.40) Hemoglobin 8.6 g/dL (12.0-15.5) Hematocrit 26.3 % (36.0-47.0) Mean Corpuscular Volume 101 fL (79-100) Mean Corpuscular Hemoglobin 33 pg (25-35) Mean Corpuscular Hemoglobin Concent 33 g/dL (31-37) Red Cell Distribution Width 18.9 % (11.5-14.5) Platelet Count 96 x10^3/uL (140-400) Neutrophils (%) (Auto) 59 % (31-73) Lymphocytes (%) (Auto) 17 % (24-48) Monocytes (%) (Auto) 9 % (0-9) Eosinophils (%) (Auto) 15 % (0-3) Basophils (%) (Auto) 1 % (0-3) Neutrophils # (Auto) 2.3 x10^3uL (1.8-7.7) Lymphocytes # (Auto) 0.7 x10^3/uL (1.0-4.8) Monocytes # (Auto) 0.4 x10^3/uL (0.0-1.1) Eosinophils # (Auto) 0.6 x10^3/uL (0.0-0.7) Basophils # (Auto) 0.0 x10^3/uL (0.0-0.2) Prothrombin Time 17.3 SEC (11.7-14.0) Prothromb Time International Ratio 1.5 (0.8-1.1) Sodium Level 134 mmol/L (136-145) Potassium Level 4.3 mmol/L (3.5-5.1) Chloride Level 103 mmol/L (98-107) Carbon Dioxide Level 26 mmol/L (21-32) Anion Gap 5 (6-14) Blood Urea Nitrogen 37 mg/dL (7-20) Creatinine 2.8 mg/dL (0.6-1.0) 2.8 mg/dL (0.6-1.0) Estimated GFR (Cockcroft-Gault) 16.4 16.4 BUN/Creatinine Ratio 13 (6-20) Glucose Level 107 mg/dL (70-99) Calcium Level 8.0 mg/dL (8.5-10.1) Total Bilirubin 0.9 mg/dL (0.2-1.0) Aspartate Amino Transf (AST/SGOT) 26 U/L (15-37) Alanine Aminotransferase (ALT/SGPT) 16 U/L (14-59) Alkaline Phosphatase 204 U/L (46-116) Troponin I Quantitative 0.035 ng/mL (0.000-0.055) VD-Ppq-E-Type Natriuretic Peptide 6234 pg/mL (0-449) Total Protein 8.1 g/dL (6.4-8.2) Albumin 2.1 g/dL (3.4-5.0) Albumin/Globulin Ratio 0.4 (1.0-1.7) Lipase 50 U/L (73-393) Urine Collection Type U cath Urine Color Yellow Urine Clarity Clear Urine pH 5.0 Urine Specific [place] 1.015 Urine Protein Negative mg/dL (NEG-TRACE) Urine Glucose (UA) Negative mg/dL (NEG) Urine Ketones (Stick) Negative mg/dL (NEG) Urine Blood Negative (NEG) Urine Nitrite Negative (NEG) Urine Bilirubin Negative (NEG) Urine Urobilinogen Dipstick 0.2 mg/dL (0.2 mg/dL) Urine Leukocyte Esterase Negative (NEG) Urine RBC 0 /HPF (0-2) Urine WBC 0 /HPF (0-4) Urine Squamous Epithelial Cells Mod /LPF Urine Bacteria 0 /HPF (0-FEW) Urine Hyaline Casts Few /HPF Urine Mucus Mod /LPF Glucose (Fingerstick) 88 mg/dL (70-99) Test 10/22/17 12:16 Glucose (Fingerstick) 156 mg/dL (70-99) Medications Active Scripts Medications Dose Route/Sig Max Daily Dose Days Date Category Dose Instructions Alprazolam 0.25 Mg Tablet 1 Tab PO TID 10/21/17 Reported [dobutamine] 12.1 Ml IV DAILY PRN 10/21/17 Reported Zinc-220 (Zinc Sulfate) 220 Mg Capsule 220 Mg PO DAILY 08/29/17 Reported Vitamin C (Ascorbate Calcium) 500 Mg Tablet 500 Mg PO DAILY 08/29/17 Reported Multivitamins (Multivitamin) 1 Each Tablet 1 Tab PO DAILY 08/29/17 Reported Mucinex (Guaifenesin) 600 Mg Tablet.er 600 Mg PO PRN Q12HR PRN 08/29/17 Reported Albuterol Sulfate Conc Neb Soln (Albuterol Sulfate) 2.5 Mg/0.5 Ml Vial.neb 2.5 Mg NEB QID 08/29/17 Reported Potassium Chloride 20 Meq Tablet.er 20 Meq PO DAILY 08/05/17 Reported Bumetanide 1 Mg Tablet 1 Tab PO BID 08/05/17 Reported Humalog (Insulin Lispro) 100 Unit/1 Ml Insuln.pen 4 Units SQ TIDAC 03/05/17 Reported Lantus Solostar (Insulin Glargine,Hum.rec.anlog) 100 Unit/1 Ml Insuln.pen 24 Units SQ HS 03/05/17 Reported Atorvastatin Calcium 40 Mg Tablet 40 Mg PO HS 03/05/17 Reported Amiodarone Hcl 200 Mg Tablet 1 Tab PO DAILY 06/27/16 Reported Oxycodone Hcl 30 Mg Tablet 1 Tab PO Q6HRS PRN 11/28/15 Reported Synthroid (Levothyroxine Sodium) 75 Mcg Tablet 75 Mcg PO DAILY07 30 08/21/15 Rx Metoprolol Tartrate 25 Mg Tablet 25 Mg PO BID 07/22/13 Reported next dose tonight 12-14-15 at 9:00 pm Impression . NOTE DICTATED MOSTLY CHF WILL COVER FOR PNEUMONIA WILL FOLLOW THANKS ROBBI LYN MD Oct 22, 2017 12:59
[2017-10-22] MEDS: VANCOMYCIN PER PHARMACY MC PRN (13:52)
[2017-10-22] MEDS: LACTOBACILLUS RHAMNOSUS GG 1 CAPSULE. PO SCH (21:37)
[2017-10-22] MEDS: ATORVASTATIN CALCIUM 40 MG TABLET. PO SCH (21:37)
[2017-10-22] MEDS: INSULIN GLARGINE 300 UNITS/3 ML INSULN.PEN. SQ SCH (21:41)
--- NOTE | 2017-10-22 22:40 | CONS ---
DATE OF CONSULTATION: 10/22/2017 ATTENDING PHYSICIAN: Christiano Bautista MD. REASON FOR CONSULTATION: The patient is seen in pulmonary consultation at the request of Dr. Bautista for abnormal x-ray, possible pneumonia and CHF. HISTORY OF PRESENT ILLNESS: The patient is a 76-year-old female that presented to the Emergency Room mainly with complaints of left upper quadrant pain for approximately 2 days, sharp in nature, nonradiating. No fever, chills or night sweats. She was brought to the Emergency Department by the Fire Department. Denied nausea, vomiting or diarrhea. The patient had a chest x-ray, which I personally reviewed. There was evidence of bibasilar infiltrates, opacities and effusion. There was also evidence of vascular congestion. She had a CT abdomen and pelvis, which showed bilateral effusions, cholelithiasis and infiltrates along with atelectasis. PAST MEDICAL HISTORY: The patient's past medical history is remarkable for COPD, cardiomyopathy, prior congestive heart failure, status post coronary artery bypass grafting, previous nephrectomy for benign disease and status post . She also had an open reduction and internal fixation of the left hip fracture. PAST SURGICAL HISTORY: As above. ALLERGIES: SULFA. REVIEW OF SYSTEMS: CONSTITUTIONAL: Denies fever or chills. EYES: No change in visual acuity. HEENT: No nasal congestion or sore throat. RESPIRATORY: As indicated above. CARDIOVASCULAR: As indicated above. GASTROINTESTINAL: As indicated above, otherwise no nausea, vomiting or diarrhea. GENITOURINARY: No dysuria or frequency. MUSCULOSKELETAL: Denies localized muscle aches or joint pains. SKIN: No new skin rashes. NEUROLOGIC: No headaches, diplopia or blurred vision. CURRENT MEDICATIONS: List was reviewed. I did discuss the case with the Emergency Room physician last night. She is currently being covered with IV Zosyn and IV vancomycin. SOCIAL HISTORY: She is a former smoker and quit five months ago. PHYSICAL EXAMINATION: VITAL SIGNS: Stable. O2 saturation currently on 3 liters was greater than 92%. HEENT: Eyes, the sclerae were nonicteric. NECK: Jugular venous distention was not elevated. No lymphadenopathy. CHEST: Full expansion. LUNGS: Diminished breath sounds in bases and scattered rhonchi. CARDIOVASCULAR: Regular rate and rhythm with S1, S2, no S3. ABDOMEN: Soft, nontender and nondistended. EXTREMITIES: No clubbing or cyanosis. ____ 2+ edema in the lower extremities. There were also skin changes compatible with venous insufficiency. NEUROLOGIC: The patient was awake, alert and following commands. A detailed neuro exam was not performed. LABORATORY DATA: Reviewed. White count was normal, hemoglobin and hematocrit were noted. Electrolytes were noted. BUN and creatinine were elevated. BNP was elevated. Albumin was low. Chest x-ray as indicated above. IMPRESSION: 1. Acute on chronic respiratory failure. 2. Acute on chronic systolic and diastolic heart failure. 3. Abnormal x-ray compatible with congestive heart failure and pneumonia, suspect gram-negative, possibly gram-positive. 4. Type 2 diabetes. 5. Hypertension. 6. Cardiomyopathy with previous ejection fraction of 40-45%. 7. Acute on chronic kidney disease. 8. Protein malnutrition present upon admission. PLAN: 1. Clinical suspicion is very high for acute on chronic heart failure, difficult to rule out pneumonia, with that being said we will proceed with treating for gram-positive and gram-negative pneumonia making further recommendation depending on the patient's clinical response. 2. Continue home medications. 3. Diurese and monitor BUN and creatinine: 4. Consult to Cardiology already performed. 5. PT, OT. 6. Consult dietary for nutritional support. I do appreciate the privilege in sharing in the patient's care. ROBBI LYN MD DR: FRANCY/rob JOB#: [id number] / [id number]
[2017-10-23] VITALS (19 sets, daily range): BP systolic 81–119; BP diastolic 40–81
[2017-10-23] MEDS: ALPRAZolam 0.25 MG TABLET PO SCH ×4 (00:08→20:53)
[2017-10-23] MEDS: LEVOTHYROXINE 75 MCG TABLET PO SCH (05:33)
[2017-10-23] MEDS: PIPERACILLIN/TAZOBACTAM 2.25 GM in IV NORMAL SALINE 50ML 50 ML IV SCH ×3 (05:33→21:22)
[2017-10-23] MEDS: ALBUTEROL SULFATE 2.5 MG/3 ML NEBU. NEB SCH ×4 (07:59→19:42)
[2017-10-23] MEDS ORDERED: ALTEPLASE 2 MG VIAL INT CAT ONE (09:30)
--- NOTE | 2017-10-23 09:35 | PDOC2 ---
GI CONSULT Reason For Consult: Abd pain HPI: HPI: 76 y/o female w/ chronic heart failure and pneumonia. Reviewed w/ RN - had been on Hospice, apparently not anymore and no longer DNR. Asked to see for abd pain which she currently denies though did have some overnight - "I'd like to have it was so bad." Was located on left side, occurred randomly, might have improved after stooling. CT A/P noted pleural effusions, cholelithiasis, cirrhosis, diffuse colonic stool burden, stable compression deformities (L2-L3), and nonobstructing right renal stone. (Cirrhotic morphology of liver and cholelithiasis noted on CT in ). Stooled after Mag Citrate. She says "quite a bit," but RN reports only small amount. Chronic narcotics for back pain, tells me typically not constipated. Denies n/v , reflux, dysphagia, chronic abd pain, diarrhea, change in weight or appetite, or bleeding. Might have had previous EGD, unclear details. No previous colonoscopy. No GB, liver, or pancreas history she's aware of. PMH: PMH: A Fib, CAD (with prior CABG), CHF, HTN, HLD, COPD, DM, CKD, hypothyroidism, CABG , left nephrectomy Social History: ALCOHOL: none ROS: GEN: Denies fevers, chills, sweats HEENT: Denies blurred vision, sore throat CV: Denies chest pain RESP: +SOA GI: Per HPI : Denies hematuria, dysuria ENDO: Denies weight changes NEURO: Denies confusion, dizziness MSK: +chronic pain SKIN: Denies jaundice, pruritus Vitals: Vitals: Vital Signs Date Time Temp Pulse Resp B/P (MAP) Pulse Ox O2 Delivery O2 Flow Rate FiO2 10/23/17 07:59 97 Nasal Cannula 3.0 10/23/17 07:00 98.3 90 90/56 (67) 98.3 10/23/17 02:19 21 Labs: Labs: Laboratory Tests Test 10/22/17 11:40 10/22/17 12:16 10/22/17 17:21 10/22/17 20:27 Creatinine 2.8 mg/dL (0.6-1.0) Estimated GFR (Cockcroft-Gault) 16.4 Glucose (Fingerstick) 156 mg/dL (70-99) 125 mg/dL (70-99) 244 mg/dL (70-99) Test 10/23/17 07:30 Glucose (Fingerstick) 78 mg/dL (70-99) Allergies: Coded Allergies: Sulfa (Sulfonamide Antibiotics) (Verified Allergy, Intermediate, 08/03/17) Medications: Current Medications Medications (Trade) Dose Ordered Sig/Ermias Route PRN Reason Start Time Stop Time Status Last Admin Dose Admin Magnesium Citrate (Citroma) 296 ml 1X ONCE PO 10/22/17 10:00 10/22/17 10:01 DC 10/22/17 09:41 Dobutamine HCl/ Dextrose 250 ml @ 13.008 mls/ hr CONT PRN IV SEE I/O RECORD 10/22/17 09:30 10/23/17 02:08 Lactobacillus Rhamnosus (Culturelle) 1 cap BID PO 10/22/17 21:00 10/22/17 21:37 Imaging: Imaging: CXR IMPRESSION: Small bilateral pleural effusions, right more than left with underlying bibasilar patchy opacities which may be from subsegmental atelectasis or pneumonia. Findings of mild interstitial pulmonary edema. CT A/P IMPRESSION: Limited exam due to lack of IV contrast. 1. Small to moderate right and trace left pleural effusion with bibasilar consolidation which may be from subsegmental atelectasis or pneumonia. 2. Cholelithiasis. 3. Cirrhotic morphology of the liver. No ascites. 4. Diffuse colonic stool burden, patient may be constipated. 5. Stable compression deformities in the L2 and L3 vertebral body when compared to previous study. Likely subacute fracture in the left inferior pubic ramus. Clinical correlate for focal tenderness. 5. Punctate nonobstructing right renal stone. PE: GEN: appears ill HEENT: Atraumatic, PERRL LUNGS: crackles w/ NC HEART: tachycardic ABD: BS present but quiet, round, no left-sided tenderness but does have discomfort to the right EXTREMITY: pitting edema SKIN: bruising on hands NEURO/PSYCH: A & O 3 A/P: A/P: CHF (on dobutamine drip), ?pneumonia, CKD Left-sided abd pain - resolved -on CT: cholelithiasis, cirrhosis, diffuse colonic stool burden, right renal stone Macrocytic anemia - long history, borderline low B12 in 2016 CRC screen - none -- Chronically ill, previously on Hospice. The pain she had was reportedly left-sided but now resolved - ?related to constipation - will review w/ Dr. Fregoso - consider Relistor, Amitiza, etc. Cholelithiasis likely incidental finding, would be poor surgical (or endoscopy) candidate. ?cirrhosis - on amiodarone JOB MONTERROSO Oct 23, 2017 09:35
[2017-10-23] MEDS: ZINC SULFATE 220 MG CAPSULE. PO SCH (09:38)
[2017-10-23] MEDS: ASCORBIC ACID 500 MG TABLET PO SCH (09:38)
[2017-10-23] MEDS: BUMETANIDE 1 MG TABLET. PO SCH ×2 (09:38→17:57)
[2017-10-23] MEDS: AMIODARONE HCL 200 MG TABLET. PO SCH (09:38)
[2017-10-23] MEDS: LACTOBACILLUS RHAMNOSUS GG 1 CAPSULE. PO SCH ×2 (09:39→20:53)
[2017-10-23] MEDS: METOPROLOL TART IMMED RELEASE 25 MG TABLET. PO SCH ×2 (09:39→20:53)
[2017-10-23] MEDS: POTASSIUM CHLORIDE 20 MEQ TABLET.ER. PO SCH (09:39)
[2017-10-23] MEDS: MULTIVITAMIN with MINERAL TABLET. PO SCH (09:39)
--- NOTE | 2017-10-23 09:46 | PDOC ---
PULMONARY PROGRESS NOTES Subjective PT FEEL LESS SOA LESS COUGH Vitals Vital Signs Date Time Temp Pulse Resp B/P (MAP) Pulse Ox O2 Delivery O2 Flow Rate FiO2 10/23/17 07:59 97 Nasal Cannula 3.0 10/23/17 07:00 98.3 90 90/56 (67) 98.3 10/23/17 02:19 21 ROS: No Nausea, No Chest Pain, No Abdominal Pain, No Increase Cough General: Alert, No acute distress Lungs: Crackles Cardiovascular: S1, S2 Abdomen: Soft, Non-tender Neuro Exam: Alert Extremities: Other (EDEMA) Skin: Warm Labs Laboratory Tests Test 10/21/17 16:40 10/21/17 19:00 10/22/17 08:02 10/22/17 11:40 White Blood Count 4.0 x10^3/uL (4.0-11.0) Red Blood Count 2.60 x10^6/uL (3.50-5.40) Hemoglobin 8.6 g/dL (12.0-15.5) Hematocrit 26.3 % (36.0-47.0) Mean Corpuscular Volume 101 fL (79-100) Mean Corpuscular Hemoglobin 33 pg (25-35) Mean Corpuscular Hemoglobin Concent 33 g/dL (31-37) Red Cell Distribution Width 18.9 % (11.5-14.5) Platelet Count 96 x10^3/uL (140-400) Neutrophils (%) (Auto) 59 % (31-73) Lymphocytes (%) (Auto) 17 % (24-48) Monocytes (%) (Auto) 9 % (0-9) Eosinophils (%) (Auto) 15 % (0-3) Basophils (%) (Auto) 1 % (0-3) Neutrophils # (Auto) 2.3 x10^3uL (1.8-7.7) Lymphocytes # (Auto) 0.7 x10^3/uL (1.0-4.8) Monocytes # (Auto) 0.4 x10^3/uL (0.0-1.1) Eosinophils # (Auto) 0.6 x10^3/uL (0.0-0.7) Basophils # (Auto) 0.0 x10^3/uL (0.0-0.2) Prothrombin Time 17.3 SEC (11.7-14.0) Prothromb Time International Ratio 1.5 (0.8-1.1) Sodium Level 134 mmol/L (136-145) Potassium Level 4.3 mmol/L (3.5-5.1) Chloride Level 103 mmol/L (98-107) Carbon Dioxide Level 26 mmol/L (21-32) Anion Gap 5 (6-14) Blood Urea Nitrogen 37 mg/dL (7-20) Creatinine 2.8 mg/dL (0.6-1.0) 2.8 mg/dL (0.6-1.0) Estimated GFR (Cockcroft-Gault) 16.4 16.4 BUN/Creatinine Ratio 13 (6-20) Glucose Level 107 mg/dL (70-99) Calcium Level 8.0 mg/dL (8.5-10.1) Total Bilirubin 0.9 mg/dL (0.2-1.0) Aspartate Amino Transf (AST/SGOT) 26 U/L (15-37) Alanine Aminotransferase (ALT/SGPT) 16 U/L (14-59) Alkaline Phosphatase 204 U/L (46-116) Troponin I Quantitative 0.035 ng/mL (0.000-0.055) GS-Htk-O-Type Natriuretic Peptide 6234 pg/mL (0-449) Total Protein 8.1 g/dL (6.4-8.2) Albumin 2.1 g/dL (3.4-5.0) Albumin/Globulin Ratio 0.4 (1.0-1.7) Lipase 50 U/L (73-393) Urine Collection Type U cath Urine Color Yellow Urine Clarity Clear Urine pH 5.0 Urine Specific [place] 1.015 Urine Protein Negative mg/dL (NEG-TRACE) Urine Glucose (UA) Negative mg/dL (NEG) Urine Ketones (Stick) Negative mg/dL (NEG) Urine Blood Negative (NEG) Urine Nitrite Negative (NEG) Urine Bilirubin Negative (NEG) Urine Urobilinogen Dipstick 0.2 mg/dL (0.2 mg/dL) Urine Leukocyte Esterase Negative (NEG) Urine RBC 0 /HPF (0-2) Urine WBC 0 /HPF (0-4) Urine Squamous Epithelial Cells Mod /LPF Urine Bacteria 0 /HPF (0-FEW) Urine Hyaline Casts Few /HPF Urine Mucus Mod /LPF Glucose (Fingerstick) 88 mg/dL (70-99) Test 10/22/17 12:16 10/22/17 17:21 10/22/17 20:27 10/23/17 07:30 Glucose (Fingerstick) 156 mg/dL (70-99) 125 mg/dL (70-99) 244 mg/dL (70-99) 78 mg/dL (70-99) Laboratory Tests Test 10/22/17 11:40 10/22/17 12:16 10/22/17 17:21 10/22/17 20:27 Creatinine 2.8 mg/dL (0.6-1.0) Estimated GFR (Cockcroft-Gault) 16.4 Glucose (Fingerstick) 156 mg/dL (70-99) 125 mg/dL (70-99) 244 mg/dL (70-99) Test 10/23/17 07:30 Glucose (Fingerstick) 78 mg/dL (70-99) Medications Active Scripts Medications Dose Route/Sig Max Daily Dose Days Date Category Dose Instructions Alprazolam 0.25 Mg Tablet 1 Tab PO TID 10/21/17 Reported [dobutamine] 12.1 Ml IV DAILY PRN 10/21/17 Reported Zinc-220 (Zinc Sulfate) 220 Mg Capsule 220 Mg PO DAILY 08/29/17 Reported Vitamin C (Ascorbate Calcium) 500 Mg Tablet 500 Mg PO DAILY 08/29/17 Reported Multivitamins (Multivitamin) 1 Each Tablet 1 Tab PO DAILY 08/29/17 Reported Mucinex (Guaifenesin) 600 Mg Tablet.er 600 Mg PO PRN Q12HR PRN 08/29/17 Reported Albuterol Sulfate Conc Neb Soln (Albuterol Sulfate) 2.5 Mg/0.5 Ml Vial.neb 2.5 Mg NEB QID 08/29/17 Reported Potassium Chloride 20 Meq Tablet.er 20 Meq PO DAILY 08/05/17 Reported Bumetanide 1 Mg Tablet 1 Tab PO BID 08/05/17 Reported Humalog (Insulin Lispro) 100 Unit/1 Ml Insuln.pen 4 Units SQ TIDAC 03/05/17 Reported Lantus Solostar (Insulin Glargine,Hum.rec.anlog) 100 Unit/1 Ml Insuln.pen 24 Units SQ HS 03/05/17 Reported Atorvastatin Calcium 40 Mg Tablet 40 Mg PO HS 03/05/17 Reported Amiodarone Hcl 200 Mg Tablet 1 Tab PO DAILY 06/27/16 Reported Oxycodone Hcl 30 Mg Tablet 1 Tab PO Q6HRS PRN 11/28/15 Reported Synthroid (Levothyroxine Sodium) 75 Mcg Tablet 75 Mcg PO DAILY07 30 08/21/15 Rx Metoprolol Tartrate 25 Mg Tablet 25 Mg PO BID 07/22/13 Reported next dose tonight 12-14-15 at 9:00 pm Impression . 1. Acute on chronic respiratory failure. 2. Acute on chronic systolic and diastolic heart failure. 3. Abnormal x-ray compatible with congestive heart failure and pneumonia, suspect gram-negative, possibly gram-positive. 4. Type 2 diabetes. 5. Hypertension. 6. Cardiomyopathy with previous ejection fraction of 40-45%. 7. Acute on chronic kidney disease. 8. Protein malnutrition present upon admission. Plan . CONTINUE THE SAME CLINICALLY RESPONDING D/W RN 1. Clinical suspicion is very high for acute on chronic heart failure, difficult to rule out pneumonia, with that being said we will proceed with treating for gram-positive and gram-negative pneumonia making further recommendation depending on the patient's clinical response. 2. Continue home medications. 3. Diurese and monitor BUN and creatinine: 4. Consult to Cardiology already performed. 5. PT, OT. 6. Consult dietary for nutritional support. ROBBI LYN MD Oct 23, 2017 09:46
[2017-10-23] MEDS: INSULIN LISPRO 300 UNITS/3 ML INSULN.PEN. SQ SCH ×3 (09:47→16:30)
--- NOTE | 2017-10-23 10:44 | HP ---
ADMIT DATE: 10/21/2017 CHIEF COMPLAINT AND HISTORY OF PRESENT ILLNESS: This 76-year-old white female is well known to me from followup in the office. The patient was admitted through the Emergency Room with left upper quadrant pain, which she was describing as sharp intermittently for the last 2 days. It is rated 10/10. She had been taking oxycodone at home that she has for some time for chronic back pain and currently, has been on hospice for end-stage cardiomyopathy, for which she is currently getting dobutamine at home on a continuous infusion [facility]. She denied any change of this with any breathing. She felt like she had been having her normal bowel movements leading up to this. Denied any urinary symptoms such as frequency, hematuria, dysuria or urgency. Also denied any nausea, vomiting, diarrhea, fever, shortness of breath or cough. PAST MEDICAL HISTORY: Well documented on old charts and does include the cardiomyopathy. She has AFib, COPD, history of heart failure, diabetes, hypertension and hypothyroidism. She has had a prior CABG and a left kidney removed for benign disease, a prior and a prior left hip open reduction and internal fixation after a fracture. MEDICATIONS: Medications were brought with the patient, listed on the computer and have been addressed. ALLERGIES: SHE IS ALLERGIC TO SULFA. SOCIAL HISTORY: She is a smoker, nondrinker, does not use drugs. Single, lives at home with a sister, who is very supportive. FAMILY HISTORY: Noncontributory. REVIEW OF SYSTEMS: That as mentioned above. PHYSICAL EXAMINATION: GENERAL: She is well-developed, well-nourished white female, no acute or nontoxic appearance. She does intermittently, throughout my exam, have pain in the left upper quadrant that last a minute or two and then is relieved. HEAD, EYES, EARS, NOSE AND THROAT: Unremarkable. NECK: Supple, without any thyromegaly. CHEST: Reveals bilateral rhonchi with decreased breath sounds. HEART: Irregularly irregular with a rate of 110. ABDOMEN: Soft, nontender with very mild left upper quadrant tenderness to palpation. EXTREMITIES: Without cyanosis, clubbing or edema. NEUROLOGIC: She is intact. INITIAL IMAGING: CT of the abdomen shows predominantly constipation. Chest x-ray shows bilateral pleural effusions, right more than left, with underlying bibasilar, patchy infiltrates that could be from subsegmental atelectasis or pneumonia and findings of mild interstitial pulmonary edema. LABORATORY DATA: Initial laboratory remarkable for a BUN of 37, creatinine 2.8 and sodium is 134. BNP is 6200. Troponin is negative. Albumin is 2.1. Hemoglobin is 8.6, white count of 4000 and platelet count is 96,000. She has a normal differential. INR is 1.5 and urine shows no evidence of infection. IMPRESSION: Left upper quadrant pain, 10/10, of uncertain etiology at this point in time, with a question of pneumonia. PLAN: The patient has been admitted. She is being covered for healthcare-associated pneumonia. Pulmonary and Cardiology have been asked to see her. I am going to give her laxatives and see if this relieves the abdominal pain. If not, she will likely need GI evaluation. CRISTY ARANGO MD DR: DARIEL/rob JOB#: [id number] / [id number]
--- NOTE | 2017-10-23 11:40 | PDOC ---
CARDIO Progress Notes Date and Time Date of Service 10/23/2017 Time of Evaluation 1035 Subjective Subjective: No Chest Pain, No shortness of breath, No Palpitations, No Dizziness, Other (sleeping) Vitals Vitals Vital Signs Date Time Temp Pulse Resp B/P (MAP) Pulse Ox O2 Delivery O2 Flow Rate FiO2 10/23/17 11:19 Nasal Cannula 3.0 10/23/17 11:00 98.1 78 14 111/53 (72) 99 98.1 Weight Weight [ ] Input and Output Intake and Output Intake and Output 10/23/17 07:00 Intake Total 1020 ml Output Total 1350 ml Balance -330 ml Intake Oral 1020 ml Output Urine Total 1350 ml # Bowel Movements 2 Laboratory Labs Laboratory Tests Test 10/22/17 11:40 10/22/17 12:16 10/22/17 17:21 10/22/17 20:27 Creatinine 2.8 mg/dL (0.6-1.0) Estimated GFR (Cockcroft-Gault) 16.4 Glucose (Fingerstick) 156 mg/dL (70-99) 125 mg/dL (70-99) 244 mg/dL (70-99) Test 10/23/17 07:30 10/23/17 11:27 Glucose (Fingerstick) 78 mg/dL (70-99) 128 mg/dL (70-99) Microbiology Micro Microbiology 10/21/17 Blood Culture - Preliminary, Resulted NO GROWTH AFTER 1 DAY Physical Exam HEENT: Neck Supple W Full Motion Chest: Symmetric LUNGS: Other (crackles) Heart: S1S2 Abdomen: Soft N/T, Other (obese abdomen) Extremities: Other (2+ lower extremity edema) Neurology: alert Assessment Assessment 1. chronic diastolic HF; LVEF 40-45% --elevated NT-proBNP associated with CKD --needs LE elevation --continue oral diuretics --continue dobutamine and recommend f/u with HF clinic at discharge 2. pneumonia --defer to primary service; treated with antibiotics 3. HTN --control with oral meds 4. DM, II --per primary service 5. CKD with prior nephrectomy --Cr stable Agreeable with discharge when planned by primary service Recommend hospice resumption, however, patient wants to rescind all Needs placement BERNICE FONTANA APRN Oct 23, 2017 11:39
[2017-10-23 12:05] LABS: GFR 15.1
[2017-10-23] MEDS ORDERED: BISACODYL 5 MG TABLET.DR. PO ONE (13:00)
[2017-10-23] MEDS: VANCOMYCIN PER PHARMACY MC PRN (13:44)
[2017-10-23] MEDS: LUBIPROSTONE 8 MCG CAPSULE PO SCH (17:57)
[2017-10-23] MEDS: ATORVASTATIN CALCIUM 40 MG TABLET. PO SCH (20:53)
[2017-10-23] MEDS ORDERED: VANCOMYCIN RANDOM LEVEL. MC ONE (21:00)
[2017-10-23] MEDS: INSULIN GLARGINE 300 UNITS/3 ML INSULN.PEN. SQ SCH ×3 (21:00→22:14)
[2017-10-23] MEDS ORDERED: VANCOMYCIN 1.25 GM in IV NORMAL SALINE 250ML 250 ML IV SCH (22:00)
--- NOTE | 2017-10-23 22:44 | PN ---
DATE: 10/23/2017 LOCATION: She is in room 202. SUBJECTIVE: The patient is awake and alert, getting ready to start with breakfast, complains of a horrible night with the ongoing intermittent left upper quadrant pain. She had a couple of good bowel movements according to her yesterday with magnesium citrate, but does not feel like it has relieved the pain in any way. OBJECTIVE: VITAL SIGNS: Stable. She is afebrile. She is awake and alert. She remains in AFib with the rate currently in the 90s. CHEST: Reveals diminished breath sounds bilaterally with mild rhonchi. HEART: Irregularly irregular in the 90s. ABDOMEN: Soft. There is some minimal left upper quadrant tenderness. No rebound, guarding, palpable hepatosplenomegaly or masses. EXTREMITIES: Reveal 1+ edema. NEUROLOGIC: She is intact. LABORATORY DATA: Sugars have been decent. Blood cultures are negative at 24 hours. Blood pressures remain on the low side. ASSESSMENT: 1. Ongoing abdominal pain. 2. Possible pneumonia, being treated for the same. 3. Cardiomyopathy, on dobutamine drip. 4. Diabetes. PLAN: We will continue present antibiotics. Cardiology and Pulmonary help were appreciated. We will ask for Gastroenterology consult for the ongoing abdominal pain. Otherwise, she will be monitored, managed and treated appropriately. CRISTY ARANGO MD DR: DARIEL/rob JOB#: [id number] / [id number]
[2017-10-23] MEDS ORDERED: VANCOMYCIN 1 GM in IV NORMAL SALINE 250ML 250 ML IV SCH (23:00)
[2017-10-24] VITALS (11 sets, daily range): BP systolic 89–115; BP diastolic 51–68
[2017-10-24] MEDS: VANCOMYCIN PER PHARMACY MC PRN (01:02)
[2017-10-24] MEDS: PIPERACILLIN/TAZOBACTAM 2.25 GM in IV NORMAL SALINE 50ML 50 ML IV SCH ×3 (06:11→22:06)
[2017-10-24] MEDS: LEVOTHYROXINE 75 MCG TABLET PO SCH (06:11)
[2017-10-24] MEDS: ALBUTEROL SULFATE 2.5 MG/3 ML NEBU. NEB SCH ×4 (07:16→20:00)
[2017-10-24] MEDS: INSULIN LISPRO 300 UNITS/3 ML INSULN.PEN. SQ SCH ×3 (07:30→16:30)
[2017-10-24] MEDS ORDERED: MORPHINE SULFATE 10 MG/ML VIAL. IV PRN (07:30)
[2017-10-24] MEDS: ALPRAZolam 0.25 MG TABLET PO SCH ×3 (08:22→20:55)
[2017-10-24] MEDS: LUBIPROSTONE 8 MCG CAPSULE PO SCH ×2 (08:22→17:29)
[2017-10-24] MEDS: LACTOBACILLUS RHAMNOSUS GG 1 CAPSULE. PO SCH ×2 (08:23→20:55)
[2017-10-24] MEDS: ASCORBIC ACID 500 MG TABLET PO SCH (08:23)
[2017-10-24] MEDS: MULTIVITAMIN with MINERAL TABLET. PO SCH (08:23)
[2017-10-24] MEDS: BUMETANIDE 1 MG TABLET. PO SCH ×2 (08:23→17:29)
[2017-10-24] MEDS: POTASSIUM CHLORIDE 20 MEQ TABLET.ER. PO SCH (08:23)
[2017-10-24] MEDS: METOPROLOL TART IMMED RELEASE 25 MG TABLET. PO SCH ×2 (08:23→20:55)
[2017-10-24] MEDS: AMIODARONE HCL 200 MG TABLET. PO SCH (08:24)
[2017-10-24] MEDS: ZINC SULFATE 220 MG CAPSULE. PO SCH (08:24)
[2017-10-24] MEDS: CELECOXIB 100 MG CAPSULE. PO SCH ×2 (10:56→20:55)
[2017-10-24] MEDS: MORPHINE SULFATE 10 MG/ML VIAL. IV PRN (12:20)
--- NOTE | 2017-10-24 13:10 | PN ---
DATE: 10/24/2017 LOCATION: She is in room 202. SUBJECTIVE: The patient is awake, alert. Complains bitterly of severe pain, the worst in her life and does not feel she can take it for another day and that something has to be done for it. It is located in the left upper quadrant, left flank area and comes intermittently. She is still describing it as sharp, with no significant change with breathing, eating, etc. She has had a couple of good bowel movements after the mag citrate and this has not improved this at all. OBJECTIVE: VITAL SIGNS: Stable. She is afebrile. She remains on 2.5 liters per nasal cannula O2. Her sugars are good. CHEST: Reveals occasional rhonchi bilaterally. HEART: Irregular in the 90s. ABDOMEN: Benign to examination. EXTREMITIES: Reveal 1+ to 2+ edema. NEUROLOGIC: She is intact. SUMMARY: It came to my mind as I was seeing her today that she was admitted a year or two or so ago for left renal bed infection and she had a nephrectomy many, many years ago that seemed to resolve with prolonged antibiotics at that point in time. I wonder if this could be part of her current situation again. We will ask Urology and ID for opinions on the same. Continue to follow GI's lead. IV morphine has been added to her regimen for the pain and I am going to add an anti-inflammatory. IMPRESSION: 1. Severe left upper quadrant/flank area pain. 2. Probable pneumonia, being treated for the same. 3. Cardiomyopathy, on dobutamine drip. 4. Diabetes. 5. Chronic kidney disease, stable. PLAN: As outlined above. Celebrex will be added. Morphine will be increased every 2 hours IV. ID and Urology will be asked for opinions on the same and the patient will continue to be monitored, managed and treated appropriately. CRISTY ARANGO MD DR: DARIEL/rob JOB#: [id number] / [id number]
--- NOTE | 2017-10-24 13:24 | PDOC ---
PULMONARY PROGRESS NOTES Subjective PT FEEL LESS SOA LESS COUGH Vitals Vital Signs Date Time Temp Pulse Resp B/P (MAP) Pulse Ox O2 Delivery O2 Flow Rate FiO2 10/24/17 12:20 18 100 Nasal Cannula 2.5 10/24/17 11:20 97.4 101 112/63 (79) 97.4 ROS: No Nausea, No Chest Pain, No Abdominal Pain, No Increase Cough General: Alert, No acute distress Lungs: Crackles Cardiovascular: S1, S2 Abdomen: Soft, Non-tender Neuro Exam: Alert Extremities: Other (EDEMA) Skin: Warm Labs Laboratory Tests Test 10/22/17 17:21 10/22/17 20:27 10/23/17 07:30 10/23/17 11:27 Glucose (Fingerstick) 125 mg/dL (70-99) 244 mg/dL (70-99) 78 mg/dL (70-99) 128 mg/dL (70-99) Test 10/23/17 11:35 10/23/17 16:33 10/23/17 21:04 10/23/17 21:05 Creatinine 3.0 mg/dL (0.6-1.0) Estimated GFR (Cockcroft-Gault) 15.1 Glucose (Fingerstick) 84 mg/dL (70-99) 83 mg/dL (70-99) Random Vancomycin Level 14.0 mcg/mL Test 10/23/17 22:07 10/24/17 07:44 10/24/17 11:30 Glucose (Fingerstick) 113 mg/dL (70-99) 155 mg/dL (70-99) 153 mg/dL (70-99) Laboratory Tests Test 10/23/17 16:33 10/23/17 21:04 10/23/17 21:05 10/23/17 22:07 Glucose (Fingerstick) 84 mg/dL (70-99) 83 mg/dL (70-99) 113 mg/dL (70-99) Random Vancomycin Level 14.0 mcg/mL Test 10/24/17 07:44 10/24/17 11:30 Glucose (Fingerstick) 155 mg/dL (70-99) 153 mg/dL (70-99) Medications Active Scripts Medications Dose Route/Sig Max Daily Dose Days Date Category Dose Instructions Alprazolam 0.25 Mg Tablet 1 Tab PO TID 10/21/17 Reported [dobutamine] 12.1 Ml IV DAILY PRN 10/21/17 Reported Zinc-220 (Zinc Sulfate) 220 Mg Capsule 220 Mg PO DAILY 08/29/17 Reported Vitamin C (Ascorbate Calcium) 500 Mg Tablet 500 Mg PO DAILY 08/29/17 Reported Multivitamins (Multivitamin) 1 Each Tablet 1 Tab PO DAILY 08/29/17 Reported Mucinex (Guaifenesin) 600 Mg Tablet.er 600 Mg PO PRN Q12HR PRN 08/29/17 Reported Albuterol Sulfate Conc Neb Soln (Albuterol Sulfate) 2.5 Mg/0.5 Ml Vial.neb 2.5 Mg NEB QID 08/29/17 Reported Potassium Chloride 20 Meq Tablet.er 20 Meq PO DAILY 08/05/17 Reported Bumetanide 1 Mg Tablet 1 Tab PO BID 08/05/17 Reported Humalog (Insulin Lispro) 100 Unit/1 Ml Insuln.pen 4 Units SQ TIDAC 03/05/17 Reported Lantus Solostar (Insulin Glargine,Hum.rec.anlog) 100 Unit/1 Ml Insuln.pen 24 Units SQ HS 03/05/17 Reported Atorvastatin Calcium 40 Mg Tablet 40 Mg PO HS 03/05/17 Reported Amiodarone Hcl 200 Mg Tablet 1 Tab PO DAILY 06/27/16 Reported Oxycodone Hcl 30 Mg Tablet 1 Tab PO Q6HRS PRN 11/28/15 Reported Synthroid (Levothyroxine Sodium) 75 Mcg Tablet 75 Mcg PO DAILY07 30 08/21/15 Rx Metoprolol Tartrate 25 Mg Tablet 25 Mg PO BID 07/22/13 Reported next dose tonight 12-14-15 at 9:00 pm Impression . 1. Acute on chronic respiratory failure. 2. Acute on chronic systolic and diastolic heart failure. 3. Abnormal x-ray compatible with congestive heart failure and pneumonia, suspect gram-negative, possibly gram-positive. 4. Type 2 diabetes. 5. Hypertension. 6. Cardiomyopathy with previous ejection fraction of 40-45%. 7. Acute on chronic kidney disease. 8. Protein malnutrition present upon admission. Plan . PT DOES NOT FEEL ANY BETTER WILL CONTINUE CURRENT RX NEEDS MORE TIME TO IMPROVE D/W RN 1. Clinical suspicion is very high for acute on chronic heart failure, difficult to rule out pneumonia, with that being said we will proceed with treating for gram-positive and gram-negative pneumonia making further recommendation depending on the patient's clinical response. 2. Continue home medications. 3. Diurese and monitor BUN and creatinine: 4. Consult to Cardiology already performed. 5. PT, OT. 6. Consult dietary for nutritional support. ROBBI LYN MD Oct 24, 2017 13:24
--- NOTE | 2017-10-24 13:33 | PDOC2 ---
UROLOGY CONSULT Date of Admission DATE: 10/24/17 TIME: 13:27 Reason for Consult: left flank pain Chief Complaint as above Source: Chart review, Patient Left flank pain for 2-3 days, no radiation, no gh, not renal colic. No allevating or worsening events. No prior stones. NCCT with punctate RUP calc. No hydro, no obstruction. UA wnl 8.29.18 ROS ROS: RESPIRATORY: Shortness of breath denies. Cough denies. UROLOGY: Denies blood in urine. Denies difficulty urinating Past Surgical History: CABG, , Other (left simple nephrectomy) Current Medications Current Medications Morphine Sulfate (Morphine Sulfate) 4 mg 1X ONCE IV ; Start 10/21/17 at 20:00; Stop 10/21/17 at 20:01; Status DC Furosemide (Lasix) 40 mg 1X ONCE IVP ; Start 10/21/17 at 20:00; Stop 10/21/17 at 20:01; Status DC Piperacillin Sod/ Tazobactam Sod (Zosyn Per Pharmacy) 1 each PRN DAILY PRN MC SEE COMMENTS; Start 10/21/17 at 19:30 Albuterol Sulfate (Ventolin Neb Soln) 2.5 mg 1X ONCE NEB Last administered on 10/21/17at 20:00; Start 10/21/17 at 20:00; Stop 10/21/17 at 20:04; Status DC Piperacillin Sod/ Tazobactam Sod 2.25 gm/Sodium Chloride 50 ml @ 100 mls/hr Q8HRS IV Last administered on 10/24/17at 06:11; Start 10/21/17 at 20:00 Vancomycin HCl (Vanco Per Pharmacy) 1 each PRN DAILY PRN MC SEE COMMENTS Last administered on 10/24/17at 01:02; Start 10/21/17 at 20:00 Vancomycin HCl 1.25 gm/Sodium Chloride 250 ml @ 166.667 mls/hr 1X ONCE IV Last administered on 10/21/17at 21:00; Start 10/21/17 at 21:00; Stop 10/21/17 at 22:29; Status DC Vancomycin HCl 1.25 gm/Sodium Chloride 250 ml @ 167 mls/hr Q48H IV ; Start at 22:00; Stop 10/23/17 at 22:00; Status DC Vancomycin HCl (Vancomycin Random Level) 1 each 1X ONCE MC Last administered on 10/23/17 21:00; Start 10/23/17 at 21:00; Stop 10/23/17 at 21:01; Status DC Amiodarone HCl (Cordarone) 200 mg DAILY PO Last administered on 10/24/17 08:24 ; Start 10/22/17 at 09:00 Atorvastatin Calcium (Lipitor) 40 mg HS PO Last administered on 10/23/17at 20:53 ; Start 10/21/17 at 21:30 Bumetanide (Bumex) 1 mg BID94 PO Last administered on 10/24/17 08:23; Start at 09:00 Guaifenesin (Mucinex) 600 mg PRN Q12HR PRN PO COUGH; Start 10/21/17 at 21:15 Insulin Glargine (Lantus) 24 units HS SQ Last administered on 10/23/17 21:00; Start 10/21/17 at 21:30 Insulin Human Lispro (HumaLOG) 4 units TIDAC SQ Last administered on 10/24/17 12:24; Start 10/22/17 at 07:30 Levothyroxine Sodium (Synthroid) 75 mcg DAILY07 PO Last administered on 06:11; Start 10/22/17 at 07:00 Metoprolol Tartrate (Lopressor) 25 mg BID PO Last administered on 10/24/17 08: 23; Start 10/21/17 at 21:30 Oxycodone HCl (Roxicodone) 30 mg PRN QID PRN PO PAIN Last administered on 12:19; Start 10/21/17 at 21:15 Zinc Sulfate (Orazinc) 220 mg DAILY PO Last administered on 10/24/17 08:24; Start 10/22/17 at 09:00 Non-Formulary Medication (Albuterol Sulfate (Albuterol Sulfate Conc Neb Soln)) 2.5 mg QID NEB ; Start 10/22/17 at 09:00; Status UNV Ascorbic Acid (Vitamin C) 500 mg DAILY PO Last administered on 10/24/17 08:23; Start 10/22/17 at 09:00 Multivitamins (Thera M Plus) 1 tab DAILY PO Last administered on 10/24/17 08:23 ; Start 10/22/17 at 09:00 Potassium Chloride (Klor-Con) 20 meq DAILY PO Last administered on 10/24/17 08: 23; Start 10/22/17 at 09:00 Albuterol Sulfate (Ventolin Neb Soln) 2.5 mg RTQID NEB Last administered on 10/24at 11:01; Start 10/22/17 at 08:00 Non-Formulary Medication ([dobutamine] ) 12.1 ml PRN DAILY PRN IV ELEVATED BP, SEE COMMENTS; Start 10/21/17 at 21:30; Stop 10/22/17 at 12:00; Status DC Alprazolam (Xanax) 0.25 mg TID PO Last administered on 10/24/17 08:22; Start at 22:00 Magnesium Citrate (Citroma) 296 ml 1X ONCE PO Last administered on 10/22/17at 09:41; Start 10/22/17 at 10:00; Stop 10/22/17 at 10:01; Status DC Dobutamine HCl/ Dextrose 250 ml @ 13.008 mls/ hr CONT PRN IV SEE I/O RECORD Last administered on 10/23/17at 22:49; Start 10/22/17 at 09:30 Lactobacillus Rhamnosus (Culturelle) 1 cap BID PO Last administered on 08:23; Start 10/22/17 at 21:00 Alteplase, Recombinant (Cathflo) 2 mg 1X ONCE INT CAT Last administered on at 09:32; Start 10/23/17 at 09:30; Stop 10/23/17 at 09:31; Status DC Lubiprostone (Amitiza) 8 mcg BIDWMEALS PO Last administered on 10/24/17 08:22; Start 10/23/17 at 17:00 Bisacodyl (Dulcolax Tab) 10 mg 1X ONCE PO Last administered on 10/23/17at 14:34 ; Start 10/23/17 at 13:00; Stop 10/23/17 at 13:01; Status DC Vancomycin HCl 1 gm/Sodium Chloride 250 ml @ 250 mls/hr Q48H IV Last administered on 10/23/17at 22:49; Start 10/23/17 at 23:00 Morphine Sulfate (Morphine Sulfate) 5 mg PRN Q4HRS PRN IV PAIN SEVERE Last administered on 10/24/17at 07:32; Start 10/24/17 at 07:30; Stop 10/24/17 at 10:16; Status DC Morphine Sulfate (Morphine Sulfate) 5 mg PRN Q2HR PRN IV PAIN SEVERE Last administered on 10/24/17at 12:20; Start 10/24/17 at 10:15 Celecoxib (CeleBREX) 200 mg BID PO Last administered on 10/24/17at 10:56; Start 10/24/17 at 10:30 Active Scripts Active Synthroid (Levothyroxine Sodium) 75 Mcg Tablet 75 Mcg PO DAILY07 30 Days Reported Alprazolam 0.25 Mg Tablet 1 Tab PO TID [dobutamine] 12.1 Ml IV DAILY PRN Zinc-220 (Zinc Sulfate) 220 Mg Capsule 220 Mg PO DAILY Vitamin C (Ascorbate Calcium) 500 Mg Tablet 500 Mg PO DAILY Multivitamins (Multivitamin) 1 Each Tablet 1 Tab PO DAILY Mucinex (Guaifenesin) 600 Mg Tablet.er 600 Mg PO PRN Q12HR PRN Albuterol Sulfate Conc Neb Soln (Albuterol Sulfate) 2.5 Mg/0.5 Ml Vial.neb 2.5 Mg NEB QID Potassium Chloride 20 Meq Tablet.er 20 Meq PO DAILY Bumetanide 1 Mg Tablet 1 Tab PO BID Humalog (Insulin Lispro) 100 Unit/1 Ml Insuln.pen 4 Units SQ TIDAC Lantus Solostar (Insulin Glargine,Hum.rec.anlog) 100 Unit/1 Ml Insuln.pen 24 Units SQ HS Atorvastatin Calcium 40 Mg Tablet 40 Mg PO HS Amiodarone Hcl 200 Mg Tablet 1 Tab PO DAILY Oxycodone Hcl 30 Mg Tablet 1 Tab PO Q6HRS PRN Metoprolol Tartrate 25 Mg Tablet 25 Mg PO BID next dose tonight 12-14-15 at 9:00 pm Allergies: Coded Allergies: Sulfa (Sulfonamide Antibiotics) (Verified Allergy, Intermediate, 08/03/17) Physical Examination PHYSICAL EXAMINATION: GENERAL: Gen. appearance: No acute distress. Mood/affect: Pleasant. HEENT: Head: Normocephalic, atraumatic. Airway Impairment: No. CHEST: Shape and expansion: Normal. Expansion: Normal. SKIN: General: Warm. Color: Good. GENITOURINARY:External genitalia - wnl. NEUROLOGICAL: Mental status: Alert and oriented 3. Language: Normal. VITALS Vital Signs Date Time Temp Pulse Resp B/P (MAP) Pulse Ox O2 Delivery O2 Flow Rate FiO2 10/24/17 12:20 18 100 Nasal Cannula 2.5 10/24/17 11:20 97.4 101 112/63 (79) 97.4 Labs Laboratory Tests Test 10/22/17 17:21 10/22/17 20:27 10/23/17 07:30 10/23/17 11:27 Glucose (Fingerstick) 125 mg/dL (70-99) 244 mg/dL (70-99) 78 mg/dL (70-99) 128 mg/dL (70-99) Test 10/23/17 11:35 10/23/17 16:33 10/23/17 21:04 10/23/17 21:05 Creatinine 3.0 mg/dL (0.6-1.0) Estimated GFR (Cockcroft-Gault) 15.1 Glucose (Fingerstick) 84 mg/dL (70-99) 83 mg/dL (70-99) Random Vancomycin Level 14.0 mcg/mL Test 10/23/17 22:07 10/24/17 07:44 10/24/17 11:30 Glucose (Fingerstick) 113 mg/dL (70-99) 155 mg/dL (70-99) 153 mg/dL (70-99) Laboratory Tests Test 10/23/17 16:33 10/23/17 21:04 10/23/17 21:05 10/23/17 22:07 Glucose (Fingerstick) 84 mg/dL (70-99) 83 mg/dL (70-99) 113 mg/dL (70-99) Random Vancomycin Level 14.0 mcg/mL Test 10/24/17 07:44 10/24/17 11:30 Glucose (Fingerstick) 155 mg/dL (70-99) 153 mg/dL (70-99) Images ct a/p reviewed myself. Assessment/Plan right upper pole stone. 1mm Non obstructing, not contributing to her left side pain. UA wnl. Will sign off. ERIC MANZO MD Oct 24, 2017 13:33
--- NOTE | 2017-10-24 15:32 | PDOC ---
Infectious Disease Note Vital Sign Vital Signs Vital Signs Date Time Temp Pulse Resp B/P (MAP) Pulse Ox O2 Delivery O2 Flow Rate FiO2 10/24/17 13:30 18 100 Nasal Cannula 2.5 10/24/17 11:20 97.4 101 112/63 (79) 97.4 Labs Lab Laboratory Tests Test 10/23/17 16:33 10/23/17 21:04 10/23/17 21:05 10/23/17 22:07 Glucose (Fingerstick) 84 mg/dL (70-99) 83 mg/dL (70-99) 113 mg/dL (70-99) Random Vancomycin Level 14.0 mcg/mL Test 10/24/17 07:44 10/24/17 11:30 Glucose (Fingerstick) 155 mg/dL (70-99) 153 mg/dL (70-99) Micro Microbiology 10/21/17 Blood Culture - Preliminary, Resulted NO GROWTH AFTER 2 DAYS Objective Assessment Bibasilar consolidation, pneumonia cannot be ruled out Cellulitis of left lower extremity [id number] heart failure NYHA class IV, on chronic dobutamine infusion via tunneled PICC (POA) Sulfa allergy - reaction unknown ANDRE on CKD. h/o left nephrectomy Left flank pain w/ a nonobstructing right renal stone. UA neg for infection Amiodarone therapy DM h/o MRSE discitis h/o Klebsiella UTI Plan Plan of Care Given renal function and h/o left nephrectomy would recommend avoiding nephrotoxic agents. Would change vanc to Zyvox. Monitor plt count Continue Zosyn, renal dosing Sputum culture Seen by urology, no urological interventions planned Thank you [id number] Pt seen and examined. Chart reviewed in detail. Case discussed with CAREER SERVICES OFFICER. Agree with above plan ANDRE MONTGOMERY APRN Oct 24, 2017 15:32 NOE DELGADO MD Oct 24, 2017 21:31
[2017-10-24] MEDS: ATORVASTATIN CALCIUM 40 MG TABLET. PO SCH (20:54)
[2017-10-24] MEDS: INSULIN GLARGINE 300 UNITS/3 ML INSULN.PEN. SQ SCH (20:55)
[2017-10-25 03:40] VITALS: BP 94/52
[2017-10-25] MEDS: MORPHINE SULFATE 10 MG/ML VIAL. IV PRN ×6 (04:19→22:28)
[2017-10-25 05:53] LABS: ALBUMIN/GLOBULIN RATIO 0.4 (1.0-1.7); CALCIUM 8.1 mg/dL (8.5-10.1); CREATININE 3.2 mg/dL (0.6-1.0); TOTAL BILIRUBIN 0.8 mg/dL (0.2-1.0); TOTAL PROTEIN 7.7 g/dL (6.4-8.2)
[2017-10-25 05:55] LABS: BASO % 1 % (0-3); EOS # 0.5 x10^3/uL (0.0-0.7); EOS % 12 % (0-3); HEMATOCRIT 25.9 % (36.0-47.0); HEMOGLOBIN 8.4 g/dL (12.0-15.5); LYMPH # 0.7 x10^3/uL (1.0-4.8); LYMPH % 17 % (24-48); MEAN CORPUSCULAR HEMOGLOBIN 33 pg (25-35); MEAN CORPUSCULAR HGB CONC 32 g/dL (31-37); MEAN CORPUSCULAR VOLUME 102 fL (79-100); MONO # 0.3 x10^3/uL (0.0-1.1); MONO % 8 % (0-9); NEUT # 2.6 x10^3uL (1.8-7.7); NEUT % 62 % (31-73); PLATELET COUNT 94 x10^3/uL (140-400); RED BLOOD COUNT 2.54 x10^6/uL (3.50-5.40); WHITE BLOOD COUNT 4.2 x10^3/uL (4.0-11.0)
[2017-10-25 05:56] LABS: POTASSIUM 5.2 mmol/L (3.5-5.1)
[2017-10-25] MEDS: PIPERACILLIN/TAZOBACTAM 2.25 GM in IV NORMAL SALINE 50ML 50 ML IV SCH ×3 (06:04→21:01)
[2017-10-25] MEDS: LEVOTHYROXINE 75 MCG TABLET PO SCH (06:44)
[2017-10-25] MEDS: ALBUTEROL SULFATE 2.5 MG/3 ML NEBU. NEB SCH ×4 (07:09→19:40)
--- NOTE | 2017-10-25 07:13 | CONS ---
DATE OF CONSULTATION: 10/24/2017 REFERRING PHYSICIAN: Dr. Bautista. REASON FOR CONSULTATION: Left flank pain with history of renal bed infection. HISTORY OF PRESENT ILLNESS: This patient is a 76-year-old female who was sent from home with complaints of localized left upper quadrant abdominal pain, sharp in nature for about [address] abdomen/pelvis showed bilateral effusions, cholelithiasis and infiltrate along with atelectasis. She was dosed with vancomycin and Zosyn for coverage of healthcare-acquired pneumonia. The patient has had multiple admissions this year for heart related issues, MRSE diskitis and UTI. She is followed by [facility] heart failure clinic for class 4 heart failure and is on a chronic dobutamine drip via a tunneled PICC line. She lives at home with her sister and is on hospice care. The patient denies fevers, chills or sweats. She denies worsening shortness of air. She has occasional nonproductive cough. She denies nausea, vomiting, diarrhea or constipation. She denies dysuria or increased urinary frequency. She is not ambulatory. 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 FAMILY HISTORY: Positive for hypertension. SOCIAL HISTORY: The patient lives at home with her sister and is followed by hospice care. Former smoker. ALLERGIES: SULFA. SHE DOES NOT RECALL WHAT TYPE OF REACTION. MEDICATIONS: Vancomycin, Zosyn, amiodarone and dobutamine drip. Other medications are available and have been reviewed on the APR. REVIEW OF SYSTEMS: Per HPI, otherwise all other review of systems are negative. PHYSICAL EXAMINATION: GENERAL: The patient is propped up in bed, tired appearance, in no apparent distress. VITAL SIGNS: Temperature is 97.4, blood pressure 112/63, heart rate 101, respiratory rate 18, pulse oximetry 100% on 2.5 liters oxygen via nasal cannula. BMI 36. HEENT: Normal conjunctivae. Oral mucosa is pink and moist. Edentulous with dentures in place. LUNGS: Diminished aeration in the bases. HEART: S1 and S2. ABDOMEN: Obese. Bowel sounds active. Soft and nontender. EXTREMITIES: 1+ pitting edema. No cyanosis. Left lower extremity is erythematous, warm and mildly tender with a small anterior scab noted. SKIN: Warm without rash. NEUROLOGIC: Alert and oriented x 3. LINES: Right-sided PICC (POA) without signs of any complications. LABORATORY DATA: WBC 4.0, hemoglobin 8.6 and platelet count 96,000. Creatinine 3.0, BUN 37, sodium 134, potassium 4.3, total bilirubin 0.9, AST 26 and ALT 16. Troponin is 0.35. BNP 6234. Lipase 50. Albumin 2.1. Glucose 153. Random vancomycin 14.0. Urinalysis unremarkable for infection. Blood cultures from 10/21 pending. Abdomen/pelvis CT per HPI. Punctate nonobstructive right renal stone noted. Recent chest x-ray shows small bilateral pleural effusions, right more than left with underlying bibasilar patchy opacities, which may be from subsegmental atelectasis or pneumonia. Findings of mild interstitial pulmonary edema. IMPRESSION: 1. Bibasilar consolidation, pneumonia cannot be ruled out. 2. Cellulitis of the left lower extremity. 3. Acute on chronic heart failure, NYHA class 4 on chronic dobutamine infusion via tunneled PICC. 4. SULFA ALLERGY, REACTION UNKNOWN. 5. Acute kidney injury on chronic kidney disease with a history of a left nephrectomy. 6. Left flank pain with a nonobstructing right renal stone. Urinalysis is negative for infection. 7. Amiodarone therapy. 8. Diabetes mellitus type 2. PLAN: Again the patient's renal function and history of left nephrectomy, I would recommend avoiding nephrotoxic agents. We will change the vancomycin to Zyvox. Continue the Zosyn renal dosing. Monitor platelet count closely. Obtain sputum for culture. Supportive care. The patient was seen by Urology. No urological intervention recommended. Thank you Dr. Bautista for asking us to participate in this patient's care. Should you have further questions or concerns, please call. NOE DELGADO MD DR: Orly JOB#: [id number] / [id number]
[2017-10-25] MEDS: INSULIN LISPRO 300 UNITS/3 ML INSULN.PEN. SQ SCH ×3 (07:30→16:30)
[2017-10-25 07:55] VITALS: BP 100/57
[2017-10-25] MEDS: LACTOBACILLUS RHAMNOSUS GG 1 CAPSULE. PO SCH ×2 (08:31→20:58)
[2017-10-25] MEDS: ZINC SULFATE 220 MG CAPSULE. PO SCH (08:31)
[2017-10-25] MEDS: BUMETANIDE 1 MG TABLET. PO SCH ×2 (08:31→16:00)
[2017-10-25] MEDS: CELECOXIB 100 MG CAPSULE. PO SCH (08:32)
[2017-10-25] MEDS: AMIODARONE HCL 200 MG TABLET. PO SCH (08:32)
[2017-10-25] MEDS: METOPROLOL TART IMMED RELEASE 25 MG TABLET. PO SCH ×2 (08:33→20:59)
[2017-10-25] MEDS: MULTIVITAMIN with MINERAL TABLET. PO SCH (08:33)
[2017-10-25] MEDS: ASCORBIC ACID 500 MG TABLET PO SCH (08:33)
[2017-10-25] MEDS: LUBIPROSTONE 8 MCG CAPSULE PO SCH ×2 (08:33→17:36)
[2017-10-25] MEDS: POTASSIUM CHLORIDE 20 MEQ TABLET.ER. PO SCH (08:33)
[2017-10-25] MEDS: ALPRAZolam 0.25 MG TABLET PO SCH ×3 (08:33→20:58)
--- NOTE | 2017-10-25 09:52 | PDOC ---
Infectious Disease Note Subjective Subjective Uncomfortable, requesting some air be let out of mattress c/o persistent left flank pain No F/C/N/V/D/SOA/cough/CP ROS ROS per HPI otherwise neg Vital Sign Vital Signs Vital Signs Date Time Temp Pulse Resp B/P (MAP) Pulse Ox O2 Delivery O2 Flow Rate FiO2 10/25/17 09:37 97 Nasal Cannula 2.5 10/25/17 08:40 18 10/25/17 08:33 105 100/57 10/25/17 07:55 97.9 97.9 Physical Exam PHYSICAL EXAM GENERAL: Propped up in bed, alert, NAD HEENT: Normal conjunctivae. Oral mucosa is pink and moist. Edentulous/ dentures LUNGS: Diminished aeration in the bases. HEART: S1 and S2. ABDOMEN: Obese. Bowel sounds active. Soft and nontender. EXTREMITIES: Generalized edema. No cyanosis. Left lower extremity less red; small anterior scab noted. SKIN: Warm without rash. NEUROLOGIC: Alert and oriented x 3. Right-sided PICC (POA) without signs of any complications. Labs Lab Laboratory Tests Test 10/24/17 11:30 10/24/17 16:59 10/24/17 20:59 10/25/17 05:00 Glucose (Fingerstick) 153 mg/dL (70-99) 106 mg/dL (70-99) 121 mg/dL (70-99) White Blood Count 4.2 x10^3/uL (4.0-11.0) Red Blood Count 2.54 x10^6/uL (3.50-5.40) Hemoglobin 8.4 g/dL (12.0-15.5) Hematocrit 25.9 % (36.0-47.0) Mean Corpuscular Volume 102 fL (79-100) Mean Corpuscular Hemoglobin 33 pg (25-35) Mean Corpuscular Hemoglobin Concent 32 g/dL (31-37) Red Cell Distribution Width 19.0 % (11.5-14.5) Platelet Count 94 x10^3/uL (140-400) Neutrophils (%) (Auto) 62 % (31-73) Lymphocytes (%) (Auto) 17 % (24-48) Monocytes (%) (Auto) 8 % (0-9) Eosinophils (%) (Auto) 12 % (0-3) Basophils (%) (Auto) 1 % (0-3) Neutrophils # (Auto) 2.6 x10^3uL (1.8-7.7) Lymphocytes # (Auto) 0.7 x10^3/uL (1.0-4.8) Monocytes # (Auto) 0.3 x10^3/uL (0.0-1.1) Eosinophils # (Auto) 0.5 x10^3/uL (0.0-0.7) Basophils # (Auto) 0.0 x10^3/uL (0.0-0.2) Sodium Level 133 mmol/L (136-145) Potassium Level 5.2 mmol/L (3.5-5.1) Chloride Level 100 mmol/L (98-107) Carbon Dioxide Level 27 mmol/L (21-32) Anion Gap 6 (6-14) Blood Urea Nitrogen 47 mg/dL (7-20) Creatinine 3.2 mg/dL (0.6-1.0) Estimated GFR (Cockcroft-Gault) 14.0 BUN/Creatinine Ratio 15 (6-20) Glucose Level 110 mg/dL (70-99) Calcium Level 8.1 mg/dL (8.5-10.1) Total Bilirubin 0.8 mg/dL (0.2-1.0) Aspartate Amino Transf (AST/SGOT) 21 U/L (15-37) Alanine Aminotransferase (ALT/SGPT) 14 U/L (14-59) Alkaline Phosphatase 156 U/L (46-116) Total Protein 7.7 g/dL (6.4-8.2) Albumin 2.0 g/dL (3.4-5.0) Albumin/Globulin Ratio 0.4 (1.0-1.7) Test 10/25/17 08:08 Glucose (Fingerstick) 126 mg/dL (70-99) Micro Microbiology 10/21/17 Blood Culture - Preliminary, Resulted NO GROWTH AFTER 2 DAYS Objective Assessment Bibasilar consolidation, pneumonia cannot be ruled out Cellulitis of left lower extremity - better [id number] heart failure NYHA class IV, on chronic dobutamine infusion via tunneled PICC (POA) Sulfa allergy - reaction unknown ANDRE on CKD. h/o left nephrectomy Left flank pain w/ a nonobstructing right renal stone. UA neg for infection Amiodarone therapy DM h/o MRSE discitis h/o Klebsiella UTI Plan Plan of Care Given renal function and h/o left nephrectomy would recommend avoiding nephrotoxic agents. Continue Zyvox and Zosyn, renal dosing Trough 14.0 Sputum culture not collected Seen by urology, no urological interventions planned Consult nephrology Pt seen and examined. Chart reviewed in detail. Case discussed with EQUESTRIAN TRAINER. Agree with above plan. ANDRE MONTGOMERY APRN Oct 25, 2017 09:52 NOE DELGADO MD Oct 25, 2017 19:32
[2017-10-25] MEDS: SIMETHICONE 80 MG TAB.CHEW PO PRN (10:41)
[2017-10-25 10:43] VITALS: BP 109/69
--- NOTE | 2017-10-25 11:28 | PDOC2 ---
CONSULT Date of Consult Date of Consult DATE: 10/25/17 TIME: 11:21 Reason for Consult Reason for Consult: LUQ, left flank pain Referring Physician Referring Physician: Michele Identification/Chief Complaint Chief Complaint LUQ, left flank pain Source Source: Chart review, Patient History of Present Illness Reason for Visit: 76 yo F with few day hx of LUQ, flank pain. Severe in nature. Pt is on hospice for end stage CHF. Past Medical History Cardiovascular: AFIB, CAD (with prior CABG), CHF (acute/chronic systolic - LVEF 40% on TTE 07/2017), HTN, Hyperlipidemia, Other (CMP) Pulmonary: COPD CENTRAL NERVOUS SYSTEM: Other GI: Constipation Heme/Onc: No pertinent hx Hepatobiliary: No pertinent hx Psych: No pertinent hx Musculoskeletal: Osteoarthritis Rheumatologic: No pertinent hx Infectious disease: No pertinent hx Renal/: Other Endocrine: Diabetes, Hypothyroidism Past Surgical History Past Surgical History: CABG, , Other (left simple nephrectomy) Family History Family History: Family History Unknown Social History 1 pack per day ALCOHOL: none Lives: Jail Domestic Violence: Neg Current Problem List Problem List Problems Medical Problems: (1) HCAP (healthcare-associated pneumonia) Status: Acute Current Medications Current Medications Current Medications Morphine Sulfate (Morphine Sulfate) 4 mg 1X ONCE IV ; Start 10/21/17 at 20:00; Stop 10/21/17 at 20:01; Status DC Furosemide (Lasix) 40 mg 1X ONCE IVP ; Start 10/21/17 at 20:00; Stop 10/21/17 at 20:01; Status DC Piperacillin Sod/ Tazobactam Sod (Zosyn Per Pharmacy) 1 each PRN DAILY PRN MC SEE COMMENTS; Start 10/21/17 at 19:30 Albuterol Sulfate (Ventolin Neb Soln) 2.5 mg 1X ONCE NEB Last administered on 10/21/17at 20:00; Start 10/21/17 at 20:00; Stop 10/21/17 at 20:04; Status DC Piperacillin Sod/ Tazobactam Sod 2.25 gm/Sodium Chloride 50 ml @ 100 mls/hr Q8HRS IV Last administered on 10/25/17at 06:04; Start 10/21/17 at 20:00 Vancomycin HCl (Vanco Per Pharmacy) 1 each PRN DAILY PRN MC SEE COMMENTS Last administered on 10/24/17at 01:02; Start 10/21/17 at 20:00; Stop 10/24/17 at 14:50; Status DC Vancomycin HCl 1.25 gm/Sodium Chloride 250 ml @ 166.667 mls/hr 1X ONCE IV Last administered on 10/21/17at 21:00; Start 10/21/17 at 21:00; Stop 10/21/17 at 22:29; Status DC Vancomycin HCl 1.25 gm/Sodium Chloride 250 ml @ 167 mls/hr Q48H IV ; Start at 22:00; Stop 10/23/17 at 22:00; Status DC Vancomycin HCl (Vancomycin Random Level) 1 each 1X ONCE MC Last administered on 10/23/17at 21:00; Start 10/23/17 at 21:00; Stop 10/23/17 at 21:01; Status DC Amiodarone HCl (Cordarone) 200 mg DAILY PO Last administered on 10/25/17at 08:32 ; Start 10/22/17 at 09:00 Atorvastatin Calcium (Lipitor) 40 mg HS PO Last administered on 10/24/17at 20:54 ; Start 10/21/17 at 21:30 Bumetanide (Bumex) 1 mg BID94 PO Last administered on 10/25/17 08:31; Start at 09:00 Guaifenesin (Mucinex) 600 mg PRN Q12HR PRN PO COUGH; Start 10/21/17 at 21:15 Insulin Glargine (Lantus) 24 units HS SQ Last administered on 10/23/17at 21:00; Start 10/21/17 at 21:30 Insulin Human Lispro (HumaLOG) 4 units TIDAC SQ Last administered on 10/24/17at 12:24; Start 10/22/17 at 07:30 Levothyroxine Sodium (Synthroid) 75 mcg DAILY07 PO Last administered on 06:44; Start 10/22/17 at 07:00 Metoprolol Tartrate (Lopressor) 25 mg BID PO Last administered on 10/25/17 08: 33; Start 10/21/17 at 21:30 Oxycodone HCl (Roxicodone) 30 mg PRN QID PRN PO PAIN Last administered on 09:37; Start 10/21/17 at 21:15 Zinc Sulfate (Orazinc) 220 mg DAILY PO Last administered on 10/25/17 08:31; Start 10/22/17 at 09:00 Non-Formulary Medication (Albuterol Sulfate (Albuterol Sulfate Conc Neb Soln)) 2.5 mg QID NEB ; Start 10/22/17 at 09:00; Status UNV Ascorbic Acid (Vitamin C) 500 mg DAILY PO Last administered on 10/25/17 08:33; Start 10/22/17 at 09:00 Multivitamins (Thera M Plus) 1 tab DAILY PO Last administered on 10/25/17 08:33 ; Start 10/22/17 at 09:00 Potassium Chloride (Klor-Con) 20 meq DAILY PO Last administered on 10/24/17 08: 23; Start 10/22/17 at 09:00 Albuterol Sulfate (Ventolin Neb Soln) 2.5 mg RTQID NEB Last administered on 10/25at 07:09; Start 10/22/17 at 08:00 Non-Formulary Medication ([dobutamine] ) 12.1 ml PRN DAILY PRN IV ELEVATED BP, SEE COMMENTS; Start 10/21/17 at 21:30; Stop 10/22/17 at 12:00; Status DC Alprazolam (Xanax) 0.25 mg TID PO Last administered on 10/25/17 08:33; Start at 22:00 Magnesium Citrate (Citroma) 296 ml 1X ONCE PO Last administered on 10/22/17at 09:41; Start 10/22/17 at 10:00; Stop 10/22/17 at 10:01; Status DC Dobutamine HCl/ Dextrose 250 ml @ 13.008 mls/ hr CONT PRN IV SEE I/O RECORD Last administered on 10/24/17 18:31; Start 10/22/17 at 09:30 Lactobacillus Rhamnosus (Culturelle) 1 cap BID PO Last administered on 08:31; Start 10/22/17 at 21:00 Alteplase, Recombinant (Cathflo) 2 mg 1X ONCE INT CAT Last administered on at 09:32; Start 10/23/17 at 09:30; Stop 10/23/17 at 09:31; Status DC Lubiprostone (Amitiza) 8 mcg BIDWMEALS PO Last administered on 10/25/17at 08:33; Start 10/23/17 at 17:00 Bisacodyl (Dulcolax Tab) 10 mg 1X ONCE PO Last administered on 10/23/17at 14:34 ; Start 10/23/17 at 13:00; Stop 10/23/17 at 13:01; Status DC Vancomycin HCl 1 gm/Sodium Chloride 250 ml @ 250 mls/hr Q48H IV Last administered on 10/23/17at 22:49; Start 10/23/17 at 23:00; Stop 10/24/17 at 14:50 ; Status DC Morphine Sulfate (Morphine Sulfate) 5 mg PRN Q4HRS PRN IV PAIN SEVERE Last administered on 10/24/17at 07:32; Start 10/24/17 at 07:30; Stop 10/24/17 at 10:16; Status DC Morphine Sulfate (Morphine Sulfate) 5 mg PRN Q2HR PRN IV PAIN SEVERE Last administered on 10/25/17at 09:37; Start 10/24/17 at 10:15; Stop 10/25/17 at 10:13; Status DC Celecoxib (CeleBREX) 200 mg BID PO Last administered on 10/25/17at 08:32; Start 10/24/17 at 10:30; Stop 10/25/17 at 10:44; Status DC Morphine Sulfate (Morphine Sulfate) 10 mg PRN Q2HR PRN IV PAIN SEVERE Last administered on 10/25/17at 10:42; Start 10/25/17 at 10:15 Simethicone (Gas-X) 80 mg PRN AFTMEALHC PRN PO GAS / BLOATING Last administered on 10/25/17at 10:41; Start 10/25/17 at 10:15 Active Scripts Active Synthroid (Levothyroxine Sodium) 75 Mcg Tablet 75 Mcg PO DAILY07 30 Days Reported Alprazolam 0.25 Mg Tablet 1 Tab PO TID [dobutamine] 12.1 Ml IV DAILY PRN Zinc-220 (Zinc Sulfate) 220 Mg Capsule 220 Mg PO DAILY Vitamin C (Ascorbate Calcium) 500 Mg Tablet 500 Mg PO DAILY Multivitamins (Multivitamin) 1 Each Tablet 1 Tab PO DAILY Mucinex (Guaifenesin) 600 Mg Tablet.er 600 Mg PO PRN Q12HR PRN Albuterol Sulfate Conc Neb Soln (Albuterol Sulfate) 2.5 Mg/0.5 Ml Vial.neb 2.5 Mg NEB QID Potassium Chloride 20 Meq Tablet.er 20 Meq PO DAILY Bumetanide 1 Mg Tablet 1 Tab PO BID Humalog (Insulin Lispro) 100 Unit/1 Ml Insuln.pen 4 Units SQ TIDAC Lantus Solostar (Insulin Glargine,Hum.rec.anlog) 100 Unit/1 Ml Insuln.pen 24 Units SQ HS Atorvastatin Calcium 40 Mg Tablet 40 Mg PO HS Amiodarone Hcl 200 Mg Tablet 1 Tab PO DAILY Oxycodone Hcl 30 Mg Tablet 1 Tab PO Q6HRS PRN Metoprolol Tartrate 25 Mg Tablet 25 Mg PO BID next dose tonight 12-14-15 at 9:00 pm Allergies Allergies: Coded Allergies: Sulfa (Sulfonamide Antibiotics) (Verified Allergy, Intermediate, 08/03/17) ROS Respiratory: YES: Cough, Shortness of breath Cardiovascular: yes Edema Gastrointestinal: Yes Abdominal Pain Physical Exam General: Alert, mild distress HEENT: Atraumatic, Other (somewhat dysconjugate gaze, appears fatigue, and poor historian) Abdomen: Soft, Other (obese, significant abd wall edema, mild TTP LUQ, flank, no RUQ TTP) Extremities: Other (edema) Vitals VITALS Vital Signs Date Time Temp Pulse Resp B/P (MAP) Pulse Ox O2 Delivery O2 Flow Rate FiO2 10/25/17 10:43 97.4 94 21 109/69 (82) 100 Nasal Cannula 2.5 97.4 Labs Labs Laboratory Tests Test 10/23/17 11:27 10/23/17 11:35 10/23/17 16:33 10/23/17 21:04 Glucose (Fingerstick) 128 mg/dL (70-99) 84 mg/dL (70-99) 83 mg/dL (70-99) Creatinine 3.0 mg/dL (0.6-1.0) Estimated GFR (Cockcroft-Gault) 15.1 Test 10/23/17 21:05 10/23/17 22:07 10/24/17 07:44 10/24/17 11:30 Random Vancomycin Level 14.0 mcg/mL Glucose (Fingerstick) 113 mg/dL (70-99) 155 mg/dL (70-99) 153 mg/dL (70-99) Test 10/24/17 16:59 10/24/17 20:59 10/25/17 05:00 10/25/17 08:08 Glucose (Fingerstick) 106 mg/dL (70-99) 121 mg/dL (70-99) 126 mg/dL (70-99) White Blood Count 4.2 x10^3/uL (4.0-11.0) Red Blood Count 2.54 x10^6/uL (3.50-5.40) Hemoglobin 8.4 g/dL (12.0-15.5) Hematocrit 25.9 % (36.0-47.0) Mean Corpuscular Volume 102 fL (79-100) Mean Corpuscular Hemoglobin 33 pg (25-35) Mean Corpuscular Hemoglobin Concent 32 g/dL (31-37) Red Cell Distribution Width 19.0 % (11.5-14.5) Platelet Count 94 x10^3/uL (140-400) Neutrophils (%) (Auto) 62 % (31-73) Lymphocytes (%) (Auto) 17 % (24-48) Monocytes (%) (Auto) 8 % (0-9) Eosinophils (%) (Auto) 12 % (0-3) Basophils (%) (Auto) 1 % (0-3) Neutrophils # (Auto) 2.6 x10^3uL (1.8-7.7) Lymphocytes # (Auto) 0.7 x10^3/uL (1.0-4.8) Monocytes # (Auto) 0.3 x10^3/uL (0.0-1.1) Eosinophils # (Auto) 0.5 x10^3/uL (0.0-0.7) Basophils # (Auto) 0.0 x10^3/uL (0.0-0.2) Sodium Level 133 mmol/L (136-145) Potassium Level 5.2 mmol/L (3.5-5.1) Chloride Level 100 mmol/L (98-107) Carbon Dioxide Level 27 mmol/L (21-32) Anion Gap 6 (6-14) Blood Urea Nitrogen 47 mg/dL (7-20) Creatinine 3.2 mg/dL (0.6-1.0) Estimated GFR (Cockcroft-Gault) 14.0 BUN/Creatinine Ratio 15 (6-20) Glucose Level 110 mg/dL (70-99) Calcium Level 8.1 mg/dL (8.5-10.1) Total Bilirubin 0.8 mg/dL (0.2-1.0) Aspartate Amino Transf (AST/SGOT) 21 U/L (15-37) Alanine Aminotransferase (ALT/SGPT) 14 U/L (14-59) Alkaline Phosphatase 156 U/L (46-116) Total Protein 7.7 g/dL (6.4-8.2) Albumin 2.0 g/dL (3.4-5.0) Albumin/Globulin Ratio 0.4 (1.0-1.7) Laboratory Tests Test 10/24/17 11:30 10/24/17 16:59 10/24/17 20:59 10/25/17 05:00 Glucose (Fingerstick) 153 mg/dL (70-99) 106 mg/dL (70-99) 121 mg/dL (70-99) White Blood Count 4.2 x10^3/uL (4.0-11.0) Red Blood Count 2.54 x10^6/uL (3.50-5.40) Hemoglobin 8.4 g/dL (12.0-15.5) Hematocrit 25.9 % (36.0-47.0) Mean Corpuscular Volume 102 fL (79-100) Mean Corpuscular Hemoglobin 33 pg (25-35) Mean Corpuscular Hemoglobin Concent 32 g/dL (31-37) Red Cell Distribution Width 19.0 % (11.5-14.5) Platelet Count 94 x10^3/uL (140-400) Neutrophils (%) (Auto) 62 % (31-73) Lymphocytes (%) (Auto) 17 % (24-48) Monocytes (%) (Auto) 8 % (0-9) Eosinophils (%) (Auto) 12 % (0-3) Basophils (%) (Auto) 1 % (0-3) Neutrophils # (Auto) 2.6 x10^3uL (1.8-7.7) Lymphocytes # (Auto) 0.7 x10^3/uL (1.0-4.8) Monocytes # (Auto) 0.3 x10^3/uL (0.0-1.1) Eosinophils # (Auto) 0.5 x10^3/uL (0.0-0.7) Basophils # (Auto) 0.0 x10^3/uL (0.0-0.2) Sodium Level 133 mmol/L (136-145) Potassium Level 5.2 mmol/L (3.5-5.1) Chloride Level 100 mmol/L (98-107) Carbon Dioxide Level 27 mmol/L (21-32) Anion Gap 6 (6-14) Blood Urea Nitrogen 47 mg/dL (7-20) Creatinine 3.2 mg/dL (0.6-1.0) Estimated GFR (Cockcroft-Gault) 14.0 BUN/Creatinine Ratio 15 (6-20) Glucose Level 110 mg/dL (70-99) Calcium Level 8.1 mg/dL (8.5-10.1) Total Bilirubin 0.8 mg/dL (0.2-1.0) Aspartate Amino Transf (AST/SGOT) 21 U/L (15-37) Alanine Aminotransferase (ALT/SGPT) 14 U/L (14-59) Alkaline Phosphatase 156 U/L (46-116) Total Protein 7.7 g/dL (6.4-8.2) Albumin 2.0 g/dL (3.4-5.0) Albumin/Globulin Ratio 0.4 (1.0-1.7) Test 10/25/17 08:08 Glucose (Fingerstick) 126 mg/dL (70-99) Images Images CT c/w cholelithiasis, cirrhosis, diffuse edema, compression fractures Assessment/Plan Assessment/Plan LUQ pain pain may be caused by recurrent kidney bed inflammation, pleuritis, compression fractures. Low suspicion of gallstones being source. Pt is prohibitive surgical candidate given end stage CHF. Would recommend pain service consult. Palliative care consult may be helpful for goals of care. Thanks for consult! CRISTINA SERRANO MD Oct 25, 2017 11:27
--- NOTE | 2017-10-25 12:46 | PDOC ---
PULMONARY PROGRESS NOTES Subjective PT TIRED AND SOA AT TIMES Vitals Vital Signs Date Time Temp Pulse Resp B/P (MAP) Pulse Ox O2 Delivery O2 Flow Rate FiO2 10/25/17 11:38 18 100 Nasal Cannula 2.5 10/25/17 10:43 97.4 94 109/69 (82) 97.4 ROS: No Nausea, No Chest Pain, No Increase Cough General: Alert, No acute distress Lungs: Crackles Cardiovascular: S1, S2 Abdomen: Soft, Non-tender Neuro Exam: Alert Extremities: Other (EDEMA) Skin: Warm Labs Laboratory Tests Test 10/23/17 16:33 10/23/17 21:04 10/23/17 21:05 10/23/17 22:07 Glucose (Fingerstick) 84 mg/dL (70-99) 83 mg/dL (70-99) 113 mg/dL (70-99) Random Vancomycin Level 14.0 mcg/mL Test 10/24/17 07:44 10/24/17 11:30 10/24/17 16:59 10/24/17 20:59 Glucose (Fingerstick) 155 mg/dL (70-99) 153 mg/dL (70-99) 106 mg/dL (70-99) 121 mg/dL (70-99) Test 10/25/17 05:00 10/25/17 08:08 10/25/17 11:11 White Blood Count 4.2 x10^3/uL (4.0-11.0) Red Blood Count 2.54 x10^6/uL (3.50-5.40) Hemoglobin 8.4 g/dL (12.0-15.5) Hematocrit 25.9 % (36.0-47.0) Mean Corpuscular Volume 102 fL (79-100) Mean Corpuscular Hemoglobin 33 pg (25-35) Mean Corpuscular Hemoglobin Concent 32 g/dL (31-37) Red Cell Distribution Width 19.0 % (11.5-14.5) Platelet Count 94 x10^3/uL (140-400) Neutrophils (%) (Auto) 62 % (31-73) Lymphocytes (%) (Auto) 17 % (24-48) Monocytes (%) (Auto) 8 % (0-9) Eosinophils (%) (Auto) 12 % (0-3) Basophils (%) (Auto) 1 % (0-3) Neutrophils # (Auto) 2.6 x10^3uL (1.8-7.7) Lymphocytes # (Auto) 0.7 x10^3/uL (1.0-4.8) Monocytes # (Auto) 0.3 x10^3/uL (0.0-1.1) Eosinophils # (Auto) 0.5 x10^3/uL (0.0-0.7) Basophils # (Auto) 0.0 x10^3/uL (0.0-0.2) Sodium Level 133 mmol/L (136-145) Potassium Level 5.2 mmol/L (3.5-5.1) Chloride Level 100 mmol/L (98-107) Carbon Dioxide Level 27 mmol/L (21-32) Anion Gap 6 (6-14) Blood Urea Nitrogen 47 mg/dL (7-20) Creatinine 3.2 mg/dL (0.6-1.0) Estimated GFR (Cockcroft-Gault) 14.0 BUN/Creatinine Ratio 15 (6-20) Glucose Level 110 mg/dL (70-99) Calcium Level 8.1 mg/dL (8.5-10.1) Total Bilirubin 0.8 mg/dL (0.2-1.0) Aspartate Amino Transf (AST/SGOT) 21 U/L (15-37) Alanine Aminotransferase (ALT/SGPT) 14 U/L (14-59) Alkaline Phosphatase 156 U/L (46-116) Total Protein 7.7 g/dL (6.4-8.2) Albumin 2.0 g/dL (3.4-5.0) Albumin/Globulin Ratio 0.4 (1.0-1.7) Glucose (Fingerstick) 126 mg/dL (70-99) 196 mg/dL (70-99) Laboratory Tests Test 10/24/17 16:59 10/24/17 20:59 10/25/17 05:00 10/25/17 08:08 Glucose (Fingerstick) 106 mg/dL (70-99) 121 mg/dL (70-99) 126 mg/dL (70-99) White Blood Count 4.2 x10^3/uL (4.0-11.0) Red Blood Count 2.54 x10^6/uL (3.50-5.40) Hemoglobin 8.4 g/dL (12.0-15.5) Hematocrit 25.9 % (36.0-47.0) Mean Corpuscular Volume 102 fL (79-100) Mean Corpuscular Hemoglobin 33 pg (25-35) Mean Corpuscular Hemoglobin Concent 32 g/dL (31-37) Red Cell Distribution Width 19.0 % (11.5-14.5) Platelet Count 94 x10^3/uL (140-400) Neutrophils (%) (Auto) 62 % (31-73) Lymphocytes (%) (Auto) 17 % (24-48) Monocytes (%) (Auto) 8 % (0-9) Eosinophils (%) (Auto) 12 % (0-3) Basophils (%) (Auto) 1 % (0-3) Neutrophils # (Auto) 2.6 x10^3uL (1.8-7.7) Lymphocytes # (Auto) 0.7 x10^3/uL (1.0-4.8) Monocytes # (Auto) 0.3 x10^3/uL (0.0-1.1) Eosinophils # (Auto) 0.5 x10^3/uL (0.0-0.7) Basophils # (Auto) 0.0 x10^3/uL (0.0-0.2) Sodium Level 133 mmol/L (136-145) Potassium Level 5.2 mmol/L (3.5-5.1) Chloride Level 100 mmol/L (98-107) Carbon Dioxide Level 27 mmol/L (21-32) Anion Gap 6 (6-14) Blood Urea Nitrogen 47 mg/dL (7-20) Creatinine 3.2 mg/dL (0.6-1.0) Estimated GFR (Cockcroft-Gault) 14.0 BUN/Creatinine Ratio 15 (6-20) Glucose Level 110 mg/dL (70-99) Calcium Level 8.1 mg/dL (8.5-10.1) Total Bilirubin 0.8 mg/dL (0.2-1.0) Aspartate Amino Transf (AST/SGOT) 21 U/L (15-37) Alanine Aminotransferase (ALT/SGPT) 14 U/L (14-59) Alkaline Phosphatase 156 U/L (46-116) Total Protein 7.7 g/dL (6.4-8.2) Albumin 2.0 g/dL (3.4-5.0) Albumin/Globulin Ratio 0.4 (1.0-1.7) Test 10/25/17 11:11 Glucose (Fingerstick) 196 mg/dL (70-99) Medications Active Scripts Medications Dose Route/Sig Max Daily Dose Days Date Category Dose Instructions Alprazolam 0.25 Mg Tablet 1 Tab PO TID 10/21/17 Reported [dobutamine] 12.1 Ml IV DAILY PRN 10/21/17 Reported Zinc-220 (Zinc Sulfate) 220 Mg Capsule 220 Mg PO DAILY 08/29/17 Reported Vitamin C (Ascorbate Calcium) 500 Mg Tablet 500 Mg PO DAILY 08/29/17 Reported Multivitamins (Multivitamin) 1 Each Tablet 1 Tab PO DAILY 08/29/17 Reported Mucinex (Guaifenesin) 600 Mg Tablet.er 600 Mg PO PRN Q12HR PRN 08/29/17 Reported Albuterol Sulfate Conc Neb Soln (Albuterol Sulfate) 2.5 Mg/0.5 Ml Vial.neb 2.5 Mg NEB QID 08/29/17 Reported Potassium Chloride 20 Meq Tablet.er 20 Meq PO DAILY 08/05/17 Reported Bumetanide 1 Mg Tablet 1 Tab PO BID 08/05/17 Reported Humalog (Insulin Lispro) 100 Unit/1 Ml Insuln.pen 4 Units SQ TIDAC 03/05/17 Reported Lantus Solostar (Insulin Glargine,Hum.rec.anlog) 100 Unit/1 Ml Insuln.pen 24 Units SQ HS 03/05/17 Reported Atorvastatin Calcium 40 Mg Tablet 40 Mg PO HS 03/05/17 Reported Amiodarone Hcl 200 Mg Tablet 1 Tab PO DAILY 06/27/16 Reported Oxycodone Hcl 30 Mg Tablet 1 Tab PO Q6HRS PRN 11/28/15 Reported Synthroid (Levothyroxine Sodium) 75 Mcg Tablet 75 Mcg PO DAILY07 30 08/21/15 Rx Metoprolol Tartrate 25 Mg Tablet 25 Mg PO BID 07/22/13 Reported next dose tonight 12-14-15 at 9:00 pm Impression . 1. Acute on chronic respiratory failure. 2. Acute on chronic systolic and diastolic heart failure. 3. Abnormal x-ray compatible with congestive heart failure and pneumonia, suspect gram-negative, possibly gram-positive. 4. Type 2 diabetes. 5. Hypertension. 6. Cardiomyopathy with previous ejection fraction of 40-45%. 7. Acute on chronic kidney disease. 8. Protein malnutrition present upon admission. 10. PVD/VASCULAR INSUFFICIENCY TO ABD VESSELS Plan . PT DOES NOT FEEL ANY BETTER WILL CONTINUE CURRENT RX U/S ABD PENDING FOLLOW VASCULAR INPUT PT/OT ROBBI LYN MD Oct 25, 2017 12:46
--- NOTE | 2017-10-25 12:54 | RAD ---
Limited abdominal Doppler sonogram Clinical indications: Abdominal pain. Mesenteric Doppler. FINDINGS: Duplex sonography of the superior mesenteric artery and celiac artery were attempted but the midline is completely gassed out. Therefore, the abdominal aorta and superior mesenteric artery and celiac artery cannot be visualized. Hepatic artery is partially visualized and is patent with a peak systolic flow velocity measurement 27 cm/s. IMPRESSION: Study cannot be completed due to midline abdominal gas. Electronically signed by: Ben Guerrero MD (10/25/2017 12:51 PM) [facility]
[2017-10-25 14:29] VITALS: BP 94/76
[2017-10-25] MEDS ORDERED: IV NORMAL SALINE 1000ML BAG 1,000 ML IV ONE (16:15)
[2017-10-25] MEDS ORDERED: NALOXONE 0.4 MG/ML VIAL. IV ONE (17:30)
[2017-10-25 19:00] VITALS: BP 93/52
[2017-10-25] MEDS: ATORVASTATIN CALCIUM 40 MG TABLET. PO SCH (20:58)
[2017-10-25] MEDS: INSULIN GLARGINE 300 UNITS/3 ML INSULN.PEN. SQ SCH (21:43)
--- NOTE | 2017-10-25 22:23 | PN ---
DATE: 10/25/2017 LOCATION: She is in room 202. SUBJECTIVE: The patient is awake, alert, moaning and writhing around the bed with epigastric and left upper quadrant pain. She states she cannot take this any longer. We have to find something and answer. We have to give her much more pain medicine as she cannot stand it any longer. She is still describing it as sharp in nature, but steady once it comes on, it lasts for a period of minutes up to many minutes and then in between, she is pain free . Complete review of systems does not reveal any changes and that is not related to eating, is not related to stooling, is not related to passing gas, to urination, to movement, anything in particular. OBJECTIVE: VITAL SIGNS: Stable. She is afebrile. She remains on 2-1/2 liters per nasal cannula O2. CHEST: Reveals decreased breath sounds bilaterally. HEART: Irregular consistent with AFib at 120, but she is in a lot of pain at this point in time. ABDOMEN: Soft without rebound or guarding. She is tender in the epigastric left upper quadrant area. She does have 1-2+ edema, which is stable. LABORATORY DATA: Hemoglobin is stable at 8.4, platelets stable at 94,000. BUN and creatinine are slightly elevated at 47 and 3.2 from admission. ASSESSMENT AND PLAN: Urology opinion is noted and they have signed off thinking this is not renal or urologically based in any way. Gastroenterology is following along. Infectious Diseases adjusted antibiotics for possible pneumonia to be more kidney friendly and have asked Renal to come by in addition. IMPRESSION: 1. Severe epigastric left upper quadrant flank pain. 2. Pneumonia, being treated for the same. 3. Cardiomyopathy, on dobutamine drip. 4. Diabetes. 5. Chronic kidney disease with slight worsening since admission. 6. Atrial fibrillation. 7. Anemia. PLAN: At this point, I am going to stop the Celebrex as there has been no benefit in 24 hours with her renal function, we will get rid of this. Morphine has been discussed with nursing and will be increased to 10 mg IV every 2 hours. I am going to ask for surgical consultation, do a mesenteric Doppler to rule out any sort of problem here and otherwise, we will continue to investigate and try to come up for etiology on treatment for the pain that she is in. CRISTY ARANGO MD DR: Christophe JOB#: [id number] / [id number]
[2017-10-25 23:00] VITALS: BP 81/53
[2017-10-26] VITALS (13 sets, daily range): BP systolic 79–149; BP diastolic 50–75
[2017-10-26] MEDS: MORPHINE SULFATE 10 MG/ML VIAL. IV PRN ×4 (02:22→19:21)
[2017-10-26] MEDS: PIPERACILLIN/TAZOBACTAM 2.25 GM in IV NORMAL SALINE 50ML 50 ML IV SCH ×3 (05:12→21:25)
[2017-10-26] MEDS: LEVOTHYROXINE 75 MCG TABLET PO SCH (05:19)
[2017-10-26 05:38] LABS: BASO % 1 % (0-3); EOS # 0.3 x10^3/uL (0.0-0.7); EOS % 8 % (0-3); HEMATOCRIT 24.9 % (36.0-47.0); HEMOGLOBIN 7.9 g/dL (12.0-15.5); LYMPH # 0.5 x10^3/uL (1.0-4.8); LYMPH % 14 % (24-48); MEAN CORPUSCULAR HEMOGLOBIN 33 pg (25-35); MEAN CORPUSCULAR HGB CONC 32 g/dL (31-37); MEAN CORPUSCULAR VOLUME 102 fL (79-100); MONO # 0.3 x10^3/uL (0.0-1.1); MONO % 7 % (0-9); NEUT # 2.6 x10^3uL (1.8-7.7); NEUT % 70 % (31-73); PLATELET COUNT 82 x10^3/uL (140-400); RED BLOOD COUNT 2.43 x10^6/uL (3.50-5.40); RED CELL DISTRIBUTION WIDTH 19.3 % (11.5-14.5); WHITE BLOOD COUNT 3.7 x10^3/uL (4.0-11.0)
[2017-10-26 06:17] LABS: ALBUMIN/GLOBULIN RATIO 0.4 (1.0-1.7); CALCIUM 7.8 mg/dL (8.5-10.1); CREATININE 3.4 mg/dL (0.6-1.0); GFR 13.1; POTASSIUM 5.4 mmol/L (3.5-5.1); TOTAL BILIRUBIN 0.8 mg/dL (0.2-1.0); TOTAL PROTEIN 7.3 g/dL (6.4-8.2)
[2017-10-26] MEDS: INSULIN LISPRO 300 UNITS/3 ML INSULN.PEN. SQ SCH ×3 (07:30→16:30)
[2017-10-26] MEDS: ALBUTEROL SULFATE 2.5 MG/3 ML NEBU. NEB SCH ×4 (07:38→19:49)
--- NOTE | 2017-10-26 08:24 | PDOC ---
Infectious Disease Note Subjective Subjective Sleeping comfortably in chair on my arrival c/o persistent left flank pain upon awakening and leg pain with swelling No F/C/N/V/D/SOA/cough/CP/Rash ROS ROS o/w neg Vital Sign Vital Signs Vital Signs Date Time Temp Pulse Resp B/P (MAP) Pulse Ox O2 Delivery O2 Flow Rate FiO2 10/26/17 08:04 Nasal Cannula 2.5 10/26/17 03:15 97.4 87 14 103/64 (77) 100 97.4 Physical Exam PHYSICAL EXAM GENERAL: Propped up in chair alert, NAD, appears comfortable HEENT: Normal conjunctivae. Oral mucosa is pink and moist. Edentulous/ dentures LUNGS: Diminished aeration in the bases. HEART: S1 and S2. ABDOMEN: Obese. Bowel sounds active. Soft and mildly tender in general. EXTREMITIES: Generalized edema. No cyanosis. Left lower extremity less red; small anterior scab noted - clean under dressing SKIN: Warm without rash. NEUROLOGIC: Alert and oriented x 3. Right-sided PICC (POA) without signs of any complications. Labs Lab Laboratory Tests Test 10/25/17 11:11 10/25/17 16:39 10/25/17 21:13 10/26/17 05:20 Glucose (Fingerstick) 196 mg/dL (70-99) 108 mg/dL (70-99) 120 mg/dL (70-99) White Blood Count 3.7 x10^3/uL (4.0-11.0) Red Blood Count 2.43 x10^6/uL (3.50-5.40) Hemoglobin 7.9 g/dL (12.0-15.5) Hematocrit 24.9 % (36.0-47.0) Mean Corpuscular Volume 102 fL (79-100) Mean Corpuscular Hemoglobin 33 pg (25-35) Mean Corpuscular Hemoglobin Concent 32 g/dL (31-37) Red Cell Distribution Width 19.3 % (11.5-14.5) Platelet Count 82 x10^3/uL (140-400) Neutrophils (%) (Auto) 70 % (31-73) Lymphocytes (%) (Auto) 14 % (24-48) Monocytes (%) (Auto) 7 % (0-9) Eosinophils (%) (Auto) 8 % (0-3) Basophils (%) (Auto) 1 % (0-3) Neutrophils # (Auto) 2.6 x10^3uL (1.8-7.7) Lymphocytes # (Auto) 0.5 x10^3/uL (1.0-4.8) Monocytes # (Auto) 0.3 x10^3/uL (0.0-1.1) Eosinophils # (Auto) 0.3 x10^3/uL (0.0-0.7) Basophils # (Auto) 0.0 x10^3/uL (0.0-0.2) Sodium Level 135 mmol/L (136-145) Potassium Level 5.4 mmol/L (3.5-5.1) Chloride Level 103 mmol/L (98-107) Carbon Dioxide Level 27 mmol/L (21-32) Anion Gap 5 (6-14) Blood Urea Nitrogen 52 mg/dL (7-20) Creatinine 3.4 mg/dL (0.6-1.0) Estimated GFR (Cockcroft-Gault) 13.1 BUN/Creatinine Ratio 15 (6-20) Glucose Level 101 mg/dL (70-99) Calcium Level 7.8 mg/dL (8.5-10.1) Total Bilirubin 0.8 mg/dL (0.2-1.0) Aspartate Amino Transf (AST/SGOT) 19 U/L (15-37) Alanine Aminotransferase (ALT/SGPT) 13 U/L (14-59) Alkaline Phosphatase 155 U/L (46-116) Total Protein 7.3 g/dL (6.4-8.2) Albumin 2.0 g/dL (3.4-5.0) Albumin/Globulin Ratio 0.4 (1.0-1.7) Test 10/26/17 07:55 Glucose (Fingerstick) 105 mg/dL (70-99) Micro Microbiology 10/21/17 Blood Culture - Preliminary, Resulted NO GROWTH AFTER 4 DAYS Objective Assessment Bibasilar consolidation, pneumonia cannot be ruled out Cellulitis of left lower extremity - better [id number] heart failure NYHA class IV, on chronic dobutamine infusion via tunneled PICC (POA) Sulfa allergy - reaction unknown Pancytopenia ANDRE on CKD. h/o left nephrectomy Left flank pain w/ a nonobstructing right renal stone. UA neg for infection - Gi and surgery followin Amiodarone therapy DM h/o MRSE discitis h/o Klebsiella UTI Plan Plan of Care Given renal function and h/o left nephrectomy would recommend avoiding nephrotoxic agents. Continue Zosyn (10/21), renal dosing. Add Zyvox - po today F/u CBC Sputum culture not collected Seen by urology, no urological interventions planned Consult nephrology HUNTER SELF MD Oct 26, 2017 08:24
[2017-10-26] MEDS: ASCORBIC ACID 500 MG TABLET PO SCH (08:39)
[2017-10-26] MEDS: MULTIVITAMIN with MINERAL TABLET. PO SCH (08:39)
[2017-10-26] MEDS: LUBIPROSTONE 8 MCG CAPSULE PO SCH ×2 (08:39→16:57)
[2017-10-26] MEDS: LACTOBACILLUS RHAMNOSUS GG 1 CAPSULE. PO SCH ×2 (08:39→20:40)
[2017-10-26] MEDS: ZINC SULFATE 220 MG CAPSULE. PO SCH (08:39)
[2017-10-26] MEDS: LINEZOLID 600 MG TABLET PO SCH ×2 (08:42→20:40)
[2017-10-26] MEDS: AMIODARONE HCL 200 MG TABLET. PO SCH (09:00)
[2017-10-26] MEDS: METOPROLOL TART IMMED RELEASE 25 MG TABLET. PO SCH ×2 (09:00→20:40)
[2017-10-26] MEDS: POTASSIUM CHLORIDE 20 MEQ TABLET.ER. PO SCH (09:00)
[2017-10-26] MEDS: ALPRAZolam 0.25 MG TABLET PO SCH ×3 (09:00→20:40)
[2017-10-26] MEDS: BUMETANIDE 1 MG TABLET. PO SCH ×2 (09:00→16:00)
--- NOTE | 2017-10-26 09:05 | PDOC2 ---
CONSULT Date of Consult Date of Consult DATE: 10/26/17 TIME: 08:38 Reason for Consult Reason for Consult: ANRDE Identification/Chief Complaint Chief Complaint No specific complaints today Source Source: Chart review, Patient History of Present Illness Reason for Visit: Pt is a 76-year-old female who has had multiple admissions this year for heart related issues, MRSE diskitis and UTI. Hospitalized with complaints of localized left upper quadrant abdominal pain A CT abdomen/pelvis showed bilateral effusions, cholelithiasis and infiltrate along with atelectasis. She recd vancomycin and Zosyn for coverage of healthcare-acquired pneumonia. She is followed by [facility] heart failure clinic for class 4 heart failure and is on a chronic dobutamine drip via a tunneled PICC line. She is on hospice care. She denies fevers, chills, stable SOB . She denies nausea, vomiting, diarrhea. She denies dysuria or increased urinary frequency. She is not ambulatory. As per RN her UOP is maybe fair . 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, history of urinary tract infection with Klebsiella resistant to multiple abx Coronary artery bypass graft, left nephrectomy, left total hip replacement Past Medical History Cardiovascular: AFIB, CAD (with prior CABG), CHF (acute/chronic systolic - LVEF 40% on TTE 07/2017), HTN, Hyperlipidemia, Other (CMP) Pulmonary: COPD CENTRAL NERVOUS SYSTEM: Other GI: Constipation Heme/Onc: No pertinent hx Hepatobiliary: No pertinent hx Psych: No pertinent hx Musculoskeletal: Osteoarthritis Rheumatologic: No pertinent hx Infectious disease: No pertinent hx Renal/: Other Endocrine: Diabetes, Hypothyroidism Past Surgical History Past Surgical History: CABG, , Other (left simple nephrectomy) Family History Family History: Family History Unknown Social History 1 pack per day ALCOHOL: none Lives: Care Home Domestic Violence: Neg Current Problem List Problem List Problems Medical Problems: (1) HCAP (healthcare-associated pneumonia) Status: Acute Current Medications Current Medications Current Medications Morphine Sulfate (Morphine Sulfate) 4 mg 1X ONCE IV ; Start 10/21/17 at 20:00; Stop 10/21/17 at 20:01; Status DC Furosemide (Lasix) 40 mg 1X ONCE IVP ; Start 10/21/17 at 20:00; Stop 10/21/17 at 20:01; Status DC Piperacillin Sod/ Tazobactam Sod (Zosyn Per Pharmacy) 1 each PRN DAILY PRN MC SEE COMMENTS; Start 10/21/17 at 19:30 Albuterol Sulfate (Ventolin Neb Soln) 2.5 mg 1X ONCE NEB Last administered on 10/21/17at 20:00; Start 10/21/17 at 20:00; Stop 10/21/17 at 20:04; Status DC Piperacillin Sod/ Tazobactam Sod 2.25 gm/Sodium Chloride 50 ml @ 100 mls/hr Q8HRS IV Last administered on 10/26/17at 05:12; Start 10/21/17 at 20:00 Vancomycin HCl (Vanco Per Pharmacy) 1 each PRN DAILY PRN MC SEE COMMENTS Last administered on 10/24/17at 01:02; Start 10/21/17 at 20:00; Stop 10/24/17 at 14:50; Status DC Vancomycin HCl 1.25 gm/Sodium Chloride 250 ml @ 166.667 mls/hr 1X ONCE IV Last administered on 10/21/17at 21:00; Start 10/21/17 at 21:00; Stop 10/21/17 at 22:29; Status DC Vancomycin HCl 1.25 gm/Sodium Chloride 250 ml @ 167 mls/hr Q48H IV ; Start at 22:00; Stop 10/23/17 at 22:00; Status DC Vancomycin HCl (Vancomycin Random Level) 1 each 1X ONCE MC Last administered on 10/23/17at 21:00; Start 10/23/17 at 21:00; Stop 10/23/17 at 21:01; Status DC Amiodarone HCl (Cordarone) 200 mg DAILY PO Last administered on 10/25/17at 08:32 ; Start 10/22/17 at 09:00 Atorvastatin Calcium (Lipitor) 40 mg HS PO Last administered on 10/25/17at 20:58 ; Start 10/21/17 at 21:30 Bumetanide (Bumex) 1 mg BID94 PO Last administered on 10/25/17at 08:31; Start at 09:00 Guaifenesin (Mucinex) 600 mg PRN Q12HR PRN PO COUGH; Start 10/21/17 at 21:15 Insulin Glargine (Lantus) 24 units HS SQ Last administered on 10/25/17 21:43; Start 10/21/17 at 21:30 Insulin Human Lispro (HumaLOG) 4 units TIDAC SQ Last administered on 10/25/17 12:08; Start 10/22/17 at 07:30 Levothyroxine Sodium (Synthroid) 75 mcg DAILY07 PO Last administered on 05:19; Start 10/22/17 at 07:00 Metoprolol Tartrate (Lopressor) 25 mg BID PO Last administered on 10/25/17 20: 59; Start 10/21/17 at 21:30 Oxycodone HCl (Roxicodone) 30 mg PRN QID PRN PO PAIN Last administered on 20:59; Start 10/21/17 at 21:15 Zinc Sulfate (Orazinc) 220 mg DAILY PO Last administered on 10/25/17 08:31; Start 10/22/17 at 09:00 Non-Formulary Medication (Albuterol Sulfate (Albuterol Sulfate Conc Neb Soln)) 2.5 mg QID NEB ; Start 10/22/17 at 09:00; Status UNV Ascorbic Acid (Vitamin C) 500 mg DAILY PO Last administered on 10/25/17 08:33; Start 10/22/17 at 09:00 Multivitamins (Thera M Plus) 1 tab DAILY PO Last administered on 10/25/17 08:33 ; Start 10/22/17 at 09:00 Potassium Chloride (Klor-Con) 20 meq DAILY PO Last administered on 10/24/17 08: 23; Start 10/22/17 at 09:00 Albuterol Sulfate (Ventolin Neb Soln) 2.5 mg RTQID NEB Last administered on 10/26 07:38; Start 10/22/17 at 08:00 Non-Formulary Medication ([dobutamine] ) 12.1 ml PRN DAILY PRN IV ELEVATED BP, SEE COMMENTS; Start 10/21/17 at 21:30; Stop 10/22/17 at 12:00; Status DC Alprazolam (Xanax) 0.25 mg TID PO Last administered on 10/25/17at 20:58; Start at 22:00 Magnesium Citrate (Citroma) 296 ml 1X ONCE PO Last administered on 10/22/17at 09:41; Start 10/22/17 at 10:00; Stop 10/22/17 at 10:01; Status DC Dobutamine HCl/ Dextrose 250 ml @ 13.008 mls/ hr CONT PRN IV SEE I/O RECORD Last administered on 10/25/17at 14:21; Start 10/22/17 at 09:30 Lactobacillus Rhamnosus (Culturelle) 1 cap BID PO Last administered on at 20:58; Start 10/22/17 at 21:00 Alteplase, Recombinant (Cathflo) 2 mg 1X ONCE INT CAT Last administered on at 09:32; Start 10/23/17 at 09:30; Stop 10/23/17 at 09:31; Status DC Lubiprostone (Amitiza) 8 mcg BIDWMEALS PO Last administered on 10/25/17at 17:36; Start 10/23/17 at 17:00 Bisacodyl (Dulcolax Tab) 10 mg 1X ONCE PO Last administered on 10/23/17at 14:34 ; Start 10/23/17 at 13:00; Stop 10/23/17 at 13:01; Status DC Vancomycin HCl 1 gm/Sodium Chloride 250 ml @ 250 mls/hr Q48H IV Last administered on 10/23/17at 22:49; Start 10/23/17 at 23:00; Stop 10/24/17 at 14:50 ; Status DC Morphine Sulfate (Morphine Sulfate) 5 mg PRN Q4HRS PRN IV PAIN SEVERE Last administered on 10/24/17at 07:32; Start 10/24/17 at 07:30; Stop 10/24/17 at 10:16; Status DC Morphine Sulfate (Morphine Sulfate) 5 mg PRN Q2HR PRN IV PAIN SEVERE Last administered on 10/25/17at 09:37; Start 10/24/17 at 10:15; Stop 10/25/17 at 10:13; Status DC Celecoxib (CeleBREX) 200 mg BID PO Last administered on 10/25/17at 08:32; Start 10/24/17 at 10:30; Stop 10/25/17 at 10:44; Status DC Morphine Sulfate (Morphine Sulfate) 10 mg PRN Q2HR PRN IV PAIN SEVERE Last administered on 10/26/17at 02:22; Start 10/25/17 at 10:15 Simethicone (Gas-X) 80 mg PRN AFTMEALHC PRN PO GAS / BLOATING Last administered on 10/25/17at 10:41; Start 10/25/17 at 10:15 Sodium Chloride 1,000 ml @ 999 mls/hr 1X ONCE IV Last administered on at 16:15; Start 10/25/17 at 16:15; Stop 10/25/17 at 17:15; Status DC Naloxone HCl (Narcan) 0.4 mg 1X ONCE IV ; Start 10/25/17 at 17:30; Stop 10/25/17 at 17:31; Status DC Linezolid (Zyvox) 600 mg BID PO ; Start 10/26/17 at 09:00 Active Scripts Active Synthroid (Levothyroxine Sodium) 75 Mcg Tablet 75 Mcg PO DAILY07 30 Days Reported Alprazolam 0.25 Mg Tablet 1 Tab PO TID [dobutamine] 12.1 Ml IV DAILY PRN Zinc-220 (Zinc Sulfate) 220 Mg Capsule 220 Mg PO DAILY Vitamin C (Ascorbate Calcium) 500 Mg Tablet 500 Mg PO DAILY Multivitamins (Multivitamin) 1 Each Tablet 1 Tab PO DAILY Mucinex (Guaifenesin) 600 Mg Tablet.er 600 Mg PO PRN Q12HR PRN Albuterol Sulfate Conc Neb Soln (Albuterol Sulfate) 2.5 Mg/0.5 Ml Vial.neb 2.5 Mg NEB QID Potassium Chloride 20 Meq Tablet.er 20 Meq PO DAILY Bumetanide 1 Mg Tablet 1 Tab PO BID Humalog (Insulin Lispro) 100 Unit/1 Ml Insuln.pen 4 Units SQ TIDAC Lantus Solostar (Insulin Glargine,Hum.rec.anlog) 100 Unit/1 Ml Insuln.pen 24 Units SQ HS Atorvastatin Calcium 40 Mg Tablet 40 Mg PO HS Amiodarone Hcl 200 Mg Tablet 1 Tab PO DAILY Oxycodone Hcl 30 Mg Tablet 1 Tab PO Q6HRS PRN Metoprolol Tartrate 25 Mg Tablet 25 Mg PO BID next dose tonight 10-21-16 at 9:00 pm Allergies Allergies: Coded Allergies: Sulfa (Sulfonamide Antibiotics) (Verified Allergy, Intermediate, 08/03/17) ROS Review of System As per HPI Physical Exam Physical Exam GENERAL: NAD HEENT: Oral mucosa moist. On o2 by NC neck Supple LUNGS: Diminished aeration in the bases, Non labored HEART: S1 and S2. ABDOMEN: Obese. Bowel sounds active. EXTREMITIES: Generalized edema. Rt Side PICC ( Dobutamine Infusion) SKIN: No rash, NEUROLOGIC: Alert and oriented x 3. - No SP or CVA tenderness, No [place] Vital Signs Vital Signs Date Time Temp Pulse Resp B/P (MAP) Pulse Ox O2 Delivery O2 Flow Rate FiO2 10/26/17 08:04 Nasal Cannula 2.5 10/26/17 07:00 98.1 89 14 87/65 (72) 95 98.1 Assessment & Plan ANDRE on CKD- multifactorial - cardiorenal/Single Kidney /Infection / She is on NSAID's as well She will Not be a good candidate for Dialysis if renal function doesn't recover -due to her Cardiac status Get Renal US with PVR - nonobstructing right renal stone, Lt nephrectomy UA neg for infection on 10/20 - hx of Recurrent UTI Hyperkalemia- Mild,KCL listed in med list , recommend dc Monitor [id number] heart failure NYHA class IV, on chronic dobutamine infusion via tunneled PICC Defer to cardiology CKD s/p Lt nephrectomy Bibasilar consolidation/ ? pneumonia Cellulitis of left lower extremity - better Discussed with Pt and RN at bedside Labs Labs Laboratory Tests Test 10/24/17 11:30 10/24/17 16:59 10/24/17 20:59 10/25/17 05:00 Glucose (Fingerstick) 153 mg/dL (70-99) 106 mg/dL (70-99) 121 mg/dL (70-99) White Blood Count 4.2 x10^3/uL (4.0-11.0) Red Blood Count 2.54 x10^6/uL (3.50-5.40) Hemoglobin 8.4 g/dL (12.0-15.5) Hematocrit 25.9 % (36.0-47.0) Mean Corpuscular Volume 102 fL (79-100) Mean Corpuscular Hemoglobin 33 pg (25-35) Mean Corpuscular Hemoglobin Concent 32 g/dL (31-37) Red Cell Distribution Width 19.0 % (11.5-14.5) Platelet Count 94 x10^3/uL (140-400) Neutrophils (%) (Auto) 62 % (31-73) Lymphocytes (%) (Auto) 17 % (24-48) Monocytes (%) (Auto) 8 % (0-9) Eosinophils (%) (Auto) 12 % (0-3) Basophils (%) (Auto) 1 % (0-3) Neutrophils # (Auto) 2.6 x10^3uL (1.8-7.7) Lymphocytes # (Auto) 0.7 x10^3/uL (1.0-4.8) Monocytes # (Auto) 0.3 x10^3/uL (0.0-1.1) Eosinophils # (Auto) 0.5 x10^3/uL (0.0-0.7) Basophils # (Auto) 0.0 x10^3/uL (0.0-0.2) Sodium Level 133 mmol/L (136-145) Potassium Level 5.2 mmol/L (3.5-5.1) Chloride Level 100 mmol/L (98-107) Carbon Dioxide Level 27 mmol/L (21-32) Anion Gap 6 (6-14) Blood Urea Nitrogen 47 mg/dL (7-20) Creatinine 3.2 mg/dL (0.6-1.0) Estimated GFR (Cockcroft-Gault) 14.0 BUN/Creatinine Ratio 15 (6-20) Glucose Level 110 mg/dL (70-99) Calcium Level 8.1 mg/dL (8.5-10.1) Total Bilirubin 0.8 mg/dL (0.2-1.0) Aspartate Amino Transf (AST/SGOT) 21 U/L (15-37) Alanine Aminotransferase (ALT/SGPT) 14 U/L (14-59) Alkaline Phosphatase 156 U/L (46-116) Total Protein 7.7 g/dL (6.4-8.2) Albumin 2.0 g/dL (3.4-5.0) Albumin/Globulin Ratio 0.4 (1.0-1.7) Test 10/25/17 08:08 10/25/17 11:11 10/25/17 16:39 10/25/17 21:13 Glucose (Fingerstick) 126 mg/dL (70-99) 196 mg/dL (70-99) 108 mg/dL (70-99) 120 mg/dL (70-99) Test 10/26/17 05:20 10/26/17 07:55 White Blood Count 3.7 x10^3/uL (4.0-11.0) Red Blood Count 2.43 x10^6/uL (3.50-5.40) Hemoglobin 7.9 g/dL (12.0-15.5) Hematocrit 24.9 % (36.0-47.0) Mean Corpuscular Volume 102 fL (79-100) Mean Corpuscular Hemoglobin 33 pg (25-35) Mean Corpuscular Hemoglobin Concent 32 g/dL (31-37) Red Cell Distribution Width 19.3 % (11.5-14.5) Platelet Count 82 x10^3/uL (140-400) Neutrophils (%) (Auto) 70 % (31-73) Lymphocytes (%) (Auto) 14 % (24-48) Monocytes (%) (Auto) 7 % (0-9) Eosinophils (%) (Auto) 8 % (0-3) Basophils (%) (Auto) 1 % (0-3) Neutrophils # (Auto) 2.6 x10^3uL (1.8-7.7) Lymphocytes # (Auto) 0.5 x10^3/uL (1.0-4.8) Monocytes # (Auto) 0.3 x10^3/uL (0.0-1.1) Eosinophils # (Auto) 0.3 x10^3/uL (0.0-0.7) Basophils # (Auto) 0.0 x10^3/uL (0.0-0.2) Sodium Level 135 mmol/L (136-145) Potassium Level 5.4 mmol/L (3.5-5.1) Chloride Level 103 mmol/L (98-107) Carbon Dioxide Level 27 mmol/L (21-32) Anion Gap 5 (6-14) Blood Urea Nitrogen 52 mg/dL (7-20) Creatinine 3.4 mg/dL (0.6-1.0) Estimated GFR (Cockcroft-Gault) 13.1 BUN/Creatinine Ratio 15 (6-20) Glucose Level 101 mg/dL (70-99) Calcium Level 7.8 mg/dL (8.5-10.1) Total Bilirubin 0.8 mg/dL (0.2-1.0) Aspartate Amino Transf (AST/SGOT) 19 U/L (15-37) Alanine Aminotransferase (ALT/SGPT) 13 U/L (14-59) Alkaline Phosphatase 155 U/L (46-116) Total Protein 7.3 g/dL (6.4-8.2) Albumin 2.0 g/dL (3.4-5.0) Albumin/Globulin Ratio 0.4 (1.0-1.7) Glucose (Fingerstick) 105 mg/dL (70-99) Laboratory Tests Test 10/25/17 11:11 10/25/17 16:39 10/25/17 21:13 10/26/17 05:20 Glucose (Fingerstick) 196 mg/dL (70-99) 108 mg/dL (70-99) 120 mg/dL (70-99) White Blood Count 3.7 x10^3/uL (4.0-11.0) Red Blood Count 2.43 x10^6/uL (3.50-5.40) Hemoglobin 7.9 g/dL (12.0-15.5) Hematocrit 24.9 % (36.0-47.0) Mean Corpuscular Volume 102 fL (79-100) Mean Corpuscular Hemoglobin 33 pg (25-35) Mean Corpuscular Hemoglobin Concent 32 g/dL (31-37) Red Cell Distribution Width 19.3 % (11.5-14.5) Platelet Count 82 x10^3/uL (140-400) Neutrophils (%) (Auto) 70 % (31-73) Lymphocytes (%) (Auto) 14 % (24-48) Monocytes (%) (Auto) 7 % (0-9) Eosinophils (%) (Auto) 8 % (0-3) Basophils (%) (Auto) 1 % (0-3) Neutrophils # (Auto) 2.6 x10^3uL (1.8-7.7) Lymphocytes # (Auto) 0.5 x10^3/uL (1.0-4.8) Monocytes # (Auto) 0.3 x10^3/uL (0.0-1.1) Eosinophils # (Auto) 0.3 x10^3/uL (0.0-0.7) Basophils # (Auto) 0.0 x10^3/uL (0.0-0.2) Sodium Level 135 mmol/L (136-145) Potassium Level 5.4 mmol/L (3.5-5.1) Chloride Level 103 mmol/L (98-107) Carbon Dioxide Level 27 mmol/L (21-32) Anion Gap 5 (6-14) Blood Urea Nitrogen 52 mg/dL (7-20) Creatinine 3.4 mg/dL (0.6-1.0) Estimated GFR (Cockcroft-Gault) 13.1 BUN/Creatinine Ratio 15 (6-20) Glucose Level 101 mg/dL (70-99) Calcium Level 7.8 mg/dL (8.5-10.1) Total Bilirubin 0.8 mg/dL (0.2-1.0) Aspartate Amino Transf (AST/SGOT) 19 U/L (15-37) Alanine Aminotransferase (ALT/SGPT) 13 U/L (14-59) Alkaline Phosphatase 155 U/L (46-116) Total Protein 7.3 g/dL (6.4-8.2) Albumin 2.0 g/dL (3.4-5.0) Albumin/Globulin Ratio 0.4 (1.0-1.7) Test 10/26/17 07:55 Glucose (Fingerstick) 105 mg/dL (70-99) Review All relevant outside records, renal labs, imaging studies, telemetry/EKG's were reviewed. DHRUV MCKEON MD Oct 26, 2017 09:05
--- NOTE | 2017-10-26 10:40 | RAD ---
Renal sonogram Clinical indications: Left flank pain. FINDINGS: The longitudinal and AP and transverse dimensions of the right kidney are 11.6 cm and 4.8 cm and 5.0 cm respectively. No hydronephrosis or renal mass or perinephric fluid collection is seen on the right side. The left kidney is surgically absent based on the CT study. The urinary bladder is not visualized and therefore is not distended. IMPRESSION: No hydronephrosis is seen on the right side. Electronically signed by: Ben Guerrero MD (10/26/2017 10:37 AM) [facility]
[2017-10-26] MEDS: SIMETHICONE 80 MG TAB.CHEW PO PRN (10:41)
--- NOTE | 2017-10-26 13:14 | PDOC ---
SURGICAL PROGRESS NOTE Subjective Pt with c/o cont LUQ pain Vital Signs Vital Signs Date Time Temp Pulse Resp B/P (MAP) Pulse Ox O2 Delivery O2 Flow Rate FiO2 10/26/17 12:30 108/55 (72) 10/26/17 12:01 95 Nasal Cannula 3.0 10/26/17 11:55 100 10/26/17 10:53 98.4 16 98.4 I&O Intake and Output 10/26/17 07:00 Intake Total 1608 ml Output Total 0 ml Balance 1608 ml Intake Oral 300 ml IV Total 178 ml Blood Product IV Normal Saline Flush 1130 ml Output Urine Total 0 ml General: Alert, Oriented X3, Cooperative, No acute distress Abdomen: Soft, Other (abd wall edema, mild TTP LUQ) Labs Laboratory Tests Test 10/24/17 16:59 10/24/17 20:59 10/25/17 05:00 10/25/17 08:08 Glucose (Fingerstick) 106 mg/dL (70-99) 121 mg/dL (70-99) 126 mg/dL (70-99) White Blood Count 4.2 x10^3/uL (4.0-11.0) Red Blood Count 2.54 x10^6/uL (3.50-5.40) Hemoglobin 8.4 g/dL (12.0-15.5) Hematocrit 25.9 % (36.0-47.0) Mean Corpuscular Volume 102 fL (79-100) Mean Corpuscular Hemoglobin 33 pg (25-35) Mean Corpuscular Hemoglobin Concent 32 g/dL (31-37) Red Cell Distribution Width 19.0 % (11.5-14.5) Platelet Count 94 x10^3/uL (140-400) Neutrophils (%) (Auto) 62 % (31-73) Lymphocytes (%) (Auto) 17 % (24-48) Monocytes (%) (Auto) 8 % (0-9) Eosinophils (%) (Auto) 12 % (0-3) Basophils (%) (Auto) 1 % (0-3) Neutrophils # (Auto) 2.6 x10^3uL (1.8-7.7) Lymphocytes # (Auto) 0.7 x10^3/uL (1.0-4.8) Monocytes # (Auto) 0.3 x10^3/uL (0.0-1.1) Eosinophils # (Auto) 0.5 x10^3/uL (0.0-0.7) Basophils # (Auto) 0.0 x10^3/uL (0.0-0.2) Sodium Level 133 mmol/L (136-145) Potassium Level 5.2 mmol/L (3.5-5.1) Chloride Level 100 mmol/L (98-107) Carbon Dioxide Level 27 mmol/L (21-32) Anion Gap 6 (6-14) Blood Urea Nitrogen 47 mg/dL (7-20) Creatinine 3.2 mg/dL (0.6-1.0) Estimated GFR (Cockcroft-Gault) 14.0 BUN/Creatinine Ratio 15 (6-20) Glucose Level 110 mg/dL (70-99) Calcium Level 8.1 mg/dL (8.5-10.1) Total Bilirubin 0.8 mg/dL (0.2-1.0) Aspartate Amino Transf (AST/SGOT) 21 U/L (15-37) Alanine Aminotransferase (ALT/SGPT) 14 U/L (14-59) Alkaline Phosphatase 156 U/L (46-116) Total Protein 7.7 g/dL (6.4-8.2) Albumin 2.0 g/dL (3.4-5.0) Albumin/Globulin Ratio 0.4 (1.0-1.7) Test 10/25/17 11:11 10/25/17 16:39 10/25/17 21:13 10/26/17 05:20 Glucose (Fingerstick) 196 mg/dL (70-99) 108 mg/dL (70-99) 120 mg/dL (70-99) White Blood Count 3.7 x10^3/uL (4.0-11.0) Red Blood Count 2.43 x10^6/uL (3.50-5.40) Hemoglobin 7.9 g/dL (12.0-15.5) Hematocrit 24.9 % (36.0-47.0) Mean Corpuscular Volume 102 fL (79-100) Mean Corpuscular Hemoglobin 33 pg (25-35) Mean Corpuscular Hemoglobin Concent 32 g/dL (31-37) Red Cell Distribution Width 19.3 % (11.5-14.5) Platelet Count 82 x10^3/uL (140-400) Neutrophils (%) (Auto) 70 % (31-73) Lymphocytes (%) (Auto) 14 % (24-48) Monocytes (%) (Auto) 7 % (0-9) Eosinophils (%) (Auto) 8 % (0-3) Basophils (%) (Auto) 1 % (0-3) Neutrophils # (Auto) 2.6 x10^3uL (1.8-7.7) Lymphocytes # (Auto) 0.5 x10^3/uL (1.0-4.8) Monocytes # (Auto) 0.3 x10^3/uL (0.0-1.1) Eosinophils # (Auto) 0.3 x10^3/uL (0.0-0.7) Basophils # (Auto) 0.0 x10^3/uL (0.0-0.2) Sodium Level 135 mmol/L (136-145) Potassium Level 5.4 mmol/L (3.5-5.1) Chloride Level 103 mmol/L (98-107) Carbon Dioxide Level 27 mmol/L (21-32) Anion Gap 5 (6-14) Blood Urea Nitrogen 52 mg/dL (7-20) Creatinine 3.4 mg/dL (0.6-1.0) Estimated GFR (Cockcroft-Gault) 13.1 BUN/Creatinine Ratio 15 (6-20) Glucose Level 101 mg/dL (70-99) Calcium Level 7.8 mg/dL (8.5-10.1) Total Bilirubin 0.8 mg/dL (0.2-1.0) Aspartate Amino Transf (AST/SGOT) 19 U/L (15-37) Alanine Aminotransferase (ALT/SGPT) 13 U/L (14-59) Alkaline Phosphatase 155 U/L (46-116) Total Protein 7.3 g/dL (6.4-8.2) Albumin 2.0 g/dL (3.4-5.0) Albumin/Globulin Ratio 0.4 (1.0-1.7) Test 10/26/17 07:55 10/26/17 11:41 Glucose (Fingerstick) 105 mg/dL (70-99) 132 mg/dL (70-99) Laboratory Tests Test 10/25/17 16:39 10/25/17 21:13 10/26/17 05:20 10/26/17 07:55 Glucose (Fingerstick) 108 mg/dL (70-99) 120 mg/dL (70-99) 105 mg/dL (70-99) White Blood Count 3.7 x10^3/uL (4.0-11.0) Red Blood Count 2.43 x10^6/uL (3.50-5.40) Hemoglobin 7.9 g/dL (12.0-15.5) Hematocrit 24.9 % (36.0-47.0) Mean Corpuscular Volume 102 fL (79-100) Mean Corpuscular Hemoglobin 33 pg (25-35) Mean Corpuscular Hemoglobin Concent 32 g/dL (31-37) Red Cell Distribution Width 19.3 % (11.5-14.5) Platelet Count 82 x10^3/uL (140-400) Neutrophils (%) (Auto) 70 % (31-73) Lymphocytes (%) (Auto) 14 % (24-48) Monocytes (%) (Auto) 7 % (0-9) Eosinophils (%) (Auto) 8 % (0-3) Basophils (%) (Auto) 1 % (0-3) Neutrophils # (Auto) 2.6 x10^3uL (1.8-7.7) Lymphocytes # (Auto) 0.5 x10^3/uL (1.0-4.8) Monocytes # (Auto) 0.3 x10^3/uL (0.0-1.1) Eosinophils # (Auto) 0.3 x10^3/uL (0.0-0.7) Basophils # (Auto) 0.0 x10^3/uL (0.0-0.2) Sodium Level 135 mmol/L (136-145) Potassium Level 5.4 mmol/L (3.5-5.1) Chloride Level 103 mmol/L (98-107) Carbon Dioxide Level 27 mmol/L (21-32) Anion Gap 5 (6-14) Blood Urea Nitrogen 52 mg/dL (7-20) Creatinine 3.4 mg/dL (0.6-1.0) Estimated GFR (Cockcroft-Gault) 13.1 BUN/Creatinine Ratio 15 (6-20) Glucose Level 101 mg/dL (70-99) Calcium Level 7.8 mg/dL (8.5-10.1) Total Bilirubin 0.8 mg/dL (0.2-1.0) Aspartate Amino Transf (AST/SGOT) 19 U/L (15-37) Alanine Aminotransferase (ALT/SGPT) 13 U/L (14-59) Alkaline Phosphatase 155 U/L (46-116) Total Protein 7.3 g/dL (6.4-8.2) Albumin 2.0 g/dL (3.4-5.0) Albumin/Globulin Ratio 0.4 (1.0-1.7) Test 10/26/17 11:41 Glucose (Fingerstick) 132 mg/dL (70-99) I have reviewed the following Imaging unrevealing Problem List Problems Medical Problems: (1) HCAP (healthcare-associated pneumonia) Status: Acute Assessment/Plan LUQ pain imaging unrevealing poor surgical candidate will try some topical lidocaine patches may be beneficial for pain service, neurosurgery or rehab consult, given concern for back pain, but defer to primary. CRISTINA SERRANO MD Oct 26, 2017 13:14
--- NOTE | 2017-10-26 13:57 | PN ---
DATE: 10/26/2017 LOCATION: She is in room 202. SUBJECTIVE: The patient is resting comfortably in a chair when I show up. Upon awaking her, she feels like the pain maybe is somewhat decreased from yesterday, but not sure as it comes and goes and it was her worst day ever with the pain yesterday. The patient received Narcan yesterday afternoon because of lower blood pressures, which she normally does not run high blood pressures to start but particularly extremely low blood pressures with improvement in the same. She did receive a liter of IV fluids for the same without much change, but no further calls to me after the Narcan. PHYSICAL EXAMINATION: VITAL SIGNS: Blood pressures currently are 85/50 range. Pulse is in the 90s and irregular consistent with atrial fibrillation. CHEST: Reveals decreased breath sounds bilaterally. HEART: Irregularly irregular, rate of 90. ABDOMEN: Soft, no rebound or guarding. She does wince with epigastric and left upper quadrant tenderness, pain on palpation. EXTREMITIES: Stable. LABORATORY DATA: They were unable unable to do the mesenteric Doppler yesterday due to midline gas. Sugars have been decent. BUN and creatinine are 52 and 3.4 today. Hemoglobin is down to 7.9, likely related to liter of IV fluids. She remains on 2.5 liters per nasal cannula of O2. ASSESSMENT: 1. Severe epigastric left upper quadrant pain, still of uncertain etiology for sure. 2. Pneumonia, on treatment for same. 3. Cardiomyopathy, on continuous dobutamine drip. 4. Diabetes, well controlled. 5. Chronic kidney disease with worsening since admission. 6. Atrial fibrillation. 7. Anemia. PLAN: At this point, we will continue supportive care. Surgery consult is noted. We will attempt to get the mesenteric imaging still as I cannot think of anything else that would have been missed. Today, the help of multiple consultants is appreciated. CRISTY ARANGO MD DR: DARIEL/rob JOB#: [id number] / [id number]
[2017-10-26] MEDS: LIDOCAINE (700MG/PATCH) PATCH. TD SCH (14:40)
[2017-10-26] MEDS ORDERED: MAGNESIUM CITRATE 296 ML SOLUTION. PO PRN (17:30)
[2017-10-26] MEDS: ACETAMINOPHEN 325 MG TABLET. PO PRN (18:25)
--- NOTE | 2017-10-26 18:54 | PDOC ---
PULMONARY PROGRESS NOTES Subjective PT TIRED AND SOA AT TIMES Vitals Vital Signs Date Time Temp Pulse Resp B/P (MAP) Pulse Ox O2 Delivery O2 Flow Rate FiO2 10/26/17 16:15 98 Nasal Cannula 3.0 10/26/17 15:00 98.1 103 14 98/51 (67) 98.1 ROS: No Nausea, No Chest Pain, No Increase Cough General: Alert, No acute distress Lungs: Crackles Cardiovascular: S1, S2 Abdomen: Soft, Non-tender Neuro Exam: Alert Extremities: Other (EDEMA) Skin: Warm Labs Laboratory Tests Test 10/24/17 20:59 10/25/17 05:00 10/25/17 08:08 10/25/17 11:11 Glucose (Fingerstick) 121 mg/dL (70-99) 126 mg/dL (70-99) 196 mg/dL (70-99) White Blood Count 4.2 x10^3/uL (4.0-11.0) Red Blood Count 2.54 x10^6/uL (3.50-5.40) Hemoglobin 8.4 g/dL (12.0-15.5) Hematocrit 25.9 % (36.0-47.0) Mean Corpuscular Volume 102 fL (79-100) Mean Corpuscular Hemoglobin 33 pg (25-35) Mean Corpuscular Hemoglobin Concent 32 g/dL (31-37) Red Cell Distribution Width 19.0 % (11.5-14.5) Platelet Count 94 x10^3/uL (140-400) Neutrophils (%) (Auto) 62 % (31-73) Lymphocytes (%) (Auto) 17 % (24-48) Monocytes (%) (Auto) 8 % (0-9) Eosinophils (%) (Auto) 12 % (0-3) Basophils (%) (Auto) 1 % (0-3) Neutrophils # (Auto) 2.6 x10^3uL (1.8-7.7) Lymphocytes # (Auto) 0.7 x10^3/uL (1.0-4.8) Monocytes # (Auto) 0.3 x10^3/uL (0.0-1.1) Eosinophils # (Auto) 0.5 x10^3/uL (0.0-0.7) Basophils # (Auto) 0.0 x10^3/uL (0.0-0.2) Sodium Level 133 mmol/L (136-145) Potassium Level 5.2 mmol/L (3.5-5.1) Chloride Level 100 mmol/L (98-107) Carbon Dioxide Level 27 mmol/L (21-32) Anion Gap 6 (6-14) Blood Urea Nitrogen 47 mg/dL (7-20) Creatinine 3.2 mg/dL (0.6-1.0) Estimated GFR (Cockcroft-Gault) 14.0 BUN/Creatinine Ratio 15 (6-20) Glucose Level 110 mg/dL (70-99) Calcium Level 8.1 mg/dL (8.5-10.1) Total Bilirubin 0.8 mg/dL (0.2-1.0) Aspartate Amino Transf (AST/SGOT) 21 U/L (15-37) Alanine Aminotransferase (ALT/SGPT) 14 U/L (14-59) Alkaline Phosphatase 156 U/L (46-116) Total Protein 7.7 g/dL (6.4-8.2) Albumin 2.0 g/dL (3.4-5.0) Albumin/Globulin Ratio 0.4 (1.0-1.7) Test 10/25/17 16:39 10/25/17 21:13 10/26/17 05:20 10/26/17 07:55 Glucose (Fingerstick) 108 mg/dL (70-99) 120 mg/dL (70-99) 105 mg/dL (70-99) White Blood Count 3.7 x10^3/uL (4.0-11.0) Red Blood Count 2.43 x10^6/uL (3.50-5.40) Hemoglobin 7.9 g/dL (12.0-15.5) Hematocrit 24.9 % (36.0-47.0) Mean Corpuscular Volume 102 fL (79-100) Mean Corpuscular Hemoglobin 33 pg (25-35) Mean Corpuscular Hemoglobin Concent 32 g/dL (31-37) Red Cell Distribution Width 19.3 % (11.5-14.5) Platelet Count 82 x10^3/uL (140-400) Neutrophils (%) (Auto) 70 % (31-73) Lymphocytes (%) (Auto) 14 % (24-48) Monocytes (%) (Auto) 7 % (0-9) Eosinophils (%) (Auto) 8 % (0-3) Basophils (%) (Auto) 1 % (0-3) Neutrophils # (Auto) 2.6 x10^3uL (1.8-7.7) Lymphocytes # (Auto) 0.5 x10^3/uL (1.0-4.8) Monocytes # (Auto) 0.3 x10^3/uL (0.0-1.1) Eosinophils # (Auto) 0.3 x10^3/uL (0.0-0.7) Basophils # (Auto) 0.0 x10^3/uL (0.0-0.2) Sodium Level 135 mmol/L (136-145) Potassium Level 5.4 mmol/L (3.5-5.1) Chloride Level 103 mmol/L (98-107) Carbon Dioxide Level 27 mmol/L (21-32) Anion Gap 5 (6-14) Blood Urea Nitrogen 52 mg/dL (7-20) Creatinine 3.4 mg/dL (0.6-1.0) Estimated GFR (Cockcroft-Gault) 13.1 BUN/Creatinine Ratio 15 (6-20) Glucose Level 101 mg/dL (70-99) Calcium Level 7.8 mg/dL (8.5-10.1) Total Bilirubin 0.8 mg/dL (0.2-1.0) Aspartate Amino Transf (AST/SGOT) 19 U/L (15-37) Alanine Aminotransferase (ALT/SGPT) 13 U/L (14-59) Alkaline Phosphatase 155 U/L (46-116) Total Protein 7.3 g/dL (6.4-8.2) Albumin 2.0 g/dL (3.4-5.0) Albumin/Globulin Ratio 0.4 (1.0-1.7) Test 10/26/17 11:41 10/26/17 16:29 Glucose (Fingerstick) 132 mg/dL (70-99) 98 mg/dL (70-99) Laboratory Tests Test 10/25/17 21:13 10/26/17 05:20 10/26/17 07:55 10/26/17 11:41 Glucose (Fingerstick) 120 mg/dL (70-99) 105 mg/dL (70-99) 132 mg/dL (70-99) White Blood Count 3.7 x10^3/uL (4.0-11.0) Red Blood Count 2.43 x10^6/uL (3.50-5.40) Hemoglobin 7.9 g/dL (12.0-15.5) Hematocrit 24.9 % (36.0-47.0) Mean Corpuscular Volume 102 fL (79-100) Mean Corpuscular Hemoglobin 33 pg (25-35) Mean Corpuscular Hemoglobin Concent 32 g/dL (31-37) Red Cell Distribution Width 19.3 % (11.5-14.5) Platelet Count 82 x10^3/uL (140-400) Neutrophils (%) (Auto) 70 % (31-73) Lymphocytes (%) (Auto) 14 % (24-48) Monocytes (%) (Auto) 7 % (0-9) Eosinophils (%) (Auto) 8 % (0-3) Basophils (%) (Auto) 1 % (0-3) Neutrophils # (Auto) 2.6 x10^3uL (1.8-7.7) Lymphocytes # (Auto) 0.5 x10^3/uL (1.0-4.8) Monocytes # (Auto) 0.3 x10^3/uL (0.0-1.1) Eosinophils # (Auto) 0.3 x10^3/uL (0.0-0.7) Basophils # (Auto) 0.0 x10^3/uL (0.0-0.2) Sodium Level 135 mmol/L (136-145) Potassium Level 5.4 mmol/L (3.5-5.1) Chloride Level 103 mmol/L (98-107) Carbon Dioxide Level 27 mmol/L (21-32) Anion Gap 5 (6-14) Blood Urea Nitrogen 52 mg/dL (7-20) Creatinine 3.4 mg/dL (0.6-1.0) Estimated GFR (Cockcroft-Gault) 13.1 BUN/Creatinine Ratio 15 (6-20) Glucose Level 101 mg/dL (70-99) Calcium Level 7.8 mg/dL (8.5-10.1) Total Bilirubin 0.8 mg/dL (0.2-1.0) Aspartate Amino Transf (AST/SGOT) 19 U/L (15-37) Alanine Aminotransferase (ALT/SGPT) 13 U/L (14-59) Alkaline Phosphatase 155 U/L (46-116) Total Protein 7.3 g/dL (6.4-8.2) Albumin 2.0 g/dL (3.4-5.0) Albumin/Globulin Ratio 0.4 (1.0-1.7) Test 10/26/17 16:29 Glucose (Fingerstick) 98 mg/dL (70-99) Medications Active Scripts Medications Dose Route/Sig Max Daily Dose Days Date Category Dose Instructions Alprazolam 0.25 Mg Tablet 1 Tab PO TID 10/21/17 Reported [dobutamine] 12.1 Ml IV DAILY PRN 10/21/17 Reported Zinc-220 (Zinc Sulfate) 220 Mg Capsule 220 Mg PO DAILY 08/29/17 Reported Vitamin C (Ascorbate Calcium) 500 Mg Tablet 500 Mg PO DAILY 08/29/17 Reported Multivitamins (Multivitamin) 1 Each Tablet 1 Tab PO DAILY 08/29/17 Reported Mucinex (Guaifenesin) 600 Mg Tablet.er 600 Mg PO PRN Q12HR PRN 08/29/17 Reported Albuterol Sulfate Conc Neb Soln (Albuterol Sulfate) 2.5 Mg/0.5 Ml Vial.neb 2.5 Mg NEB QID 08/29/17 Reported Potassium Chloride 20 Meq Tablet.er 20 Meq PO DAILY 08/05/17 Reported Bumetanide 1 Mg Tablet 1 Tab PO BID 08/05/17 Reported Humalog (Insulin Lispro) 100 Unit/1 Ml Insuln.pen 4 Units SQ TIDAC 03/05/17 Reported Lantus Solostar (Insulin Glargine,Hum.rec.anlog) 100 Unit/1 Ml Insuln.pen 24 Units SQ HS 03/05/17 Reported Atorvastatin Calcium 40 Mg Tablet 40 Mg PO HS 03/05/17 Reported Amiodarone Hcl 200 Mg Tablet 1 Tab PO DAILY 06/27/16 Reported Oxycodone Hcl 30 Mg Tablet 1 Tab PO Q6HRS PRN 11/28/15 Reported Synthroid (Levothyroxine Sodium) 75 Mcg Tablet 75 Mcg PO DAILY07 30 08/21/15 Rx Metoprolol Tartrate 25 Mg Tablet 25 Mg PO BID 07/22/13 Reported next dose tonight 10-21-16 at 9:00 pm Impression . 1. Acute on chronic respiratory failure. 2. Acute on chronic systolic and diastolic heart failure. 3. Abnormal x-ray compatible with congestive heart failure and pneumonia, suspect gram-negative, possibly gram-positive. 4. Type 2 diabetes. 5. Hypertension. 6. Cardiomyopathy with previous ejection fraction of 40-45%. 7. Acute on chronic kidney disease. 8. Protein malnutrition present upon admission. 10. PVD/VASCULAR INSUFFICIENCY TO ABD VESSELS Plan . RESP STATUS COMPENSATED MAY NEED PALLIATIVE CARE PT DOES NOT FEEL ANY BETTER WILL CONTINUE CURRENT RX U/S ABD PENDING FOLLOW VASCULAR INPUT PT/OT ROBBI LYN MD Oct 26, 2017 18:54
[2017-10-26] MEDS: ATORVASTATIN CALCIUM 40 MG TABLET. PO SCH (20:40)
[2017-10-26] MEDS: PATCH REMOVAL. MC SCH (20:41)
[2017-10-26] MEDS: INSULIN GLARGINE 300 UNITS/3 ML INSULN.PEN. SQ SCH (20:45)
[2017-10-27] VITALS (7 sets, daily range): BP systolic 88–147; BP diastolic 45–67
[2017-10-27] MEDS: MORPHINE SULFATE 10 MG/ML VIAL. IV PRN (04:18)
[2017-10-27] MEDS: PIPERACILLIN/TAZOBACTAM 2.25 GM in IV NORMAL SALINE 50ML 50 ML IV SCH ×3 (06:04→21:03)
[2017-10-27] MEDS: LEVOTHYROXINE 75 MCG TABLET PO SCH (06:04)
[2017-10-27] MEDS: INSULIN LISPRO 300 UNITS/3 ML INSULN.PEN. SQ SCH ×3 (07:30→16:30)
[2017-10-27] MEDS: ALBUTEROL SULFATE 2.5 MG/3 ML NEBU. NEB SCH ×4 (07:50→20:00)
[2017-10-27] MEDS: LACTOBACILLUS RHAMNOSUS GG 1 CAPSULE. PO SCH ×2 (08:07→21:02)
[2017-10-27] MEDS: BUMETANIDE 1 MG TABLET. PO SCH ×2 (08:07→15:51)
[2017-10-27] MEDS: ALPRAZolam 0.25 MG TABLET PO SCH ×3 (08:07→21:05)
[2017-10-27] MEDS: LUBIPROSTONE 8 MCG CAPSULE PO SCH (08:07)
[2017-10-27] MEDS: MULTIVITAMIN with MINERAL TABLET. PO SCH (08:07)
[2017-10-27] MEDS: ZINC SULFATE 220 MG CAPSULE. PO SCH (08:07)
[2017-10-27] MEDS: ASCORBIC ACID 500 MG TABLET PO SCH (08:07)
[2017-10-27] MEDS: LINEZOLID 600 MG TABLET PO SCH ×2 (08:08→21:02)
[2017-10-27] MEDS: LIDOCAINE (700MG/PATCH) PATCH. TD SCH (08:08)
--- NOTE | 2017-10-27 08:13 | PDOC ---
Infectious Disease Note Subjective Subjective Sleeping comfortably in bed on my arrival c/o persistent left flank pain upon awakening and severe constipation No F/C/N/V/D/SOA/cough/CP/Rash ROS ROS o/w neg Vital Sign Vital Signs Vital Signs Date Time Temp Pulse Resp B/P (MAP) Pulse Ox O2 Delivery O2 Flow Rate FiO2 10/27/17 07:50 100 Nasal Cannula 3.0 10/27/17 04:48 18 10/27/17 03:12 97.5 69 147/63 (91) 97.5 Physical Exam PHYSICAL EXAM GENERAL: Propped up in bed, alert, NAD, appears comfortable until awakening HEENT: Normal conjunctivae. Oral mucosa is pink and moist. Edentulous/ dentures LUNGS: Diminished aeration in the bases. HEART: S1 and S2. ABDOMEN: Obese. Bowel sounds active. Soft and mildly tender in general. EXTREMITIES: Generalized edema. No cyanosis. Left lower extremity less red; small anterior scab noted - clean under dressing SKIN: Warm without rash. NEUROLOGIC: Alert and oriented x 3. Right-sided PICC (POA) without signs of any complications. Labs Lab Laboratory Tests Test 10/26/17 11:41 10/26/17 16:29 10/26/17 20:38 Glucose (Fingerstick) 132 mg/dL (70-99) 98 mg/dL (70-99) 98 mg/dL (70-99) Micro Microbiology 10/21/17 Blood Culture - Preliminary, Resulted NO GROWTH AFTER 4 DAYS Objective Assessment Bibasilar consolidation, pneumonia cannot be ruled out Cellulitis of left lower extremity - better Constipation [id number] heart failure NYHA class IV, on chronic dobutamine infusion via tunneled PICC (POA) Sulfa allergy - reaction unknown Pancytopenia ANDRE on CKD. h/o left nephrectomy Left flank pain w/ a nonobstructing right renal stone. UA neg for infection - Gi and surgery following. U/S neg for hydro on the right Amiodarone therapy DM h/o MRSE discitis h/o Klebsiella UTI Plan Plan of Care Given renal function and h/o left nephrectomy would recommend avoiding nephrotoxic agents. Continue Zosyn (10/21), renal dosing. Add Zyvox - (10/26) Suppository today F/u CBC Sputum culture not collected Seen by urology, no urological interventions planned Needs palliative eval CLAIR,HUNTER A MD Oct 27, 2017 08:13
[2017-10-27] MEDS ORDERED: DEXTROSE 50% 25 GM / 50ML DISP.SYRIN. IV PRN (08:15)
[2017-10-27] MEDS ORDERED: BISACODYL 10 MG SUPP.RECT. PR ONE (08:15)
--- NOTE | 2017-10-27 08:36 | PDOC ---
SURGICAL PROGRESS NOTE Subjective Pt with c/o persistent LUQ pain Vital Signs Vital Signs Date Time Temp Pulse Resp B/P (MAP) Pulse Ox O2 Delivery O2 Flow Rate FiO2 10/27/17 07:50 100 Nasal Cannula 3.0 10/27/17 07:00 84 24 100/67 (78) 10/27/17 03:12 97.5 97.5 I&O Intake and Output 10/27/17 07:00 Intake Total 2190 ml Output Total 600 ml Balance 1590 ml Intake Oral 2190 ml Output Urine Total 600 ml General: Alert, Oriented X3, Cooperative, moderate distress Abdomen: Soft, Other (abd wall edema, patches in place, mild TTP) Labs Laboratory Tests Test 10/25/17 11:11 10/25/17 16:39 10/25/17 21:13 10/26/17 05:20 Glucose (Fingerstick) 196 mg/dL (70-99) 108 mg/dL (70-99) 120 mg/dL (70-99) White Blood Count 3.7 x10^3/uL (4.0-11.0) Red Blood Count 2.43 x10^6/uL (3.50-5.40) Hemoglobin 7.9 g/dL (12.0-15.5) Hematocrit 24.9 % (36.0-47.0) Mean Corpuscular Volume 102 fL (79-100) Mean Corpuscular Hemoglobin 33 pg (25-35) Mean Corpuscular Hemoglobin Concent 32 g/dL (31-37) Red Cell Distribution Width 19.3 % (11.5-14.5) Platelet Count 82 x10^3/uL (140-400) Neutrophils (%) (Auto) 70 % (31-73) Lymphocytes (%) (Auto) 14 % (24-48) Monocytes (%) (Auto) 7 % (0-9) Eosinophils (%) (Auto) 8 % (0-3) Basophils (%) (Auto) 1 % (0-3) Neutrophils # (Auto) 2.6 x10^3uL (1.8-7.7) Lymphocytes # (Auto) 0.5 x10^3/uL (1.0-4.8) Monocytes # (Auto) 0.3 x10^3/uL (0.0-1.1) Eosinophils # (Auto) 0.3 x10^3/uL (0.0-0.7) Basophils # (Auto) 0.0 x10^3/uL (0.0-0.2) Sodium Level 135 mmol/L (136-145) Potassium Level 5.4 mmol/L (3.5-5.1) Chloride Level 103 mmol/L (98-107) Carbon Dioxide Level 27 mmol/L (21-32) Anion Gap 5 (6-14) Blood Urea Nitrogen 52 mg/dL (7-20) Creatinine 3.4 mg/dL (0.6-1.0) Estimated GFR (Cockcroft-Gault) 13.1 BUN/Creatinine Ratio 15 (6-20) Glucose Level 101 mg/dL (70-99) Calcium Level 7.8 mg/dL (8.5-10.1) Total Bilirubin 0.8 mg/dL (0.2-1.0) Aspartate Amino Transf (AST/SGOT) 19 U/L (15-37) Alanine Aminotransferase (ALT/SGPT) 13 U/L (14-59) Alkaline Phosphatase 155 U/L (46-116) Total Protein 7.3 g/dL (6.4-8.2) Albumin 2.0 g/dL (3.4-5.0) Albumin/Globulin Ratio 0.4 (1.0-1.7) Test 10/26/17 07:55 10/26/17 11:41 10/26/17 16:29 10/26/17 20:38 Glucose (Fingerstick) 105 mg/dL (70-99) 132 mg/dL (70-99) 98 mg/dL (70-99) 98 mg/dL (70-99) Test 10/27/17 08:09 Glucose (Fingerstick) 62 mg/dL (70-99) Laboratory Tests Test 10/26/17 11:41 10/26/17 16:29 10/26/17 20:38 10/27/17 08:09 Glucose (Fingerstick) 132 mg/dL (70-99) 98 mg/dL (70-99) 98 mg/dL (70-99) 62 mg/dL (70-99) Problem List Problems Medical Problems: (1) HCAP (healthcare-associated pneumonia) Status: Acute Assessment/Plan LUQ pain d/w Dr. Bautista, agree with suppository for stool cont w/u, no surgical intervention indicated and pt poor candidate CRISTINA SERRANO MD Oct 27, 2017 08:36
[2017-10-27 08:51] LABS: BASO % 1 % (0-3); EOS # 0.2 x10^3/uL (0.0-0.7); EOS % 6 % (0-3); HEMATOCRIT 25.8 % (36.0-47.0); HEMOGLOBIN 8.4 g/dL (12.0-15.5); LYMPH # 0.5 x10^3/uL (1.0-4.8); LYMPH % 11 % (24-48); MEAN CORPUSCULAR HEMOGLOBIN 33 pg (25-35); MEAN CORPUSCULAR HGB CONC 33 g/dL (31-37); MEAN CORPUSCULAR VOLUME 103 fL (79-100); MONO # 0.3 x10^3/uL (0.0-1.1); MONO % 6 % (0-9); NEUT # 3.3 x10^3uL (1.8-7.7); NEUT % 77 % (31-73); PLATELET COUNT 84 x10^3/uL (140-400); RED BLOOD COUNT 2.52 x10^6/uL (3.50-5.40); RED CELL DISTRIBUTION WIDTH 19.4 % (11.5-14.5); WHITE BLOOD COUNT 4.3 x10^3/uL (4.0-11.0)
[2017-10-27 09:00] LABS: CALCIUM 7.8 mg/dL (8.5-10.1); CREATININE 3.5 mg/dL (0.6-1.0); GFR 12.7; POTASSIUM 5.6 mmol/L (3.5-5.1)
[2017-10-27] MEDS: AMIODARONE HCL 200 MG TABLET. PO SCH (09:00)
[2017-10-27] MEDS: METOPROLOL TART IMMED RELEASE 25 MG TABLET. PO SCH ×2 (09:00→21:03)
--- NOTE | 2017-10-27 09:04 | PN ---
DATE: 10/27/2017 LOCATION: Room 202. SUBJECTIVE: The patient is awake, alert, getting ready to get some D50 for low blood sugar as well as suppository for ongoing constipation. Her pain has not improved any. I discussed with Surgery this morning who felt like there were a lot of problems that could be, but not anything that they would feel comfortable taking her to surgery for. OBJECTIVE: Vital signs are stable. She is afebrile. Renal ultrasound yesterday shows no hydronephrosis on the right side. Blood pressures have rebounded from the lows that were improved giving Narcan. She did receive half a bottle of mag citrate yesterday with no results and was getting suppositories today. Sugar this morning is 62. IMPRESSION: 1. Ongoing abdominal pain of uncertain etiology. 2. Hypotension, likely narcotic related for pain. 3. Pneumonia, ongoing treatment. 4. Cardiomyopathy, on continuous dobutamine drip. 5. Diabetes, well controlled. 6. Chronic kidney disease with slight worsening. 7. Atrial fibrillation. 8. Anemia. PLAN: We will work on a bowel regimen. I have discussed with nursing this morning. She is getting regular Dulcolax suppository. We will give her some Dulcolax by mouth, try to do basically bowel prep in the hospital and see if we can get any results with this as I do not believe there is any other cause of this pain that we are going to be able to deal with. CRISTY ARANGO MD DR: DARIEL/rob JOB#: [id number] / [id number]
--- NOTE | 2017-10-27 10:08 | PDOC ---
SUBJECTIVE ROS Stable OBJECTIVE Vital Signs Vital Signs Date Time Temp Pulse Resp B/P (MAP) Pulse Ox O2 Delivery O2 Flow Rate FiO2 10/27/17 09:00 84 100/67 10/27/17 08:00 Nasal Cannula 2.5 10/27/17 07:50 100 10/27/17 07:00 24 10/27/17 03:12 97.5 97.5 I & 0 Intake and Output 10/27/17 07:00 Intake Total 2190 ml Output Total 600 ml Balance 1590 ml Intake Oral 2190 ml Output Urine Total 600 ml PHYSICAL EXAM Physical Exam GENERAL: NAD HEENT: Oral mucosa moist. On o2 by NC neck Supple LUNGS: Diminished aeration in the bases, Non labored HEART: S1 and S2. ABDOMEN: Obese. Bowel sounds active. EXTREMITIES: Generalized edema. Rt Side PICC ( Dobutamine Infusion) SKIN: No rash, NEUROLOGIC: Alert and oriented x 3. - No SP or CVA tenderness, No Hurtado DIAGNOSIS/ASSESSMENT Assessment & Plan ANDRE on CKD- multifactorial - cardiorenal/Single Kidney /Infection / She is on NSAID's as well She is not be a good candidate for Dialysis based on her cardiac status(as per Info available in our system ) Cautious with aggressive diuresis to avoid worsening renal function Renal US - Rt Kidney N, No Retention , nonobstructing right renal stone on CT , Lt nephrectomy UA neg for infection on 10/20 - hx of Recurrent UTI Constipation- GI following Hyperkalemia- Mild,KCL listed in med list , recommend dc Monitor Fpoav-[id number] heart failure NYHA class IV, on chronic dobutamine infusion via tunneled PICC On Bumex Defer to cardiology CKD s/p Lt nephrectomy Bibasilar consolidation/ ? pneumonia Cellulitis of left lower extremity - better Discussed with Pt and RN at bedside, recommend Palliative, defer to primary COMMENT/RELEVANT DATA Meds Current Medications Medications (Trade) Dose Ordered Sig/Ermias Start Time Stop Time Status Last Admin Dose Admin Acetaminophen (Tylenol) 650 mg PRN Q4HRS PRN 10/26/17 17:30 10/26/17 18:25 650 MG Albuterol Sulfate (Ventolin Neb Soln) 2.5 mg RTQID 10/22/17 08:00 10/26/17 19:49 2.5 MG Alprazolam (Xanax) 0.25 mg TID 10/21/17 22:00 9/4/18 08:07 0.25 MG Alteplase, Recombinant (Cathflo) 2 mg 1X ONCE 10/23/17 09:30 10/23/17 09:31 DC 10/23/17 09:32 2 MG Amiodarone HCl (Cordarone) 200 mg DAILY 10/22/17 09:00 10/25/17 08:32 200 MG Ascorbic Acid (Vitamin C) 500 mg DAILY 10/22/17 09:00 10/27/17 08:07 500 MG Atorvastatin Calcium (Lipitor) 40 mg HS 10/21/17 21:30 10/26/17 20:40 40 MG Bisacodyl (Dulcolax Supp) 10 mg 1X ONCE 10/27/17 08:15 10/27/17 08:16 DC 10/27/17 08:20 10 MG Bisacodyl (Dulcolax Tab) 10 mg 1X ONCE 10/23/17 13:00 10/23/17 13:01 DC 10/23/17 14:34 10 MG Bumetanide (Bumex) 1 mg [id number] 10/22/17 09:00 10/27/17 08:07 1 MG Celecoxib (CeleBREX) 200 mg BID 10/24/17 10:30 10/25/17 10:44 DC 10/25/17 08:32 200 MG Dextrose (Dextrose 50%-Water Syringe) 12.5 gm PRN Q15MIN PRN 10/27/17 08:15 Dobutamine HCl/ Dextrose 250 ml @ 13.008 mls/ hr CONT PRN 10/22/17 09:30 10/27/17 06:04 13.008 MLS/HR Furosemide (Lasix) 40 mg 1X ONCE 10/21/17 20:00 10/21/17 20:01 DC Guaifenesin (Mucinex) 600 mg PRN Q12HR PRN 10/21/17 21:15 Insulin Glargine (Lantus) 24 units HS 10/21/17 21:30 10/26/17 20:45 24 UNITS Insulin Human Lispro (HumaLOG) 4 units TIDAC 10/22/17 07:30 10/26/17 11:50 4 UNITS Lactobacillus Rhamnosus (Culturelle) 1 cap BID 10/22/17 21:00 10/27/17 08:07 1 CAP Levothyroxine Sodium (Synthroid) 75 mcg DAILY07 10/22/17 07:00 10/27/17 06:04 75 MCG Lidocaine (Lidoderm) 1 patch DAILY 10/26/17 14:00 10/27/17 08:08 1 PATCH Linezolid (Zyvox) 600 mg BID 10/26/17 09:00 10/27/17 08:08 600 MG Lubiprostone (Amitiza) 8 mcg BIDWMEALS 10/23/17 17:00 10/27/17 08:07 8 MCG Magnesium Citrate (Citroma) 296 ml PRN 1X PRN 10/26/17 17:30 10/26/17 18:25 296 ML Metoprolol Tartrate (Lopressor) 25 mg BID 10/21/17 21:30 10/26/17 20:40 25 MG Miscellaneous (Lidoderm Patch Removal) 1 ea QHS 10/26/17 21:00 10/26/17 20:41 1 EA Morphine Sulfate (Morphine Sulfate) 10 mg PRN Q2HR PRN 10/25/17 10:15 10/27/17 04:18 10 MG Multivitamins (Thera M Plus) 1 tab DAILY 10/22/17 09:00 10/27/17 08:07 1 TAB Naloxone HCl (Narcan) 0.4 mg 1X ONCE 10/25/17 17:30 10/25/17 17:31 DC Non-Formulary Medication (Albuterol Sulfate (Albuterol Sulfate Conc Neb Soln)) 2.5 mg QID 10/22/17 09:00 UNV Non-Formulary Medication ([dobutamine] ) 12.1 ml PRN DAILY PRN 10/21/17 21:30 10/22/17 12:00 DC Oxycodone HCl (Roxicodone) 30 mg PRN QID PRN 10/21/17 21:15 10/26/17 20:41 30 MG Piperacillin Sod/ Tazobactam Sod (Zosyn Per Pharmacy) 1 each PRN DAILY PRN 10/21/17 19:30 Piperacillin Sod/ Tazobactam Sod 2.25 gm/Sodium Chloride 50 ml @ 100 mls/hr Q8HRS 10/21/17 20:00 10/27/17 06:04 100 MLS/HR Potassium Chloride (Klor-Con) 20 meq DAILY 10/22/17 09:00 10/26/17 12:56 DC 10/24/17 08:23 20 MEQ Simethicone (Gas-X) 80 mg PRN AFTMEALHC PRN 10/25/17 10:15 10/26/17 10:41 80 MG Sodium Chloride 1,000 ml @ 999 mls/hr 1X ONCE 10/25/17 16:15 10/25/17 17:15 DC 10/25/17 16:15 999 MLS/HR Vancomycin HCl (Vanco Per Pharmacy) 1 each PRN DAILY PRN 10/21/17 20:00 10/24/17 14:50 DC 10/24/17 01:02 1 EACH Vancomycin HCl (Vancomycin Random Level) 1 each 1X ONCE 10/23/17 21:00 10/23/17 21:01 DC 10/23/17 21:00 1 EACH Vancomycin HCl 1.25 gm/Sodium Chloride 250 ml @ 167 mls/hr Q48H 10/23/17 22:00 10/23/17 22:00 DC Vancomycin HCl 1 gm/Sodium Chloride 250 ml @ 250 mls/hr Q48H 10/23/17 23:00 10/24/17 14:50 DC 10/23/17 22:49 250 MLS/HR Zinc Sulfate (Orazinc) 220 mg DAILY 10/22/17 09:00 10/27/17 08:07 220 MG Lab Laboratory Tests Test 10/26/17 11:41 10/26/17 16:29 10/26/17 20:38 10/27/17 08:09 Glucose (Fingerstick) 132 mg/dL (70-99) 98 mg/dL (70-99) 98 mg/dL (70-99) 62 mg/dL (70-99) Test 10/27/17 08:39 White Blood Count 4.3 x10^3/uL (4.0-11.0) Red Blood Count 2.52 x10^6/uL (3.50-5.40) Hemoglobin 8.4 g/dL (12.0-15.5) Hematocrit 25.8 % (36.0-47.0) Mean Corpuscular Volume 103 fL (79-100) Mean Corpuscular Hemoglobin 33 pg (25-35) Mean Corpuscular Hemoglobin Concent 33 g/dL (31-37) Red Cell Distribution Width 19.4 % (11.5-14.5) Platelet Count 84 x10^3/uL (140-400) Neutrophils (%) (Auto) 77 % (31-73) Lymphocytes (%) (Auto) 11 % (24-48) Monocytes (%) (Auto) 6 % (0-9) Eosinophils (%) (Auto) 6 % (0-3) Basophils (%) (Auto) 1 % (0-3) Neutrophils # (Auto) 3.3 x10^3uL (1.8-7.7) Lymphocytes # (Auto) 0.5 x10^3/uL (1.0-4.8) Monocytes # (Auto) 0.3 x10^3/uL (0.0-1.1) Eosinophils # (Auto) 0.2 x10^3/uL (0.0-0.7) Basophils # (Auto) 0.0 x10^3/uL (0.0-0.2) Sodium Level 132 mmol/L (136-145) Potassium Level 5.6 mmol/L (3.5-5.1) Chloride Level 100 mmol/L (98-107) Carbon Dioxide Level 25 mmol/L (21-32) Anion Gap 7 (6-14) Blood Urea Nitrogen 56 mg/dL (7-20) Creatinine 3.5 mg/dL (0.6-1.0) Estimated GFR (Cockcroft-Gault) 12.7 Glucose Level 64 mg/dL (70-99) Calcium Level 7.8 mg/dL (8.5-10.1) Results All relevant outside records, renal labs, imaging studies, telemetry/EKG's were reviewed The longitudinal and AP and transverse dimensions of the right kidney are 11.6 cm and 4.8 cm and 5.0 cm respectively. No hydronephrosis or renal mass or perinephric fluid collection is seen on the right side. The left kidney is surgically absent based on the CT study. The urinary bladder is not visualized and therefore is not distended. IMPRESSION: No hydronephrosis is seen on the right side. DHRUV MCKEON MD Oct 27, 2017 10:08
--- NOTE | 2017-10-27 10:15 | PDOC ---
CARDIOLOGY PROGRESS NOTE SUBJECTIVE: Patient progressively declining from an objective perspective. Today continues to complain of bowel dysfunction. No chest pain. No dyspnea but mostly resting in bed. OBJECTIVE: Vital SIgns: BP 100/67. HR 70's. I & O +1.5 L Objective: She is weak/fatigued. Irregular heart tones Mild diffuse abdominal tenderness. 3+ LE edema. No significant change from prior. Decreased breath sounds at the bases. CURRENT MEDICATIONS: Dobutamine 5mcg/kg/min gtt Bumex 1mg bid Atorvastatin Metoprolol 25mg bid Amiodarone 200mg daily DIAGNOSTIC TESTING: Cr 3.5 (worsening from 2.8) Anemic hgb around 8 ASSESSMENT: 1. Acute on chronic systolic/diastolic HF, NYHA class 4 2. ANDRE on CKD (Cr 3.5) 3. Anemia of chronic disease. 4. Dyslipidemia 5. Low blood pressures - presumably due to above. 6. Diuretic resistance. PLAN: 1. Will discuss with Dr. Bautista - her goals of care. She has been seen by renal who feel that she would not be a good HD candidate. The only thing to offer from a cardiac standpoint would be a RHC, to titrate medical therapy (i.e. increase dobutamine or change to milrinone). Continued diuretics may worsen her renal function. VERO BRICE MD Oct 27, 2017 10:15
--- NOTE | 2017-10-27 11:06 | PDOC ---
Subjective: Subjective: Left-sided pain, worried any further treatment for constipation will cause more pain. Objective: Objective: Reviewed w/ RN - passed very hard balls of stool in bedpan this morning after suppository, wants pain meds. Vital Signs: Vital Signs Date Time Temp Pulse Resp B/P (MAP) Pulse Ox O2 Delivery O2 Flow Rate FiO2 10/27/17 09:00 84 100/67 10/27/17 08:00 Nasal Cannula 2.5 10/27/17 07:50 100 10/27/17 07:00 24 10/27/17 03:12 97.5 97.5 Labs: Laboratory Tests Test 10/26/17 11:41 10/26/17 16:29 10/26/17 20:38 10/27/17 08:09 Glucose (Fingerstick) 132 mg/dL (70-99) 98 mg/dL (70-99) 98 mg/dL (70-99) 62 mg/dL (70-99) PE: GEN: uncomfortable LUNGS: NC HEART: RRR ABD: BS+, left-sided discomfort NEURO/PSYCH: A & O 3 A/P: Left abd pain, constipation CHF, CKD, chronic pain - previously Hospice ?cirrhosis - thrombocytopenia, coagulopathy, on amiodarone -- Reviewed w/ Dr. Fregoso - increase Amitiza, try enemas - d/w JOB BRAUN Oct 27, 2017 11:06
--- NOTE | 2017-10-27 11:48 | PDOC ---
PULMONARY PROGRESS NOTES Subjective PT TIRED AND SOA AT TIMES Vitals Vital Signs Date Time Temp Pulse Resp B/P (MAP) Pulse Ox O2 Delivery O2 Flow Rate FiO2 10/27/17 11:00 88 22 102/52 (69) 99 Nasal Cannula 10/27/17 08:00 2.5 10/27/17 03:12 97.5 97.5 ROS: No Nausea, No Chest Pain, No Increase Cough General: Alert, No acute distress Lungs: Other (decrease bs left base) Cardiovascular: S1, S2 Abdomen: Soft, Non-tender Neuro Exam: Alert Extremities: Other (EDEMA) Skin: Warm Labs Laboratory Tests Test 10/25/17 16:39 10/25/17 21:13 10/26/17 05:20 10/26/17 07:55 Glucose (Fingerstick) 108 mg/dL (70-99) 120 mg/dL (70-99) 105 mg/dL (70-99) White Blood Count 3.7 x10^3/uL (4.0-11.0) Red Blood Count 2.43 x10^6/uL (3.50-5.40) Hemoglobin 7.9 g/dL (12.0-15.5) Hematocrit 24.9 % (36.0-47.0) Mean Corpuscular Volume 102 fL (79-100) Mean Corpuscular Hemoglobin 33 pg (25-35) Mean Corpuscular Hemoglobin Concent 32 g/dL (31-37) Red Cell Distribution Width 19.3 % (11.5-14.5) Platelet Count 82 x10^3/uL (140-400) Neutrophils (%) (Auto) 70 % (31-73) Lymphocytes (%) (Auto) 14 % (24-48) Monocytes (%) (Auto) 7 % (0-9) Eosinophils (%) (Auto) 8 % (0-3) Basophils (%) (Auto) 1 % (0-3) Neutrophils # (Auto) 2.6 x10^3uL (1.8-7.7) Lymphocytes # (Auto) 0.5 x10^3/uL (1.0-4.8) Monocytes # (Auto) 0.3 x10^3/uL (0.0-1.1) Eosinophils # (Auto) 0.3 x10^3/uL (0.0-0.7) Basophils # (Auto) 0.0 x10^3/uL (0.0-0.2) Sodium Level 135 mmol/L (136-145) Potassium Level 5.4 mmol/L (3.5-5.1) Chloride Level 103 mmol/L (98-107) Carbon Dioxide Level 27 mmol/L (21-32) Anion Gap 5 (6-14) Blood Urea Nitrogen 52 mg/dL (7-20) Creatinine 3.4 mg/dL (0.6-1.0) Estimated GFR (Cockcroft-Gault) 13.1 BUN/Creatinine Ratio 15 (6-20) Glucose Level 101 mg/dL (70-99) Calcium Level 7.8 mg/dL (8.5-10.1) Total Bilirubin 0.8 mg/dL (0.2-1.0) Aspartate Amino Transf (AST/SGOT) 19 U/L (15-37) Alanine Aminotransferase (ALT/SGPT) 13 U/L (14-59) Alkaline Phosphatase 155 U/L (46-116) Total Protein 7.3 g/dL (6.4-8.2) Albumin 2.0 g/dL (3.4-5.0) Albumin/Globulin Ratio 0.4 (1.0-1.7) Test 10/26/17 11:41 10/26/17 16:29 10/26/17 20:38 10/27/17 08:09 Glucose (Fingerstick) 132 mg/dL (70-99) 98 mg/dL (70-99) 98 mg/dL (70-99) 62 mg/dL (70-99) Test 10/27/17 08:39 White Blood Count 4.3 x10^3/uL (4.0-11.0) Red Blood Count 2.52 x10^6/uL (3.50-5.40) Hemoglobin 8.4 g/dL (12.0-15.5) Hematocrit 25.8 % (36.0-47.0) Mean Corpuscular Volume 103 fL (79-100) Mean Corpuscular Hemoglobin 33 pg (25-35) Mean Corpuscular Hemoglobin Concent 33 g/dL (31-37) Red Cell Distribution Width 19.4 % (11.5-14.5) Platelet Count 84 x10^3/uL (140-400) Neutrophils (%) (Auto) 77 % (31-73) Lymphocytes (%) (Auto) 11 % (24-48) Monocytes (%) (Auto) 6 % (0-9) Eosinophils (%) (Auto) 6 % (0-3) Basophils (%) (Auto) 1 % (0-3) Neutrophils # (Auto) 3.3 x10^3uL (1.8-7.7) Lymphocytes # (Auto) 0.5 x10^3/uL (1.0-4.8) Monocytes # (Auto) 0.3 x10^3/uL (0.0-1.1) Eosinophils # (Auto) 0.2 x10^3/uL (0.0-0.7) Basophils # (Auto) 0.0 x10^3/uL (0.0-0.2) Sodium Level 132 mmol/L (136-145) Potassium Level 5.6 mmol/L (3.5-5.1) Chloride Level 100 mmol/L (98-107) Carbon Dioxide Level 25 mmol/L (21-32) Anion Gap 7 (6-14) Blood Urea Nitrogen 56 mg/dL (7-20) Creatinine 3.5 mg/dL (0.6-1.0) Estimated GFR (Cockcroft-Gault) 12.7 Glucose Level 64 mg/dL (70-99) Calcium Level 7.8 mg/dL (8.5-10.1) Laboratory Tests Test 10/26/17 16:29 10/26/17 20:38 10/27/17 08:09 10/27/17 08:39 Glucose (Fingerstick) 98 mg/dL (70-99) 98 mg/dL (70-99) 62 mg/dL (70-99) White Blood Count 4.3 x10^3/uL (4.0-11.0) Red Blood Count 2.52 x10^6/uL (3.50-5.40) Hemoglobin 8.4 g/dL (12.0-15.5) Hematocrit 25.8 % (36.0-47.0) Mean Corpuscular Volume 103 fL (79-100) Mean Corpuscular Hemoglobin 33 pg (25-35) Mean Corpuscular Hemoglobin Concent 33 g/dL (31-37) Red Cell Distribution Width 19.4 % (11.5-14.5) Platelet Count 84 x10^3/uL (140-400) Neutrophils (%) (Auto) 77 % (31-73) Lymphocytes (%) (Auto) 11 % (24-48) Monocytes (%) (Auto) 6 % (0-9) Eosinophils (%) (Auto) 6 % (0-3) Basophils (%) (Auto) 1 % (0-3) Neutrophils # (Auto) 3.3 x10^3uL (1.8-7.7) Lymphocytes # (Auto) 0.5 x10^3/uL (1.0-4.8) Monocytes # (Auto) 0.3 x10^3/uL (0.0-1.1) Eosinophils # (Auto) 0.2 x10^3/uL (0.0-0.7) Basophils # (Auto) 0.0 x10^3/uL (0.0-0.2) Sodium Level 132 mmol/L (136-145) Potassium Level 5.6 mmol/L (3.5-5.1) Chloride Level 100 mmol/L (98-107) Carbon Dioxide Level 25 mmol/L (21-32) Anion Gap 7 (6-14) Blood Urea Nitrogen 56 mg/dL (7-20) Creatinine 3.5 mg/dL (0.6-1.0) Estimated GFR (Cockcroft-Gault) 12.7 Glucose Level 64 mg/dL (70-99) Calcium Level 7.8 mg/dL (8.5-10.1) Medications Active Scripts Medications Dose Route/Sig Max Daily Dose Days Date Category Dose Instructions Alprazolam 0.25 Mg Tablet 1 Tab PO TID 10/21/17 Reported [dobutamine] 12.1 Ml IV DAILY PRN 10/21/17 Reported Zinc-220 (Zinc Sulfate) 220 Mg Capsule 220 Mg PO DAILY 08/29/17 Reported Vitamin C (Ascorbate Calcium) 500 Mg Tablet 500 Mg PO DAILY 08/29/17 Reported Multivitamins (Multivitamin) 1 Each Tablet 1 Tab PO DAILY 08/29/17 Reported Mucinex (Guaifenesin) 600 Mg Tablet.er 600 Mg PO PRN Q12HR PRN 08/29/17 Reported Albuterol Sulfate Conc Neb Soln (Albuterol Sulfate) 2.5 Mg/0.5 Ml Vial.neb 2.5 Mg NEB QID 08/29/17 Reported Potassium Chloride 20 Meq Tablet.er 20 Meq PO DAILY 08/05/17 Reported Bumetanide 1 Mg Tablet 1 Tab PO BID 08/05/17 Reported Humalog (Insulin Lispro) 100 Unit/1 Ml Insuln.pen 4 Units SQ TIDAC 03/05/17 Reported Lantus Solostar (Insulin Glargine,Hum.rec.anlog) 100 Unit/1 Ml Insuln.pen 24 Units SQ HS 03/05/17 Reported Atorvastatin Calcium 40 Mg Tablet 40 Mg PO HS 03/05/17 Reported Amiodarone Hcl 200 Mg Tablet 1 Tab PO DAILY 06/27/16 Reported Oxycodone Hcl 30 Mg Tablet 1 Tab PO Q6HRS PRN 11/28/15 Reported Synthroid (Levothyroxine Sodium) 75 Mcg Tablet 75 Mcg PO DAILY07 30 08/21/15 Rx Metoprolol Tartrate 25 Mg Tablet 25 Mg PO BID 07/22/13 Reported next dose tonight 12-14-15 at 9:00 pm Impression . 1. Acute on chronic respiratory failure. 2. Acute on chronic systolic and diastolic heart failure. 3. Abnormal x-ray compatible with congestive heart failure and pneumonia, suspect gram-negative, possibly gram-positive. 4. Type 2 diabetes. 5. Hypertension. 6. Cardiomyopathy with previous ejection fraction of 40-45%. 7. Acute on chronic kidney disease. 8. Protein malnutrition present upon admission. 10. PVD/VASCULAR INSUFFICIENCY TO ABD VESSELS Plan . RESP STATUS COMPENSATED MAY NEED PALLIATIVE CARE CONTINUE CURRENT RX REPEAT CXR TODAY TO ASSESS FOR RIGHT EFFUSION FOLLOW VASCULAR INPUT ABNORMAL RENAL FUNCTION LIMITS AGGRESSIVE DIURESIS PT/OT D/W RYAN CANTRELL MD Oct 27, 2017 11:48
[2017-10-27] MEDS: ACETAMINOPHEN 325 MG TABLET. PO PRN (14:46)
--- NOTE | 2017-10-27 15:34 | RAD ---
Portable chest, 10/27/2017: HISTORY: Effusion Comparison is made to a study from 10/21/2017. A right jugular central venous catheter remains in place extending into the inferior aspect of the superior vena cava. The heart is enlarged and unchanged. The pulmonary vascularity is prominent with poor vascular margination. There is a moderate unchanged right basilar opacity compatible with pleural fluid and underlying infiltrate and atelectasis. Left basilar opacities have improved slightly. No new pulmonary abnormality is seen. IMPRESSION: 1. Cardiomegaly with persistent vascular congestion. 2. Unchanged moderate sized right pleural effusion with underlying infiltrate. There are 2. Improved left basilar opacity compatible with a small pleural effusion and underlying atelectasis/infiltrate. Electronically signed by: Adalid Guzmán MD (10/27/2017 3:31 PM) [facility]
[2017-10-27] MEDS: QUEtiapine 25 MG TABLET. PO PRN (15:50)
[2017-10-27] MEDS ORDERED: LUBIPROSTONE 8 MCG CAPSULE PO SCH (17:00)
--- NOTE | 2017-10-27 18:03 | RAD ---
KUB History: Abdominal pain, constipation Comparison: CT October 21, 2017 Findings: 2 supine AP views of the abdomen are submitted. There is some gas scattered gas in the colon, no significant small bowel dilatation identified. There are again clips in the left abdomen. Exam is insufficient for the evaluation for free air. There is fixation hardware of the proximal left femur. Impression: 1. No significant small bowel dilatation is identified, scattered gas in the colon. Electronically signed by: Christiano Klein MD (10/27/2017 6:00 PM) [id number]
[2017-10-27] MEDS: ATORVASTATIN CALCIUM 40 MG TABLET. PO SCH (21:02)
[2017-10-27] MEDS: INSULIN GLARGINE 300 UNITS/3 ML INSULN.PEN. SQ SCH (21:02)
[2017-10-27] MEDS: PATCH REMOVAL. MC SCH (21:02)
[2017-10-28 02:50] VITALS: BP 130/56
[2017-10-28] MEDS: LEVOTHYROXINE 75 MCG TABLET PO SCH (06:15)
[2017-10-28] MEDS: PIPERACILLIN/TAZOBACTAM 2.25 GM in IV NORMAL SALINE 50ML 50 ML IV SCH ×2 (06:16→14:49)
[2017-10-28 07:15] VITALS: BP 108/61
[2017-10-28] MEDS: ALBUTEROL SULFATE 2.5 MG/3 ML NEBU. NEB SCH ×3 (08:07→15:47)
[2017-10-28] MEDS: LIDOCAINE (700MG/PATCH) PATCH. TD SCH (09:00)
[2017-10-28] MEDS: BUMETANIDE 1 MG TABLET. PO SCH (09:13)
[2017-10-28] MEDS: ZINC SULFATE 220 MG CAPSULE. PO SCH (09:13)
[2017-10-28] MEDS: AMIODARONE HCL 200 MG TABLET. PO SCH (09:13)
[2017-10-28] MEDS: MULTIVITAMIN with MINERAL TABLET. PO SCH (09:14)
[2017-10-28] MEDS: METOPROLOL TART IMMED RELEASE 25 MG TABLET. PO SCH (09:14)
[2017-10-28] MEDS: LACTOBACILLUS RHAMNOSUS GG 1 CAPSULE. PO SCH (09:14)
[2017-10-28] MEDS: ASCORBIC ACID 500 MG TABLET PO SCH (09:14)
[2017-10-28] MEDS: QUEtiapine 25 MG TABLET. PO PRN (09:14)
[2017-10-28] MEDS: ALPRAZolam 0.25 MG TABLET PO SCH ×2 (09:15→14:00)
[2017-10-28] MEDS: LINEZOLID 600 MG TABLET PO SCH (09:15)
[2017-10-28] MEDS: INSULIN LISPRO 300 UNITS/3 ML INSULN.PEN. SQ SCH ×2 (09:17→11:30)
--- NOTE | 2017-10-28 09:55 | PDOC ---
SUBJECTIVE ROS Stable OBJECTIVE Vital Signs Vital Signs Date Time Temp Pulse Resp B/P (MAP) Pulse Ox O2 Delivery O2 Flow Rate FiO2 10/28/17 09:15 98 Nasal Cannula 10/28/17 09:14 117 10/28/17 09:13 108/61 10/28/17 08:07 3.0 10/28/17 07:15 97.7 22 97.7 I & 0 Intake and Output 10/28/17 07:00 Intake Total 1240 ml Output Total 400 ml Balance 840 ml Intake Oral 1240 ml Output Urine Total 400 ml # Voids 2 # Bowel Movements 3 PHYSICAL EXAM Physical Exam GENERAL: NAD HEENT: Oral mucosa moist. On o2 by NC neck Supple LUNGS: Diminished aeration in the bases, Non labored HEART: S1 and S2. ABDOMEN: Obese. Bowel sounds active. EXTREMITIES: Generalized edema. Rt Side PICC ( Dobutamine Infusion) SKIN: No rash, NEUROLOGIC: Alert and oriented x 3. - No SP or CVA tenderness, No Hurtado DIAGNOSIS/ASSESSMENT Assessment & Plan ANDRE on CKD- multifactorial - cardiorenal/Single Kidney /Infection / She is on NSAID's as well She is not be a good candidate for Dialysis based on her cardiac status(as per Info available in our system ) Cautious with aggressive diuresis to avoid worsening renal function Renal US - Rt Kidney N, No Retention , nonobstructing right renal stone on CT , Lt nephrectomy UA neg for infection on 10/20 - hx of Recurrent UTI No labs available today Constipation- GI following Hyperkalemia- Mild,KCL listed in med list , recommend dc Monitor [id number] heart failure NYHA class IV, on chronic dobutamine infusion via tunneled PICC On Bumex Defer to cardiology CKD s/p Lt nephrectomy Bibasilar consolidation/ ? pneumonia Cellulitis of left lower extremity - better Discussed with Pt, recommend Palliative, defer to primary COMMENT/RELEVANT DATA Meds Current Medications Medications (Trade) Dose Ordered Sig/Ermias Start Time Stop Time Status Last Admin Dose Admin Acetaminophen (Tylenol) 650 mg PRN Q4HRS PRN 10/26/17 17:30 10/27/17 14:46 650 MG Albuterol Sulfate (Ventolin Neb Soln) 2.5 mg RTQID 10/22/17 08:00 10/28/17 08:07 2.5 MG Alprazolam (Xanax) 0.25 mg TID 10/21/17 22:00 10/28/17 09:15 0.25 MG Alteplase, Recombinant (Cathflo) 2 mg 1X ONCE 10/23/17 09:30 10/23/17 09:31 DC 10/23/17 09:32 2 MG Amiodarone HCl (Cordarone) 200 mg DAILY 10/22/17 09:00 10/28/17 09:13 200 MG Ascorbic Acid (Vitamin C) 500 mg DAILY 10/22/17 09:00 10/28/17 09:14 500 MG Atorvastatin Calcium (Lipitor) 40 mg HS 10/21/17 21:30 10/27/17 21:02 40 MG Bisacodyl (Dulcolax Supp) 10 mg 1X ONCE 10/27/17 08:15 10/27/17 08:16 DC 10/27/17 08:20 10 MG Bisacodyl (Dulcolax Tab) 10 mg 1X ONCE 10/23/17 13:00 10/23/17 13:01 DC 10/23/17 14:34 10 MG Bumetanide (Bumex) 1 mg [id number] 10/22/17 09:00 10/28/17 09:13 1 MG Celecoxib (CeleBREX) 200 mg BID 10/24/17 10:30 10/25/17 10:44 DC 10/25/17 08:32 200 MG Dextrose (Dextrose 50%-Water Syringe) 12.5 gm PRN Q15MIN PRN 10/27/17 08:15 Dobutamine HCl/ Dextrose 250 ml @ 13.008 mls/ hr CONT PRN 10/22/17 09:30 10/28/17 00:02 13.008 MLS/HR Furosemide (Lasix) 40 mg 1X ONCE 10/21/17 20:00 10/21/17 20:01 DC Guaifenesin (Mucinex) 600 mg PRN Q12HR PRN 10/21/17 21:15 Insulin Glargine (Lantus) 24 units HS 10/21/17 21:30 10/26/17 20:45 24 UNITS Insulin Human Lispro (HumaLOG) 4 units TIDAC 10/22/17 07:30 10/26/17 11:50 4 UNITS Lactobacillus Rhamnosus (Culturelle) 1 cap BID 10/22/17 21:00 10/28/17 09:14 1 CAP Levothyroxine Sodium (Synthroid) 75 mcg DAILY07 10/22/17 07:00 10/28/17 06:15 75 MCG Lidocaine (Lidoderm) 1 patch DAILY 10/26/17 14:00 10/27/17 08:08 1 PATCH Linezolid (Zyvox) 600 mg BID 10/26/17 09:00 10/28/17 09:15 600 MG Lubiprostone (Amitiza) 24 mcg BIDWMEALS 10/27/17 17:00 10/28/17 09:13 24 MCG Magnesium Citrate (Citroma) 296 ml PRN 1X PRN 10/26/17 17:30 10/26/17 18:25 296 ML Metoprolol Tartrate (Lopressor) 25 mg BID 10/21/17 21:30 10/28/17 09:14 25 MG Miscellaneous (Lidoderm Patch Removal) 1 ea QHS 10/26/17 21:00 10/27/17 21:02 1 EA Morphine Sulfate (Morphine Sulfate) 10 mg PRN Q2HR PRN 10/25/17 10:15 10/27/17 04:18 10 MG Multivitamins (Thera M Plus) 1 tab DAILY 10/22/17 09:00 10/28/17 09:14 1 TAB Naloxone HCl (Narcan) 0.4 mg 1X ONCE 10/25/17 17:30 10/25/17 17:31 DC Non-Formulary Medication (Albuterol Sulfate (Albuterol Sulfate Conc Neb Soln)) 2.5 mg QID 10/22/17 09:00 UNV Non-Formulary Medication ([dobutamine] ) 12.1 ml PRN DAILY PRN 10/21/17 21:30 10/22/17 12:00 DC Oxycodone HCl (Roxicodone) 30 mg PRN QID PRN 10/21/17 21:15 10/28/17 09:15 30 MG Piperacillin Sod/ Tazobactam Sod (Zosyn Per Pharmacy) 1 each PRN DAILY PRN 10/21/17 19:30 Piperacillin Sod/ Tazobactam Sod 2.25 gm/Sodium Chloride 50 ml @ 100 mls/hr Q8HRS 10/21/17 20:00 10/28/17 06:16 100 MLS/HR Potassium Chloride (Klor-Con) 20 meq DAILY 10/22/17 09:00 10/26/17 12:56 DC 10/24/17 08:23 20 MEQ Quetiapine Fumarate (SEROquel) 50 mg PRN Q8HRS PRN 10/27/17 15:45 10/28/17 09:14 50 MG Simethicone (Gas-X) 80 mg PRN AFTMEALHC PRN 10/25/17 10:15 10/26/17 10:41 80 MG Sodium Chloride 1,000 ml @ 999 mls/hr 1X ONCE 10/25/17 16:15 10/25/17 17:15 DC 10/25/17 16:15 999 MLS/HR Vancomycin HCl (Vanco Per Pharmacy) 1 each PRN DAILY PRN 10/21/17 20:00 10/24/17 14:50 DC 10/24/17 01:02 1 EACH Vancomycin HCl (Vancomycin Random Level) 1 each 1X ONCE 10/23/17 21:00 10/23/17 21:01 DC 10/23/17 21:00 1 EACH Vancomycin HCl 1.25 gm/Sodium Chloride 250 ml @ 167 mls/hr Q48H 10/23/17 22:00 10/23/17 22:00 DC Vancomycin HCl 1 gm/Sodium Chloride 250 ml @ 250 mls/hr Q48H 10/23/17 23:00 10/24/17 14:50 DC 10/23/17 22:49 250 MLS/HR Zinc Sulfate (Orazinc) 220 mg DAILY 10/22/17 09:00 10/28/17 09:13 220 MG Lab Laboratory Tests Test 10/27/17 11:50 10/27/17 17:41 10/27/17 21:01 10/28/17 07:33 Glucose (Fingerstick) 86 mg/dL (70-99) 77 mg/dL (70-99) 70 mg/dL (70-99) 97 mg/dL (70-99) Results All relevant outside records, renal labs, imaging studies, telemetry/EKG's were reviewed. DHRUV MCKEON MD Oct 28, 2017 09:55
--- NOTE | 2017-10-28 10:59 | RAD ---
CT of the chest without contrast, 10/28/2017: HISTORY: Pleural effusion Noncontrast scans were obtained. There as been a previous median sternotomy. There is extensive calcific plaquing of the thoracic aorta and its branches including the coronary arteries. No aortic aneurysm is evident. The heart is generally enlarged. A right jugular venous catheter extends into the superior vena cava. Several small mediastinal lymph nodes are seen without evidence of pathologic enlargement. There is a moderate size right pleural effusion. The right lower lobe is completely atelectatic. There is partial atelectasis of the right middle lobe. A small left pleural effusion is present with partial atelectasis of the left lower lobe. Interlobular septal thickening is present in both lungs compatible with interstitial edema. A component of pneumonia within these areas of atelectasis cannot be excluded. Limited views of the upper abdomen demonstrate hepatic irregularity compatible cirrhosis. Subcutaneous edema is present in the flank regions. Moderate scattered degenerative changes are present in the spine. There is a midthoracic vertebral compression fracture of indeterminate age. IMPRESSION: 1. Moderate sized right pleural effusion with complete atelectasis of the right lower lobe and partial atelectasis of the right middle lobe. 2. Small left pleural effusion with partial atelectasis of the left lower lobe. 3. Interlobular septal thickening in both lungs compatible with interstitial pulmonary edema. 4. Cardiomegaly with extensive calcific plaquing of the aorta and coronary arteries. 5. Hepatic cirrhosis. PQRS Compliance Statement: One or more of the following individualized dose reduction techniques were utilized for this examination: 1. Automated exposure control 2. Adjustment of the mA and/or kV according to patient size 3. Use of iterative reconstruction technique Electronically signed by: Adalid Guzmán MD (10/28/2017 10:56 AM) [facility]
[2017-10-28 11:15] VITALS: BP 92/55
--- NOTE | 2017-10-28 11:27 | PDOC ---
PULMONARY PROGRESS NOTES Subjective PT TIRED AND SOA AT TIMES Vitals Vital Signs Date Time Temp Pulse Resp B/P (MAP) Pulse Ox O2 Delivery O2 Flow Rate FiO2 10/28/17 09:15 98 Nasal Cannula 10/28/17 09:14 117 10/28/17 09:13 108/61 10/28/17 08:07 3.0 10/28/17 07:15 97.7 22 97.7 ROS: No Nausea, No Chest Pain, No Increase Cough General: Alert, No acute distress Lungs: Other (decrease bs left base) Cardiovascular: S1, S2 Abdomen: Soft, Non-tender Neuro Exam: Alert Extremities: Other (EDEMA) Skin: Warm Labs Laboratory Tests Test 10/26/17 11:41 10/26/17 16:29 10/26/17 20:38 10/27/17 08:09 Glucose (Fingerstick) 132 mg/dL (70-99) 98 mg/dL (70-99) 98 mg/dL (70-99) 62 mg/dL (70-99) Test 10/27/17 08:39 10/27/17 11:50 10/27/17 17:41 10/27/17 21:01 White Blood Count 4.3 x10^3/uL (4.0-11.0) Red Blood Count 2.52 x10^6/uL (3.50-5.40) Hemoglobin 8.4 g/dL (12.0-15.5) Hematocrit 25.8 % (36.0-47.0) Mean Corpuscular Volume 103 fL (79-100) Mean Corpuscular Hemoglobin 33 pg (25-35) Mean Corpuscular Hemoglobin Concent 33 g/dL (31-37) Red Cell Distribution Width 19.4 % (11.5-14.5) Platelet Count 84 x10^3/uL (140-400) Neutrophils (%) (Auto) 77 % (31-73) Lymphocytes (%) (Auto) 11 % (24-48) Monocytes (%) (Auto) 6 % (0-9) Eosinophils (%) (Auto) 6 % (0-3) Basophils (%) (Auto) 1 % (0-3) Neutrophils # (Auto) 3.3 x10^3uL (1.8-7.7) Lymphocytes # (Auto) 0.5 x10^3/uL (1.0-4.8) Monocytes # (Auto) 0.3 x10^3/uL (0.0-1.1) Eosinophils # (Auto) 0.2 x10^3/uL (0.0-0.7) Basophils # (Auto) 0.0 x10^3/uL (0.0-0.2) Sodium Level 132 mmol/L (136-145) Potassium Level 5.6 mmol/L (3.5-5.1) Chloride Level 100 mmol/L (98-107) Carbon Dioxide Level 25 mmol/L (21-32) Anion Gap 7 (6-14) Blood Urea Nitrogen 56 mg/dL (7-20) Creatinine 3.5 mg/dL (0.6-1.0) Estimated GFR (Cockcroft-Gault) 12.7 Glucose Level 64 mg/dL (70-99) Calcium Level 7.8 mg/dL (8.5-10.1) Glucose (Fingerstick) 86 mg/dL (70-99) 77 mg/dL (70-99) 70 mg/dL (70-99) Test 10/28/17 07:33 Glucose (Fingerstick) 97 mg/dL (70-99) Laboratory Tests Test 10/27/17 11:50 10/27/17 17:41 10/27/17 21:01 10/28/17 07:33 Glucose (Fingerstick) 86 mg/dL (70-99) 77 mg/dL (70-99) 70 mg/dL (70-99) 97 mg/dL (70-99) Medications Active Scripts Medications Dose Route/Sig Max Daily Dose Days Date Category Dose Instructions Alprazolam 0.25 Mg Tablet 1 Tab PO TID 10/21/17 Reported [dobutamine] 12.1 Ml IV DAILY PRN 10/21/17 Reported Zinc-220 (Zinc Sulfate) 220 Mg Capsule 220 Mg PO DAILY 08/29/17 Reported Vitamin C (Ascorbate Calcium) 500 Mg Tablet 500 Mg PO DAILY 08/29/17 Reported Multivitamins (Multivitamin) 1 Each Tablet 1 Tab PO DAILY 08/29/17 Reported Mucinex (Guaifenesin) 600 Mg Tablet.er 600 Mg PO PRN Q12HR PRN 08/29/17 Reported Albuterol Sulfate Conc Neb Soln (Albuterol Sulfate) 2.5 Mg/0.5 Ml Vial.neb 2.5 Mg NEB QID 08/29/17 Reported Potassium Chloride 20 Meq Tablet.er 20 Meq PO DAILY 08/05/17 Reported Bumetanide 1 Mg Tablet 1 Tab PO BID 08/05/17 Reported Humalog (Insulin Lispro) 100 Unit/1 Ml Insuln.pen 4 Units SQ TIDAC 03/05/17 Reported Lantus Solostar (Insulin Glargine,Hum.rec.anlog) 100 Unit/1 Ml Insuln.pen 24 Units SQ HS 03/05/17 Reported Atorvastatin Calcium 40 Mg Tablet 40 Mg PO HS 03/05/17 Reported Amiodarone Hcl 200 Mg Tablet 1 Tab PO DAILY 06/27/16 Reported Oxycodone Hcl 30 Mg Tablet 1 Tab PO Q6HRS PRN 11/28/15 Reported Synthroid (Levothyroxine Sodium) 75 Mcg Tablet 75 Mcg PO DAILY07 30 08/21/15 Rx Metoprolol Tartrate 25 Mg Tablet 25 Mg PO BID 07/22/13 Reported next dose tonight 12-14-15 at 9:00 pm Impression . 1. Acute on chronic respiratory failure. 2. Acute on chronic systolic and diastolic heart failure. 3. Abnormal x-ray compatible with congestive heart failure and pneumonia, suspect gram-negative, possibly gram-positive. 4. Type 2 diabetes. 5. Hypertension. 6. Cardiomyopathy with previous ejection fraction of 40-45%. 7. Acute on chronic kidney disease. 8. Protein malnutrition present upon admission. 10. PVD/VASCULAR INSUFFICIENCY TO ABD VESSELS Plan . RESP STATUS COMPENSATED MAY NEED PALLIATIVE CARE CONTINUE CURRENT RX CT CHEST 10/28 REVIEWED/ MILD TO MODERATE RIGHT EFFUSION/ MONITOR FOR NOW FOLLOW VASCULAR INPUT ABNORMAL RENAL FUNCTION LIMITS AGGRESSIVE DIURESIS PT/OT D/W RN/RYNA CASTANO MD Oct 28, 2017 11:27
--- NOTE | 2017-10-28 12:44 | PDOC ---
Infectious Disease Note Subjective Subjective Less left flank pain s/p BM times 2 No F/C/N/V/D/SOA/cough/CP/Rash ROS ROS o/w neg Vital Sign Vital Signs Vital Signs Date Time Temp Pulse Resp B/P (MAP) Pulse Ox O2 Delivery O2 Flow Rate FiO2 10/28/17 11:38 100 Nasal Cannula 3.0 10/28/17 11:15 97.7 90 22 92/55 (67) 97.7 Physical Exam PHYSICAL EXAM GENERAL: Propped up in bed, alert, NAD, appears comfortable and trying to eat HEENT: Normal conjunctivae. Oral mucosa is pink and moist. Edentulous/ dentures LUNGS: Diminished aeration in the bases. HEART: S1 and S2. ABDOMEN: Obese. Bowel sounds active. Soft and NT EXTREMITIES: Generalized edema. No cyanosis. Left lower extremity less red; small anterior scab noted - clean under dressing SKIN: Warm without rash. NEUROLOGIC: Alert and oriented x 3. Right-sided PICC (POA) without signs of any complications. Labs Lab Laboratory Tests Test 10/27/17 17:41 10/27/17 21:01 10/28/17 07:33 10/28/17 12:31 Glucose (Fingerstick) 77 mg/dL (70-99) 70 mg/dL (70-99) 97 mg/dL (70-99) 131 mg/dL (70-99) Micro Microbiology 10/21/17 Blood Culture - Preliminary, Resulted NO GROWTH AFTER 4 DAYS Objective Assessment Bibasilar consolidation, pneumonia cannot be ruled out - Mild to mod pleural effusion on CT today Cellulitis of left lower extremity - better Constipation [id number] heart failure NYHA class IV, on chronic dobutamine infusion via tunneled PICC (POA) Sulfa allergy - reaction unknown Pancytopenia ANDRE on CKD. h/o left nephrectomy Left flank pain w/ a nonobstructing right renal stone. UA neg for infection - Gi and surgery following. U/S neg for hydro on the right Amiodarone therapy DM h/o MRSE discitis h/o Klebsiella UTI Plan Plan of Care Given renal function and h/o left nephrectomy would recommend avoiding nephrotoxic agents. Continue Zosyn (10/21), renal dosing. Add Zyvox - (10/26) Sputum culture not collected Seen by urology, no urological interventions planned Needs palliative eval ? transfer to [facility] HUNTER SELF MD Oct 28, 2017 12:44
--- NOTE | 2017-10-28 13:02 | PDOC ---
Subjective: Subjective: Not much meaningful history from her - asks me to adjust her bed, something might be caught in her throat - resolved w/ sipping water. Objective: Objective: Reviewed w/ RN - significant stooling yesterday, plans to DC to [facility] today. Vital Signs: Vital Signs Date Time Temp Pulse Resp B/P (MAP) Pulse Ox O2 Delivery O2 Flow Rate FiO2 10/28/17 11:38 100 Nasal Cannula 3.0 10/28/17 11:15 97.7 90 22 92/55 (67) 97.7 Labs: Laboratory Tests Test 10/27/17 17:41 10/27/17 21:01 10/28/17 07:33 10/28/17 12:31 Glucose (Fingerstick) 77 mg/dL 70 mg/dL 97 mg/dL 131 mg/dL PE: GEN: NAD LUNGS: diminished HEART: distant ABD: no left-sided tenderness NEURO/PSYCH: A & O 3 A/P: Left abd pain, constipation - improved -- DC per primary. JOB MONTERROSO Oct 28, 2017 13:02
[2017-10-28] MEDS: MORPHINE SULFATE 10 MG/ML VIAL. IV PRN (14:49)
[2017-10-28 15:15] VITALS: BP 95/69
--- NOTE | 2017-10-28 22:01 | PN ---
DATE: 10/28/2017 LOCATION: She is in room 202. SUBJECTIVE: The patient is sound asleep, resting comfortably. O2 is in place. Discussed with nursing who felt like she has been much more comfortable ____ denied after two large bowel movements. I reviewed all the medical records, particularly related to the Cardiology. Thoughts of right heart catheterization are okay with me if it would change therapy to improve her and she is agreeable. OBJECTIVE: VITAL SIGNS: Stable. She is afebrile. CHEST: Reveals diminished breath sounds. HEART: Irregular rate in the 80s. ABDOMEN: Soft, nontender, without hepatosplenomegaly or mass. EXTREMITIES: Without cyanosis, clubbing. Stable edema. ASSESSMENT: 1. Ongoing abdominal pain, multifactorial, but at least partially constipated, related. 2. Pneumonia with ongoing treatment. 3. Cardiomyopathy, on continuous dobutamine drip. 4. Diabetes, well controlled. 5. Chronic kidney disease with worsening with diuresis. 6. Atrial fibrillation. 7. Anemia. PLAN: We will continue present care at this point in time. Nursing reports that [facility] is an option at discharge, which I suppose would be reasonable. Otherwise, we will continue present care with ongoing laxatives and defer to Cardiology as far as heart catheterization. Incidentally, the patient did quite well for a long period of time on milrinone until taken off was out of the hospital for over a year and it would seem that just on the basis of that the milrinone may be a better therapy cardiomyopathy bansal for her signs. CRISTY ARANGO MD DR: DARIEL/rob JOB#: [id number] / [id number]
== END 2017-10-28 17:57 | DRG 682 ==
LOC: ER 16:21 → 5 NORTH 19:12 → 2 NORTH 22:11
PROVIDERS: ADMIT Family Medicine; ATTEND Family Medicine
DX: N17.9 Acute kidney failure, unspecified (principal); I50.43 Acute on chronic combined systolic (congestive) and diastolic (congestive) heart failure; J96.20 Acute and chronic respiratory failure, unspecified whether with hypoxia or hypercapnia; J18.9 Pneumonia, unspecified organism; I13.0 Hypertensive heart and chronic kidney disease with heart failure and stage 1 through stage 4 chronic kidney disease, or unspecified chronic kidney disease; J44.0 Chronic obstructive pulmonary disease with (acute) lower respiratory infection; E46 Unspecified protein-calorie malnutrition; L03.116 Cellulitis of left lower limb; D61.818 Other pancytopenia; I42.9 Cardiomyopathy, unspecified; I48.91 Unspecified atrial fibrillation; N18.9 Chronic kidney disease, unspecified; E11.22 Type 2 diabetes mellitus with diabetic chronic kidney disease; E03.9 Hypothyroidism, unspecified; I25.10 Atherosclerotic heart disease of native coronary artery without angina pectoris; Y95 Nosocomial condition; G89.29 Other chronic pain; M54.9 Dorsalgia, unspecified; F17.200 Nicotine dependence, unspecified, uncomplicated; I50.84 End stage heart failure; M19.90 Unspecified osteoarthritis, unspecified site; N20.0 Calculus of kidney; I95.9 Hypotension, unspecified; D63.8 Anemia in other chronic diseases classified elsewhere; E78.5 Hyperlipidemia, unspecified; K80.20 Calculus of gallbladder without cholecystitis without obstruction; Z96.642 Presence of left artificial hip joint; Z79.2 Long term (current) use of antibiotics; Z95.1 Presence of aortocoronary bypass graft; Z88.2 Allergy status to sulfonamides; Z90.5 Acquired absence of kidney; Z82.49 Family history of ischemic heart disease and other diseases of the circulatory system; Z16.11 Resistance to penicillins
CPT/HCPCS: 36415; 71045; 71250; 74018; 74176; 76770; 80048; 80053; 80202; 81001; 82565; 82962; 83690; 83880; 84484; 85025; 85610; 87040; 93005; 93976; 94640; 94760; J1250; J1815; J2270; J2543; J2997; J3370; J7030; J7050; J7613; 99285-25